=== PATIENT | female | born 1945 | race Caucasian/White ===

== ENCOUNTER 2016-12-27 04:58 | Inpatient (IN) | payer MEDICARE ==
[~2016-12-27] VITALS: Ht 165.1 cm; Wt 89.5 kg
--- NOTE | 2016-12-27 05:50 | REPUSA ---
CLINICAL HISTORY: Trauma. TECHNIQUE: Multiple axial CT images were obtained through the brain without IV contrast material. COMMENTS: There is normal configuration of sella turcica. There are no intra or extra-axial collections. There is no mass effect or midline shift. There is no evidence of hematoma formation. No hydrocephalus is p resent. The ventricles are symmetrical. No abnormal calcifications are present. There is diffuse age-appropriate cerebellar and cerebral atrophy with proportionally dilated ventricl es and cortical sulci. There are bilateral periventricular and subcortical white matter hypolucencies compatible with mild c hronic microvascular disease. Otherwise, no significant focal abnormalities are seen either in the posterior fossa or supratentoria l compartment. IMPRESSION: 1. Age-appropriate cerebellar and cerebral atrophy. 2. Mild chronic microvascular disease. 3. No evidence of acute intracranial pathology. Thank you for your kind referral of this patient.
[2016-12-27 05:53] LABS: BASO % 1.1 % (0.0-1.0); EOS # 0.3 10^3/uL (0.0-0.50); EOS % 7.1 % (0.0-3.0); LYMPH # 0.8 10^3/uL (1.5-4.5); LYMPH % 22.7 % (24.0-44.0); MEAN CORPUSCULAR HEMOGLOBIN 29.1 pg (27.0-33.0); MEAN CORPUSCULAR HGB CONC 33.6 g/dl (32.0-36.5); MEAN CORPUSCULAR VOLUME 86.6 fl (80.0-96.0); MONO # 0.3 10^3/uL (0.0-0.8); MONO % 8.2 % (0.0-5.0); NEUTROPHILS # 2.2 10^3/uL (1.8-7.7); NEUTROPHILS % 60.9 % (36.0-66.0); RED CELL DISTRIBUTION WIDTH 14.2 % (11.5-14.5); WHITE BLOOD COUNT 3.5 10^3/uL (4.0-10.0)
[2016-12-27 06:21] LABS: PLATELET COUNT, AUTOMATED 98 10^3/uL (150-450)
[2016-12-27 06:22] LABS: IMMATURE PLATELET FRACTION % 2.6 % (0.0-9.6)
[2016-12-27 06:23] LABS: ALBUMIN 2.7 GM/DL (3.2-5.2); ALBUMIN/GLOBULIN RATIO 0.69 (1.00-1.93); BILIRUBIN,DIRECT 0.1 MG/DL (0.0-0.2); BILIRUBIN,TOTAL 0.5 MG/DL (0.2-1.0); CALCIUM LEVEL 8.2 MG/DL (8.8-10.2); CREATININE FOR GFR 1.29 MG/DL (0.55-1.02); GLOMERULAR FILTRATION RATE 43.2 (>39); POTASSIUM SERUM 3.4 MEQ/L (3.5-5.1); TOTAL PROTEIN 6.6 GM/DL (6.4-8.2)
[2016-12-27] MEDS ORDERED: NS 1,000 ML IV SCH (07:06)
--- NOTE | 2016-12-27 07:40 | REP ---
Portable chest, 05:45 a.m., single AP view the patient semi upright: There are no comparisons. There are sternotomy wires and cardiomegaly. Lung kaur are clear. The amari, mediastinum, and bony thorax are unremarkable. Impression: Cardiomegaly. No acute cardiopulmonary findings. Signed by Kentrell Santos MD 12/27/2016 07:32 A
--- NOTE | 2016-12-27 07:41 | REP ---
Left shoulder single AP view: There are no comparisons. There is an old healed fracture of the humeral shaft. There is no glenohumeral dislocation. No acute fracture. The acromioclavicular joint is normal. There is diffuse demineralization. There are no calcifications or foreign bodies. Impression: Old healed humeral shaft fracture. Demineralization. No acute fracture or dislocation. Signed by Kentrell Santos MD 12/27/2016 07:33 A
--- NOTE | 2016-12-27 07:43 | REP ---
Lumbar spine two views AP and lateral projections: There are no comparisons. Vertebral body heights and alignment are normal. There is degenerative disc disease at every lumbar level. There is scoliosis convex left in the mid to upper lumbar spine. There is no spondylolisthesis. There is demineralization. Impression: No compression deformity or listhesis. Demineralization and multilevel degenerative disc disease. Signed by Kentrell Santos MD 12/27/2016 07:35 A
[2016-12-27] MEDS ORDERED: PATIENT COMMENT (08:07)
[2016-12-27] MEDS ORDERED: hydrALAZINE INJ 20 MG/ML VIAL IV STA ×2 (08:19→09:56)
[2016-12-27] MEDS ORDERED: ENOXAPARIN 30 MG/0.3 ML SYR (J1650) SC SCH (09:00)
[2016-12-27] MEDS ORDERED: NICOTINE 7 MG/24 HR TRANSDERMAL TD SCH (09:00)
--- NOTE | 2016-12-27 09:22 | ECGEPIP ---
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
[2016-12-27] MEDS ORDERED: NITROGLYCERIN 2% OINT 1 GM *U/D* PKT TOP ONE ×2 (11:30→22:00)
[2016-12-27 12:00] VITALS: BP 194/92
[2016-12-27 13:20] VITALS: BP 188/86
[2016-12-27] MEDS: hydrALAZINE INJ 20 MG/ML VIAL IV SCH (15:35)
[2016-12-27 16:05] VITALS: BP 200/92
[2016-12-27] MEDS ORDERED: cloNIDine 0.1 MG TAB PO ONE (16:15)
[2016-12-27 20:00] VITALS: BP 210/70
[2016-12-27 20:05] VITALS: BP 218/68
--- NOTE | 2016-12-27 20:45 | ECGEPIP ---
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
[2016-12-27] MEDS: ACETAMINOPHEN TAB 650MG DOSE (2X325MG) PO PRN (21:07)
[2016-12-27] MEDS: cloNIDine 0.1 MG TAB PO SCH (21:07)
--- NOTE | 2016-12-27 21:46 | HPEPDOC ---
[facility] Medical History & Physical Date of Admission Dec 27, 2016 Primary Care Physician: TYRA BOOKER MD [facility] Attending Physician: LEOPOLDO ANDERSON DO History and Physical CHIEF COMPLAINT: [altered mentation] HISTORY OF PRESENT ILLNESS: [71 yo female brought in by EMS after son called local police for her having episodes of hallucinations and confusion. No prior history of similar episodes. Very limited history given by patient due to mildly confused by pleasant to talk to. No appearant history of head trauma although her son relates that he believes shes fallen at least once in the past few days. Again limited history from patient and son as well. Will try to get records from her Primary Care Provider.] PAST MEDICAL HISTORY: Unknown PAST SURGICAL HISTORY: Unknown SOCIAL HISTORY: quit smoking and drinking alcohol about 10yrs ago. FAMILY HISTORY: noncontributory ALLERGIES: Please see below. REVIEW OF SYSTEMS: Denies h/a, blurred or visual changes, no CP, dyspnea, productive sputum, cough , hemoptysis, MCGEE, Orthopnea, or lower extremity edema. HOME MEDICATIONS: Please see below. PHYSICAL EXAMINATION: VITAL SIGNS: see below with repeated elevated BPs GENERAL APPEARANCE: [NAD, pleasantly confused ]. HEENT: [PERRLA, throat clear, neck supple, no JVD]. CARDIOVASCULAR: [RRR]. LUNGS: [CTA bilaterally]. ABDOMEN: [soft, NT/ND, normoactive no rebound]. MUSCULOSKELETAL: [no gross deformities]. EXTREMITIES: [trace ankle edema]. NEUROLOGICAL: [CN II-XII grossly intact]. PSYCHIATRIC: [negative history]. LABORATORY DATA: See below. 12 lead ECG: SINUS BRADYCARDIA POSSIBLE LEFT ATRIAL ENLARGEMENT LEFT VENTRICULAR HYPERTROPHY AND ST-T CHANGE VS ISCHEMIA INFERIOR MYOCARDIAL INFARCTION, OF INDETERMINATE AGE, CLINICAL CORRELATION PROLONGED QTC ANTEROSEPTAL MYOCARDIAL INFARCTION, OF INDETERMINATE AGE, CLINICAL CORRELATION NO PRIOR FOR COMPARISON IMAGING: [ NON CONTRAST HEAD CT: 1. Age-appropriate cerebellar and cerebral atrophy. 2. Mild chronic microvascular disease. 3. No evidence of acute intracranial pathology. CXR: Cardiomegaly. No acute cardiopulmonary findings. LEFT SHOULDER XRAY: Old healed humeral shaft fracture. Demineralization. No acute fracture or dislocation. XRAY L/S SPINE: No compression deformity or listhesis. Demineralization and multilevel degenerative disc disease.] MICROBIOLOGY: Please see below. IMPRESSION: 71 yo female with altered mentation and hallucinations brought to ED by EMS after son was concerned about this change. Negative Head CT and preliminary work up unremarkable. She will need U/A, possible UC and better control of her BP. While in the ED she was given multiple doses with little improvement. Will need admitted to PCU for close follow up and further managment. PROBLEM LIST: 1. METABOLIC ENCEPHALOPATHY 2. HYPERTENSIVE URGENCY/EMERGENCY 3. ELEVATED TSH with no baseline. PLAN: Admit to PCU on tele, cycle cardiac markers and modify BP control started with Hydralazine, Clonidine and topical nitroglycerine. Avoided Beta-jonny or Calcium channel jonny due to her bradycardia. Will attempt to lower BP for target SBP <180 in the next 24 hrs. She demonstrates no electrolyte abnormality but may need to consider broader differential for her difficult to treat HTN. Repeat thyroid profile, add renal u/s and may need further assistance from nephrology or hypertensive specialist should the need arise. Will request records and current medication list from Dr. Booker's office. DVT Prophylaxis: Lovenox Prognosis: guarded ADVANCE DIRECTIVES: PATIENT'S SON INFORMS ME SHE IS DNR/DNI and will try to bring MOLST in tomorrow. Disposition: currently unclear until BP better controlled and definitive diagnosis is formalized. Vital Signs Vital Signs Date Time Temp Pulse Resp B/P (MAP) Pulse Ox O2 Delivery O2 Flow Rate FiO2 12/27/16 21:07 220/62 12/27/16 20:00 96.8 65 20 96 Room Air Laboratory Data Labs 24H Laboratory Tests 2 12/27/16 05:10: Bedside Glucose (Misc Panel) 137H 12/27/16 05:40: Immature Granulocyte % (Auto) 0.0, White Blood Count 3.5L, Red Blood Count 4.64 , Hemoglobin 13.5, Hematocrit 40.2, Mean Corpuscular Volume 86.6, Mean Corpuscular Hemoglobin 29.1, Mean Corpuscular Hemoglobin Concent 33.6, Red Cell Distribution Width 14.2, Platelet Count 98L, Neutrophils (%) (Auto) 60.9, Lymphocytes (%) (Auto) 22.7L, Monocytes (%) (Auto) 8.2H, Eosinophils (%) (Auto) 7.1H, Basophils (%) (Auto) 1.1H, Neutrophils # (Auto) 2.2, Lymphocytes # (Auto) 0.8L, Monocytes # (Auto) 0.3, Eosinophils # (Auto) 0.3, Basophils # (Auto) 0.0, Immature Granulocyte # (Auto) 0.0, Nucleated Red Blood Cells % (auto) 0.0, Immature Platelet Fraction 2.6, Anion Gap 8, Glomerular Filtration Rate 43.2, Lactic Acid Level 0.9, Calcium Level 8.2L, Aspartate Amino Transf (AST/SGOT) 37 , Alanine Aminotransferase (ALT/SGPT) 20, Alkaline Phosphatase 113, Total Bilirubin 0.5, Direct Bilirubin 0.1, Ammonia 14, Total Creatine Kinase 190, Creatine Kinase MB 2.0, Creatine Kinase MB Relative Index 1.05, Troponin I 0.06 , Total Protein 6.6, Albumin 2.7L, Albumin/Globulin Ratio 0.69L, Thyroid Stimulating Hormone (TSH) 6.240H 12/27/16 09:03: Urine Appearance HAZY, Urine Color YELLOW, Urine pH 5.0, Urine Specific [place] 1.014, Urine Protein 3+H, Urine Glucose (UA) 1+H, Urine Ketones NEGATIVE, Urine Urobilinogen 0.2, Urine Bilirubin NEGATIVE, Urine Leukocyte Esterase NEGATIVE, Urine Blood 1+H, Urine Nitrite NEGATIVE, Urine WBC (Auto) 11H, Urine RBC (Auto) 3, Urine Hyaline Casts (Auto) 0, Urine Bacteria (Auto) 3+H, Urine Squamous Epithelial Cells 0, Urine Sperm (Auto) 12/27/16 13:45: Total Creatine Kinase 134, Creatine Kinase MB 1.6, Creatine Kinase MB Relative Index 1.19, Troponin I 0.05 CBC/BMP Laboratory Tests 12/27/16 05:40 Red Blood Count 4.64, Mean Corpuscular Volume 86.6, Mean Corpuscular Hemoglobin 29.1, Mean Corpuscular Hemoglobin Concent 33.6, Red Cell Distribution Width 14.2 , Neutrophils (%) (Auto) 60.9, Lymphocytes (%) (Auto) 22.7 L, Monocytes (%) ( Auto) 8.2 H, Eosinophils (%) (Auto) 7.1 H, Basophils (%) (Auto) 1.1 H, Neutrophils # (Auto) 2.2, Lymphocytes # (Auto) 0.8 L, Monocytes # (Auto) 0.3, Eosinophils # (Auto) 0.3, Basophils # (Auto) 0.0 Home Medications Miscellaneous Medications [Patient Comment ] PT STATES SHE STOPPED TAKING HER MEDS Allergies Coded Allergies: No Known Allergies (Unverified , 12/27/16) LEOPOLDO ANDERSON DO Dec 27, 2016 21:46
[2016-12-27 22:32] VITALS: BP 180/60
[2016-12-28] VITALS (7 sets, daily range): BP systolic 139–180; BP diastolic 60–76
[2016-12-28] MEDS: hydrALAZINE INJ 20 MG/ML VIAL IV SCH ×4 (00:07→23:45)
[2016-12-28] MEDS ORDERED: GLUCOSE 4 GM CHEW TABLET PO PRN (01:00)
[2016-12-28] MEDS ORDERED: DEXTROSE 50% 50 ML SYRINGE IV PRN (01:00)
[2016-12-28] MEDS ORDERED: GLUCAGON FOR INJ 1 MG VIAL (J1610) SC PRN (01:00)
[2016-12-28] MEDS ORDERED: ASPIRIN 81 MG CHEW TABLET PO ONE (01:30)
[2016-12-28 06:11] LABS: MEAN CORPUSCULAR HEMOGLOBIN 29.9 pg (27.0-33.0); MEAN CORPUSCULAR HGB CONC 34.1 g/dl (32.0-36.5); MEAN CORPUSCULAR VOLUME 87.8 fl (80.0-96.0); RED CELL DISTRIBUTION WIDTH 14.6 % (11.5-14.5); WHITE BLOOD COUNT 3.9 10^3/uL (4.0-10.0)
[2016-12-28 06:12] LABS: PLATELET COUNT, AUTOMATED 83 10^3/uL (150-450)
[2016-12-28 06:13] LABS: IMMATURE PLATELET FRACTION % 4.1 % (0.0-9.6)
[2016-12-28 06:40] LABS: CREATININE FOR GFR 1.43 MG/DL (0.55-1.02); GLOMERULAR FILTRATION RATE 38.4 (>39); POTASSIUM SERUM 3.5 MEQ/L (3.5-5.1)
[2016-12-28] MEDS: ATORVASTATIN 10 MG TAB PO SCH (08:52)
[2016-12-28] MEDS: cloNIDine 0.1 MG TAB PO SCH ×3 (08:53→20:22)
[2016-12-28] MEDS: HumaLOG INSULIN (NovoLOG) PER UNIT SC SCH ×4 (09:09→21:24)
[2016-12-28] MEDS: ACETAMINOPHEN TAB 650MG DOSE (2X325MG) PO PRN (09:27)
--- NOTE | 2016-12-28 15:04 | IPNPDOC ---
Date Seen The patient was seen on 12/28/16. Progress Note SUBJECTIVE: Patient is a 71 yo female seen this morning at bedside. Resting comfortably. Had issues with elevated BP through the night. Currently denies: CP , Productive cough, SOB/MCGEE, n/v/d, f/c/r, visual changes. Recognized she had some hallucinations through the night but better this morning. OBJECTIVE PHYSICAL EXAMINATION: VITAL SIGNS: Please see below. GENERAL: [NAD, A&OX3 PLEASANT] HEENT: [PERRLA, Throat clear, neck supple, no JVD] CARDIOVASCULAR: [RRR]. RESPIRATORY: [CTA Bilaterally]. ABDOMINAL: [soft, NT/ND, normoactive bowel sounds] EXTREMITIES: [trace edema, no calf tenderness] NEUROLOGICAL: [CN'S II-XII Grossly intact, no focal deficits] PSYCHOLOGICAL: [negative] LABORATORY DATA: Please see below. Echocardiogram: [pending]. Renal Doppler: pending DVT prophylaxis ordered?: [yes] ASSESSMENT AND PLAN: This is a 71 yo female with hypertensive urgency/emergency and chest pain last night. She has been difficult to get her BP under better control and had a bump in her troponin. PROBLEMS: 1. METABOLIC ENCEPHALOPATHY: some improvement from yesterday but had a hallucination through the night. Likely secondary to her elevated BP. 2. HYPERTENSIVE URGENCY/EMERGENCY: she had an episode of CP through night, started on ASA and Statin, Troponin bump noted. Echo pending and consult placed for cardiology assistance. 3. ELEVATED TSH with no baseline: thyroid profile ok. 4. CEE: mild increase in creatinine, avoid nephrotoxic drugs and hopefully achieve better control of her BP. Renal Doppler pending. Disposition: continue on telemetry, obtain records from Dr. Booker's office to hopefully review her medication list. Appreciate assistance from Cardiology. VS, I&O, 24H, Fishbone Vital Signs/I&O Vital Signs Date Time Temp Pulse Resp B/P (MAP) Pulse Ox O2 Delivery O2 Flow Rate FiO2 12/28/16 11:14 97.6 67 16 160/60 (93) 97 Room Air I&O- Last 24 Hours up to 6 AM 12/29/16 06:00 Intake Total 600 ml Output Total 0 ml Balance 600 ml Laboratory Data 24H LABS Laboratory Tests 2 12/27/16 22:33: Total Creatine Kinase 92, Creatine Kinase MB 1.5, Creatine Kinase MB Relative Index 1.63, Troponin I 0.24#H 12/28/16 00:50: Bedside Glucose (Misc Panel) 133H 12/28/16 05:44: Total Creatine Kinase 73, Creatine Kinase MB 1.4, Creatine Kinase MB Relative Index 1.91, Troponin I 0.21H, Anion Gap 9, Glomerular Filtration Rate 38.4L, Calcium Level 8.0L, Triglycerides Level 255H, LDL Cholesterol 114.0H, Total Cholesterol 198, Non-HDL Cholesterol (LDL + VLDL) 165, Total HDL Cholesterol 33L , Cholesterol/HDL Ratio 6.000H, Thyroid Stimulating Hormone (TSH) 4.180H, Free Thyroxine Index 3.5, Thyroxine (T4) 11.0, Triiodothyronine (T3) Uptake 32 12/28/16 05:45: Nucleated Red Blood Cells % (auto) 0.0, Immature Platelet Fraction 4.1 CBC/BMP Laboratory Tests 12/28/16 05:44 12/28/16 05:45 Red Blood Count 4.11, Mean Corpuscular Volume 87.8, Mean Corpuscular Hemoglobin 29.9, Mean Corpuscular Hemoglobin Concent 34.1, Red Cell Distribution Width 14.6 H Microbiology Microbiology 12/28/16 Urine Culture, Received Pending LEOPOLDO ANDERSON DO Dec 28, 2016 15:04
[2016-12-28] MEDS ORDERED: amLODIPine 5 MG TAB PO ONE (20:30)
[2016-12-29] VITALS (8 sets, daily range): BP systolic 147–180; BP diastolic 68–80
[2016-12-29] MEDS ORDERED: ASPIRIN 81 MG CHEW TABLET PO ONE (00:45)
[2016-12-29 06:13] LABS: MEAN CORPUSCULAR HEMOGLOBIN 29.3 pg (27.0-33.0); MEAN CORPUSCULAR HGB CONC 33.5 g/dl (32.0-36.5); MEAN CORPUSCULAR VOLUME 87.5 fl (80.0-96.0); RED CELL DISTRIBUTION WIDTH 14.6 % (11.5-14.5); WHITE BLOOD COUNT 4.6 10^3/uL (4.0-10.0)
[2016-12-29 06:16] LABS: IMMATURE PLATELET FRACTION % 4.7 % (0.0-9.6); PLATELET COUNT, AUTOMATED 88 10^3/uL (150-450)
[2016-12-29 06:26] LABS: CALCIUM LEVEL 8.1 MG/DL (8.8-10.2); CREATININE FOR GFR 1.27 MG/DL (0.55-1.02); POTASSIUM SERUM 3.5 MEQ/L (3.5-5.1)
[2016-12-29] MEDS: HumaLOG INSULIN (NovoLOG) PER UNIT SC SCH ×4 (07:30→20:51)
--- NOTE | 2016-12-29 08:54 | IPN ---
DATE: 12/29/2016 Mrs. Mora apparently did not have a good night. She complains that she had very believable hallucinations. She says that the image was so clear that it was difficult to recognize that it was not real, but nevertheless this morning she feels good. She denies any chest pain or shortness of breath overnight, but admits that she had an episode of chest discomfort yesterday that lasted approximately an hour. She says that she has been having on and off similar episodes. Vital Signs: Blood pressure 160/70. Heart rate is in 50s to 70s, sinus rhythm. She is afebrile. Saturation 93% on room air. Weight 95.8 kg. She is alert, oriented and appropriate. I do not appreciate any jugular venous pulse (JVP) elevation. She has a very dry mouth and it is also one of her complaints. Faint carotid bruit heard bilaterally. Heart exam reveals regular rhythm. There is an approximately 2/6 systolic ejection murmur best heard at the base, probably representing some degree of aortic stenosis. Lungs are clear to auscultation with good air movement and only occasional end-inspiratory crackles over bases. Abdomen is soft, nontender. There is no peripheral edema. Peripheral pulses are palpable. Neurologically, she appears intact this morning. Basic metabolic panel: Potassium 3.5, BUN 25, creatinine 1.3 and glucose 133. CBC revealed WBC count 12, hematocrit 35, platelet count 88,000. ASSESSMENT AND PLAN: Mrs. Mora is a 71-year-old female who reports that she has a history of myocardial infarction and apparently had cardiac catheterization some time ago. Will try to get some records from Dr. Booker. She admits that she stopped taking all her medications approximately 10 months ago because she felt tired and the medications did not seem to help her. She supposedly was taking 18 pills a day and she believes that at least several of them were medications for blood pressure control. Currently, she was admitted with essentially hypertensive urgency and she has a small troponin elevation. So far, she has been getting clonidine and hydralazine IV and also a very low dose of calcium channel jonny. Certainly these are medications that can be used for a short period of time, but they are not a good long-term solution. I am going to put her on combination of ARNULFO inhibitor and diuretic and calcium channel jonny and hopefully the hydralazine and clonidine will be able to be discontinued within next day or maximum two. I am also going to give her Plavix even when her platelet count is relatively low. I am not exactly sure what is the cause of it, but it seems to be stable. She has fairly profound ischemic abnormalities on EKG and it is likely that she has a history of old myocardial infarction. I think it is likely that she will need cardiac catheterization again, but she seems to be rather distraught with her overall situation and I did not approach this question immediately today. Tentatively, this something that can be pursued tomorrow or the day after tomorrow. An echocardiogram at this point is pending and I ordered another electrocardiogram as well. Dr. Rowe will be back to tomorrow to resume her cardiac care. Please contact me if there are problems in the interim. MUSTAPHA
[2016-12-29] MEDS ORDERED: INFLUENZA VIRUS VACCINE HIGH DOSE 0.5 ML SYRINGE (90662) IM ONE (09:00)
[2016-12-29] MEDS ORDERED: PREVNAR 13 VACCINE SYRINGE (CPT CODE:90670) IM ONE (09:00)
[2016-12-29] MEDS: NS 1,000 ML IV SCH (09:22)
[2016-12-29] MEDS: amLODIPine 5 MG TAB PO SCH (09:23)
[2016-12-29] MEDS: LISINOPRIL 10 MG TAB PO SCH ×2 (09:24→21:04)
[2016-12-29] MEDS: cloNIDine 0.1 MG TAB PO SCH ×3 (09:24→21:04)
[2016-12-29] MEDS: CLOPIDOGREL 75 MG TAB PO SCH (09:25)
[2016-12-29] MEDS: CHLORTHALIDONE 25 MG TAB PO SCH (09:46)
[2016-12-29] MEDS: ATORVASTATIN 10 MG TAB PO SCH (09:46)
--- NOTE | 2016-12-29 12:05 | REP ---
Bilateral carotid artery duplex ultrasound: Peak flow velocity analysis: RIGHT LEFT ICA Peak flow velocity cm/sec 129 335 ICA Diastolic flow velocity cm/sec 23 64 ICA/CCA Ratio 2.4 3.1 ECA Peak flow velocity cm/sec 40 253 CCA Peak flow velocity cm/sec 55 108 Comparison is 05/07/2014. There is heavy atheromatous plaque bilaterally in the common carotid arteries, bulbs, internal carotid arteries and external carotid arteries bilaterally. The peak flow velocities in the right internal carotid artery and right external carotid artery are significantly elevated indicating greater than 70% stenosis but less than neural occlusion. The peak flow velocity in the right internal carotid artery indicates there is 50%-69% stenosis. The peak flow velocities in the right external carotid artery and in the common carotid artery are normal. There is antegrade flow in the vertebral arteries bilaterally Signed by Kentrell Santos MD 12/29/2016 11:56 A
--- NOTE | 2016-12-29 14:07 | REP ---
Renal vascular ultrasound: Right Kidney: Extraparenchymal renal artery. Peak renal artery flow velocity 112 cm per seconds Peak aortic velocity: ? Unobtainable cm/sec Renal/aortic ratio: Cannot calculate Intraparenchymal renal arteries. Resistive index: upper pole 0.8 mid pole 0.9 lower pole 0.5 Acceleration time: upper pole 0.04 mid pole 0.03 lower pole 0.03 Left kidney: Extraparenchymal renal artery: Peak renal artery flow velocity: Unobtainable cm/sec. Peak aortic velocity: Unobtainable cm/sec Renal/aortic ratio: Cannot calculate Intraparenchymal renal arteries: Resistive index: Upper pole 0.5 mid pole at 0.6 lower pole 0.6 Acceleration time: Upper pole 0.05 mid pole 0.05 lower pole 0.04 Suboptimal study. The examination is technically difficult as a patient is unable to breath hold and avoid excess movement with respiration during the examination process. Additionally bowel gas and patient body habitus conspire to degrade images. Unable to make a determination concerning renal artery stenosis on the basis of ultrasound. Consider MRA. Renal ultrasound: The right kidney measures tall 0.5 x 5.9 x 4.7 cm. Left kidney measures 11.3 x 541 x 3.8 cm. Renal cortical echogenicity is normal bilaterally. There is no hydronephrosis on the right on the left. There are no renal calculi, masses or cysts. There is splenomegaly with the spleen measuring 16.7 cm craniocaudad length. Impression: There is greater than 1 cm difference in renal length. This can sometimes be seen in renal artery stenosis in the smaller kidney. Consider MRA for further evaluation. 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 Signed by Kentrell Santos MD 12/29/2016 01:59 P
--- NOTE | 2016-12-29 16:31 | IPNPDOC ---
Date Seen The patient was seen on 12/29/16. Progress Note SUBJECTIVE: Patient is a 71 yo female seen at bedside. BP seems little better today. Says she feels a little better. Denies: CP, Cough, pnd, orthopnea, f/c/r , n/v/d. Seen by Dr. Rowe last pm. OBJECTIVE PHYSICAL EXAMINATION: VITAL SIGNS: Please see below. GENERAL: NAD, A&O X 3 HEENT: PERRLA, throat clear, neck supple, no JVD CARDIOVASCULAR: RRR. RESPIRATORY: CTA B. ABDOMINAL: soft, NT/ND, normoactive bowel sounds EXTREMITIES: no edema, no calf tenderness NEUROLOGICAL: CN'S II-XII Grossly intact, no deficits PSYCHOLOGICAL: negative LABORATORY DATA: Please see below. MICROBIOLOGY: Please see below. IMAGING: Renal ultrasound:There is greater than 1 cm difference in renal length (L>R). This can sometimes be seen in renal artery stenosis in the smaller kidney. Consider MRA for further evaluation. Carotid U/S: There is heavy atheromatous plaque bilaterally in the common carotid arteries, bulbs, internal carotid arteries and external carotid arteries bilaterally. The peak flow velocities in the right internal carotid artery and right external carotid artery are significantly elevated indicating greater than 70% stenosis but less than neural occlusion. The peak flow velocity in the right internal carotid artery indicates there is 50%-69% stenosis. The peak flow velocities in the right external carotid artery and in the common carotid artery are normal. There is antegrade flow in the vertebral arteries bilaterally Echocardiogram: 1. Severe left ventricular systolic dysfunction with diffuse hypokinesis and a mildly enlarged left ventricle. A restrictive mitral inflow pattern was noted , can be a poor cardiac prognostic marker. 2. Aortic valve sclerosis without stenosis or aortic regurgitation. 3. Mitral annulus calcification with mildly enlarged left atrium and moderate mitral regurgitation. 4. Moderate tricuspid regurgitation with moderate pulmonary hypertension. The right atrium also appeared to be mildly enlarged 5. There are findings consistent with elevated central venous pressure.. DVT prophylaxis ordered?: yes ASSESSMENT AND PLAN: This is a 71 yo female with difficult to control hypertension. Her Renal doppler suggested . PROBLEMS: 1. METABOLIC ENCEPHALOPATHY: Resolved. Likely was secondary to her elevated BP. 2. HYPERTENSIVE URGENCY/EMERGENCY: Better on current meds. Renal Doppler suggestive of LUCITA will check MRA to confirm. Appreciate assistance from Cardiology regarding ACEi/diruetic and low dose CCB. 3. ELEVATED TSH with no baseline: thyroid profile was ok. 4. CEE: creatinine improving will continue to follow. Disposition: Continue on telemetry. Check Renal MRA and Appreciate assistance from Cardiology. Cardiology discussed with patient today the possibility of a cardiac catheterization in next few days. VS, I&O, 24H, Fishbone Vital Signs/I&O Vital Signs Date Time Temp Pulse Resp B/P (MAP) Pulse Ox O2 Delivery O2 Flow Rate FiO2 12/29/16 16:00 97.4 56 16 156/71 (99) 96 Room Air I&O- Last 24 Hours up to 6 AM 12/30/16 06:00 Output Total 200 ml Balance -200 ml Laboratory Data 24H LABS Laboratory Tests 2 12/28/16 21:23: Bedside Glucose (Misc Panel) 148H 12/29/16 01:17: Total Creatine Kinase 49, Creatine Kinase MB 1.4, Creatine Kinase MB Relative Index 2.85, Troponin I 0.19H 12/29/16 05:50: Nucleated Red Blood Cells % (auto) 0.0, Immature Platelet Fraction 4.7, Anion Gap 8, Glomerular Filtration Rate 44.0, Blood Urea Nitrogen 25H, Creatinine 1.27H, Sodium Level 140, Potassium Level 3.5, Chloride Level 107, Carbon Dioxide Level 25, Calcium Level 8.1L 12/29/16 09:37: Total Creatine Kinase 45, Creatine Kinase MB 1.0, Creatine Kinase MB Relative Index 2.22, Troponin I 0.18H CBC/BMP Laboratory Tests 12/29/16 05:50 Red Blood Count 4.09, Mean Corpuscular Volume 87.5, Mean Corpuscular Hemoglobin 29.3, Mean Corpuscular Hemoglobin Concent 33.5, Red Cell Distribution Width 14.6 H, Calcium Level 8.1 L Microbiology Microbiology 12/28/16 Urine Culture, Received Pending LEOPOLDO ANDERSON DO Dec 29, 2016 16:31
--- NOTE | 2016-12-29 19:49 | ECGEPIP ---
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
--- NOTE | 2016-12-29 19:53 | ECHO ---
DATE OF PROCEDURE: 12/29/2016 REFERRING PHYSICIAN: Dr. Doss and Dr. Rowe INDICATION: Acute coronary syndrome. The patient measures 165 cm and weighs 94 kg. DIMENSIONS: IVS: 1.5 LV: 4.5 LVPW: 1.5 LA: 4.5 Aorta: 2.4 FINDINGS: The study is of good technical quality. Left ventricle is of normal size and hyperdynamic contractility with estimated left ventricular ejection fraction (LVEF) 70-75%. Moderate left ventricular hypertrophy (LVH) is noted. No segmental wall motion abnormalities are seen. Right ventricle is normal size and systolic function. Both atria are at least mildly enlarged. Left atrium is probably moderately enlarged. Aortic valve was poorly visualized, and I cannot comment on its structure. Mitral valve exhibits degenerative abnormalities with very prominent mitral annular calcifications, but at least anterior mitral leaflet appears to have normal mobility. Tricuspid valve appears normal. Pulmonic valve was not well visualized. No pericardial effusion is noted. Inferior vena cava is normal size. Aortic root is normal. Aortic arch and abdominal aorta were not well seen. Doppler interrogation of aortic valve reveals trivial insufficiency and probably mild stenosis. Peak gradient across the valve is 43 and mean gradient 25 mmHg. There is mild mitral insufficiency and trace tricuspid insufficiency. Calculated pulmonary artery pressure is in the 30s, corresponding to mild pulmonary hypertension. Mitral inflow pattern and tissue Doppler imaging of mitral annulus revealed grade 2 diastolic dysfunction (mitral inflow E velocity 122, A velocity 101, E prime septal 3.5 and E prime lateral 5.9 cm/s). CONCLUSIONS: 1. The study is of good technical quality. 2. Normal left ventricular (LV) size with hyperdynamic LV systolic function, moderate left ventricular hypertrophy and grade 2 diastolic dysfunction. 3. Mild or possibly moderate aortic stenosis. 4. Normal central venous pressure and likely at least mild pulmonary hypertension. COMMENTS: Subacute bacterial endocarditis (SBE) prophylaxis is not recommended. Study is consistent with hypertensive heart disease.
--- NOTE | 2016-12-29 20:05 | ECGEPIP ---
Stationary ECG Study 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
--- NOTE | 2016-12-29 20:10 | ECGEPIP ---
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
[2016-12-30] VITALS (7 sets, daily range): BP systolic 110–174; BP diastolic 52–80
[2016-12-30] MEDS: NS 1,000 ML IV SCH ×2 (01:45→08:29)
--- NOTE | 2016-12-30 05:05 | CR ---
DATE OF CONSULTATION: 12/28/2016 REFERRING PROVIDER: Dr. Bong Doss REASON FOR THE CONSULTATION: Abnormal serum troponin. HISTORY OF PRESENT ILLNESS: 71-year-old woman with a history of hypertension, hyperlipidemia, diabetes mellitus, and abnormal EKG consistent with prior infarct, as well as anxiety and depression, has not been taking any of her medications since the beginning of the year because she stated she feels depressed. She has been having episode of headaches and dizziness. She also has been falling on and off with brief episode of loss of consciousness. She was brought to the emergency room because of some deterioration in her mental status , and she was admitted for further management and monitoring. Upon arrival at the emergency room (ER), blood pressure was reported to be 199/89 with a pulse of 57 , respirations 18, and oxygen saturation was 97% on room air with a temperature of 98.5 degrees Fahrenheit. She was found to have a bump up in her serum troponin, and cardiology consult was called. When I saw Mrs. Mariposa Mora this evening, she was in supine in bed in no acute distress at rest. She denies any chest pain or palpitations or pedal edema or orthopnea or paroxysmal nocturnal dyspnea (PND). As mentioned above, she has not been taking any medications, but she stated that she will now take her medications because she has a new great granddaughter coming soon. She denies any bleeding. She has no focal manifestation. She denies any dysuria, polyuria, or hematuria. She denies any nausea, vomiting, diarrhea, melena, or hematemesis. PAST MEDICAL HISTORY: Is positive as mentioned above for diabetes mellitus, hypertension, hyperlipidemia, anxiety/depression, and she stated that she was told in the past she had a heart attack based on her electrocardiogram. She has never been in any hospitals in the past for any cardiac problems. FAMILY HISTORY: Noncontributory. SOCIAL HISTORY: Patient lives alone in the [facility]. She is a . She has a daughter who lives in the [facility], very supportive. She is a former smoker and had quit about 10 years ago. She stated that at the time she was smoking, she usually was having about 50 cigarettes a day and she had done that for about 50 years. ALLERGIES: She has no known drug allergies. ADVANCE DIRECTIVES: Patient has a DO NOT RESUSCITATE order. CURRENT MEDICATIONS: - regular insulin coverage - atorvastatin 80 mg by mouth daily - G50 as well as glucose tablets and Glucagon as directed - clonidine 0.1 mg by mouth three times a day - hydralazine 10 mg by mouth every 8 hours - Tylenol 650 mg every 4 hours as needed for mild pain or fever Prior to that, it seemed that she had received Lovenox, aspirin. PHYSICAL EXAMINATION: Patient is alert and oriented, in no acute distress at rest, and her vital signs when I saw her revealed a blood pressure of 170/78 with a pulse of 68, respirations 18, and her maximum temperature was 98.2 degrees Fahrenheit with an oxygen saturation of 96% on room air. EXAMINATION OF THE HEAD, EARS, EYES, NOSE, AND THROAT: Atraumatic. NECK: Is supple with bilateral carotid bruits. LUNGS: Were clear bilaterally on auscultation without any wheezing or crackles. HEART: Examination revealed normal S1 and S2 without gallops. The point of maximal impulse (PMI) is not displaced. There is no rub. There is a systolic murmur grade 3/6 over the precordium, louder at the base of the heart/aortic valve area with some radiation to the neck. ABDOMEN: Is soft and nontender, and bowel sounds are active. EXTREMITIES: With no pedal edema. Peripheral pulses were +2 and equal, retro-tibialis. NEUROLOGICAL: Examination is negative for focal deficit. LABS: CBC done today revealed a WBC of 3.9, hemoglobin 12.3, hematocrit 36.1, and platelets 83,000. On admission, the CBC revealed a WBC of 3.5, hemoglobin 13.5, hematocrit 40.2, and platelets 98,000. BMP done today revealed a sodium of 141, potassium 3.5, chloride 108, CO2 of 24, BUN 28, creatinine 1.43, GFR 38.4, fasting glucose 135, and calcium 8.0. Serum troponins were 0.05, 0.24, and 0.21, respectively #2 up to #4. Serum ammonia yesterday, 12/27/2016, was 14. Serum lactic acid was 0.9. Lipid profile done today revealed a total cholesterol of 198 with triglycerides of 255, LDL 114, and total cholesterol/HDL ratio of 6.0. HDL was 33. Thyroid function tests revealed a TSH of 4.18 with a free T4 of 3.5. Liver enzymes on admission revealed a total bilirubin of 0.5, direct bilirubin 0.1, AST 37, ALT 20, alkaline phosphatase 113, total protein 6.6, albumin 2.7. Urinalysis was positive for protein, glucose. Also, +1 blood was noted. Electrocardiogram on 12/27/2016 revealed normal sinus rhythm, bradycardic at 55 beats per minute, left atrial abnormality, possible prior inferior wall infarct, and also possible prior anteroseptal infarct with findings of left ventricular hypertrophy and nonspecific ST-T abnormalities. Electrocardiogram also on 12/27/2016, done about 11 hours later, did not reveal any significant changes, but heart rate was 62 beats per minute. More ST-T abnormality was noted. Head CT on admission revealed age-appropriate cerebellar and cerebral atrophy, mild chronic microvascular disease. Otherwise, no evidence of acute intracranial pathology. Chest x-ray done on admission revealed cardiomegaly; otherwise, no manifestation of heart failure and no pleural effusion. Shoulder x-ray revealed old, healed humeral shaft fracture noted on the left shoulder. Lumbar spine x-ray revealed no compression deformity or listhesis. There is degenerative disc disease. IMPRESSION: 1. Probably acute coronary syndrome. 2. Abnormal EKG consistent with structural heart disease and probably prior myocardial infarct. 3. Hypertension. 4. Hyperlipidemia. 5. Diabetes mellitus. 6. Former heavy smoker. 7. Valvular heart disease with probably aortic stenosis. 8. Status post hypertensive urgency. 9. Thrombocytopenia. 10. Abnormal thyroid function tests. Mrs. Mariposa Mora seems to be stable and currently asymptomatic without any chest pain, shortness of breath, or orthopnea. Her blood pressure has improved. She was not in any acute distress when I saw her. I will continue the same medications, but she was started on amlodipine and it can be increased as needed in order to control her blood pressure. I will try to taper off the clonidine because of her history of noncompliance. Regarding her serum troponin, she is asymptomatic and I will continue the same medication. She is not on antiplatelet or anticoagulation therapy because of the underlying thrombocytopenia. If her kidney function improves, we will consider adding an angiotensin-converting enzyme (ARNULFO) inhibitor or ARB. She will continue the statin. We will stay away from a beta-jonny at this present time because of relative sinus bradycardia noted on EKG. She is supposed to have an echocardiogram; it will be reviewed, then further recommendation will be given. I also recommend to start her on gentle intravenous (IV) hydration while in the hospital; we may have to send her for a cardiac catheterization for further assessment. It was pleasure to participate in the care of . Mariposa Mora for her underlying cardiac condition. I will continue to monitor along with you while in the hospital. At this present time, she appears to be stable. MUSTAPHA
[2016-12-30 05:54] LABS: MEAN CORPUSCULAR HEMOGLOBIN 29.4 pg (27.0-33.0); MEAN CORPUSCULAR HGB CONC 32.7 g/dl (32.0-36.5); MEAN CORPUSCULAR VOLUME 89.9 fl (80.0-96.0); RED CELL DISTRIBUTION WIDTH 14.8 % (11.5-14.5); WHITE BLOOD COUNT 3.6 10^3/uL (4.0-10.0)
[2016-12-30 05:57] LABS: PLATELET COUNT, AUTOMATED 78 10^3/uL (150-450)
[2016-12-30 06:09] LABS: CALCIUM LEVEL 7.8 MG/DL (8.8-10.2); CREATININE FOR GFR 1.85 MG/DL (0.55-1.02); GLOMERULAR FILTRATION RATE 28.5 (>39); POTASSIUM SERUM 3.7 MEQ/L (3.5-5.1)
[2016-12-30 06:39] LABS: MAGNESIUM LEVEL 1.9 MG/DL (1.8-2.4)
[2016-12-30] MEDS: HumaLOG INSULIN (NovoLOG) PER UNIT SC SCH ×4 (07:30→20:58)
[2016-12-30] MEDS: amLODIPine 5 MG TAB PO SCH (08:27)
[2016-12-30] MEDS: CHLORTHALIDONE 25 MG TAB PO SCH (08:28)
[2016-12-30] MEDS: LISINOPRIL 10 MG TAB PO SCH (08:28)
[2016-12-30] MEDS: cloNIDine 0.1 MG TAB PO SCH ×2 (08:28→21:08)
[2016-12-30] MEDS: ATORVASTATIN 10 MG TAB PO SCH (08:28)
[2016-12-30] MEDS: CLOPIDOGREL 75 MG TAB PO SCH (08:28)
[2016-12-30] MEDS: **hydrALAZINE HCL** 25 MG TAB PO SCH ×3 (10:35→21:07)
--- NOTE | 2016-12-30 15:17 | IPNPDOC ---
Date Seen The patient was seen on 12/30/16. Progress Note Progress Note SUBJECTIVE: Patient is a 71 yo female seen at bedside. BP seems little better today. Says she feels a little better. Did not have any hallucinations last night. I'm concerned with our discussions wether she has good insight to be living alone. Denies: CP, Cough, pnd, orthopnea, f/c/r, n/v/d. Seen by Dr. Rowe last pm. OBJECTIVE PHYSICAL EXAMINATION: VITAL SIGNS: Please see below. GENERAL: NAD, A&O X 3 HEENT: PERRLA, throat clear, neck supple, no JVD CARDIOVASCULAR: RRR. RESPIRATORY: CTA B. ABDOMINAL: soft, NT/ND, normoactive bowel sounds EXTREMITIES: no edema, no calf tenderness NEUROLOGICAL: CN'S II-XII Grossly intact, no deficits PSYCHOLOGICAL: negative LABORATORY DATA: Please see below. MICROBIOLOGY: Please see below. IMAGING: Renal ultrasound:There is greater than 1 cm difference in renal length (L>R). This can sometimes be seen in renal artery stenosis in the smaller kidney. Consider MRA for further evaluation. Carotid U/S: There is heavy atheromatous plaque bilaterally in the common carotid arteries, bulbs, internal carotid arteries and external carotid arteries bilaterally. The peak flow velocities in the right internal carotid artery and right external carotid artery are significantly elevated indicating greater than 70% stenosis but less than neural occlusion. The peak flow velocity in the right internal carotid artery indicates there is 50%-69% stenosis. The peak flow velocities in the right external carotid artery and in the common carotid artery are normal. There is antegrade flow in the vertebral arteries bilaterally Echocardiogram: 1. Severe left ventricular systolic dysfunction with diffuse hypokinesis and a mildly enlarged left ventricle. A restrictive mitral inflow pattern was noted , can be a poor cardiac prognostic marker. 2. Aortic valve sclerosis without stenosis or aortic regurgitation. 3. Mitral annulus calcification with mildly enlarged left atrium and moderate mitral regurgitation. 4. Moderate tricuspid regurgitation with moderate pulmonary hypertension. The right atrium also appeared to be mildly enlarged 5. There are findings consistent with elevated central venous pressure.. MRA of abdomen looking for Renal Artery Stenosis: will try tomorrow due to elevated creatinine/gfr DVT prophylaxis ordered?: yes ASSESSMENT AND PLAN: This is a 71 yo female with difficult to control hypertension. Her Renal doppler suggested . PROBLEMS: 1. METABOLIC ENCEPHALOPATHY: Resolved. Likely was secondary to her elevated BP. None the less I'm concerned about her insights living alone. Consult for PFS. 2. HYPERTENSIVE URGENCY/EMERGENCY: Better on current meds. Renal Doppler suggestive of LUCITA will check MRA to confirm. Appreciate assistance from Cardiology regarding ACEi/diruetic and low dose CCB. In the mean time I've consulted Nephrology as well due to HTN and worsening of creatinine. 3. ELEVATED TSH with no baseline: thyroid profile was ok. 4. CEE: Consult nephrology. Disposition: Continue on telemetry. Check Renal MRA when creatinine and gfr better (hopefully tomorrow). Cardiology has discussed with patient possibility of a cardiac catheterization in next few days, should the need arise. VS, I&O, 24H, Fishbone Vital Signs/I&O Vital Signs Date Time Temp Pulse Resp B/P (MAP) Pulse Ox O2 Delivery O2 Flow Rate FiO2 12/30/16 12:00 97.5 51 18 110/80 (90) 96 Room Air I&O- Last 24 Hours up to 6 AM 12/31/16 06:00 Intake Total 600 ml Output Total 800 ml Balance -200 ml Laboratory Data 24H LABS Laboratory Tests 2 12/29/16 16:57: Bedside Glucose (Misc Panel) 132H 12/29/16 20:50: Bedside Glucose (Misc Panel) 152H 12/30/16 05:26: Nucleated Red Blood Cells % (auto) 0.0, Anion Gap 6L, Glomerular Filtration Rate 28.5L, Blood Urea Nitrogen 30H, Creatinine 1.85H, Sodium Level 139, Potassium Level 3.7, Chloride Level 109H, Carbon Dioxide Level 24, Calcium Level 7.8L, Magnesium Level 1.9 CBC/BMP Laboratory Tests 12/30/16 05:26 Red Blood Count 3.77 L, Mean Corpuscular Volume 89.9, Mean Corpuscular Hemoglobin 29.4, Mean Corpuscular Hemoglobin Concent 32.7, Red Cell Distribution Width 14.8 H, Calcium Level 7.8 L Microbiology Microbiology 12/28/16 Urine Culture - Final, Complete Escherichia Coli LEOPOLDO ANDERSON DO Dec 30, 2016 15:17
[2016-12-30] MEDS: ACETAMINOPHEN TAB 650MG DOSE (2X325MG) PO PRN (15:24)
[2016-12-30] MEDS ORDERED: LevoFLOXacin 500 MG TABLET PO SCH (18:00)
--- NOTE | 2016-12-30 18:07 | ECGEPIP ---
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
--- NOTE | 2016-12-30 18:23 | ECGEPIP ---
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
[2016-12-31] VITALS (8 sets, daily range): BP systolic 138–198; BP diastolic 58–72
[2016-12-31 05:39] LABS: MEAN CORPUSCULAR HEMOGLOBIN 29.7 pg (27.0-33.0); MEAN CORPUSCULAR VOLUME 90.2 fl (80.0-96.0); RED CELL DISTRIBUTION WIDTH 14.8 % (11.5-14.5); WHITE BLOOD COUNT 3.1 10^3/uL (4.0-10.0)
[2016-12-31 05:45] LABS: PLATELET COUNT, AUTOMATED 83 10^3/uL (150-450)
[2016-12-31 05:46] LABS: IMMATURE PLATELET FRACTION % 5.3 % (0.0-9.6)
[2016-12-31 05:52] LABS: CALCIUM LEVEL 7.9 MG/DL (8.8-10.2); CREATININE FOR GFR 1.64 MG/DL (0.55-1.02); GLOMERULAR FILTRATION RATE 32.8 (>39)
[2016-12-31] MEDS: HumaLOG INSULIN (NovoLOG) PER UNIT SC SCH ×4 (07:21→21:00)
[2016-12-31] MEDS: ATORVASTATIN 10 MG TAB PO SCH (08:21)
[2016-12-31] MEDS: CHLORTHALIDONE 25 MG TAB PO SCH (08:22)
[2016-12-31] MEDS: cloNIDine 0.1 MG TAB PO SCH ×2 (08:22→21:18)
[2016-12-31] MEDS: CLOPIDOGREL 75 MG TAB PO SCH (08:22)
[2016-12-31] MEDS: **hydrALAZINE HCL** 25 MG TAB PO SCH (08:22)
[2016-12-31] MEDS: amLODIPine 5 MG TAB PO SCH (08:22)
--- NOTE | 2016-12-31 09:24 | IPNPDOC ---
Date Seen The patient was seen on 12/31/16. Progress Note SUBJECTIVE: Patient is a 71 yo female seen at bedside. BP still fluctuates. Says she feels a little better. Did not have any hallucinations last night. I'm concerned with our discussions wether she has good insight to be living alone and PFS is on board. Denies: CP, Cough, pnd, orthopnea, f/c/r, n/v/d. Seen by Dr. Rowe last pm. OBJECTIVE PHYSICAL EXAMINATION: VITAL SIGNS: Please see below. GENERAL: NAD, A&O X 3 HEENT: PERRLA, throat clear, neck supple, no JVD CARDIOVASCULAR: RRR. RESPIRATORY: CTA B. ABDOMINAL: soft, NT/ND, normoactive bowel sounds EXTREMITIES: no edema, no calf tenderness NEUROLOGICAL: CN'S II-XII Grossly intact, no deficits PSYCHOLOGICAL: negative LABORATORY DATA: Please see below. MICROBIOLOGY: Please see below. IMAGING: MRA of abdomen looking for Renal Artery Stenosis: Has been on hold due to elevated creatinine/gfr. Will attempt today DVT prophylaxis ordered?: yes ASSESSMENT AND PLAN: This is a 71 yo female with difficult to control hypertension. Her Renal doppler suggested . PROBLEMS: 1. METABOLIC ENCEPHALOPATHY: Resolved. Likely was secondary to her elevated BP. None the less I'm concerned about her insights living alone. Consult for PFS. 2. UTI: UC positive for e. Coli IV Rocephin 3. HYPERTENSIVE URGENCY/EMERGENCY: Still some fluctuation. Renal Doppler suggestive of LUCITA will again attempt MRA to confirm. Appreciate assistance from Cardiology & Nephrology. Should we confirm LUCITA, will likely ask for Vasc Surgery consult 3. ELEVATED TSH on admission with no baseline: thyroid profile was ok. Keep outpatient follow up. 4. CEE: Consult nephrology. Possibly related to ACEi Hold nephrotoxic drugs Awaiting MRA Kidneys looking for LUCITA Disposition: Continue on telemetry. Check Renal MRA when creatinine and gfr better (hopefully tomorrow). Appreciate further input from Cardiology and Nephrology. VS, I&O, 24H, Fishbone Vital Signs/I&O Vital Signs Date Time Temp Pulse Resp B/P (MAP) Pulse Ox O2 Delivery O2 Flow Rate FiO2 12/31/16 08:22 198/62 12/31/16 08:00 97.2 52 18 94 Room Air Laboratory Data 24H LABS Laboratory Tests 2 12/30/16 11:38: Bedside Glucose (Misc Panel) 132H 12/30/16 16:46: Bedside Glucose (Misc Panel) 122H 12/30/16 20:58: Bedside Glucose (Misc Panel) 148H 12/31/16 04:48: Nucleated Red Blood Cells % (auto) 0.0, Immature Platelet Fraction 5.3, Anion Gap 10, Glomerular Filtration Rate 32.8L, Blood Urea Nitrogen 33H, Creatinine 1.64H, Sodium Level 142, Potassium Level 4.0, Chloride Level 110H, Carbon Dioxide Level 22, Calcium Level 7.9L CBC/BMP Laboratory Tests 12/31/16 04:48 Red Blood Count 3.87 L, Mean Corpuscular Volume 90.2, Mean Corpuscular Hemoglobin 29.7, Mean Corpuscular Hemoglobin Concent 33.0, Red Cell Distribution Width 14.8 H, Calcium Level 7.9 L Microbiology Microbiology 12/28/16 Urine Culture - Final, Complete Escherichia Coli LEOPOLDO ANDERSON DO Dec 31, 2016 09:24
[2016-12-31] MEDS: cefTRIAXone SOD 1 GM in D5W 50 ML IV SCH (09:40)
[2016-12-31] MEDS ORDERED: amLODIPine 5 MG TAB PO ONE (11:45)
--- NOTE | 2016-12-31 13:05 | IPN ---
DATE OF SERVICE: 12/31/2016 Mrs. Mariposa Mora was seen this morning. She was lying supine in bed, in no acute distress at rest. She denies any chest pain or shortness of breath or palpitations. There is no report of bleeding. There is a suspicion based on the renal ultrasound that she might have some degree of renal artery stenosis, and MRA was recommended but could not proceed because of her underlying renal function. On physical examination the patient is alert and oriented, in no acute distress, and her vital signs so far today reveal a blood pressure of between 150 and 198 mmHg systolic with a diastolic of about 62-64 mmHg. Pulse varied between 52 and 86 beats per minute, with a respiration of 18, and a maximum temperature of 98 degrees Fahrenheit. Her oxygen saturation is 94% to 96% on room air. EXAMINATION OF THE HEAD, EARS, EYES, NOSE, AND THROAT: Atraumatic. NECK: Is supple with carotid bruits heard. LUNGS: Did not reveal any wheezing or crackles. HEART: Examination revealed normal S1 and S2 without gallops. The point of maximal impulse (PMI) is not displaced. There is no rub. There is a systolic murmur grade 2-3/6 over the precordium, at the base of the heart, and some radiation to the neck. ABDOMEN: Is soft and nontender. EXTREMITIES: With no pedal edema. Peripheral pulses, dorsalis pedis were +2 and equal, NEUROLOGICAL: Examination is negative for focal deficit. LABS: BMP today reveal a sodium of 142, potassium 4.0, chloride 110, CO2 22, BUN 33, creatinine 1.64, and GFR 32.8, fasting glucose 134, and calcium 7.9. CBC revealed a WBC of 3.1, hemoglobin 11.5, hematocrit 34.9, and platelet 183,000. Duplex of the carotid arteries on 12/29/2016 reported to have a greater than 70% stenosis in the right external carotid artery, as well as a 50% to 70% stenosis also in the right internal carotid artery, and this will need to be clarified with the radiologist. The left seems to be having the significant stenosis, greater than 70% stenosis based on the velocities. Renal vascular ultrasound done on 12/29/2016 revealed possible renal artery stenosis, and there was some dilatation of the mid and distal abdominal aorta measuring 3.8 x 4.8 cm. IMPRESSION: Mrs. Mariposa Mora seems to be stable from a cardiac point of view but with still uncontrolled hypertension. I have today increased both the hydralazine and the amlodipine, and the diuretic was discontinued. She is not on angiotensin-converting enzyme (ARNULFO) inhibitor or angiotensin receptor jonny (ARB) at this present time, and I am in agreement. Hopefully, by stopping the diuretic, her kidney function was improved. We shall consider referring her to see Dr. Becerra in view of the peripheral artery disease. I will monitor along with you over the weekend. However, on Monday, she will be seen by Dr. Wheeler, and this was discussed with him. It seemed that she has been going to the office, and the last time was in May of 2016. MUSTAPHA
--- NOTE | 2016-12-31 15:36 | CR ---
DATE OF CONSULTATION: 12/30/2016 CONSULTATION FOR: Dr. Bong Doss REASON FOR CONSULTATION: Acute renal failure and possible renal artery stenosis. HISTORY OF PRESENT ILLNESS: Mrs. Mora is a 71-year-old female who was admitted to [facility] on December 27 due to altered mentation and hallucinations. According to her admission history and physical, the patient's son called emergency medical services (EMS) and reported that the patient has been confused and hallucinating. The patient tells me that she called the ambulance for her son, as she felt that her son was present in the room and sick; however, EMS arrived and they did not find anybody in the house except herself. They contacted her son, who was in [place], according to the patient, and he advised EMS to bring her to emergency room as he felt that the patient was confused and hallucinating. In any event, she has been admitted to [facility] and found to have hypertension. She had a renal ultrasound done, which raised the suspicion for possible renal artery stenosis. The patient tells me that she stopped taking all her medications in April of this year, as she was very depressed. She has been living by herself and mostly snacking on junk food. Some medications have been adjusted since admission; however, blood pressure remains high, and she has also developed worsening kidney function. Due to acute kidney injury, a renal ultrasound was done, which raised a suspicion for renal artery stenosis on the basis of disparity in kidney size. The patient herself seems to be present; however, she is not a great historian. PAST MEDICAL AND SURGICAL HISTORY: Significant for: 1. History of hypertension. 2. Hyperlipidemia. 3. Diabetes. 4. Coronary artery disease with prior myocardial infarction (OR). 5. History of anxiety and depression. 6. Possible dementia. 7. Mild chronic kidney disease at baseline. PERSONAL AND SOCIAL HISTORY: The patient lives alone in [facility]. She has a daughter who lives in [facility] and is very supportive. The patient quit smoking about 10 years ago. There is no history of alcohol or drug use. FAMILY HISTORY: There is no family history for kidney problems or premature coronary artery disease. ALLERGIES: The patient has no known drug allergies. MEDICATIONS: Her home medications included atorvastatin, clonidine, hydralazine, and insulin. Current medications in the hospital include: - lisinopril 10 mg twice a day - clonidine 0.1 mg three times a day - Humalog insulin per sliding scale - Norvasc 5 mg daily - chlorthalidone 25 mg daily - Plavix 75 mg daily - Lipitor 80 mg daily - Tylenol as needed. REVIEW OF SYSTEMS: The patient is not a great historian; however, she denies any headache or dizziness at present. She denies any ears, nose, and throat problems. CARDIOVASCULAR SYSTEM: Significant for prior history of hypertension and coronary artery disease. RESPIRATORY SYSTEM: Negative for cough or hemoptysis. GASTROINTESTINAL SYSTEM: negative for nausea, vomiting, or diarrhea. GENITOURINARY SYSTEM: Negative for dysuria or hematuria. She denies any history of kidney stones. ENDOCRINE SYSTEM: Significant for type 2 diabetes and no known history of thyroid problems. HEMATOLOGICAL SYSTEM: Negative for anemia, easy bruising, or excessive bleeding. PSYCHOSOCIAL SYSTEM: Significant for anxiety, depression, hallucinations, and possible dementia. NEUROLOGICAL SYSTEM: Negative for seizures or stroke. MUSCULOSKELETAL SYSTEM: Negative for leg edema or back pain. PHYSICAL EXAMINATION: Temperature 97.5 degrees Fahrenheit, heart rate 52 per minute, respiratory rate 18 per minute, blood pressure 174/75 mm of mercury, and oxygen saturation 96% on room air. Head is atraumatic. Pupils equal and reactive to light, and sclerae are anicteric. Ears, nose and throat are unremarkable. Heart exam reveals regular S1, S2. There is no pericardial friction rub. Lungs sound clear to auscultation bilaterally. Abdomen is soft and nontender, and bowel sounds are normal. Extremities have no cyanosis or clubbing. Musculoskeletal system is negative for any leg edema or bruising. Neurological system is negative for any focal neurological deficit. She is awake, alert, and seems to be oriented to place and person. Skin has no rash or ulcers. LABORATORY DATA: On admission, her WBC count was 3.5, hemoglobin 13.5, and hematocrit 40. Today her WBC count is 3.6, hemoglobin 11.1, and hematocrit 33.9. Platelets are 78,000. Sodium is 139 and potassium 3.7 today, while BUN is 30 and creatinine 1.85. Glucose 127 and calcium 7.8. Magnesium level 1.9. Urinalysis showed 3+ protein, 1+ glucose, and 1+ blood. She had 3+ bacteria in the urine. Urine culture is reported positive for Escherichia (E) coli. PROBLEMS: 1. Acute kidney injury. The patient is being hydrated with IV fluid, and her kidney function has worsened. She clinically does not look dehydrated. Renal ultrasound has already been done, which did not show any evidence of hydronephrosis. I will stop the angiotensin-converting enzyme (ARNULFO) inhibitor and also stop her IV fluid, as the patient does not seem to be dehydrated anymore. She did have proteinuria, and that seems to be more likely related to chronic diabetic nephropathy. I do not feel that the patient has acute glomerulonephritis, as she only had three red blood cells (RBC) with 3+ bacteria. 2. Uncontrolled hypertension. Blood pressure control has been suboptimal despite multiple antihypertensive medications. There is a suspicion for renal artery stenosis, and the patient is waiting for MRA. At present, we are going to stop her IV fluids and also stop the lisinopril. We will start her on hydralazine 25 mg three times a day and continue with Norvasc and chlorthalidone. I will also cut down the dose of clonidine to 0.2 mg twice a day with a plan to gradually wean her off clonidine in view of her history of depression and some bradycardia. 3. Urinary tract infection. She does seem to have a urinary tract infection (UTI) which may have caused some delirium and hallucinations. The patient will be started on appropriate antibiotic according to her culture results. I am going to pick Levaquin 500 mg once a day and will monitor her kidney function and adjust the dose if needed. 4. Renal artery stenosis. Renal ultrasound showed relatively small left kidney compared with the right, which raised a suspicion for possible renal artery stenosis in the setting of coronary artery disease and worsening kidney function. The patient is waiting for MRA, and we will wait for the results. At this point her ARNULFO inhibitor is being stopped due to worsening kidney function. I thank you for involving me in the care of Mrs. Mora. I will follow her along with you.
[2016-12-31] MEDS: **hydrALAZINE** 50 MG TAB PO SCH ×2 (16:03→21:18)
[2017-01-01] VITALS (8 sets, daily range): BP systolic 138–174; BP diastolic 52–74
[2017-01-01 03:22] LABS: MEAN CORPUSCULAR HEMOGLOBIN 29.7 pg (27.0-33.0); MEAN CORPUSCULAR HGB CONC 32.9 g/dl (32.0-36.5); MEAN CORPUSCULAR VOLUME 90.3 fl (80.0-96.0); PLATELET COUNT, AUTOMATED 108 10^3/uL (150-450); RED CELL DISTRIBUTION WIDTH 14.8 % (11.5-14.5); WHITE BLOOD COUNT 3.9 10^3/uL (4.0-10.0)
[2017-01-01 03:41] LABS: CALCIUM LEVEL 8.1 MG/DL (8.8-10.2); CREATININE FOR GFR 1.67 MG/DL (0.55-1.02); GLOMERULAR FILTRATION RATE 32.1 (>39)
[2017-01-01] MEDS: **hydrALAZINE** 50 MG TAB PO SCH ×3 (07:49→21:45)
[2017-01-01] MEDS: ATORVASTATIN 10 MG TAB PO SCH (07:49)
[2017-01-01] MEDS: amLODIPine 10 MG TAB PO SCH (07:50)
[2017-01-01] MEDS: cloNIDine 0.1 MG TAB PO SCH ×2 (07:50→21:45)
[2017-01-01] MEDS: CLOPIDOGREL 75 MG TAB PO SCH (07:50)
[2017-01-01] MEDS: HumaLOG INSULIN (NovoLOG) PER UNIT SC SCH ×4 (07:51→21:43)
[2017-01-01] MEDS: cefTRIAXone SOD 1 GM in D5W 50 ML IV SCH (07:51)
--- NOTE | 2017-01-01 09:22 | IPNPDOC ---
Date Seen The patient was seen on 01/01/17. Progress Note SUBJECTIVE: Patient is a 71 yo seen at bedside and rested comfortably overnight. Denies: CP, h/a, visual changes, n/v/d, f/c/r. Tolerating PO intake. OBJECTIVE PHYSICAL EXAMINATION: VITAL SIGNS: Please see below. GENERAL: NAD, A&O X 3 HEENT: PERRLA, throat clear, neck supple, no JVD CARDIOVASCULAR: RRR. RESPIRATORY: CTA B. ABDOMINAL: soft, NT/ND, normoactive bowel sounds EXTREMITIES: no edema, no calf tenderness NEUROLOGICAL: CN'S II-XII Grossly intact, no deficits PSYCHOLOGICAL: negative LABORATORY DATA: Please see below. MICROBIOLOGY: Please see below. DVT prophylaxis ordered?: yes ASSESSMENT AND PLAN: This is a 71 yo female with difficult to control hypertension. Her Renal doppler suggested possible LUCITA, still waiting for renal function to improve before checking MRA abdomen. PROBLEMS: 1. METABOLIC ENCEPHALOPATHY: Resolved. Likely was secondary to her elevated BP. None the less I'm concerned about her insights living alone. Consult for PFS and discuss further on Monday. 2. UTI: UC positive for e. Coli Continue IV Rocephin 3. HYPERTENSIVE URGENCY/EMERGENCY: Still some fluctuation. Had an episode of CP with no ECG changes few days ago and continues on Lipitor, Plavix Renal Doppler suggestive of LUCITA waiting to attempt MRA to confirm. Appreciate assistance from Cardiology & Nephrology. Should we confirm LUCITA, will likely ask for Vasc Surgery consult 3. ELEVATED TSH on admission with no baseline: thyroid profile was ok. Keep outpatient follow up. 4. CEE: Possibly related to ACEi Insole Filler: Dr. Couch (nephrology) Hold nephrotoxic drugs Awaiting MRA Kidneys looking for LUCITA 5. THROMBOCYTOPENIA/LEUKOPENIA: will check a peripheral smear. No heparin products for now. DVT prophylaxis: due to thrombocytopenia, no heparin products. TEDs/SCDs Disposition: Continue on telemetry. Check Renal MRA when creatinine and gfr better (maybe in next few days). Appreciate further input from Cardiology and Nephrology. Appearantly she is a patient of Dr. Wheeler's clinic and looks like Dr. Rowe will sign her out to Dr. Wheeler on Monday. Will anticipate further medication adjustments at that time. VS, I&O, 24H, Fishbone Vital Signs/I&O Vital Signs Date Time Temp Pulse Resp B/P (MAP) Pulse Ox O2 Delivery O2 Flow Rate FiO2 01/01/17 08:17 Room Air 01/01/17 08:00 96.7 51 18 172/64 (100) 95 Laboratory Data 24H LABS Laboratory Tests 2 12/31/16 21:20: Bedside Glucose (Misc Panel) 105 01/01/17 03:13: Nucleated Red Blood Cells % (auto) 0.0, Anion Gap 6L, Glomerular Filtration Rate 32.1L, Blood Urea Nitrogen 32H, Creatinine 1.67H, Sodium Level 141, Potassium Level 4.0, Chloride Level 109H, Carbon Dioxide Level 26, Calcium Level 8.1L CBC/BMP Laboratory Tests 01/01/17 03:13 Red Blood Count 4.04, Mean Corpuscular Volume 90.3, Mean Corpuscular Hemoglobin 29.7, Mean Corpuscular Hemoglobin Concent 32.9, Red Cell Distribution Width 14.8 H, Calcium Level 8.1 L Microbiology Microbiology 12/28/16 Urine Culture - Final, Complete Escherichia Coli LEOPOLDO ANDERSON DO Jan 01, 2017 09:22
[2017-01-01 10:04] LABS: REASON FOR REVIEW PLATELET MORPHOLOGY
--- NOTE | 2017-01-01 11:07 | IPN ---
DATE: 01/01/2017 Mrs. Mariposa Mora was seen early this morning, she was sitting in her room in no acute distress at rest. She denies any chest pain, shortness of breath, palpitations. She has no dizziness or headache. She does ambulate, using a walker. She was seen yesterday and the diuretic/chlortalidone was discontinued and I have increased both the amlodipine and the hydralazine. She was initially seen because on admission, she was found to have an abnormal serum troponin and she has an abnormal EKG. After she was seen, we found out that she has a history of coronary artery disease as well as valvular disease involving the aortic valve for which she has had surgery. She has been going to Dr. Meza/[facility]'s office until about 10 months ago when she stopped all of her medications. She also stopped going to her primary since that time. She stated that she was depressed. On physical examination, the patient is alert and oriented, in no acute distress at rest. Her last vital signs reveal a blood pressure of 172/64 with a pulse of 51, respiration 18, and her maximum temperature is 96.7 degrees Fahrenheit with an oxygen saturation of 95% on room air. She has a negative fluid balance of about 440 mL for 12/31/2016. Examination of the head is atraumatic, normocephalic. Neck is supple without jugular venous distention with bilateral carotid bruits. The lungs are clear bilaterally without any wheezing or crackles. The heart examination revealed normal S1, S2 without gallops. The PMI is not displaced. There is no rub. There is a systolic murmur, grade 2 to 3 over 6 over the precordium laterally at the base of the heart with some radiation to the neck. Abdomen appears to be unremarkable. Extremities reveal no pitting edema. Neurological examination was limited but apparently no focal deficit. LABS: A BMP done today revealed a sodium of 141, potassium 4.0, chloride 109, CO2 26, BUN 32, creatinine 1.67, GFR 32.1, fasting glucose 120 and calcium 8.1. CBC revealed a WBC of 3.9, hemoglobin 12.0, hematocrit 36.5 and platelet 108, 000. IMPRESSION: 1. History of coronary artery disease and percutaneous transluminal coronary angioplasty(PTCA)/stent and coronary artery bypass graft (CABG). 2. History of aortic valve replacement with a bioprosthetic aortic valve. 3. Peripheral artery disease involving her carotid arteries and possible renal arteries. She also has an aneurysm at the level of the mid to distal abdominal aorta. 4. Hypertension. 5. Hyperlipidemia. 6. Diabetes mellitus type 2. 7. Thrombocytopenia. 8. Chronic kidney disease. 9. History of depression. 10. Urinary tract infection. Mrs. Mariposa Mora seems to be stable from a cardiac point of view, asymptomatic without any chest pain or shortness of breath. Her blood pressure continues to be elevated and yesterday, I have increased the amlodipine and the hydralazine. We have stopped the hydrochlorothiazide in view of underling renal function. She can be monitored on her current medications and tomorrow, she will be seen by Dr. Wheeler. She will benefit from a nuclear stress test as an outpatient for further evaluation because of the abnormal serum troponin noted on admission. The case will be discussed with the hospitalist. Please do not hesitate to call for any questions. She might benefit from starting her on a treatment for her depression while in the hospital. Her thrombocytopenia seems to be improving. MUSTAPHA
--- NOTE | 2017-01-01 16:12 | IPN ---
DATE: 12/31/2016 SUBJECTIVE: The patient is seen this morning at the bedside. Her sister is present. She denied any events overnight, feels well. No acute issues reported. Tolerating oral intake. No chest pain, shortness of breath or palpitations. No dysuria. Her blood pressure has been fluctuating. VITAL SIGNS: Temperature 97.2, pulse 58, respiratory rate 18, blood pressure ranges from systolic 140 to 182 and diastolic in the 50s, saturating 96% on room air. Intake and output: Urine output yesterday 1250 mL. Positive fluid balance of 300 mL. No weight recorded on the bed scale today. PHYSICAL EXAMINATION: The patient is seen at the bedside, alert, oriented. Sister is present at the bedside. In no acute distress. Head is atraumatic. Pupils are round and reactive to light. Ears, nose and throat are unremarkable. Mucous membranes are moist. Neck is supple. HEART: S1, S2. 2+ radial pulse. There is no edema in the peripheries or in the dependent area. LUNGS: Clear to auscultation bilaterally. The patient is comfortable on room air. ABDOMEN: Soft, obese, nontender. There is no audible abdominal bruit. EXTREMITIES: No cyanosis or edema. NEUROLOGIC: No focal deficits. Oriented times three. SKIN: No rash. PSYCHIATRIC: Appropriate mood and affect. LABORATORY DATA: White count 3.1, hemoglobin 11.5, platelets 83. Sodium 142, potassium 4, bicarbonate 22, BUN 33, creatinine 1.6, glucose 134. Urine culture from 12/28/2016 with Escherichia (E) coli. Inpatient medications: The patient is discontinued off of Levaquin and started on Rocephin 1 gram IV daily. Her Norvasc dose was increased to 10 mg per cardiology, and her chlorthalidone was discontinued. Her hydralazine dose was increased. The remainder of medications are unchanged from prior. ASSESSMENT AND PLAN: 1. Acute kidney injury. The patient's baseline creatinine is around 1.2 to 1.4. Her renal function has improved in the past 24 hours. Her eyxmmqfxaev-opubcivhzw-wqdemr (ARNULFO) inhibitor is on hold. Her blood pressure remains quite fluctuant, which may have contributed to her acute kidney injury. 2. Fluctuant blood pressures. The patient's antihypertensive regimen was adjusted today by Dr. Rowe. Her chlorthalidone was discontinued and her Norvasc and hydralazine doses were increased. No ARNULFO or ARB at present due to acute kidney injury. Renal function has not yet improved enough for gadolinium contrast. She is awaiting MRA to evaluate for possible renal artery stenosis contributing to her fluctuant blood pressures. 3. Urinary tract infection (UTI). The patient continues on Rocephin for E coli UTI.
--- NOTE | 2017-01-01 20:10 | IPN ---
DATE: 01/01/2017 SUBJECTIVE: The patient is seen this morning at the bedside. She feels well. No complaints. Her blood pressure remains fluctuant. Systolic ranging from 130s to 170s. She is comfortable on room air. Her renal function remains unchanged from yesterday and MRA remains on hold. I had a discussion with her regarding the same at the bedside. OBJECTIVE: VITAL SIGNS: Temperature 96.7, pulse 57, respiratory rate 18, blood pressure 138/68, saturating 95% on room air. INTAKE AND OUTPUT: Urine output yesterday 1150 mL. Weight in the bed scale today 98.8 kg. PHYSICAL EXAMINATION: The patient is alert, oriented, in no acute distress, lying comfortable in bed. HEAD/NECK: Unremarkable. Extraocular muscles are intact. The ears, nose and throat are unremarkable. Mucous membranes are moist. Neck is supple. There is no jugular venous distention. LUNGS: Clear to auscultation bilaterally. CARDIAC: S1, S2. Two plus radial pulse. There is no edema in the peripheries or the dependent area. There is a systolic murmur present. ABDOMEN: Soft, obese, nontender. NEUROLOGIC: There are no focal deficits. She is appropriately interactive and conversational. SKIN: no rashes, normal turgor and temp PSYCHIATRIC: Appropriate mood and affect. She does not appear to be hallucinating or confused at this time. LABORATORY DATA: Sodium 141, potassium four, bicarbonate 26, BUN 32, creatinine 1.6, calcium 8.1. WBC 3.9, hemoglobin 12, platelets 108. INPATIENT MEDICATIONS: - The patient continues on intravenous (IV) ceftriaxone - Norvasc 10 mg by mouth daily - clonidine 0.1 mg by mouth twice a day - hydralazine 50 mg by mouth three times a day Remainder of medications are unchanged from prior. ASSESSMENT AND PLAN: 1. Acute kidney injury in the setting of fluctuant blood pressures, Escherichia (E.) coli urinary tract infection (UTI) and use of angiotension-converting enzyme (ARNULFO) inhibitor. The patient's baseline renal function is about 1.2 to 1.4. Her creatinine has plateaued over the past 48 hours. Electrolytes are stable. She is not yet optimized for gadolinium. 2. Fluctuant blood pressure with systolic as high as 180s and 190s, and possible concern for renal artery stenosis. The patient is not optimized for gadolinium yet due to risk of nephrogenic sclerosing fibrosis. Continue to hold the ARNLUFO inhibitor and monitor renal function for improvement. Once her glomerular filtration rate (GFR) comes up greater than 40-45 mL per minute, she can likely receive her MRA. 3. Uncontrolled blood pressures. The patient continues on Norvasc, clonidine, and hydralazine. No ARNULFO or angiotensin II receptor blockers (ARB) at this time. 4. Escherichia (E.) coli urinary tract infection (UTI). The patient continues on Rocephin. Her mental status seems to have improved since admission but likely with dementia underlying. EDMUNDOD
[2017-01-02] VITALS (7 sets, daily range): BP systolic 110–180; BP diastolic 52–80
[2017-01-02 05:32] LABS: MEAN CORPUSCULAR HEMOGLOBIN 29.3 pg (27.0-33.0); MEAN CORPUSCULAR HGB CONC 32.8 g/dl (32.0-36.5); MEAN CORPUSCULAR VOLUME 89.3 fl (80.0-96.0); PLATELET COUNT, AUTOMATED 104 10^3/uL (150-450); RED CELL DISTRIBUTION WIDTH 14.6 % (11.5-14.5); WHITE BLOOD COUNT 3.9 10^3/uL (4.0-10.0)
[2017-01-02 05:57] LABS: CREATININE FOR GFR 1.46 MG/DL (0.55-1.02); GLOMERULAR FILTRATION RATE 37.5 (>39)
[2017-01-02] MEDS: HumaLOG INSULIN (NovoLOG) PER UNIT SC SCH ×4 (08:07→21:00)
[2017-01-02] MEDS: ATORVASTATIN 10 MG TAB PO SCH (08:08)
[2017-01-02] MEDS: amLODIPine 10 MG TAB PO SCH (08:08)
[2017-01-02] MEDS: CLOPIDOGREL 75 MG TAB PO SCH (08:08)
[2017-01-02] MEDS: **hydrALAZINE** 50 MG TAB PO SCH ×3 (08:09→21:34)
[2017-01-02] MEDS: cefTRIAXone SOD 1 GM in D5W 50 ML IV SCH (08:09)
[2017-01-02] MEDS: cloNIDine 0.1 MG TAB PO SCH ×2 (08:09→21:34)
--- NOTE | 2017-01-02 11:27 | IPNPDOC ---
Date Seen The patient was seen on 01/02/17. Progress Note SUBJECTIVE: Patient is a 71 yo seen at bedside and rested comfortably overnight. Denies: CP, h/a, visual changes, n/v/d, f/c/r. Tolerating PO intake. OBJECTIVE PHYSICAL EXAMINATION: VITAL SIGNS: Please see below. GENERAL: NAD, A&O X 3 HEENT: PERRLA, throat clear, neck supple, no JVD CARDIOVASCULAR: RRR. RESPIRATORY: CTA B. ABDOMINAL: soft, NT/ND, normoactive bowel sounds EXTREMITIES: no edema, no calf tenderness NEUROLOGICAL: CN'S II-XII Grossly intact, no deficits PSYCHOLOGICAL: negative LABORATORY DATA: Please see below. MICROBIOLOGY: Please see below. DVT prophylaxis ordered?: yes ASSESSMENT AND PLAN: This is a 71 yo female with difficult to control hypertension. Her Renal doppler suggested possible LUCITA. PROBLEMS: 1. METABOLIC ENCEPHALOPATHY: Resolved. Likely was secondary to her elevated BP. None the less I'm concerned about her insights living alone. Consult for PFS and possible psych. 2. UTI: UC positive for e. Coli Continue IV Rocephin another 24 hr 3. HYPERTENSIVE URGENCY/EMERGENCY: Still some fluctuation. Had an episode of CP with no ECG changes few days ago and continues on Lipitor, Plavix Renal Doppler suggestive of LUCITA. Spoke with MRI will attempt a different protocol due to gfr still to high. Appreciate assistance from Cardiology & Nephrology. Should we confirm LUCITA, will likely ask for Vasc Surgery consult 3. ELEVATED TSH on admission with no baseline: thyroid profile was ok. Keep outpatient follow up. 4. CEE: Possibly related to ACEi Underground [employer] Superintendent: Dr. Couch (nephrology) Hold nephrotoxic drugs Awaiting further eval to r/o LUCITA. 5. THROMBOCYTOPENIA/LEUKOPENIA: will check a peripheral smear / pending. No heparin products for now. DVT prophylaxis: due to thrombocytopenia, no heparin products. TEDs/SCDs Disposition: Continue on telemetry. Check MRI abdomen. Appreciate further input from Cardiology and Nephrology. Appearantly she is a patient of Dr. Wheeler's clinic and looks like Dr. Rowe will sign her out to Dr. Wheeler today. Will anticipate further medication adjustments. VS, I&O, 24H, Fishbone Vital Signs/I&O Vital Signs Date Time Temp Pulse Resp B/P (MAP) Pulse Ox O2 Delivery O2 Flow Rate FiO2 01/02/17 08:08 65 180/80 01/02/17 08:00 Room Air 01/02/17 07:35 97.8 20 92 I&O- Last 24 Hours up to 6 AM 01/03/17 06:00 Intake Total 50 ml Balance 50 ml Laboratory Data 24H LABS Laboratory Tests 2 01/01/17 11:58: Bedside Glucose (Misc Panel) 102 01/01/17 21:42: Bedside Glucose (Misc Panel) 114H 01/02/17 04:42: Nucleated Red Blood Cells % (auto) 0.0, Anion Gap 7L, Glomerular Filtration Rate 37.5L, Blood Urea Nitrogen 30H, Creatinine 1.46H, Sodium Level 137, Potassium Level 4.0, Chloride Level 107, Carbon Dioxide Level 23, Calcium Level 8.0L, LU-Syv-Z-Type Natriuretic Peptide 2655H CBC/BMP Laboratory Tests 01/02/17 04:42 Red Blood Count 4.00, Mean Corpuscular Volume 89.3, Mean Corpuscular Hemoglobin 29.3, Mean Corpuscular Hemoglobin Concent 32.8, Red Cell Distribution Width 14.6 H, Calcium Level 8.0 L Microbiology Microbiology 12/28/16 Urine Culture - Final, Complete Escherichia Coli LEOPOLDO ANDERSON DO Jan 02, 2017 11:27
--- NOTE | 2017-01-02 15:08 | REP ---
MRA RENAL ARTERIES: MRA abdominal aorta and renal arteries performed without the use of intravenous contrast due to low GFR. Multiple sequences obtained with MIP reconstruction images. There is tortuosity of the abdominal aorta. The maximum AP diameter of distal abdominal aorta is 4.8 cm with fusiform abdominal aortic aneurysm present. There does appear to be high grade stenosis at the origin of the left renal artery. There is mild to moderate stenosis at the origin of the right renal artery which I estimate to be approximately 60 to 70%. However this estimation is limited without the use of intravenous gadolinium. No definite adenopathy is seen. There is heterogeneous signal in the liver with slightly lobulated margins compatible with cirrhosis. The spleen is enlarged with a length of approximately 15.8 cm. Varices are seen in the splenic hilum. Right adrenal nodule measures 3.1 cm maximally. I do not see significant ascites. No other significant abnormalities are seen. IMPRESSION: High grade stenosis main left renal artery at its origin. Approximately 60 to 70% stenosis origin of the right renal artery. Distal abdominal aortic aneurysm fusiform in shape, maximum AP diameter is 4.8 cm. There are findings of cirrhosis of the liver and splenomegaly. Varices are seen in the splenic hilum. Right adrenal nodule measures 3.1 cm maximally. Signed by Kentrell Hoang MD 01/02/2017 04:21 P
[2017-01-02] MEDS ORDERED: SLF 3 ML SYR IV PRN (15:30)
--- NOTE | 2017-01-02 17:59 | IPN ---
DATE: 01/02/2017 SUBJECTIVE: The patient is seen this morning at the bedside. She reports she feels well and has no complaints. Tolerating oral intake. Her blood pressures are noted to be labile ranging from systolic 110 to systolic 180. Her renal function has improved over the past 24 hours, though not yet at baseline. VITAL SIGNS: Temperature 97.7, pulse 62, respiratory rate 18, blood pressure systolic very fluctuant ranging from 110-180, diastolic 60s to 80s, saturating 95% on room air. Intake and output: Urine output yesterday 700 mL, likely not fully recorded, in equivalent fluid balance. PHYSICAL EXAMINATION: Patient is seen lying down flat in bed, comfortable, in no acute distress. Examination of the head is unremarkable, normocephalic. Moist mucous membranes. Faint carotid bruit on the right. CARDIAC: S1, S2, regular rate, 2+ radial pulse, systolic murmur. No edema in the peripheries. ABDOMEN: Soft, obese, positive bowel sounds, nontender. NEUROLOGIC: Appropriately conversational, interactive, follows commands. PSYCHIATRIC: Appropriate mood and affect. LABORATORY DATA: Sodium 137, potassium 4.0, bicarbonate 23, BUN 30, creatinine 1.4, glucose 118. IMAGING: MRA abdomen is pending read. INPATIENT MEDICATIONS: Patient continues on Rocephin, amlodipine 10 mg by mouth daily, clonidine 0.1 mg by mouth twice a day, hydralazine 50 mg by mouth three times a day. Medications are unchanged from prior. PLAN: 1. Acute kidney injury (CEE) in the setting of fluctuant blood pressures with concomitant use of angiotensin-converting enzyme (ARNULFO) inhibitor and urinary tract infection (UTI). The patient's baseline renal function is creatinine of about 1.2 to 1.4 and she is improving towards that. Continue to hold ARNULFO / ARB at present. 2. Fluctuant blood pressure and concern for renal artery stenosis. The patient is not optimized for gadolinium and given that her baseline glomerular filtration rate (GFR) at best seems to be still under 45 mL/minute, depending on the radiology protocol here she may not be a candidate for gadolinium at all, in which case a discussion should be had with radiology regarding what imaging we can do and I discussed the same with Dr. Doss. Her blood pressures remain very fluctuant at this time and she continues on Norvasc, clonidine, and hydralazine as per cardiology. Given that her pressures remain mostly uncontrolled, I am going to put her on low dose chlorthalidone with holding parameters. MTDD
[2017-01-02] MEDS: SLF 3 ML SYR IV SCH (21:34)
--- NOTE | 2017-01-02 23:15 | MHIPNPDOC ---
[facility] Progress Note Progress Note DATE OF SERVICE: 01/02/17 HISTORY: 71-year-old woman with a history of hypertension, hyperlipidemia, diabetes mellitus, and abnormal EKG consistent with prior infarct, anxiety and depression. She has not been taking her medications due to her depression and because she says she "gave up". She says she lives in [place], [place] alone and all her family and friends have moved away. She was admitted to the hospital for hypertensive crisis. She says she feels lonely and wants someone to talk with. Says she used to take amphetamines in her late teenage years, use to drink "somewhat heavily" (5 years sobriety) and smoked for 50 years. States no past psychiatric treatment apart from seeing a counsellor in 1968. Says she has been depressed for 4-5 years and felt like there was no reason to keep "going on", but mentions her granddaughter is having a child and this gives her something to look forward to. She wants to move to [place] where most of her family members are currently located and so she can be close to the hospital. Says when police came to bring her to the hospital she told them "kids were breaking into her car in the driveway" and her son was in her home; however he resides in [place]. Since being treated in the hospital she says she say a family standing in the closet by her bed, but denies auditory hallucinations. When asking her why she thinks she came to the hospital she says she doesn't "know exactly" and was unaware of the reason for getting an MRI. She denies suicidal ideations, paranoia or symptoms of jamey. When asked if she will take her medications after this admission, she says she "definitely will" so she can be there for her granddaughter's child. VITAL SIGNS: See below. CURRENT MEDICATIONS: See below. MENTAL STATUS EXAMINATION: Patient is a 71-year old female, who is lying in her hospital bed in hospital clothing, she is cooperative and makes normal eye contact. Speech: Is spontaneous, normal in rate, rhythm and volume Language skills are Intact Thought processes including: linear, logical Thought content: Denies SI, HI, endorses VH, denies AH or paranoia or other disturbances of perception. Abstract reasoning, and computation: poor Description of associations: Intact Description of abnormal or psychotic thoughts: Sees a family in her closet. Judgment: Poor Insight: Very limited Orientation: A/O x3 Recent and remote memory: Poor (1/5 objects), long-term memory: Poor (2/3 presidents) Attention span and concentration: Fair Language: Appropriate Fund of knowledge: Below average Mood: "good" Affect: Euthymic, constricted, mood-congruent, appropriate DIAGNOSES: 1. Unspecified Depressive Disorder 2. Unspecified Psychotic Disorder ASSESSMENT: Patient has been depressed and lonely living alone at [place]. She has been having visual hallucinations for the first time in her life prior/ throughout this hospital admission. The psychotic symptoms may be due to her depression if severe or a medical condition. She denies suicidal ideation at this time, but has expressed passive suicidal ideations in the past without plan or attempts. She denies auditory hallucinations or paranoia or other distortions of perception. She has very limited insight into her condition or what brought her into the hospital. MANAGEMENT PLAN: Continue with primary team's treatment plan. She may benefit from a low dose of an antidepressant such as Celexa 10 mg, however her QT length is 530 ms and there is a risk of QT prolongation at this time. TIME SPENT: 20 minutes. Vital Signs Vital Signs Date Time Temp Pulse Resp B/P (MAP) Pulse Ox O2 Delivery O2 Flow Rate FiO2 01/02/17 21:34 166/78 01/02/17 20:00 98.4 60 18 92 Room Air Laboratory Data 24H Labs Laboratory Tests 2 01/02/17 04:42: Nucleated Red Blood Cells % (auto) 0.0, Anion Gap 7L, Glomerular Filtration Rate 37.5L, Blood Urea Nitrogen 30H, Creatinine 1.46H, Sodium Level 137, Potassium Level 4.0, Chloride Level 107, Carbon Dioxide Level 23, Calcium Level 8.0L, [id number]-Type Natriuretic Peptide 2655H 01/02/17 11:39: Bedside Glucose (Misc Panel) 121H 01/02/17 16:37: Bedside Glucose (Misc Panel) 130H 01/02/17 20:50: Bedside Glucose (Misc Panel) 122H CBC/BMP Laboratory Tests 01/02/17 04:42 Red Blood Count 4.00, Mean Corpuscular Volume 89.3, Mean Corpuscular Hemoglobin 29.3, Mean Corpuscular Hemoglobin Concent 32.8, Red Cell Distribution Width 14.6 H, Calcium Level 8.0 L Current Medications Current Medications Acetaminophen (Tylenol Tab) 650 mg Q4HP PRN PO MILD PAIN OR FEVER Last administered on 12/30/16 15:24; Start 12/27/16 at 07:15; Stop 01/26/17 at 07: 14 Amlodipine Besylate (Norvasc) 5 mg DAILY PO Last administered on 12/31/16 08: 22; Start 12/29/16 at 09:00; Stop 12/31/16 at 11:38; Status DC Amlodipine Besylate (Norvasc) 10 mg DAILY PO Last administered on 01/02/17 08 :08; Start 01/01/17 at 09:00; Stop 01/31/17 at 08:59 Atorvastatin Calcium (Lipitor) 80 mg DAILY PO Last administered on 01/02/17 08:08; Start 12/28/16 at 09:00; Stop 01/27/17 at 08:59 Ceftriaxone Sodium 1 gm/ Dextrose 50 ml @ 100 mls/hr Q24H IV Last administered on 01/02/17 08:09; Start 12/31/16 at 09:00; Stop 01/06/17 at 09 :29 Chlorthalidone (Hygroton) 25 mg DAILY PO Last administered on 12/31/16 08:22 ; Start 12/29/16 at 09:00; Stop 12/31/16 at 11:38; Status DC Chlorthalidone (Hygroton, Chlorthalidone) 12.5 mg DAILY PO ; Start 01/03/17 at 09:00; Stop 02/02/17 at 08:59 Clonidine HCl (Catapres) 0.1 mg BID PO Last administered on 01/02/17 21:34; Start 12/30/16 at 21:00; Stop 01/26/17 at 20:59 Clonidine HCl (Catapres) 0.1 mg TID PO Last administered on 12/30/16 08:28; Start 12/27/16 at 21:00; Stop 12/30/16 at 10:01; Status DC Clopidogrel Bisulfate (PLAVix) 75 mg DAILY PO Last administered on 01/02/17 08:08; Start 12/29/16 at 09:00; Stop 01/28/17 at 08:59 Dextrose (Dextrose 50%) 25 ml ASDIRECTED PRN IV SEE LABEL COMMENTS; Start 12/28 at 01:00; Stop 01/27/17 at 00:59 Enoxaparin Sodium (Lovenox) 30 mg DAILY SC Last administered on 12/27/16 11:26 ; Start 12/27/16 at 09:00; Stop 12/28/16 at 10:06; Status DC Glucagon (Glucagon) 1 mg ASDIRECTED PRN SC SEE LABEL COMMENTS; Start 12/28/16 at 01:00; Stop 01/27/17 at 00:59 Glucose (Glucose) 16 GM ASDIRECTED PRN PO SEE LABEL COMMENTS; Start 12/28/16 at 01:00; Stop 01/27/17 at 00:59 Home Med (Med Rec Complete!) ASDIRECTED XX ; Start 12/27/16 at 08:15; Stop 12/27/16 at 08:15; Status DC Hydralazine HCl (Apresoline) 5 mg STAT STAT IV Last administered on 12/27/16 08:36; Start 12/27/16 at 08:19; Stop 12/27/16 at 08:23; Status DC Hydralazine HCl (Apresoline) 5 mg STAT STAT IV Last administered on 12/27/16 10:18; Start 12/27/16 at 09:56; Stop 12/27/16 at 09:57; Status DC Hydralazine HCl (Apresoline) 10 mg Q8H IV Last administered on 12/28/16 23:45 ; Start 12/27/16 at 16:00; Stop 12/29/16 at 08:19; Status DC Hydralazine HCl (Apresoline) 25 mg TID PO Last administered on 12/31/16 08:22 ; Start 12/30/16 at 09:00; Stop 12/31/16 at 11:38; Status DC Hydralazine HCl (Apresoline) 50 mg TID PO Last administered on 01/02/17 21:34 ; Start 12/31/16 at 16:00; Stop 01/30/17 at 15:59 Insulin Human Lispro (HumaLOG INSULIN) SEE PROTOCOL TABLE AC SC Last administered on 01/02/17 16:49; Start 12/28/16 at 07:30; Stop 01/27/17 at 07: 29 Insulin Human Lispro (HumaLOG INSULIN) SEE PROTOCOL TABLE QHS SC ; Start at 21:00; Stop 01/28/17 at 20:59 Levofloxacin (Levaquin) 500 mg DAILY@1800 PO Last administered on 12/30/16 18 :34; Start 12/30/16 at 18:00; Stop 12/31/16 at 08:33; Status DC Lisinopril (Prinivil) 10 mg BID PO Last administered on 12/30/16 08:28; Start 12/29/16 at 09:00; Stop 12/30/16 at 10:01; Status DC Nicotine (Nicoderm Cq 7 Mg) 1 patch DAILY TD ; Start 12/27/16 at 09:00; Stop at 21:45; Status DC Sodium Chloride 1,000 ml @ 60 mls/hr [id number] IV Last administered on 08:36; Start 12/27/16 at 07:06; Stop 12/27/16 at 22:00; Status DC Sodium Chloride 1,000 ml @ 100 mls/hr Q10H IV Last administered on 12/30/16 08:29; Start 12/29/16 at 08:00; Stop 12/30/16 at 10:01; Status DC Sodium Chloride (Saline Lock Flush) 2 ml ASDIRECTED PRN IV SEE LABEL COMMENTS; Start 01/02/17 at 15:30; Stop 02/01/17 at 15:29 Sodium Chloride (Saline Lock Flush) 2 ml SLF IV Last administered on 21:34; Start 01/02/17 at 22:00; Stop 02/01/17 at 21:59 Allergies Coded Allergies: No Known Allergies (Unverified , 12/27/16) JOHANNE WOODWARD PGY-1 Jan 02, 2017 23:15
[2017-01-03] VITALS (10 sets, daily range): BP systolic 140–190; BP diastolic 54–88
[2017-01-03] MEDS: SLF 3 ML SYR IV SCH ×3 (05:21→20:43)
[2017-01-03 05:57] LABS: MEAN CORPUSCULAR HEMOGLOBIN 29.4 pg (27.0-33.0); RED CELL DISTRIBUTION WIDTH 14.5 % (11.5-14.5); WHITE BLOOD COUNT 4.5 10^3/uL (4.0-10.0)
[2017-01-03 05:58] LABS: PLATELET COUNT, AUTOMATED 97 10^3/uL (150-450)
[2017-01-03 05:59] LABS: IMMATURE PLATELET FRACTION % 3.4 % (0.0-9.6)
[2017-01-03 06:09] LABS: CALCIUM LEVEL 8.1 MG/DL (8.8-10.2); CREATININE FOR GFR 1.34 MG/DL (0.55-1.02); GLOMERULAR FILTRATION RATE 41.4 (>39)
[2017-01-03] MEDS: HumaLOG INSULIN (NovoLOG) PER UNIT SC SCH ×4 (07:43→20:37)
[2017-01-03] MEDS: cefTRIAXone SOD 1 GM in D5W 50 ML IV SCH (08:35)
[2017-01-03] MEDS: CHLORTHALIDONE 12.5MG PER 1/2 TABLET PO SCH (08:36)
[2017-01-03] MEDS: **hydrALAZINE** 50 MG TAB PO SCH ×3 (08:36→20:43)
[2017-01-03] MEDS: ATORVASTATIN 10 MG TAB PO SCH (08:36)
[2017-01-03] MEDS: cloNIDine 0.1 MG TAB PO SCH ×2 (08:36→20:43)
[2017-01-03] MEDS: amLODIPine 10 MG TAB PO SCH (08:37)
[2017-01-03] MEDS: CLOPIDOGREL 75 MG TAB PO SCH (08:37)
--- NOTE | 2017-01-03 16:39 | IPNPDOC ---
Text Note Date of Service The patient was seen on 01/03/17. NOTE Subjective: Patient is she feels well. Denies any complaints. Objective: Vitals: (see below) General: No acute distress, laying comfortably in bed. HEENT: Moist mucous membranes. Neck: No JVD or lymphadenopathy Cardiac: RRR, No murmurs Pulm: Clear to auscultation b/l. No wheezing, rhonchi Abd: NT/ND + BS Ext: No edema or cyanosis Labs (see below) Images: MRA abdomen on 01/02/17 IMPRESSION: High grade stenosis main left renal artery at its origin. Approximately 60 to 70% stenosis origin of the right renal artery. Distal abdominal aortic aneurysm fusiform in shape, maximum AP diameter is 4.8 cm. There are findings of cirrhosis of the liver and splenomegaly. Varices are seen in the splenic hilum. Right adrenal nodule measures 3.1 cm maximally. Assessment/Plan 1. Hypertensive urgency/emergency- blood pressure better improved now. Continue current BP meds. Appreciate nephrology input. Patient with notable renal artery stenosis high-grade. Discussed with Dr. Becerra he will see the patient. 2. Acute kidney injury on chronic kidney disease- improving. Appreciate nephro input. 3. Demand ischemia with mild elevation of troponin in the setting of acute kidney injury- improved. Patient denies chest pain. Appreciate cardio input. 4. Urinary tract infection- urine culture with Escherichia coli on Rocephin 5. Metabolic encephalopathy- likely secondary to urinary tract infection, hypertensive urgency, and questionable baseline dementia. 6. Depression/anxiety- evaluated by Dr. Ziegler. 7. Lack of capacity to make medical decisions- discussed with Dr. Ziegler, who believes patient does not have capacity. Next of kin, as patient may require procedures for her renal artery stenosis - states he's the health care proxy - updated him on patient's status. 8. Thrombocytopenia/leukopenia- chronic and stable. No bleeding. No need for transfusion at this time. DVT prophy: SCDs Prognosis guarded. VS,Fishbone, I+O VS, Fishbone, I+O Laboratory Tests 01/03/17 05:36 Red Blood Count 3.91 L, Mean Corpuscular Volume 89.0, Mean Corpuscular Hemoglobin 29.4, Mean Corpuscular Hemoglobin Concent 33.0, Red Cell Distribution Width 14.5, Calcium Level 8.1 L Vital Signs Date Time Temp Pulse Resp B/P (MAP) Pulse Ox O2 Delivery O2 Flow Rate FiO2 01/03/17 15:05 172/58 01/03/17 14:23 99.0 63 18 19 Room Air I&O- Last 24 Hours up to 6 AM 01/04/17 06:00 Intake Total 230 ml Output Total 200 ml Balance 30 ml ISHAAN DUCKWORTH MD Jan 03, 2017 16:39
--- NOTE | 2017-01-03 18:40 | IPN ---
DATE: 01/03/2017 SUBJECTIVE: The patient is seen this morning at the bedside. She denies any complaints. She feels well. I tried to explain to her regarding the findings of the MRA that she had yesterday. However, she does not seem to understand much of what I am saying. I do not think that she understands the benefits or the risks of the procedure as I have explained it to her and I feel that she is likely unable to make a decision as far as having procedures. VITAL SIGNS: Temperature 99, pulse 63, respiratory rate 18, blood pressure systolic 140s to 170s, saturating 95% on room air. INTAKE AND OUTPUT: Urine output yesterday 1200 mL. PHYSICAL EXAMINATION: The patient is lying down in bed, comfortable, in no acute distress. Extraocular muscles are intact. The oral mucosa is moist. The neck is supple. CARDIAC: S1, S2, 2+ radial pulse, systolic murmur. No edema. LUNGS: Clear to auscultation. ABDOMEN: Soft, nontender. Positive bowel sounds. EXTREMITIES: No edema. NEUROLOGIC: The patient answers simple questions appropriately and follows commands. However, she seems to have very poor insight into her medical condition. She may not have decision making capacity. LABORATORY DATA: Sodium 138, potassium 4.0, BUN 26, creatinine 1.3. IMAGING STUDIES: MRA done yesterday showed a 3.1 cm right adrenal nodule and high-grade stenosis of the left renal artery and 60% to 70% stenosis of the right renal artery and an abdominal aortic aneurysm with a maximum diameter of 4.8 cm. INPATIENT MEDICATIONS: I have started the patient on chlorthalidone for further control of her blood pressure. Her other medications remain unchanged from prior. PROBLEMS: 1. Hypertensive urgency. MRA is significant for renal artery stenosis bilaterally. I tried to have a discussion with the patient regarding the same. She does not seem to understand most of what I am saying to her. I suspect she does not understand the benefits and the risks of vascular intervention. She may very well likely not have capacity to make decision. I have discussed the same with Dr. Talamantes. For now, her blood pressures also continue to be suboptimal and chlorthalidone 12.5 mg daily is added. 2. Acute kidney injury (CEE) on chronic kidney disease (CKD). The patient's renal function is now back at her baseline. Continue to hold angiotensin-converting enzyme (ARNULFO) or angiotensin-receptor jonny (ARB) due to recent renal recovery. 3. Metabolic encephalopathy, likely secondary to Escherichia (E) coli urinary tract infection (UTI) and concomitant hypertensive urgency. However, there is probably also an underlying dementia. Plan of care discussed with Dr. Boby Talamantes.
--- NOTE | 2017-01-03 18:41 | MHIPNPDOC ---
[facility] Progress Note Progress Note DATE OF SERVICE: 01/03/17 PSYCHIATRY FOLLOW UP: The patient is psychotic and she has memory problems. She has NO CAPACITY at this time to make decisions, she could not be able to take care of herself if she were discharged and went o live on her own. She needs somebody to supervise her medication intake, to help her with appointments and make [facility] decisions on her behalf. Dr. Mayra Rowe Vital Signs Vital Signs Date Time Temp Pulse Resp B/P (MAP) Pulse Ox O2 Delivery O2 Flow Rate FiO2 01/03/17 16:00 98.0 60 18 160/60 (93) 95 Room Air Laboratory Data 24H Labs Laboratory Tests 2 01/02/17 20:50: Bedside Glucose (Misc Panel) 122H 01/03/17 05:36: Nucleated Red Blood Cells % (auto) 0.0, Immature Platelet Fraction 3.4, Anion Gap 7L, Glomerular Filtration Rate 41.4, Blood Urea Nitrogen 26H, Creatinine 1.34H, Sodium Level 138, Potassium Level 4.0, Chloride Level 108H, Carbon Dioxide Level 23, Calcium Level 8.1L 01/03/17 11:38: Bedside Glucose (Misc Panel) 140H 01/03/17 16:52: Bedside Glucose (Misc Panel) 180H CBC/BMP Laboratory Tests 01/03/17 05:36 Red Blood Count 3.91 L, Mean Corpuscular Volume 89.0, Mean Corpuscular Hemoglobin 29.4, Mean Corpuscular Hemoglobin Concent 33.0, Red Cell Distribution Width 14.5, Calcium Level 8.1 L Current Medications Current Medications Acetaminophen (Tylenol Tab) 650 mg Q4HP PRN PO MILD PAIN OR FEVER Last administered on 12/30/16 15:24; Start 12/27/16 at 07:15; Stop 01/26/17 at 07: 14 Amlodipine Besylate (Norvasc) 5 mg DAILY PO Last administered on 12/31/16 08: 22; Start 12/29/16 at 09:00; Stop 12/31/16 at 11:38; Status DC Amlodipine Besylate (Norvasc) 10 mg DAILY PO Last administered on 01/03/17 08 :37; Start 01/01/17 at 09:00; Stop 01/31/17 at 08:59 Atorvastatin Calcium (Lipitor) 80 mg DAILY PO Last administered on 01/03/17 08:36; Start 12/28/16 at 09:00; Stop 01/27/17 at 08:59 Ceftriaxone Sodium 1 gm/ Dextrose 50 ml @ 100 mls/hr Q24H IV Last administered on 01/03/17 08:35; Start 12/31/16 at 09:00; Stop 01/06/17 at 09 :29 Chlorthalidone (Hygroton) 25 mg DAILY PO Last administered on 12/31/16 08:22 ; Start 12/29/16 at 09:00; Stop 12/31/16 at 11:38; Status DC Chlorthalidone (Hygroton, Chlorthalidone) 12.5 mg DAILY PO Last administered on 01/03/17 08:36; Start 01/03/17 at 09:00; Stop 02/02/17 at 08:59 Clonidine HCl (Catapres) 0.1 mg BID PO Last administered on 01/03/17 08:36; Start 12/30/16 at 21:00; Stop 01/26/17 at 20:59 Clonidine HCl (Catapres) 0.1 mg TID PO Last administered on 12/30/16 08:28; Start 12/27/16 at 21:00; Stop 12/30/16 at 10:01; Status DC Clopidogrel Bisulfate (PLAVix) 75 mg DAILY PO Last administered on 01/03/17 08:37; Start 12/29/16 at 09:00; Stop 01/28/17 at 08:59 Dextrose (Dextrose 50%) 25 ml ASDIRECTED PRN IV SEE LABEL COMMENTS; Start 12/28 at 01:00; Stop 01/27/17 at 00:59 Enoxaparin Sodium (Lovenox) 30 mg DAILY SC Last administered on 12/27/16 11:26 ; Start 12/27/16 at 09:00; Stop 12/28/16 at 10:06; Status DC Glucagon (Glucagon) 1 mg ASDIRECTED PRN SC SEE LABEL COMMENTS; Start 12/28/16 at 01:00; Stop 01/27/17 at 00:59 Glucose (Glucose) 16 GM ASDIRECTED PRN PO SEE LABEL COMMENTS; Start 12/28/16 at 01:00; Stop 01/27/17 at 00:59 Home Med (Med Rec Complete!) ASDIRECTED XX ; Start 12/27/16 at 08:15; Stop 12/27/16 at 08:15; Status DC Hydralazine HCl (Apresoline) 5 mg STAT STAT IV Last administered on 12/27/16 08:36; Start 12/27/16 at 08:19; Stop 12/27/16 at 08:23; Status DC Hydralazine HCl (Apresoline) 5 mg STAT STAT IV Last administered on 12/27/16 10:18; Start 12/27/16 at 09:56; Stop 12/27/16 at 09:57; Status DC Hydralazine HCl (Apresoline) 10 mg Q8H IV Last administered on 12/28/16 23:45 ; Start 12/27/16 at 16:00; Stop 12/29/16 at 08:19; Status DC Hydralazine HCl (Apresoline) 25 mg TID PO Last administered on 12/31/16 08:22 ; Start 12/30/16 at 09:00; Stop 12/31/16 at 11:38; Status DC Hydralazine HCl (Apresoline) 50 mg TID PO Last administered on 01/03/17 15:05 ; Start 12/31/16 at 16:00; Stop 01/30/17 at 15:59 Insulin Human Lispro (HumaLOG INSULIN) SEE PROTOCOL TABLE AC SC Last administered on 01/03/17 16:58; Start 12/28/16 at 07:30; Stop 01/27/17 at 07: 29 Insulin Human Lispro (HumaLOG INSULIN) SEE PROTOCOL TABLE QHS SC ; Start at 21:00; Stop 01/28/17 at 20:59 Levofloxacin (Levaquin) 500 mg DAILY@1800 PO Last administered on 12/30/16 18 :34; Start 12/30/16 at 18:00; Stop 12/31/16 at 08:33; Status DC Lisinopril (Prinivil) 10 mg BID PO Last administered on 12/30/16 08:28; Start 12/29/16 at 09:00; Stop 12/30/16 at 10:01; Status DC Nicotine (Nicoderm Cq 7 Mg) 1 patch DAILY TD ; Start 12/27/16 at 09:00; Stop at 21:45; Status DC Sodium Chloride 1,000 ml @ 60 mls/hr [id number] IV Last administered on 08:36; Start 12/27/16 at 07:06; Stop 12/27/16 at 22:00; Status DC Sodium Chloride 1,000 ml @ 100 mls/hr Q10H IV Last administered on 12/30/16 08:29; Start 12/29/16 at 08:00; Stop 12/30/16 at 10:01; Status DC Sodium Chloride (Saline Lock Flush) 2 ml ASDIRECTED PRN IV SEE LABEL COMMENTS; Start 01/02/17 at 15:30; Stop 02/01/17 at 15:29 Sodium Chloride (Saline Lock Flush) 2 ml SLF IV Last administered on 12:00; Start 01/02/17 at 22:00; Stop 02/01/17 at 21:59 Allergies Coded Allergies: No Known Allergies (Unverified , 12/27/16) MAYRA ROWE MD Jan 03, 2017 18:41
[2017-01-03] MEDS: hydrALAZINE INJ 20 MG/ML VIAL IV SCH (23:29)
[2017-01-04] VITALS (11 sets, daily range): BP systolic 148–200; BP diastolic 56–82
[2017-01-04] MEDS: hydrALAZINE INJ 20 MG/ML VIAL IV SCH ×6 (02:27→22:18)
[2017-01-04] MEDS: ACETAMINOPHEN TAB 650MG DOSE (2X325MG) PO PRN (02:30)
[2017-01-04] MEDS: SLF 3 ML SYR IV SCH ×3 (05:09→22:18)
[2017-01-04 08:17] LABS: BASO # 0.1 10^3/uL (0.0-0.2); BASO % 1.1 % (0.0-1.0); EOS # 0.2 10^3/uL (0.0-0.50); EOS % 5.1 % (0.0-3.0); IMMATURE GRANULOCYTE % 0.2 % (0-0); LYMPH % 20.9 % (24.0-44.0); MEAN CORPUSCULAR HEMOGLOBIN 29.7 pg (27.0-33.0); MEAN CORPUSCULAR HGB CONC 33.1 g/dl (32.0-36.5); MEAN CORPUSCULAR VOLUME 89.6 fl (80.0-96.0); MONO # 0.5 10^3/uL (0.0-0.8); MONO % 10.3 % (0.0-5.0); NEUTROPHILS # 2.9 10^3/uL (1.8-7.7); NEUTROPHILS % 62.4 % (36.0-66.0); PLATELET COUNT, AUTOMATED 114 10^3/uL (150-450); RED CELL DISTRIBUTION WIDTH 14.4 % (11.5-14.5); WHITE BLOOD COUNT 4.7 10^3/uL (4.0-10.0)
--- NOTE | 2017-01-04 08:19 | REP ---
Clinical: Chest pain. Comparison: 12/27/2016. Findings: Mediastinum and cardiac silhouette are stable with evidence for prior sternotomy and cardiac valve repair. Cardiomegaly is unchanged. Lung kaur demonstrate cephalization and evidence for pulmonary vascular congestion with interstitial edema. Mid to lower lobe atelectasis (right greater than left) noted. Small layering effusion cannot be excluded. No pneumothorax. Skeletal structures stable. Impression: Findings compatible with pulmonary vascular congestion and interstitial edema including bilateral atelectasis (right greater than left). Signed by William Kruger MD 01/04/2017 08:10 A
[2017-01-04 08:53] LABS: ALBUMIN 2.4 GM/DL (3.2-5.2); ALBUMIN/GLOBULIN RATIO 0.63 (1.00-1.93); BILIRUBIN,TOTAL 0.6 MG/DL (0.2-1.0); CALCIUM LEVEL 8.3 MG/DL (8.8-10.2); CREATININE FOR GFR 1.27 MG/DL (0.55-1.02); POTASSIUM SERUM 4.5 MEQ/L (3.5-5.1); TOTAL PROTEIN 6.2 GM/DL (6.4-8.2)
[2017-01-04] MEDS: HumaLOG INSULIN (NovoLOG) PER UNIT SC SCH ×4 (09:14→20:19)
[2017-01-04] MEDS: amLODIPine 10 MG TAB PO SCH (09:15)
[2017-01-04] MEDS: cefTRIAXone SOD 1 GM in D5W 50 ML IV SCH (09:15)
[2017-01-04] MEDS: ATORVASTATIN 10 MG TAB PO SCH (09:15)
[2017-01-04] MEDS: cloNIDine 0.1 MG TAB PO SCH (09:16)
[2017-01-04] MEDS: CHLORTHALIDONE 12.5MG PER 1/2 TABLET PO SCH (09:16)
[2017-01-04] MEDS: CLOPIDOGREL 75 MG TAB PO SCH (09:16)
[2017-01-04] MEDS: **hydrALAZINE HCL** 25 MG TAB PO SCH ×3 (09:17→20:19)
--- NOTE | 2017-01-04 11:29 | IPNPDOC ---
Text Note Date of Service The patient was seen on 01/04/17. NOTE Subjective: Patient is she feels well. Denies any complaints. Objective: Vitals: (see below) General: No acute distress, laying comfortably in bed. HEENT: Moist mucous membranes. Neck: No JVD or lymphadenopathy Cardiac: RRR, No murmurs Pulm: Clear to auscultation b/l. No wheezing, rhonchi Abd: NT/ND + BS Ext: No edema or cyanosis Labs (see below) Images: MRA abdomen on 01/02/17 IMPRESSION: High grade stenosis main left renal artery at its origin. Approximately 60 to 70% stenosis origin of the right renal artery. Distal abdominal aortic aneurysm fusiform in shape, maximum AP diameter is 4.8 cm. There are findings of cirrhosis of the liver and splenomegaly. Varices are seen in the splenic hilum. Right adrenal nodule measures 3.1 cm maximally. Assessment/Plan 1. Hypertensive urgency/emergency- blood pressure uncontrolled. Continue current BP meds; hydralazine dose increased. Started on Chlorthalidone by nephro. Appreciate nephrology input. Patient with notable renal artery stenosis , high-grade. Dr. Becerra consulted 2. Acute kidney injury on chronic kidney disease- improving. Appreciate nephro input. 3. Demand ischemia with mild elevation of troponin in the setting of acute kidney injury- improved. Patient denies chest pain. Appreciate cardio input. 4. Urinary tract infection- urine culture with Escherichia coli on Rocephin 5. Metabolic encephalopathy- likely secondary to urinary tract infection, hypertensive urgency, and questionable baseline dementia. 6. Depression/anxiety- evaluated by Dr. Ziegler. 7. Lack of capacity to make medical decisions- discussed with Dr. Ziegler, who believes patient does not have capacity. Next of kin, as patient may require procedures for her renal artery stenosis - states he's the health care proxy - updated him on patient's status. 8. Thrombocytopenia/leukopenia- chronic and stable. No bleeding. No need for transfusion at this time. DVT prophy: SCDs Prognosis guarded. VS,Fishbone, I+O VS, Fishbone, I+O Laboratory Tests 01/04/17 08:08 Red Blood Count 3.94 L, Mean Corpuscular Volume 89.6, Mean Corpuscular Hemoglobin 29.7, Mean Corpuscular Hemoglobin Concent 33.1, Red Cell Distribution Width 14.4, Neutrophils (%) (Auto) 62.4, Lymphocytes (%) (Auto) 20.9 L, Monocytes (%) (Auto) 10.3 H, Eosinophils (%) (Auto) 5.1 H, Basophils (% ) (Auto) 1.1 H, Neutrophils # (Auto) 2.9, Lymphocytes # (Auto) 1.0 L, Monocytes # (Auto) 0.5, Eosinophils # (Auto) 0.2, Basophils # (Auto) 0.1, Calcium Level 8.3 L, Aspartate Amino Transf (AST/SGOT) 22, Alanine Aminotransferase (ALT/SGPT ) 18, Alkaline Phosphatase 102, Total Bilirubin 0.6, Total Protein 6.2 L, Albumin 2.4 L Vital Signs Date Time Temp Pulse Resp B/P (MAP) Pulse Ox O2 Delivery O2 Flow Rate FiO2 01/04/17 11:09 180/64 01/04/17 09:15 60 01/04/17 08:53 96 Room Air 01/04/17 08:38 97.9 18 I&O- Last 24 Hours up to 6 AM 01/05/17 06:00 Intake Total 240 ml Balance 240 ml ISHAAN DUCKWORTH MD Jan 04, 2017 11:29
--- NOTE | 2017-01-04 14:11 | REP ---
Clinical: History of aortic aneurysm. Comparison: None. Findings: Advanced atherosclerotic changes to the aorta and vasculature is identified along with infrarenal abdominal aortic aneurysm measuring approximately 4.4 cm maximal diameter and approximately 9.5 cm in length from the level of the renal arteries terminating just above the bifurcation to common iliac arteries. Liver demonstrates nodular contour consistent with cirrhosis. Spleen, pancreas, and left adrenal gland appear normal. Cholelithiasis noted without CT evidence for acute cholecystitis. Kidneys demonstrate renovascular calcifications and possible small nonobstructing renal calculi without perinephric stranding or hydronephrosis. 3.2 cm low density right adrenal adenoma noted. The enteric system is without obstruction or acute inflammatory process. Normal terminal ileum and appendix identified in the right lower quadrant. Pelvis demonstrates normal bladder and age-appropriate uterus/adnexa incidental 2.7 cm right ovarian cyst identified. No pelvic fluid or ascites. No free air. No significant adenopathy. Lung bases demonstrate small to moderate bilateral pleural effusions and bibasilar atelectasis along with mild pulmonary vascular congestion. Musculoskeletal structures demonstrate age-related degenerative changes without focal osseous abnormality. Impression: 1. Abdominal aortic aneurysm measuring approximately 4.4 cm maximal diameter extending from the level of the renal arteries to the bifurcation to common iliac arteries. Advanced atherosclerotic changes noted. 2. Small to moderate bilateral pleural effusions with bibasilar atelectasis and evidence for mild pulmonary vascular congestion. 3. Cholelithiasis. 4. Suspected cirrhosis. 5. Chronic changes to the bilateral kidneys and 3.2 cm adrenal adenoma. 6. 2.7 cm right ovarian cyst. Signed by William Kruger MD 01/04/2017 02:03 P
--- NOTE | 2017-01-04 17:42 | IPN ---
DATE: 01/04/2017 SUBJECTIVE: The patient is seen this morning at the bedside. She denies any complaints. She states she feels well. Noted her blood pressure continues to fluctuate, systolic ranging from 158-193 and diastolics in the 50s to the 80s. REVIEW OF SYSTEMS: The patient remains pleasantly confused. She denies fevers, chills, chest pains, palpitations, nausea, vomiting, diarrhea. She reports some mild dyspnea on exertion. PHYSICAL EXAMINATION: GENERAL: The patient is seen lying in bed, in no acute distress. Extraocular muscles are intact. The mucous membranes are moist. The ears, nose and throat are unremarkable. The neck is supple. There is no jugular venous distention. CARDIAC: S1, S2. There are 2+ radial pulses. There is no edema in the lower extremities. LUNGS: Symmetric air entry bilaterally. Clear to auscultation. ABDOMEN: Soft, obese, nontender. Positive bowel sounds. EXTREMITIES: Without edema. NEUROLOGIC: The patient has memory impairments. She is able to answer simple questions appropriately but does not seem to have any insight into her medical condition. PSYCHIATRIC: Appropriate mood and affect. LABORATORY DATA: White count 4.7, hemoglobin 11.7, platelets 114. Sodium 140, potassium 4.5, bicarbonate 25, BUN 22, creatinine 1.2, corrected calcium 9.5. Aldosterone and renin pending. IMAGING STUDIES: Chest x-ray 01/04/2017: Pulmonary vascular congestion and atelectasis. CT abdomen and pelvis without contrast 01/04/2017: Abdominal aortic aneurysm measuring 4.4 cm extending from the level of the renal arteries to the bifurcation to common iliac arteries. Evidence of mild pulmonary vascular congestion and small to moderate bilateral pleural effusions and 3.2 cm adrenal adenoma on the right, possible cirrhosis. INPATIENT MEDICATIONS: I increased the patient's chlorthalidone to 25 mg by mouth daily and the primary team increased the hydralazine to 75 mg by mouth three times a day. Her other medications are unchanged from prior. PROBLEMS: 1. Hypertensive urgency with newly found bilateral renal artery stenosis with high-grade stenosis on the left and 60% to 70% stenosis at the origin of the right renal artery. The patient's blood pressures remain uncontrolled, systolic 150s to 190s. The primary team has increased the hydralazine to 75 mg by mouth three times a day and I have increased the chlorthalidone to 25 mg by mouth daily. She was not taking any of her antihypertensives at home prior to this admission. As far as vascular intervention for her renal artery stenosis, there are definite risks associated and the patient does not have a capacity to make medical decisions. Dr. Talamantes has reached out to the patient's son to discuss further and to update him on the patient's status. 2. A 3.2 cm right adrenal adenoma. I have sent off aldosterone and renin levels. There are no prior abdominal imaging available that I can look for comparison. She should have an adrenal incidentaloma workup. Likely benign given that there was low density on the unenhanced CAT scan. However, that can be discussed further with radiology. 3. Acute kidney injury on chronic kidney disease (CKD), stage III. The patient's renal function daily improves and is back to her baseline with stable electrolytes. 4. Urinary tract infection with Escherichia (E) coli. The patient continues on Rocephin.
[2017-01-04] MEDS ORDERED: cloNIDine 0.1 MG TAB PO ONE (19:00)
[2017-01-04] MEDS ORDERED: niCARdipine IV 40 MG in APPROPRIATE DILUENT 1 EA IV SCH (20:30)
[2017-01-04] MEDS ORDERED: cloNIDine 0.2 MG TAB PO SCH (21:00)
[2017-01-05] VITALS (15 sets, daily range): BP systolic 130–200; BP diastolic 46–70
[2017-01-05] MEDS: SLF 3 ML SYR IV SCH ×3 (02:50→21:06)
[2017-01-05] MEDS: hydrALAZINE INJ 20 MG/ML VIAL IV SCH ×5 (02:50→17:32)
--- NOTE | 2017-01-05 03:55 | IPNPDOC ---
Text Note Date of Service The patient was seen on 01/05/17. NOTE Initial plan with nurse was to recheck BP Q hourly I was not present for this interaction and the case was not presented to Me. I was only informed that transfer was cancelled after it had been done. VS,Fishbone, I+O VS, Fishbone, I+O Laboratory Tests 01/04/17 08:08 Red Blood Count 3.94 L, Mean Corpuscular Volume 89.6, Mean Corpuscular Hemoglobin 29.7, Mean Corpuscular Hemoglobin Concent 33.1, Red Cell Distribution Width 14.4, Neutrophils (%) (Auto) 62.4, Lymphocytes (%) (Auto) 20.9 L, Monocytes (%) (Auto) 10.3 H, Eosinophils (%) (Auto) 5.1 H, Basophils (% ) (Auto) 1.1 H, Neutrophils # (Auto) 2.9, Lymphocytes # (Auto) 1.0 L, Monocytes # (Auto) 0.5, Eosinophils # (Auto) 0.2, Basophils # (Auto) 0.1, Calcium Level 8.3 L, Aspartate Amino Transf (AST/SGOT) 22, Alanine Aminotransferase (ALT/SGPT ) 18, Alkaline Phosphatase 102, Total Bilirubin 0.6, Total Protein 6.2 L, Albumin 2.4 L Vital Signs Date Time Temp Pulse Resp B/P (MAP) Pulse Ox O2 Delivery O2 Flow Rate FiO2 01/05/17 02:50 158/62 01/04/17 23:59 98.1 69 18 93 Room Air GME ATTESTATION GME ATTESTATION My faculty preceptor for this patient encounter was physically present during the encounter and was fully available. All aspects of the patient interview, examination, medical decision making process, and medical care plan development were reviewed and approved by the faculty preceptor. The faculty preceptor is aware and concurs with the plan as stated in the body of this note and will attest to such by his/her cosignature. SHANNON HERNANDEZ DO Jan 05, 2017 03:54 RAHUL GOVEA MD Jan 06, 2017 20:18
[2017-01-05 05:33] LABS: MEAN CORPUSCULAR HEMOGLOBIN 29.7 pg (27.0-33.0); MEAN CORPUSCULAR HGB CONC 33.5 g/dl (32.0-36.5); MEAN CORPUSCULAR VOLUME 88.5 fl (80.0-96.0); PLATELET COUNT, AUTOMATED 112 10^3/uL (150-450); RED CELL DISTRIBUTION WIDTH 14.2 % (11.5-14.5); WHITE BLOOD COUNT 4.8 10^3/uL (4.0-10.0)
[2017-01-05 05:43] LABS: INR 1.16
[2017-01-05 05:52] LABS: CALCIUM LEVEL 8.2 MG/DL (8.8-10.2); CREATININE FOR GFR 1.3 MG/DL (0.55-1.02); GLOMERULAR FILTRATION RATE 42.9 (>39); POTASSIUM SERUM 3.5 MEQ/L (3.5-5.1)
[2017-01-05] MEDS: HumaLOG INSULIN (NovoLOG) PER UNIT SC SCH ×4 (08:53→20:03)
[2017-01-05] MEDS: cloNIDine 0.1 MG TAB PO SCH (08:54)
[2017-01-05] MEDS: **hydrALAZINE HCL** 25 MG TAB PO SCH (08:54)
[2017-01-05] MEDS: CHLORTHALIDONE 25 MG TAB PO SCH (08:54)
[2017-01-05] MEDS: amLODIPine 10 MG TAB PO SCH (08:55)
[2017-01-05] MEDS: ATORVASTATIN 10 MG TAB PO SCH (09:46)
[2017-01-05] MEDS: cefTRIAXone SOD 1 GM in D5W 50 ML IV SCH (09:59)
[2017-01-05] MEDS: MINOXIDIL 2.5 MG TAB PO SCH ×2 (11:30→20:00)
[2017-01-05] MEDS ORDERED: MINOXIDIL 2.5 MG TAB PO ONE (12:00)
--- NOTE | 2017-01-05 13:03 | IPNPDOC ---
Text Note Date of Service The patient was seen on 01/05/17. NOTE Subjective: Patient is she feels well. Denies any complaints. No CP/ Palpitations. Objective: Vitals: (see below) General: No acute distress, laying comfortably in bed. HEENT: Moist mucous membranes. Neck: No JVD or lymphadenopathy Cardiac: RRR, No murmurs Pulm: Clear to auscultation b/l. No wheezing, rhonchi Abd: NT/ND + BS Ext: No edema or cyanosis Labs (see below) Images: MRA abdomen on 01/02/17 IMPRESSION: High grade stenosis main left renal artery at its origin. Approximately 60 to 70% stenosis origin of the right renal artery. Distal abdominal aortic aneurysm fusiform in shape, maximum AP diameter is 4.8 cm. There are findings of cirrhosis of the liver and splenomegaly. Varices are seen in the splenic hilum. Right adrenal nodule measures 3.1 cm maximally. Assessment/Plan 1. Hypertensive urgency/emergency- blood pressure uncontrolled. Continue current BP meds; hydralazine changed to minoxidil. On Chlorthalidone by nephro. Appreciate nephrology input. Clonidine dose increased. Patient with notable renal artery stenosis, high-grade. Dr. Becerra consulted, plan for possible sent tomorrow. Discussed with Dr. Becerra- BP may not change after stenting given likely chronicity. Discussed with Dr. Conner Porras, ACEi/ARB contraindicated in setting of b/l LUCITA. 2. Acute kidney injury on chronic kidney disease- improving. Appreciate nephro input. 3. Demand ischemia with mild elevation of troponin in the setting of acute kidney injury- improved. Patient denies chest pain. Appreciate cardio input. 4. Urinary tract infection- urine culture with Escherichia coli on Rocephin 5. Metabolic encephalopathy- likely secondary to urinary tract infection, hypertensive urgency, and questionable baseline dementia. 6. Depression/anxiety- evaluated by Dr. Ziegler. 7. Lack of capacity to make medical decisions- discussed with Dr. Ziegler, who believes patient does not have capacity. Next of kin, as patient may require procedures for her renal artery stenosis - states he's the health care proxy - updated him on patient's status. 8. Thrombocytopenia/leukopenia- chronic and stable. No bleeding. No need for transfusion at this time. 9. 3.2cm adrenal adenoma - f/u outpt. renin/aldosterone sent. DVT prophy: SCDs Prognosis guarded. VS,Fishbone, I+O VS, Fishbone, I+O Laboratory Tests 01/05/17 05:21 Red Blood Count 3.74 L, Mean Corpuscular Volume 88.5, Mean Corpuscular Hemoglobin 29.7, Mean Corpuscular Hemoglobin Concent 33.5, Red Cell Distribution Width 14.2, Calcium Level 8.2 L Vital Signs Date Time Temp Pulse Resp B/P (MAP) Pulse Ox O2 Delivery O2 Flow Rate FiO2 01/05/17 12:55 180/61 (100) 01/05/17 12:54 98.0 68 18 95 Room Air I&O- Last 24 Hours up to 6 AM 01/06/17 06:00 Intake Total 50 ml Output Total 500 ml Balance -450 ml ISHAAN DUCKWORTH MD Jan 05, 2017 13:03
[2017-01-05] MEDS: cloNIDine 0.2 MG TAB PO SCH (20:00)
[2017-01-05] MEDS ORDERED: LABETALOL HCL 100 MG/20 ML VIAL IV SCH (21:00)
[2017-01-06] VITALS (8 sets, daily range): BP systolic 138–182; BP diastolic 48–83
[2017-01-06] MEDS: LABETALOL HCL 100 MG/20 ML VIAL IV SCH ×4 (03:00→21:00)
[2017-01-06 05:50] LABS: MEAN CORPUSCULAR HEMOGLOBIN 28.8 pg (27.0-33.0); MEAN CORPUSCULAR HGB CONC 32.5 g/dl (32.0-36.5); MEAN CORPUSCULAR VOLUME 88.7 fl (80.0-96.0); RED CELL DISTRIBUTION WIDTH 14.1 % (11.5-14.5); WHITE BLOOD COUNT 4.4 10^3/uL (4.0-10.0)
[2017-01-06] MEDS: SLF 3 ML SYR IV SCH ×3 (05:53→22:30)
[2017-01-06 06:01] LABS: CALCIUM LEVEL 8.2 MG/DL (8.8-10.2); CREATININE FOR GFR 1.4 MG/DL (0.55-1.02); GLOMERULAR FILTRATION RATE 39.4 (>39); POTASSIUM SERUM 3.5 MEQ/L (3.5-5.1)
[2017-01-06 06:03] LABS: PLATELET COUNT, AUTOMATED 98 10^3/uL (150-450)
[2017-01-06 06:04] LABS: IMMATURE PLATELET FRACTION % 3.6 % (0.0-9.6)
--- NOTE | 2017-01-06 06:41 | IPN ---
DATE OF SERVICE: 01/05/2017 SUBJECTIVE: The patient is seen this morning at the bedside. She denies any complaints of any acute events overnight. Denies any chest pain or palpitation. I had a discussion with Dr. Talamantes regarding the patient's antihypertensive regimen. This morning I discontinued the patient's hydralazine and started her on minoxidil 5 mg by mouth twice daily along with labetalol IV pushes. REVIEW OF SYSTEMS: The patient denies fevers, chills, chest pains, palpitations , nausea, vomiting, diarrhea, edema, dysuria. She gives short answers to simple questions. Vitals: Temperature 98.0, pulse 68, respiratory rate 18, blood pressure 162/60 with blood pressure overall ranging from systolic 130 to systolic 200. Saturating 95% on room air. Intake and output: Urine output yesterday 1075 mL. PHYSICAL EXAMINATION: The patient is seen in bed lying comfortably in no acute distress. Extraocular muscles are intact. Oral mucosa is moist. Neck is supple. There is no jugular venous distention. Cardiac: S1, S2. 2+ radial pulses bilaterally. There is no edema in the peripheries or in the dependent area. Chest : fair air entry bilaterally, no accessory muscle use Abdomen is soft, obese, nontender, positive bowel sounds. I cannot appreciate a bruit in the renal fossa. Neurologic: The patient answers simple questions appropriately. Psychiatric: Calm, appropriate mood. LABS: White count 4.8, hemoglobin 11.1, platelet 112. Sodium 138, potassium 3.5, bicarbonate 24, BUN 22, creatinine 1.3. Aldosterone and Renin pending. IMAGING: CT abdomen and pelvis 01/04: Abdominal aortic aneurysm measuring approximately 4.4 cm in maximal diameter extending from the level of the renal arteries to the bifurcation to common iliac arteries. Chronic changes to bilateral kidneys and 3.2 cm adrenal adenoma. INPATIENT MEDICATIONS: The patient's clonidine was adjusted by the primary team. I discontinued the patient's hydralazine both oral and IV pushes and started the patient on minoxidil 5 mg by mouth twice daily and labetalol 10 mg IV every 6 hours both with holding parameters. PROBLEMS: 1. Hypertensive urgency. The patient's blood pressures continue to remain uncontrolled. Systolic's are very fluctuant ranging from 130s to 200. Given her heart rate in the 60s and her bilateral renal artery stenosis, we are limited in the medications to give her. At this time, I have discontinued her hydralazine both oral and IV and started the patient on minoxidil 5 mg by mouth twice daily which I expect will cause the heart rate to increase and I have also placed her on labetalol 10 mg IV every 6 hours. Holding parameters with all hypertensive medications. She otherwise continues on amlodipine, clonidine and chlorthalidone. 2. Bilateral renal artery stenosis. Angiotensin converting enzyme (ARNULFO) or angiotensin receptor blockers (ARBs) can be used in bilateral renal artery stenosis however there is certainly a heightened risk of acute kidney injury. Given that the patient was receiving lisinopril 10 mg by mouth daily during the first two days of the admission which was complicated by an acute kidney injury with peak creatinine of 1.8; I am wary of reinstituting ARNULFO or ARB at this time. If a surgical intervention is not pursued or if her blood pressure cannot be adequately controlled by alternative regimen, then we will give a second trial of lisinopril with careful monitoring of her renal function. 3. 3.2 cm right adrenal adenoma. Aldosterone and Renin levels are pending. Adrenal incidentaloma workup can be completed after the acute issues resolve. Likely benign given low density on unenhanced CAT scan. 4. Acute kidney injury (CEE) presumed due to lisinopril associated dysautoregulation in bilateral renal artery stenosis. The patient's renal function has returned to baseline. If there are not going to be any surgical interventions pursued or if we cannot adequately control her blood pressure on alternative regimen, then we will give a second trial of acei / or ARB Plan of care discussed with Dr. Boby Talamantes. [facility]ERN[facility] HOSPITALMarisol
[2017-01-06] MEDS: HumaLOG INSULIN (NovoLOG) PER UNIT SC SCH ×4 (08:05→21:00)
[2017-01-06] MEDS: CLOPIDOGREL 75 MG TAB PO SCH (08:06)
[2017-01-06] MEDS: ATORVASTATIN 10 MG TAB PO SCH (08:06)
[2017-01-06] MEDS: CHLORTHALIDONE 25 MG TAB PO SCH (08:06)
[2017-01-06] MEDS: MINOXIDIL 2.5 MG TAB PO SCH ×2 (08:07→21:00)
[2017-01-06] MEDS: amLODIPine 10 MG TAB PO SCH (08:07)
[2017-01-06] MEDS: cloNIDine 0.1 MG TAB PO SCH (08:07)
[2017-01-06] MEDS: cefTRIAXone SOD 1 GM in D5W 50 ML IV SCH (08:08)
--- NOTE | 2017-01-06 13:53 | IPNPDOC ---
Text Note Date of Service The patient was seen on 01/06/17. NOTE Subjective: Patient is she feels well. No CP/Palpitations. No acute changes overnight. Objective: Vitals: (see below) General: No acute distress, laying comfortably in bed. HEENT: Moist mucous membranes. Neck: No JVD or lymphadenopathy Cardiac: RRR, No murmurs Pulm: Clear to auscultation b/l. No wheezing, rhonchi Abd: NT/ND + BS Ext: No edema or cyanosis Labs (see below) Images: MRA abdomen on 01/02/17 IMPRESSION: High grade stenosis main left renal artery at its origin. Approximately 60 to 70% stenosis origin of the right renal artery. Distal abdominal aortic aneurysm fusiform in shape, maximum AP diameter is 4.8 cm. There are findings of cirrhosis of the liver and splenomegaly. Varices are seen in the splenic hilum. Right adrenal nodule measures 3.1 cm maximally. Assessment/Plan 1. Hypertensive urgency/emergency- blood pressure uncontrolled. Continue current BP meds; hydralazine changed to minoxidil. On Chlorthalidone by nephro. Appreciate nephrology input. Clonidine. Started on labetalol. Patient with notable renal artery stenosis, high-grade. Dr. Becerra consulted, plan for possible sent tomorrow. Discussed with Dr. Becerra- BP may not change after stenting given likely chronicity. Discussed with Dr. Conner Porras, ACEi/ARB contraindicated in setting of b/l LUCITA. 2. Acute kidney injury on chronic kidney disease- improving. Appreciate nephro input. 3. Demand ischemia with mild elevation of troponin in the setting of acute kidney injury- improved. Patient denies chest pain. Appreciate cardio input. 4. Urinary tract infection- urine culture with Escherichia coli on Rocephin 5. Metabolic encephalopathy- likely secondary to urinary tract infection, hypertensive urgency, and questionable baseline dementia. 6. Depression/anxiety- evaluated by Dr. Ziegler. 7. Lack of capacity to make medical decisions- discussed with Dr. Ziegler, who believes patient does not have capacity. Next of kin, as patient may require procedures for her renal artery stenosis - states he's the health care proxy - updated him on patient's status. 8. Thrombocytopenia/leukopenia- chronic and stable. No bleeding. No need for transfusion at this time. 9. 3.2cm adrenal adenoma - f/u outpt. renin/aldosterone sent. DVT prophy: SCDs Prognosis guarded. VS,Fishbone, I+O VS, Fishbone, I+O Laboratory Tests 01/06/17 05:28 Red Blood Count 3.71 L, Mean Corpuscular Volume 88.7, Mean Corpuscular Hemoglobin 28.8, Mean Corpuscular Hemoglobin Concent 32.5, Red Cell Distribution Width 14.1, Calcium Level 8.2 L Vital Signs Date Time Temp Pulse Resp B/P (MAP) Pulse Ox O2 Delivery O2 Flow Rate FiO2 01/06/17 12:00 96.9 63 19 170/66 (100) 94 Room Air I&O- Last 24 Hours up to 6 AM 01/07/17 06:00 Intake Total 50 ml Output Total 0 ml Balance 50 ml ISHAAN DUCKWORTH MD Jan 06, 2017 13:53
[2017-01-06 18:09] LABS: CALCIUM LEVEL 8.1 MG/DL (8.8-10.2); CREATININE FOR GFR 1.58 MG/DL (0.55-1.02); GLOMERULAR FILTRATION RATE 34.2 (>39); MAGNESIUM LEVEL 1.9 MG/DL (1.8-2.4); POTASSIUM SERUM 3.8 MEQ/L (3.5-5.1)
--- NOTE | 2017-01-06 18:27 | IPN ---
DATE: 01/06/2017 SUBJECTIVE: The patient is seen this morning at the bedside. As she has done on other days, the patient again denies any complaints, states she feels well, states she is ambulating, tolerating oral intake. Denies any chest pain, palpitations, headaches, shortness of breath, nausea, vomiting. VITAL SIGNS: Blood pressure remains fluctuant, systolic ranged from 138 to 182, diastolic in the 60s, saturating 94% on room air with pulse ranging from 57 to 76. INTAKE AND OUTPUT: Urine output yesterday 1050 mL, net negative 230 mL. PHYSICAL EXAMINATION: The patient is seen lying comfortably in bed, in no acute distress. HEAD AND NECK: Extraocular muscles are intact. The mucous membranes are moist. The neck is supple. There is no jugular venous distention (JVD). CARDIAC: S1, S2, 2+ radial pulse. No edema in the extremities. LUNGS: Clear to auscultation bilaterally. ABDOMEN: Soft, obese, nontender. EXTREMITIES: Without edema. NEUROLOGIC: The patient answered simple questions appropriately and is conversational. PSYCHIATRIC: Appropriate mood and affect. LABORATORY: White count 4.4, hemoglobin 10.7, platelets 98. Sodium 137, potassium 3.5, bicarbonate 24, BUN 25, creatinine 1.4, calcium 8.2. INPATIENT MEDICATIONS: The patient continues on amlodipine 10 mg by mouth daily, chlorthalidone 25 mg by mouth daily, clonidine 0.1 by mouth every morning and clonidine 0.2 mg by mouth every evening, labetalol 10 mg IV every 6 hours with holding parameters and minoxidil 5 mg by mouth twice a day. PROBLEMS: 1. Hypertensive urgency with widely fluctuant blood pressures. The patient is apparently for possible vascular intervention.. At this time, she continues on amlodipine, chlorthalidone, clonidine, labetalol and minoxidil. In view of possible surgical intervention, I will not start (ARNULFO) or ARB at this time. However, if surgical intervention is deferred by the patient's healthcare proxy or if there is no improvement in her blood pressure despite any surgical intervention, then we can give a second trial of ARNULFO or ARB with caution. Holding parameters with all hypertensive medications at this time. 2. Acute kidney injury. Presumed secondary to ARNULFO inhibitor associated dysautoregulation and bilateral renal artery stenosis. Peak creatinine was 1.8. Since then, creatinine has been stable in her baseline range. If surgical interventions are deferred, then we can give a second trial of low dose ARNULFO or ARB with careful monitoring of renal function to hopefully help improve blood pressure control. 3. 3.2 cm right renal adenoma. The patient's aldosterone and renin are pending, and we will follow. MTDD
[2017-01-06] MEDS: cloNIDine 0.2 MG TAB PO SCH (22:30)
[2017-01-07] VITALS (9 sets, daily range): BP systolic 152–222; BP diastolic 50–85
[2017-01-07] MEDS: LABETALOL HCL 100 MG/20 ML VIAL IV SCH ×2 (03:00→07:43)
[2017-01-07 05:03] LABS: MEAN CORPUSCULAR HEMOGLOBIN 29.6 pg (27.0-33.0); MEAN CORPUSCULAR VOLUME 87.3 fl (80.0-96.0); PLATELET COUNT, AUTOMATED 112 10^3/uL (150-450); RED CELL DISTRIBUTION WIDTH 13.6 % (11.5-14.5)
[2017-01-07 05:19] LABS: CALCIUM LEVEL 8.1 MG/DL (8.8-10.2); CREATININE FOR GFR 1.42 MG/DL (0.55-1.02); GLOMERULAR FILTRATION RATE 38.7 (>39); POTASSIUM SERUM 3.2 MEQ/L (3.5-5.1)
[2017-01-07] MEDS: SLF 3 ML SYR IV SCH ×3 (06:00→20:58)
[2017-01-07] MEDS ORDERED: POTASSIUM CHLORIDE 10 MEQ SR TABLET PO ONE (07:45)
[2017-01-07] MEDS: CLOPIDOGREL 75 MG TAB PO SCH (07:47)
[2017-01-07] MEDS: HumaLOG INSULIN (NovoLOG) PER UNIT SC SCH ×4 (07:47→20:36)
[2017-01-07] MEDS: ATORVASTATIN 10 MG TAB PO SCH (07:47)
[2017-01-07] MEDS: amLODIPine 10 MG TAB PO SCH (07:48)
[2017-01-07] MEDS: cloNIDine 0.1 MG TAB PO SCH (07:48)
[2017-01-07] MEDS: CHLORTHALIDONE 25 MG TAB PO SCH (07:50)
[2017-01-07] MEDS: MINOXIDIL 2.5 MG TAB PO SCH (08:20)
--- NOTE | 2017-01-07 10:20 | IPNPDOC ---
Text Note Date of Service The patient was seen on 01/07/17. NOTE Subjective: Denies any complaints. No CP/Palpitations. No acute changes overnight. Objective: Vitals: (see below) General: No acute distress, laying comfortably in bed. HEENT: Moist mucous membranes. Neck: No JVD or lymphadenopathy Cardiac: RRR, No murmurs Pulm: Clear to auscultation b/l. No wheezing, rhonchi Abd: NT/ND + BS Ext: No edema or cyanosis Labs (see below) Images: MRA abdomen on 01/02/17 IMPRESSION: High grade stenosis main left renal artery at its origin. Approximately 60 to 70% stenosis origin of the right renal artery. Distal abdominal aortic aneurysm fusiform in shape, maximum AP diameter is 4.8 cm. There are findings of cirrhosis of the liver and splenomegaly. Varices are seen in the splenic hilum. Right adrenal nodule measures 3.1 cm maximally. Assessment/Plan 1. Hypertensive urgency/emergency- blood pressure uncontrolled. Continue current BP meds; hydralazine changed to minoxidil. On Chlorthalidone by nephro. Appreciate nephrology input. Clonidine. Started on labetalol. Patient with notable renal artery stenosis, high-grade. Dr. Becerra consulted, plan for possible sent tomorrow. Discussed with Dr. Becerra- BP may not change after stenting given likely chronicity. 2. Acute kidney injury on chronic kidney disease- improving. Appreciate nephro input. 3. Demand ischemia with mild elevation of troponin in the setting of acute kidney injury- improved. Patient denies chest pain. Appreciate cardio input. 4. Urinary tract infection- urine culture with Escherichia coli on Rocephin 5. Metabolic encephalopathy- likely secondary to urinary tract infection, hypertensive urgency, and questionable baseline dementia. 6. Depression/anxiety- evaluated by Dr. Ziegler. 7. Lack of capacity to make medical decisions- discussed with Dr. Ziegler, who believes patient does not have capacity. Next of kin, as patient may require procedures for her renal artery stenosis - states he's the health care proxy - updated him on patient's status. 8. Thrombocytopenia/leukopenia- chronic and stable. No bleeding. No need for transfusion at this time. 9. 3.2cm adrenal adenoma - f/u outpt. renin/aldosterone sent. DVT prophy: SCDs Prognosis guarded. VS,Fishbone, I+O VS, Fishbone, I+O Laboratory Tests 01/06/17 17:19 Calcium Level 8.1 L, Total Creatine Kinase 56 01/07/17 04:23 Calcium Level 8.1 L, Red Blood Count 3.61 L, Mean Corpuscular Volume 87.3, Mean Corpuscular Hemoglobin 29.6, Mean Corpuscular Hemoglobin Concent 34.0, Red Cell Distribution Width 13.6 Vital Signs Date Time Temp Pulse Resp B/P (MAP) Pulse Ox O2 Delivery O2 Flow Rate FiO2 01/07/17 08:20 160/60 01/07/17 08:00 97.2 59 20 92 Room Air ISHAAN DUCKWORTH MD Jan 07, 2017 10:19
[2017-01-07] MEDS: SPIRONOLACTONE 25 MG TAB PO SCH (11:54)
[2017-01-07] MEDS: DOCUSATE SODIUM 100 MG CAP PO SCH (20:58)
[2017-01-07] MEDS: cloNIDine 0.2 MG TAB PO SCH (20:58)
[2017-01-07] MEDS: MIRALAX *UNIT DOSE* 17GM PACKET PO SCH (20:58)
[2017-01-07] MEDS ORDERED: DOXAZOSIN MESYLATE 1 MG TAB PO SCH (21:00)
--- NOTE | 2017-01-07 22:30 | IPN ---
DATE: 01/07/2017 SUBJECTIVE: The patient was seen and examined at the bedside today morning. She was lying in the bed in no apparent distress. Blood pressures are getting better now. Renal function is stable with a creatinine of 1.4. REVIEW OF SYSTEMS: The patient denies any fevers, chills, rigors, headaches, nausea, vomiting, chest pain, shortness of breath, pain abdomen, constipation, or diarrhea. Rest of review of systems is negative. OBJECTIVE: VITAL SIGNS: Temperature is 97.2 degrees Fahrenheit. Blood pressure is 158/58, pulse is 59, respiratory rate of 20, saturating 92% on room air. INTAKE AND OUTPUT: Urine output is not recorded. Urine outpatient recorded since overnight is 300 mL. Weight in the bed scale is 96.7 kg. PHYSICAL EXAMINATION: GENERAL: The patient is awake, alert, and oriented times two, lying in bed in no apparent distress. HEAD/NECK: Extraocular muscles intact. Pupils equal, round, and reactive to light. Mucous membranes are moist. Neck is supple. There is no jugular venous distention (JVD). CARDIOVASCULAR: S1, S2. Regular rate. No murmur, rub, or gallop. RESPIRATORY: Chest is clear to auscultation bilaterally. Bilateral equal air entry. ABDOMEN: Soft, obese. Positive bowel sounds. Nontender. MUSCULOSKELETAL: No clubbing or cyanosis. Pulses are 2+. CENTRAL NERVOUS SYSTEM (DEAN): The patient is able to communicate. She is oriented times three. No other focal deficits at this time. PSYCHIATRIC: Normal mood and affect. LABORATORY DATA: CBC showed a WBC of 4, hemoglobin 10.7, platelets of 112. BMP showed sodium 136, potassium 3.2, chloride 103, bicarbonate 24, BUN 31, creatinine 1.4. Calcium is 8.1. CURRENT INPATIENT MEDICATIONS: The patient's medications were all reviewed by me. I have stopped the chlorthalidone and started the patient on spironolactone 25 mg by mouth daily. Labetalol intravenous (IV) as needed was also stopped because the patient has not required any dose in the last 24 hours. The patient was on minoxidil 5 mg by mouth twice a day. She was responding well; however, because of the risk of hirsutism, I have changed the patient to doxazosin 2 mg at bedtime. There is no other change in the medications today as compared with yesterday. ASSESSMENT: A 71-year-old female with bilateral renal artery stenosis, hypertensive urgency and acute kidney injury, abdominal aortic aneurysm, and 3.2 cm adrenal adenoma on the right side is noted. PLAN: 1. Hypertensive urgency: The patient's blood pressure is improving at this time. Initially she was given a trial of angiotension-converting enzyme (ARNULFO) and angiotensin II receptor blockers (ARB), but there was a significant bump in her creatinine so ARNULFO and ARB were stopped. She is currently responding well to amlodipine 10 mg daily. Diuretic has been changed to spironolactone 25 mg. Continue current dose of clonidine 0.2 mg in the morning and 0.1 mg in the evening. Continue doxazosin 2 mg at bedtime. Avoid hydralazine in this patient because of abdominal aortic aneurysm. 2. Acute kidney injury: Baseline creatinine is not known. Her best baseline creatinine on admission was 1.29 and it got worse to 1.8 after use of ARNULFO inhibitors. Renal function is improving. Creatinine is down to 1.4. Avoid further use of ARNULFO or ARB at this time because of bilateral renal artery stenosis. 3. Abdominal aortic aneurysm and bilateral renal artery stenosis: The patient has been seen by Dr. Becerra, vascular surgery. There is a possible plan to do stenting of the renal artery. Aortic aneurysm is less than 5 cm at this time. The management will be according to surgical recommendations. The patient is unable to provide consent at this time. The management of aortic aneurysm most likely is going to be conservative. Keep blood pressure less than 140 systolic. 4. A 3.2 cm right adrenal adenoma. Renin and aldosterone levels are pending. She is not a candidate for ARNULFO or ARB at this time. However, I have started the patient on spironolactone 25 mg by mouth daily. 5. Hypokalemia. The patient was already given potassium chloride today morning, and use of spironolactone would also help maintain potassium levels above 3.5. MTDD
[2017-01-08] MEDS: SLF 3 ML SYR IV SCH ×3 (05:51→21:24)
[2017-01-08 06:00] VITALS: BP 150/60
[2017-01-08 06:52] LABS: MEAN CORPUSCULAR HGB CONC 34.5 g/dl (32.0-36.5); MEAN CORPUSCULAR VOLUME 87.1 fl (80.0-96.0); RED CELL DISTRIBUTION WIDTH 13.6 % (11.5-14.5); WHITE BLOOD COUNT 3.1 10^3/uL (4.0-10.0)
[2017-01-08 06:58] LABS: PLATELET COUNT, AUTOMATED 96 10^3/uL (150-450)
[2017-01-08 07:00] LABS: CALCIUM LEVEL 7.9 MG/DL (8.8-10.2); CREATININE FOR GFR 1.41 MG/DL (0.55-1.02); IMMATURE PLATELET FRACTION % 4.8 % (0.0-9.6); PLATELET F 90; POTASSIUM SERUM 3.7 MEQ/L (3.5-5.1)
[2017-01-08] MEDS: HumaLOG INSULIN (NovoLOG) PER UNIT SC SCH ×4 (07:30→20:35)
[2017-01-08 08:14] VITALS: BP 186/96
[2017-01-08] MEDS: ATORVASTATIN 10 MG TAB PO SCH (08:18)
[2017-01-08] MEDS: DOCUSATE SODIUM 100 MG CAP PO SCH ×2 (08:18→21:00)
[2017-01-08] MEDS: CLOPIDOGREL 75 MG TAB PO SCH (08:18)
[2017-01-08] MEDS: SPIRONOLACTONE 25 MG TAB PO SCH (08:18)
[2017-01-08] MEDS: amLODIPine 10 MG TAB PO SCH (08:19)
[2017-01-08] MEDS: MIRALAX *UNIT DOSE* 17GM PACKET PO SCH ×2 (08:19→21:00)
[2017-01-08] MEDS ORDERED: cloNIDine 0.1 MG TAB PO SCH (09:00)
--- NOTE | 2017-01-08 11:02 | IPNPDOC ---
Text Note Date of Service The patient was seen on 01/08/17. NOTE Subjective: . No acute changes overnight. Feels well today. Objective: Vitals: (see below) General: No acute distress, laying comfortably in bed. HEENT: Moist mucous membranes. Neck: No JVD or lymphadenopathy Cardiac: RRR, No murmurs Pulm: Clear to auscultation b/l. No wheezing, rhonchi Abd: NT/ND + BS Ext: No edema or cyanosis Labs (see below) Images: MRA abdomen on 01/02/17 IMPRESSION: High grade stenosis main left renal artery at its origin. Approximately 60 to 70% stenosis origin of the right renal artery. Distal abdominal aortic aneurysm fusiform in shape, maximum AP diameter is 4.8 cm. There are findings of cirrhosis of the liver and splenomegaly. Varices are seen in the splenic hilum. Right adrenal nodule measures 3.1 cm maximally. Assessment/Plan 1. Hypertensive urgency/emergency- blood pressure uncontrolled. Continue current BP meds; s/p hydralazine/minoxidil. Chlorthalidone changed to spironolactone, minoxidil changed to doxazosin nephro. Appreciate nephrology input. Clonidine dose increased. Patient with notable renal artery stenosis, high-grade. Dr. Becerra consulted, plan for possible sent tomorrow. Discussed with Dr. Becerra- BP may not change after stenting given likely chronicity. 2. Acute kidney injury on chronic kidney disease- improving. Appreciate nephro input. 3. Demand ischemia with mild elevation of troponin in the setting of acute kidney injury- improved. Patient denies chest pain. Appreciate cardio input. 4. Urinary tract infection- urine culture with Escherichia coli on Rocephin 5. Metabolic encephalopathy- likely secondary to urinary tract infection, hypertensive urgency, and questionable baseline dementia. 6. Depression/anxiety- evaluated by Dr. Ziegler. 7. Lack of capacity to make medical decisions- discussed with Dr. Ziegler, who believes patient does not have capacity. Next of kin, as patient may require procedures for her renal artery stenosis - states he's the health care proxy - updated him on patient's status. 8. Thrombocytopenia/leukopenia- chronic and stable. No bleeding. No need for transfusion at this time. 9. 3.2cm adrenal adenoma - f/u outpt. renin/aldosterone sent. DVT prophy: SCDs Prognosis guarded. VS,Fishbone, I+O VS, Fishbone, I+O Laboratory Tests 01/08/17 06:17 Red Blood Count 3.40 L, Mean Corpuscular Volume 87.1, Mean Corpuscular Hemoglobin 30.0, Mean Corpuscular Hemoglobin Concent 34.5, Red Cell Distribution Width 13.6, Calcium Level 7.9 L Vital Signs Date Time Temp Pulse Resp B/P (MAP) Pulse Ox O2 Delivery O2 Flow Rate FiO2 01/08/17 08:27 186/96 01/08/17 08:19 77 01/08/17 06:00 97.1 17 94 Room Air I&O- Last 24 Hours up to 6 AM 01/09/17 06:00 Intake Total 0 ml Output Total 0 ml Balance 0 ml ISHAAN DUCKWORTH MD Jan 08, 2017 11:02
[2017-01-08] MEDS: LOSARTAN 25 MG TAB PO SCH (12:46)
[2017-01-08 14:00] VITALS: BP 166/60
[2017-01-08] MEDS: DOXAZOSIN MESYLATE 4 MG TAB PO SCH (21:23)
[2017-01-08] MEDS: cloNIDine 0.2 MG TAB PO SCH (21:23)
[2017-01-08] MEDS: LABETALOL 100 MG TAB PO SCH (21:24)
--- NOTE | 2017-01-08 21:36 | IPN ---
DATE: 01/08/2017 SUBJECTIVE: The patient was seen and examined at the bedside today morning. He was actually sitting on the sofa. He is much more awake and alert; however, last 24-hour blood pressures were not controlled. He was again hypertensive with blood pressures in 200s overnight. REVIEW OF SYSTEMS: The patient denies any fevers, chills, rigors, headaches, chest pain, shortness of breath, pain abdomen, constipation, or diarrhea. Rest of review of systems is negative. OBJECTIVE: VITAL SIGNS: Temperature this morning was 97.1 degrees Fahrenheit, blood pressure was 150/60, pulse 58, respiratory rate of 17, saturating 94% on room air. INTAKE AND OUTPUT: Urine output recorded as 300 mL, 350 mL so far today since overnight. Most likely it is not recorded well. Weight in the bed scale is not available. PHYSICAL EXAMINATION: GENERAL: The patient is awake, alert, oriented times three, sitting in the bed, no apparent distress. HEAD/NECK: Extraocular muscles intact. Pupils equal, round, and reactive to light. Mucous membranes are moist. Neck is supple. There is no jugular venous distention (JVD). CARDIOVASCULAR: S1, S2. Regular rate. No murmur, rub, or gallop. RESPIRATORY: Chest is clear to auscultation bilaterally. Bilateral equal air entry. No rales or rhonchi. ABDOMEN: Soft, obese. Positive bowel sounds. Nontender. No ascites. No organomegaly. MUSCULOSKELETAL: No clubbing or cyanosis. Pulses are 2+. CENTRAL NERVOUS SYSTEM (MOLECULAR GENETIC PATHOLOGIST): No focal neurological deficit. Power is 5/5 in all extremities. She is oriented times two today. PSYCHIATRIC: Normal mood and affect. LABORATORY DATA: CBC showed a WBC of 3.1, hemoglobin is 10.2, platelets are 96. BMP showed sodium 139, potassium 3.7, chloride 107, bicarbonate 24, BUN 30, creatinine 1.4. Calcium 7.9. CURRENT INPATIENT MEDICATIONS: The patient's medications were all reviewed by me. Her clonidine dose has been changed to 0.2 mg by mouth twice a day. I changed her doxazosin dose to 4 mg at bedtime. I have also added labetalol 100 mg by mouth twice a day with holding parameters. I started the patient on Cozaar 25 mg by mouth daily. She continues to be on spironolactone 25 mg by mouth in the morning. ASSESSMENT: A 71-year-old female with bilateral renal artery stenosis, abdominal aortic aneurysm, 3.2 cm adrenal adenoma in the right side, admitted this time because of hypertensive urgency, and she developed acute kidney injury during the hospitalization. PLAN: 1. Hypertensive urgency: The patient was initially started on high dose of lisinopril. She went into acute kidney injury. However, her blood pressure is not acceptable at this time. Clonidine dose has already been increased to 0.2 mg by mouth twice a day by the primary team. Avoid hydralazine in this patient. I have increased the doxazosin dose to 4 mg at bedtime. I have also added low dose of losartan 25 mg by mouth daily and labetalol 100 mg by mouth twice a day. Continue current dose of amlodipine 10 mg by mouth daily. I will continue to monitor the renal function while patient is slowly started on angiotensin receptor blockers. 2. Acute kidney injury: The patient has bilateral renal artery stenosis and she was started on high dose of angiotension-converting enzyme (ARNULFO) inhibitors on admission that cause acute kidney injury (CEE). Now creatinine has been fluctuating around 1.4. I am going to try low dose angiotensin receptor blockers in this patient, it will help decrease the blood pressure, and I will continue to monitor the renal function. If the creatinine stays stable around 1.4-1.5, I will still continue the angiotensin receptor blockers. 3. Abdominal aortic aneurysm: It is less than 5 cm. Continue the aggressive blood pressure management. Rest of the management is as per vascular surgery. 4. 3.2 cm right adrenal adenoma: Plasma renin activity and aldosterone levels are still pending. Continue the current blood pressure management. Continue spironolactone and low dose of angiotensin receptor jonny has been added as well. MTDD
[2017-01-08 22:00] VITALS: BP 157/70
[2017-01-09] MEDS: SLF 3 ML SYR IV SCH ×3 (05:28→21:37)
[2017-01-09 06:00] VITALS: BP 115/62
[2017-01-09 06:43] LABS: MEAN CORPUSCULAR HEMOGLOBIN 29.4 pg (27.0-33.0); MEAN CORPUSCULAR HGB CONC 32.9 g/dl (32.0-36.5); MEAN CORPUSCULAR VOLUME 89.4 fl (80.0-96.0); RED CELL DISTRIBUTION WIDTH 13.5 % (11.5-14.5); WHITE BLOOD COUNT 3.6 10^3/uL (4.0-10.0)
[2017-01-09 06:52] LABS: CALCIUM LEVEL 7.7 MG/DL (8.8-10.2); CREATININE FOR GFR 1.96 MG/DL (0.55-1.02); GLOMERULAR FILTRATION RATE 26.7 (>39)
[2017-01-09 07:16] LABS: PLATELET COUNT, AUTOMATED 92 10^3/uL (150-450)
[2017-01-09 07:18] LABS: IMMATURE PLATELET FRACTION % 5.8 % (0.0-9.6)
[2017-01-09] MEDS: DOCUSATE SODIUM 100 MG CAP PO SCH ×3 (09:00→21:35)
[2017-01-09] MEDS: amLODIPine 10 MG TAB PO SCH (09:00)
[2017-01-09] MEDS: LOSARTAN 25 MG TAB PO SCH (09:00)
[2017-01-09] MEDS: LABETALOL 100 MG TAB PO SCH ×2 (09:00→21:00)
[2017-01-09] MEDS: MIRALAX *UNIT DOSE* 17GM PACKET PO SCH ×3 (09:00→21:35)
[2017-01-09] MEDS: cloNIDine 0.1 MG TAB PO SCH (09:31)
[2017-01-09] MEDS: ATORVASTATIN 10 MG TAB PO SCH (09:37)
[2017-01-09] MEDS: CLOPIDOGREL 75 MG TAB PO SCH (09:37)
[2017-01-09] MEDS: SPIRONOLACTONE 25 MG TAB PO SCH (09:37)
[2017-01-09] MEDS: HumaLOG INSULIN (NovoLOG) PER UNIT SC SCH ×4 (09:38→21:00)
--- NOTE | 2017-01-09 13:18 | IPN ---
DATE OF SERVICE: 01/09/2017 SUBJECTIVE: The patient was seen and examined at the bedside today morning. She reports that she is feeling better. Her blood pressure is better controlled today. She was started on lower dose losartan; however, there is a bump in her creatinine from 1.4 to 1.9 after starting a low dose of losartan. The patient told me that she is scheduled for angiogram and possible renal artery stenting tomorrow morning by vascular. REVIEW OF SYSTEMS: The patient denies any fevers, chills, rigors, headache, chest pain, shortness of breath, pain in abdomen, constipation, or diarrhea. Rest of review of systems is negative. OBJECTIVE: VITAL SIGNS: Temperature 97.7 degrees Fahrenheit. Blood pressure 150/68. Pulse is 51. Respiratory rate 16. Saturating 94% on room air. INTAKE AND OUTPUT: Urine output is not recorded. Bed scale weight is not available. PHYSICAL EXAMINATION: GENERAL: Patient is awake, alert, oriented times three, laying in bed in no apparent distress. HEAD AND NECK EXAM: Extraocular muscles intact. Pupils equally round and reactive to light. Mucous membranes are moist. Neck is supple. There is no jugular venous distention (JVD). CARDIOVASCULAR: S1, S2, regular rate. No murmur, rub or gallop. RESPIRATORY: Chest is clear to auscultation bilaterally. Bilateral equal air entry. No rales or rhonchi. ABDOMEN: Soft. Obese. Positive bowel sounds. Nontender. No ascites. No organomegaly. MUSCULOSKELETAL: No clubbing or cyanosis. Pulses are 2+. CENTRAL NERVOUS SYSTEM (CHANNEL MACHINE OPERATOR): No focal neurological deficit. Power is 5/5 in all extremities. She is oriented times three. PSYCHIATRIC: Normal mood and affect. LAB REVIEW: CBC showed a WBC of 3.6, hemoglobin 9.7 and platelets of 92. BMP showed sodium 136, potassium 4, chloride 104, bicarbonate 23, BUN 32, creatinine 1.9 and it was 1.4 yesterday, calcium 7.7. CURRENT INPATIENT MEDICATIONS: The patient's medications were all reviewed by me. I have stopped the losartan today. Her clonidine dose has been decreased to 0.1 mg in the morning and 0.2 mg in the evening. There is on other change in the medications today as compared with yesterday. ASSESSMENT: 71-year-old female with bilateral renal artery stenosis, abdominal aortic aneurysm, 3.2 cm adrenal adenoma on the right side admitted at this time because of hypertensive urgency. Nephrology service is following the patient for management of hypertension and acute kidney injury. PLAN: 1. Hypertensive urgency. Patient's blood pressures are still widely fluctuating. She was given a dose of losartan yesterday. She has responded well to losartan, but again her creatinine bumped up from 1.4 to 1.9, which indicates she would not be able to tolerate ARNULFO or ARB. 2. Acute kidney injury. At initial hospitalization, her creatinine had bumped, but then it was fluctuating around 1.4. I gave her a trial of losartan 25 mg and her creatinine has bumped up again to 1.9. I am not going to give her anymore ARNULFO or ARB at this time. 3. Bilateral renal artery stenosis. The patient is going for angiogram tomorrow and possible renal artery stenting. 4. 3.2 cm right adrenal adenoma. Plasma, renin, aldosterone levels are still pending. Continue the current antihypertensive regimen at this time. 5. Abdominal aortic aneurysm. The size is less than 5 cm. Patient is going for angiogram tomorrow. The rest of the management is as per surgical service. Patient is strict blood pressure control with the aim of systolic blood pressure less than 130.
--- NOTE | 2017-01-09 13:47 | IPNPDOC ---
Text Note Date of Service The patient was seen on 01/09/17. NOTE Subjective: Denies any complaints. No chest pain/palpitations. Objective: Vitals: (see below) General: No acute distress, laying comfortably in bed. HEENT: Moist mucous membranes. Neck: No JVD or lymphadenopathy Cardiac: RRR, No murmurs Pulm: Clear to auscultation b/l. No wheezing, rhonchi Abd: NT/ND + BS Ext: No edema or cyanosis Labs (see below) Images: MRA abdomen on 01/02/17 IMPRESSION: High grade stenosis main left renal artery at its origin. Approximately 60 to 70% stenosis origin of the right renal artery. Distal abdominal aortic aneurysm fusiform in shape, maximum AP diameter is 4.8 cm. There are findings of cirrhosis of the liver and splenomegaly. Varices are seen in the splenic hilum. Right adrenal nodule measures 3.1 cm maximally. Assessment/Plan 1. Hypertensive urgency/emergency- blood pressure uncontrolled. Continue current BP meds; s/p hydralazine/minoxidil. Chlorthalidone changed to spironolactone, minoxidil changed to doxazosin nephro. Appreciate nephrology input. Clonidine dose increased. Patient with notable renal artery stenosis, high-grade. Dr. Becerra consulted, plan for angiogram/possible stent tomorrow. Discussed with Dr. Becerra- BP may not change after stenting given likely chronicity. 2. Acute kidney injury on chronic kidney disease- improving. Creatinine rising from 1.4-1.9 with ARB. Appreciate nephro input. 3. Demand ischemia with mild elevation of troponin in the setting of acute kidney injury- improved. Patient denies chest pain. Appreciate cardio input. 4. Urinary tract infection- urine culture with Escherichia coli - s/p Rocephin 5. Metabolic encephalopathy- improved. likely secondary to urinary tract infection, hypertensive urgency, and questionable baseline dementia. 6. Depression/anxiety- evaluated by Dr. Ziegler. 7. Lack of capacity to make medical decisions- discussed with Dr. Ziegler, who believes patient does not have capacity. Next of kin, as patient may require procedures for her renal artery stenosis - states he's the health care proxy - updated him on patient's status. 8. Thrombocytopenia/leukopenia- chronic and stable. No bleeding. No need for transfusion at this time. 9. 3.2cm adrenal adenoma - f/u outpt. renin/aldosterone sent. DVT prophy: SCDs Prognosis guarded. VS,Fishbone, I+O VS, Fishbone, I+O Laboratory Tests 01/09/17 06:29 Red Blood Count 3.30 L, Mean Corpuscular Volume 89.4, Mean Corpuscular Hemoglobin 29.4, Mean Corpuscular Hemoglobin Concent 32.9, Red Cell Distribution Width 13.5, Calcium Level 7.7 L Vital Signs Date Time Temp Pulse Resp B/P (MAP) Pulse Ox O2 Delivery O2 Flow Rate FiO2 01/09/17 09:31 150/68 01/09/17 09:00 52 01/09/17 06:00 97.7 16 94 Room Air I&O- Last 24 Hours up to 6 AM 01/10/17 06:00 Intake Total 360 ml Balance 360 ml ISHAAN DUCKWORTH MD Jan 09, 2017 13:47
[2017-01-09 14:00] VITALS: BP 140/70
[2017-01-09] MEDS: DOXAZOSIN MESYLATE 4 MG TAB PO SCH (21:35)
[2017-01-09] MEDS: cloNIDine 0.2 MG TAB PO SCH (21:35)
[2017-01-09 22:00] VITALS: BP 142/71
[2017-01-10] VITALS (9 sets, daily range): BP systolic 130–198; BP diastolic 62–87
[2017-01-10 00:07] LABS: ALDOSTERONE 4.6 ng/dL (0.0-30.0)
[2017-01-10] MEDS: SLF 3 ML SYR IV SCH ×3 (05:17→21:09)
[2017-01-10 06:08] LABS: MEAN CORPUSCULAR HEMOGLOBIN 29.3 pg (27.0-33.0); MEAN CORPUSCULAR VOLUME 88.9 fl (80.0-96.0); PLATELET COUNT, AUTOMATED 103 10^3/uL (150-450); RED CELL DISTRIBUTION WIDTH 13.6 % (11.5-14.5); WHITE BLOOD COUNT 3.1 10^3/uL (4.0-10.0)
[2017-01-10 06:23] LABS: CREATININE FOR GFR 1.75 MG/DL (0.55-1.02); GLOMERULAR FILTRATION RATE 30.4 (>39)
[2017-01-10] MEDS: LABETALOL 100 MG TAB PO SCH ×2 (08:56→21:47)
[2017-01-10] MEDS: ATORVASTATIN 10 MG TAB PO SCH (09:01)
[2017-01-10] MEDS: HumaLOG INSULIN (NovoLOG) PER UNIT SC SCH ×4 (09:01→20:44)
[2017-01-10] MEDS: CLOPIDOGREL 75 MG TAB PO SCH (09:01)
[2017-01-10] MEDS: amLODIPine 10 MG TAB PO SCH (09:02)
[2017-01-10] MEDS: DOCUSATE SODIUM 100 MG CAP PO SCH ×2 (09:02→21:07)
[2017-01-10] MEDS: SPIRONOLACTONE 25 MG TAB PO SCH (09:03)
[2017-01-10] MEDS: cloNIDine 0.1 MG TAB PO SCH (09:03)
[2017-01-10] MEDS: MIRALAX *UNIT DOSE* 17GM PACKET PO SCH ×2 (09:05→21:05)
--- NOTE | 2017-01-10 13:46 | IPN ---
DATE: 01/10/2017 Ms. Mora is feeling well today. She is looking forward to her renal artery angiogram, hopefully with stent placement. She has no complaints of chest pain. She is not short of breath. Tolerating diet. She has been bradycardic overnight. Temperature is 97.8, pulse 54, respiratory rate 14, blood pressure 198/82, 94% on room air. Intake and output notable for a positive fluid balance of 1500. One bowel movement noted. Is awake, appropriately interactive. Pleasantly conversant. No acute distress. Head is normocephalic. Sinuses nontender. Mucous membranes moist. Neck supple, thick. Breathing is symmetrical but diminished, I-to-E ratio is 1:3. No wheezes, rales or rhonchi. Heart is distant sounding. Normal S1 and S2. Abdomen is soft, nontender. White cell count is 3.1, hemoglobin 10.3, platelets of 103. BUN 35, creatinine 1.75. My assessment is as follows: This is a 71-year-old with hypertensive emergency/urgency with bilateral renal artery stenosis. My plan is as follows: 1. Hypertension. Blood pressure is somewhat variable. Clonidine dose is increased. She has not been receiving beta blockade due to bradycardia, planning for an angiogram today. Hopeful that this may assist with her blood pressure control, but may not based on her chronicity. She has not been able to tolerate ARB or ARNULFO. 2. Patient has acute renal failure in the setting of chronic kidney disease. Creatinine is improved from yesterday down to 1.75 from 1.96. 3. Patient was thought to have demand ischemia with mild elevation of Troponin in the setting of acute kidney injury. 4. Patient was treated for a urinary tract infection on ceftriaxone. 5. Patient has metabolic encephalopathy, which has resolved. 6. Patient has depression and anxiety and has been evaluated by Dr. Ziegler. 7. Patient has stable thrombocytopenia. 8. Patient has a 3.2 cm adrenal adenoma.
[2017-01-10] MEDS ORDERED: HEPARIN 1,000 UNITS/ML 10ML VIAL (FOR RADIOLOGY& DIALYSIS ONLY) As Ordered ONE (14:06)
[2017-01-10] MEDS ORDERED: ISOVUE-300 61% 50ML VIAL (Q9967) As Ordered ONE (14:06)
[2017-01-10] MEDS ORDERED: MIDAZOLAM INJ 2 MG/2 ML VIAL (J2250) As Ordered ONE ×2 (14:07→14:44)
[2017-01-10] MEDS ORDERED: fentaNYL 100 MCG/2 ML INJECTION (J3010) As Ordered ONE ×2 (14:07→14:44)
[2017-01-10] MEDS ORDERED: PROTAMINE SULF INJ 50 MG/5 ML VIAL (J2720) As Ordered ONE (15:01)
[2017-01-10] MEDS: DOXAZOSIN MESYLATE 4 MG TAB PO SCH (21:06)
[2017-01-10] MEDS: cloNIDine 0.2 MG TAB PO SCH (21:06)
--- NOTE | 2017-01-10 22:55 | IPN ---
DATE: 01/10/2017 SUBJECTIVE: The patient was seen and examined at the bedside today morning. She denies any active complaints. She still has labile blood pressures. Not receiving Labetalol because of bradycardia. The patient reported that she is scheduled for angiogram and possible stenting of the renal arteries today. REVIEW OF SYSTEMS: The patient denies any fever, chills, rigors, headache, chest pain, shortness of breath, pain in abdomen, constipation or diarrhea. The rest of review of systems is negative. OBJECTIVE: Vital signs: Temperature 97.3 degrees Fahrenheit, blood pressure was 198/82 this morning. Pulse of 51, respiratory rate of 18, saturating 94% on room air. Intake and output: Urine output recorded as 100 mL yesterday. 600 mL so far today since overnight. Weight on the bed scale is 96 kg. PHYSICAL EXAMINATION: GENERAL: The patient is awake, alert and oriented times three. Laying in bed. No apparent distress. HEAD/NECK: Extraocular muscles intact. Pupils equally round and reactive to light. Mucous membranes are moist. Neck is supple. There is no jugular venous distention (JVD). CARDIOVASCULAR: S1, S2, regular rate. No murmur, rub or gallop. RESPIRATORY: Chest is clear to auscultation bilaterally. Bilateral equal air entry. No rales or rhonchi. ABDOMEN: Soft. Obese. Positive bowel sounds. Nontender. No ascites. No organomegaly. MUSCULOSKELETAL: No clubbing or cyanosis. CENTRAL NERVOUS SYSTEM: No focal neurological deficit. Power is 5/5 in all extremities. PSYCHIATRIC: Normal mood and affect. LAB REVIEW: CBC showed a WBC of 3.1, hemoglobin 10.3, platelets of 103. BMP this morning showed sodium 137, potassium is 4, chloride 106, bicarbonate 22, BUN 35, creatinine is 1.7. It was 1.9 yesterday. Calcium is 8. Plasma, renin activity came back elevated at 11.9. Aldosterone is 4.6. Aldosterone to renin ratio is 0.4. CURRENT INPATIENT MEDICATIONS: The patient's medications are all reviewed by me. - clonidine dose has been changed to 0.1 mg in the morning and 0.2 mg in the evening - the patient is not receiving labetalol dosages because of the holding parameters ASSESSMENT: 71-year-old female with bilateral renal artery stenosis, abdominal aortic aneurysm, recent 3.2 cm adrenal adenoma on the right side admitted this time because of hypertensive urgency and metabolic encephalopathy. Nephrology service following the patient for management of acute kidney injury and hypertension. PLAN: 1. Hypertensive urgency. The patient has renovascular hypertension which has been confirmed with hyperreninemia causing hyperaldosteronism. Continue current dose of her clonidine, amlodipine, doxazosin and labetalol with holding parameters. I am not going to change the regimen today because patient is going to get an angiogram and possible stenting in the renal arteries today. 2. Hyperreninemic hyperaldosteronism. It is most likely secondary to renal artery stenosis. The patient has a 3.2 cm right adrenal adenoma, which is most likely benign in nature at this time. 3. Acute kidney injury. Acute kidney injury was secondary to use of losartan and bilateral renal artery stenosis. Avoid angiotensin-converting enzyme (ARNULFO) inhibitors and angiotensin receptor blockers (ARBs) until renal artery stenting is done. 3. Abdominal aortic aneurysm. The patient has less than 5 cm abdominal aortic aneurysm. Needs strict control of blood pressure. The rest of the management is as per vascular surgery.
[2017-01-11] VITALS (9 sets, daily range): BP systolic 149–198; BP diastolic 68–80
[2017-01-11] MEDS: SLF 3 ML SYR IV SCH ×3 (05:42→22:23)
[2017-01-11 06:18] LABS: MEAN CORPUSCULAR HEMOGLOBIN 29.5 pg (27.0-33.0); MEAN CORPUSCULAR VOLUME 89.4 fl (80.0-96.0); PLATELET COUNT, AUTOMATED 103 10^3/uL (150-450); RED CELL DISTRIBUTION WIDTH 13.6 % (11.5-14.5); WHITE BLOOD COUNT 3.4 10^3/uL (4.0-10.0)
[2017-01-11 06:43] LABS: CREATININE FOR GFR 1.63 MG/DL (0.55-1.02); POTASSIUM SERUM 4.4 MEQ/L (3.5-5.1)
[2017-01-11] MEDS: CLOPIDOGREL 75 MG TAB PO SCH (08:32)
[2017-01-11] MEDS: DOCUSATE SODIUM 100 MG CAP PO SCH ×2 (08:32→21:00)
[2017-01-11] MEDS: HumaLOG INSULIN (NovoLOG) PER UNIT SC SCH ×4 (08:32→21:00)
[2017-01-11] MEDS: SPIRONOLACTONE 25 MG TAB PO SCH (08:32)
[2017-01-11] MEDS: MIRALAX *UNIT DOSE* 17GM PACKET PO SCH ×2 (08:33→21:00)
[2017-01-11] MEDS: amLODIPine 10 MG TAB PO SCH (08:33)
[2017-01-11] MEDS: ATORVASTATIN 10 MG TAB PO SCH (08:33)
[2017-01-11] MEDS: LABETALOL 100 MG TAB PO SCH ×2 (08:33→21:00)
[2017-01-11] MEDS: cloNIDine 0.1 MG TAB PO SCH ×2 (08:34→22:00)
[2017-01-11] MEDS ORDERED: cloNIDine 0.1 MG TAB PO ONE (12:15)
[2017-01-11] MEDS ORDERED: cloNIDine 0.2 MG TAB PO SCH (14:00)
--- NOTE | 2017-01-11 16:17 | IPN ---
DATE: 01/11/2017 Ms. Mora is feeling well. She said the procedure yesterday was somewhat uncomfortable as there was discomfort at the site of the insertion of the catheters. No chest pain. No shortness of breath. Has been tolerating diet. Would like to go home. Temperature is 98.7, pulse 56, respiratory rate 17, blood pressure 149/74, 96% on room air. Intakes and outputs notable for a positive fluid balance of 480. Two bowel movements noted. Is awake, appropriately interactive. Pleasantly conversant. No acute distress. Neck is supple. Breathing is symmetrical, rested. Heart is distant sounding. Normal S1 and S2. Is bradycardic. Abdomen is distended, soft, nontender. White cell count 3.4, hemoglobin 10.3 and platelets of 103. BUN 31, creatinine 1.6, improved from yesterday. My assessment is as follows: This is a 71-year-old with hypertensive emergency/urgency and bilateral renal artery stenosis. My plan is as follows: 1. Patient has hypertension. This is being managed by nephrology. She did not receive her beta blockade this morning. Blood pressure is elevated. We will give a single dose of clonidine. Beta blockade was held due to continuing bradycardia. Patient has at this point been unable to tolerate an angiotensin-converting enzyme (ARNULFO) inhibitor or angiotensin receptor jonny (ARB) due to acute renal failure, which is resolving. 2. Patient has acute renal failure in the setting of chronic kidney disease, which is improving yet again. 3. Patient was thought to have demand ischemia and mild Troponin elevation in the setting of acute kidney injury during the stay. 4. Patient was treated for a urinary tract infection with ceftriaxone. 5. Patient has had metabolic encephalopathy, which has resolved. I discussed this case by phone with Dr. Ziegler. Previously, she was thought not to have the capacity to make decisions. At this point, after my discussion with Dr. Ziegler and better understanding her thought process at that time, the patient at this point would seem to have capacity to make decisions for herself. 6. Patient has history of depression/anxiety. 7. Patient has stable thrombocytopenia, and in fact, is noted to have pancytopenia, which has been relatively stable since 01/08/2017.
[2017-01-11] MEDS ORDERED: DOXAZOSIN MESYLATE 4 MG TAB PO SCH (21:00)
[2017-01-11] MEDS ORDERED: MINOXIDIL 2.5 MG TAB PO ONE (22:00)
[2017-01-12] MEDS: SLF 3 ML SYR IV SCH ×3 (05:41→22:07)
[2017-01-12 06:00] VITALS: BP 141/77
[2017-01-12] MEDS: cloNIDine 0.1 MG TAB PO SCH ×3 (06:00→23:03)
[2017-01-12] MEDS: HumaLOG INSULIN (NovoLOG) PER UNIT SC SCH ×4 (07:30→21:00)
[2017-01-12] MEDS: DOCUSATE SODIUM 100 MG CAP PO SCH ×2 (08:56→22:07)
[2017-01-12] MEDS: CLOPIDOGREL 75 MG TAB PO SCH (08:56)
[2017-01-12] MEDS: ATORVASTATIN 10 MG TAB PO SCH (08:56)
[2017-01-12] MEDS: SPIRONOLACTONE 25 MG TAB PO SCH (08:57)
[2017-01-12] MEDS: LABETALOL 100 MG TAB PO SCH ×2 (09:00→21:00)
[2017-01-12] MEDS ORDERED: MINOXIDIL 2.5 MG TAB PO SCH (09:00)
[2017-01-12] MEDS: MIRALAX *UNIT DOSE* 17GM PACKET PO SCH ×2 (09:01→21:00)
[2017-01-12] MEDS: amLODIPine 10 MG TAB PO SCH (09:03)
[2017-01-12 09:35] LABS: MEAN CORPUSCULAR HEMOGLOBIN 29.4 pg (27.0-33.0); MEAN CORPUSCULAR HGB CONC 32.7 g/dl (32.0-36.5); PLATELET COUNT, AUTOMATED 112 10^3/uL (150-450); RED CELL DISTRIBUTION WIDTH 13.5 % (11.5-14.5); RETIC HEMOGLOBIN EQUIVALENT 29.9 pg (24-36); RETICULOCYTE % 1.6 % (0.5-1.5)
--- NOTE | 2017-01-12 09:39 | IPN ---
DATE OF SERVICE: 01/11/2017 SUBJECTIVE: Patient was seen and examined at the bedside today morning. Patient's blood pressure remains labored. Patient got the angiogram done. Details are not available at this time. Patient reports mild pain at the angiogram site. REVIEW OF SYSTEMS: Patient denies any fever, chills, rigors, headache, nausea, vomiting, chest pain, shortness of breath, pain in abdomen, constipation or diarrhea. Rest of review of system is negative. OBJECTIVE: VITAL SIGNS: Temperature is 98.7 degrees Fahrenheit this morning Blood pressure was 149/74 in the morning and it went up to 190/80 in the afternoon. Pulse is fluctuating between 50s-60s. Respiratory rate of 17. Saturating 96% on room air. INTAKE AND OUTPUT: Urine output is not recorded well. It is only recorded at 300 mL overnight. Weight on the bed scale is stable at 97.2 kg. PHYSICAL EXAMINATION: GENERAL: Patient is awake, alert, oriented times three, laying in bed, no apparent distress. HEAD/NECK EXAM: Extraocular muscles intact. Pupils equally round and reactive to light. Mucous membranes are moist. Neck is supple. There is no jugular venous distention (JVD). CARDIOVASCULAR: S1, S2, regular rate. No murmur, rub or gallop. RESPIRATORY: Chest is clear to auscultation bilaterally. Bilateral equal air entry. No rales or rhonchi. ABDOMEN: Is soft, obese, positive bowel sounds, nontender. No ascites. No organomegaly. MUSCULOSKELETAL: No clubbing or cyanosis. Pulses are 2+. CENTRAL NERVOUS SYSTEM (OFFICE SUPPORT): No focal neurological deficit. Power is 5/5 in all extremities. PSYCHIATRIC: Normal mood and affect. LABORATORY REVIEW: CBC showed a WBC 3.1, hemoglobin 10.3, platelets of 103. BMP showed sodium 138, potassium is 4.4, chloride 105, bicarbonate 25, BUN 31, creatinine is 1.63, calcium is 8. CURRENT INPATIENT MEDICATIONS: Patient's medications are all reviewed by me. Patient continues to be on amlodipine 10 mg daily. I stopped the clonidine dosage and changed it clonidine 0.1 mg by mouth every 8 hours with holding parameters. I have stopped doxazosin. She was not responding well to doxazosin. I have started the patient on minoxidil 5 mg daily. First dose will be given now, and if the blood pressure remains high, then minoxidil dose can be increased to 5 mg twice a day. Patient continues to be on labetalol 100 mg by mouth twice a day. However, she is not receiving labetalol because of the holding parameters and relative bradycardia. She is also on spironolactone 25 mg by mouth daily. ASSESSMENT: 71-year-old female with bilateral renal artery stenosis, abdominal aortic aneurysm, recent 3.2 cm right adrenal adenoma, admitted this time because of hypertensive urgency and metabolic encephalopathy. Nephrology service following the patient for management of acute kidney injury and hypertension. PLAN: 1. Hypertensive urgency. Patient's blood pressure have been very labored. Patient got the procedure done, but I am not sure whether patient got any stenting of the renal artery done or not. I am going to change the regimen. Clonidine will be 0.8 mg by mouth every 8 hours with holding parameters. Doxazosin has been stopped. Minoxidil will be 5 mg daily for now. Amlodipine 10 mg daily. If pulse rate allows, I would like to give this patient labetalol as well to optimize BP in this patient with history of abdominal aortic aneurysm. 2. Acute kidney injury. It was secondary to use of angiotensin-converting enzyme (ARNULFO) inhibitors and bilateral renal artery stenosis. Creatinine continues to improve. It is down to 1.6 today. MTDD
[2017-01-12 09:56] LABS: CALCIUM LEVEL 7.8 MG/DL (8.8-10.2); CREATININE FOR GFR 1.47 MG/DL (0.55-1.02); GLOMERULAR FILTRATION RATE 37.2 (>39); POTASSIUM SERUM 4.1 MEQ/L (3.5-5.1)
[2017-01-12 14:00] VITALS: BP 178/64
[2017-01-12 22:00] VITALS: BP 163/78
[2017-01-13 05:57] LABS: MEAN CORPUSCULAR HGB CONC 33.1 g/dl (32.0-36.5); MEAN CORPUSCULAR VOLUME 87.5 fl (80.0-96.0); PLATELET COUNT, AUTOMATED 114 10^3/uL (150-450); RED CELL DISTRIBUTION WIDTH 13.4 % (11.5-14.5); RETIC HEMOGLOBIN EQUIVALENT 29.5 pg (24-36); RETICULOCYTE % 1.6 % (0.5-1.5); WHITE BLOOD COUNT 3.6 10^3/uL (4.0-10.0)
[2017-01-13 06:00] VITALS: BP 145/76
[2017-01-13] MEDS: cloNIDine 0.1 MG TAB PO SCH ×3 (06:00→21:30)
[2017-01-13] MEDS: SLF 3 ML SYR IV SCH ×3 (06:00→21:31)
[2017-01-13 06:15] VITALS: BP 145/76
[2017-01-13 06:26] LABS: ALBUMIN 2.1 GM/DL (3.2-5.2); CREATININE FOR GFR 1.31 MG/DL (0.55-1.02); GLOMERULAR FILTRATION RATE 42.5 (>39); PERCENT SATURATION 9.4 % (13.2-45.0); PHOSPHORUS LEVEL 3.1 MG/DL (2.5-4.9); POTASSIUM SERUM 4.1 MEQ/L (3.5-5.1)
[2017-01-13] MEDS: HumaLOG INSULIN (NovoLOG) PER UNIT SC SCH ×4 (07:30→21:00)
--- NOTE | 2017-01-13 08:27 | IPN ---
DATE OF SERVICE: 01/12/2017 Ms. Mora is feeling well. She has no complaints of pain, chest pain, shortness of breath. Is wondering why her blood pressure has been so variable. Temperature 97.3, pulse 52, respiratory rate 16, blood pressure 148/66, 95% on room air. Inputs and outputs notable for positive fluid balance of 1170, 1 bowel movement noted yesterday. Is awake, appropriately interactive, pleasantly conversant. Breathing is symmetrical and rested. Neck supple, thick. Breathing distant sounding, normal S1, S2. Speaking in complete sentences. No accessory muscle use. Heart is distant sounding, regular rate and rhythm. Abdomen: Soft, doughy, somewhat distended. Nontender. White cell count is 3.0, hemoglobin 10.3 and platelets 112. BUN 26, creatinine 1.4. ASSESSMENT: This is a 71-year-old with hypertensive emergency/urgency and bilateral renal artery stenosis. PLAN: 1. Patient has ongoing hypertension, is being managed with nephrology. Beta blockade is being held due to bradycardia and we will drop the dose of the Beta blockage in the hopes that she will actually get morning and evening doses. I did discuss this case in general with Dr. Kaba today. 2. Patient has had acute renal failure in the setting of chronic kidney disease. Renal function is improved yet again. 3. Patient is though to have demand ischemia and mild troponin elevation in the setting of acute kidney injury during this stay. May benefit from outpatient stress test. 4. Patient was treated for urinary tract infection with ceftriaxone. 5. Patient had metabolic encephalopathy which has resolved. Patient at this point certainly has capacity to make her own medical decisions. 6. Patient has a history of depression and anxiety. 7. Patient has pancytopenia. Had a previous peripheral smear which was unremarkable. If this continues, we could repeat a peripheral smear. May benefit from iron studies tomorrow.
[2017-01-13] MEDS: MIRALAX *UNIT DOSE* 17GM PACKET PO SCH ×2 (09:00→21:30)
[2017-01-13] MEDS: CLOPIDOGREL 75 MG TAB PO SCH (09:37)
[2017-01-13] MEDS: SPIRONOLACTONE 25 MG TAB PO SCH (09:37)
[2017-01-13] MEDS: DOCUSATE SODIUM 100 MG CAP PO SCH ×2 (09:37→21:31)
[2017-01-13] MEDS: ATORVASTATIN 10 MG TAB PO SCH (09:37)
[2017-01-13] MEDS: amLODIPine 10 MG TAB PO SCH (09:39)
[2017-01-13] MEDS: LABETALOL 100 MG TAB PO SCH ×2 (09:40→21:29)
--- NOTE | 2017-01-13 10:42 | IPN ---
DATE: 01/12/2017 Mrs. Mora is seen this morning on her bedside. She is feeling well and denies any complaints. She denies any dyspnea, chest pain, nausea or vomiting. She was admitted originally with altered mentation and noticed to have uncontrolled hypertension. She also had acute renal failure superimposed on chronic kidney disease. Her hospital stay has been quite complicated and extended. She underwent angiogram with intention of renal angioplasty; however, it was unsuccessful due to a large abdominal aortic aneurysm and inability to advance the catheter to renal arteries. PHYSICAL EXAMINATION: Temperature 97.3 degrees Fahrenheit, heart rate 58 per minute and respiratory rate 16 per minute. Blood pressure 158/80 mmHg and oxygen saturation 95% on room air. Head is atraumatic. Neck is supple and without jugular venous distention (JVD) or thyroid enlargement. Pupils equal and reactive to light and sclera is anicteric. His heart sounds are regular and lungs sound clear to auscultation. Abdomen is soft and bowel sounds are normal. Extremities have no cyanosis or clubbing. Skin has no rash or ulcers. Neurologically, she is awake, alert and oriented times three. Today's labs show WBC count 3.0, hemoglobin 10.3, hematocrit 31.5. Platelets 112. Sodium 136 and potassium 4.1. BUN 26 and creatinine 1.47. Glucose 194 and calcium 7.8. PROBLEMS: 1. Acute kidney injury superimposed on chronic kidney disease. Kidney function has improved once again. This is probably about her baseline. At this point, we will continue to monitor her kidney function without intervention. Electrolytes are within normal range. 2. Uncontrolled hypertension. She has multiple factors, including bilateral renal artery stenosis contributing to her uncontrolled hypertension. Dr. Becerra performed an unsuccessful attempt for renal angioplasty. I have discussed with him this morning and he feels that she would need another procedure probably as an outpatient via upper extremity access as she has large abdominal aortic aneurysm and could not advance the catheter to her renal arteries from femoral access. Blood pressure is reasonably well-controlled on current medications, and we can probably plan for discharging her when she is cleared from physical therapy standpoint. 3. Anemia. Anemia is stable at present and does not need any intervention. 4. Generalized weakness and deconditioning. I would recommend aggressive physical rehabilitation and plan for discharge in next couple of days. 5. Bilateral renal artery stenosis. Significant renal artery stenosis has been confirmed by MRA and now with angiogram. She will need angioplasty and bilateral renal artery stent placement, which could be scheduled as an outpatient.
--- NOTE | 2017-01-13 15:00 | IPN ---
DATE OF SERVICE: 01/13/2017 Patient is awake, alert, pleasant, pleasantly conversant. No complaints of pain, chest pain, shortness of breath. Has been tolerating diet. Temperature is 97.6, pulse 62, respiratory rate 17, blood pressure 160/79, 92% on room air. Input and output notable for positive fluid balance of 340. Weight is 102.3 kg. She is awake, appropriately interactive, pleasantly conversant. Breathing is symmetrical and rested. Heart: Regular rate and rhythm. Abdomen: Soft, doughy, nontender. She is borderline bradycardic. White cell count 3.6, hemoglobin 10.4, platelets of 114. BUN 24, creatinine 1.3 improving. Iron 28, TIBC 299, ferritin 124. ASSESSMENT: This is a 71-year-old with hypertensive emergency/urgency and bilateral renal artery stenosis. PLAN: 1. Patient has ongoing hypertension which is better controlled. I discussed this case with Dr. Couch in person. Plan is to discharge when she passes physical therapy. 2. Patient has acute renal failure in the setting of chronic kidney disease which is improving. 3. Patient is though to have demand ischemia from mild troponin elevation in the setting of acute kidney injury during this stay. May benefit from outpatient stress test. 4. Patient has bilateral renal artery stenosis. Stents were unable to be placed from femoral approach. Patient may be considered for a brachial approach as an outpatient. Patient is right now not interested in further procedures. 5. Patient was treated for urinary tract infection during this stay. 6. Patient had metabolic encephalopathy which has resolved. At that point, it was deemed that she did not capacity to make her medical decisions. At this point, she certainly does have capacity to make her medical decisions. 7. Patient has a history of depression and anxiety. 8. Patient has pancytopenia. Of note, she is going to need monitoring as an outpatient. Iron studies suggest no specific cause for her anemia.
[2017-01-13] MEDS: FERROUS GLUCONATE 324 MG TAB PO SCH (21:30)
[2017-01-13 22:00] VITALS: BP 168/64
--- NOTE | 2017-01-14 05:37 | IPN ---
DATE OF SERVICE: 01/13/2017 Mrs. Mora is seen this morning on her bedside. Her son is present today in the room. The patient feels well and denies any complaints. Her blood pressure has been reasonably well controlled. The patient denies any headache, dyspnea or chest pain. She has no fever or chills. She denies any nausea or vomiting. PHYSICAL EXAMINATION: Temperature 97.6 degrees Fahrenheit, heart rate 62 per minute, respiratory rate 18 per minute. Blood pressure 145/76 mmHg and oxygen saturation 93% on room air. Head is atraumatic. Neck is supple and without jugular venous distention (JVD) or thyroid enlargement. Eyes, ears, nose and throat are unremarkable. Pupils equal and reactive to light and sclera is anicteric. Heart sounds are regular and lungs clear to auscultation. Abdomen soft and nontender and bowel sounds are normal. Extremities have no cyanosis or clubbing. Skin has no rash or ulcers. Neurologically, she is awake, alert and at about her baseline mentation. Today's labs show WBC count 3.6, hemoglobin 10.4 and hematocrit 31.4. Sodium 138 and potassium 4.1. BUN 24 and creatinine 1.31. Her iron level is 28, saturation 9.4 and ferritin 124. PROBLEMS: 1. Acute kidney injury superimposed on chronic kidney disease. This is her best kidney function over last several days. At this point, this is probably her baseline. We will continue to monitor her kidney function closely. 2. Bilateral renal artery stenosis. The patient did have an MRA consistent with bilateral renal artery stenosis. An attempt for angioplasty was unsuccessful due to abdominal aortic aneurysm. Dr. Becerra feels that an access from upper extremity will be needed and the patient will need to get her renal artery angioplasty done. I have discussed with the patient and her son at length today and emphasized the importance of getting this procedure done, so that her blood pressure control can improve. The patient's son is in complete agreement and the patient herself seems to be convinced now to go for procedure. 3. Uncontrolled hypertension. Blood pressure seems to be much better controlled on current antihypertensive medications. We will continue with current antihypertensives until her renal angioplasty is done. 4. Iron deficiency anemia. The patient does have significant iron deficiency. I suggest to put her on oral iron supplement.
[2017-01-14] MEDS: cloNIDine 0.1 MG TAB PO SCH ×3 (05:40→21:48)
[2017-01-14 05:55] LABS: MEAN CORPUSCULAR HEMOGLOBIN 29.5 pg (27.0-33.0); MEAN CORPUSCULAR HGB CONC 33.2 g/dl (32.0-36.5); MEAN CORPUSCULAR VOLUME 88.7 fl (80.0-96.0); PLATELET COUNT, AUTOMATED 119 10^3/uL (150-450); RED CELL DISTRIBUTION WIDTH 13.5 % (11.5-14.5); WHITE BLOOD COUNT 3.9 10^3/uL (4.0-10.0)
[2017-01-14 06:00] VITALS: BP 150/62
[2017-01-14] MEDS: SLF 3 ML SYR IV SCH ×3 (06:00→21:49)
[2017-01-14 06:21] LABS: ALBUMIN 2.1 GM/DL (3.2-5.2); CALCIUM LEVEL 8.2 MG/DL (8.8-10.2); CREATININE FOR GFR 1.35 MG/DL (0.55-1.02); PHOSPHORUS LEVEL 3.7 MG/DL (2.5-4.9)
[2017-01-14] MEDS: HumaLOG INSULIN (NovoLOG) PER UNIT SC SCH ×4 (07:30→21:00)
[2017-01-14] MEDS: MIRALAX *UNIT DOSE* 17GM PACKET PO SCH ×2 (09:00→21:48)
[2017-01-14] MEDS: LABETALOL 100 MG TAB PO SCH ×2 (09:00→21:48)
--- NOTE | 2017-01-14 09:14 | IPNPDOC ---
Text Note Date of Service The patient was seen on 01/14/17. NOTE Subjective: Patient seen and examined at bedside. No acute overnight events, no new medical complaints. She is agreeable with proceeding with any further procedures. Objective: General: NAD, lying comfortably in bed, pleasant HEENT: NC/AT Lungs: CTA B/L Heart: +S1S2, RRR Abd: soft, NT, +BS Psych: AAOx3 ASSESSMENT: This is a 71-year-old with hypertensive emergency/urgency and bilateral renal artery stenosis. PLAN: 1. Patient has ongoing hypertension which is better controlled. Plan is to proceed with brachial approach for renal artery stents with vascular surgery. 2. Patient has acute renal failure in the setting of chronic kidney disease which is improving. 3. Patient is thought to have demand ischemia from mild troponin elevation in the setting of acute kidney injury during this stay. Cardiology has been consulted , assistance appreciated. 4. Patient has bilateral renal artery stenosis. Stents were unable to be placed from femoral approach. Patient is agreeable to pursue brachial approach as an inpatient. 5. Patient was treated for urinary tract infection during this stay. 6. Patient had metabolic encephalopathy which has resolved. At that point, it was deemed that she did not capacity to make her medical decisions. At this point, she certainly does have capacity to make her medical decisions. 7. Patient has a history of depression and anxiety. 8. DVT prophylaxis Dispo: to discuss further with vascular regarding renal artery stents VS,Juliae, I+O VS, Fishbone, I+O Laboratory Tests 01/14/17 05:24 Red Blood Count 3.53 L, Mean Corpuscular Volume 88.7, Mean Corpuscular Hemoglobin 29.5, Mean Corpuscular Hemoglobin Concent 33.2, Red Cell Distribution Width 13.5, Anion Gap 8 Vital Signs Date Time Temp Pulse Resp B/P (MAP) Pulse Ox O2 Delivery O2 Flow Rate FiO2 01/14/17 06:00 97.7 51 18 150/62 (91) 91 Room Air I&O- Last 24 Hours up to 6 AM 01/15/17 06:00 Intake Total 0 ml Output Total 0 ml Balance 0 ml JOSE E ROY MD Jan 14, 2017 09:14
[2017-01-14] MEDS: SPIRONOLACTONE 25 MG TAB PO SCH (09:15)
[2017-01-14] MEDS: DOCUSATE SODIUM 100 MG CAP PO SCH ×2 (09:15→21:49)
[2017-01-14] MEDS: FERROUS GLUCONATE 324 MG TAB PO SCH ×2 (09:15→21:49)
[2017-01-14] MEDS: MINOXIDIL 10 MG TAB PO SCH (09:15)
[2017-01-14] MEDS: CLOPIDOGREL 75 MG TAB PO SCH (09:15)
[2017-01-14] MEDS: ATORVASTATIN 20 MG TAB PO SCH (09:16)
[2017-01-14] MEDS: amLODIPine 10 MG TAB PO SCH (09:16)
[2017-01-14 14:00] VITALS: BP 149/61
--- NOTE | 2017-01-14 18:43 | IPN ---
DATE: 01/14/2017 Mrs. Mora is seen this morning on her bedside. She is lying in the bed comfortably and denies any dyspnea, chest pain, nausea or vomiting. She reports that she does get up and walks to the bathroom with some assistance. She has been tolerating oral intake well. PHYSICAL EXAMINATION: Temperature 97.7 degrees Fahrenheit, heart rate 52 per minute and respiratory rate 18 per minute. Blood pressure 150/62 mmHg and oxygen saturation between 91-97% on room air. Head is atraumatic. Pupils equal and reactive to light and sclerae is anicteric. Neck is supple and without JVD or thyroid enlargement. Heart sounds regular and without a gallop or murmur. Lungs clear to auscultation bilaterally. Abdomen soft and nontender and bowel sounds are normal. There is no palpable organomegaly. Extremities have no cyanosis or clubbing. Skin has no rash or ulcers. Neurologically she is awake, alert and oriented times three. Today's labs show WBC count 3.9, hemoglobin 10.4 and hematocrit 31.3. Sodium 140 and potassium 4.1. BUN 24 and creatinine 1.35. PROBLEMS: 1. Acute renal failure superimposed on chronic kidney disease. Kidney function has improved to about baseline. At present we will continue to hold ARNULFO inhibitor or ARB due to presence of bilateral renal artery stenosis. Her volume status is reasonably well-compensated and electrolytes are within normal range. 2. Uncontrolled hypertension. Blood pressure control seems to be improved with current antihypertensive medications. I feel that her blood pressure is likely to improve further after bilateral renal angioplasty and stent placement. We are waiting for the procedure. 3. Bilateral renal artery stenosis. The patient had an unsuccessful attempt at angioplasty due to presence of intrarenal abdominal aortic aneurysm. Dr. Becerra feels that the patient will need an access from upper extremity and initially the patient was hesitant however, she seems to be accepting the procedure now since I discussed with her yesterday and her son. I have explained to her once again about the importance of getting her renal artery angioplasty done for improvement in blood pressure control and prevention of further renal damage. 4. Anemia. Anemia is stable at present and no intervention is indicated.
[2017-01-14 20:00] VITALS: BP 178/76
[2017-01-14 23:30] VITALS: BP 160/62
[2017-01-15 06:00] VITALS: BP 160/80
[2017-01-15 06:07] LABS: MEAN CORPUSCULAR HEMOGLOBIN 28.8 pg (27.0-33.0); MEAN CORPUSCULAR HGB CONC 32.8 g/dl (32.0-36.5); MEAN CORPUSCULAR VOLUME 87.7 fl (80.0-96.0); PLATELET COUNT, AUTOMATED 126 10^3/uL (150-450); RED CELL DISTRIBUTION WIDTH 13.5 % (11.5-14.5); WHITE BLOOD COUNT 4.1 10^3/uL (4.0-10.0)
[2017-01-15] MEDS: cloNIDine 0.1 MG TAB PO SCH ×3 (06:21→21:44)
[2017-01-15] MEDS: SLF 3 ML SYR IV SCH ×3 (06:21→21:45)
[2017-01-15 06:28] LABS: ALBUMIN 2.2 GM/DL (3.2-5.2); CREATININE FOR GFR 1.26 MG/DL (0.55-1.02); GLOMERULAR FILTRATION RATE 44.4 (>39); PHOSPHORUS LEVEL 3.7 MG/DL (2.5-4.9); POTASSIUM SERUM 4.2 MEQ/L (3.5-5.1)
[2017-01-15] MEDS: SPIRONOLACTONE 25 MG TAB PO SCH (08:44)
[2017-01-15] MEDS: CLOPIDOGREL 75 MG TAB PO SCH (08:44)
[2017-01-15] MEDS: ATORVASTATIN 20 MG TAB PO SCH (08:44)
[2017-01-15] MEDS: FERROUS GLUCONATE 324 MG TAB PO SCH ×2 (08:46→21:44)
[2017-01-15] MEDS: amLODIPine 10 MG TAB PO SCH (08:46)
[2017-01-15] MEDS: LABETALOL 100 MG TAB PO SCH ×2 (08:46→21:00)
[2017-01-15] MEDS: MINOXIDIL 10 MG TAB PO SCH (08:47)
[2017-01-15] MEDS: DOCUSATE SODIUM 100 MG CAP PO SCH ×2 (08:47→21:00)
[2017-01-15] MEDS: HumaLOG INSULIN (NovoLOG) PER UNIT SC SCH ×4 (08:48→21:00)
[2017-01-15] MEDS: MIRALAX *UNIT DOSE* 17GM PACKET PO SCH ×2 (08:48→21:00)
--- NOTE | 2017-01-15 08:51 | IPNPDOC ---
Text Note Date of Service The patient was seen on 01/15/17. NOTE Subjective: Patient seen and examined at bedside. No acute overnight events, no new medical complaints. Objective: General: NAD, lying comfortably in bed, pleasant HEENT: NC/AT Lungs: CTA B/L Heart: +S1S2, RRR Abd: soft, NT, +BS Psych: AAOx3 ASSESSMENT: This is a 71-year-old with hypertensive emergency/urgency and bilateral renal artery stenosis with failed attempt at angioplasty/stents. PLAN: 1. Patient has ongoing hypertension which is better controlled. Plan is to proceed with brachial approach for renal artery stents with vascular surgery. 2. Patient has acute renal failure in the setting of chronic kidney disease which continues to improve. Follow as per nephrology, assistance appreciated. 3. Patient is thought to have demand ischemia from mild troponin elevation in the setting of acute kidney injury during this stay. Cardiology has been consulted , assistance appreciated. 4. Patient has bilateral renal artery stenosis. Stents were unable to be placed from femoral approach. Patient is agreeable to pursue brachial approach as an inpatient. 5. Patient was treated for urinary tract infection during this stay. 6. Patient had metabolic encephalopathy which has resolved. At that point, it was deemed that she did not capacity to make her medical decisions. At this point, she does appear to have capacity to make her medical decisions. This was discussed with psychiatry who opined agreement. 7. Patient has a history of depression and anxiety. 8. DVT prophylaxis Dispo: Possibly vascular intervention tomorrow for renal artery stents. VS,Fishbone, I+O VS, Fishbone, I+O Laboratory Tests 01/15/17 05:17 Red Blood Count 3.65 L, Mean Corpuscular Volume 87.7, Mean Corpuscular Hemoglobin 28.8, Mean Corpuscular Hemoglobin Concent 32.8, Red Cell Distribution Width 13.5, Anion Gap 9 Vital Signs Date Time Temp Pulse Resp B/P (MAP) Pulse Ox O2 Delivery O2 Flow Rate FiO2 01/15/17 06:21 160/80 01/15/17 06:00 Room Air 01/15/17 06:00 98.6 53 18 94 I&O- Last 24 Hours up to 6 AM 01/16/17 06:00 Intake Total 0 ml Output Total 0 ml Balance 0 ml JOSE E ROY MD Jan 15, 2017 08:51
[2017-01-15 14:00] VITALS: BP 151/62
--- NOTE | 2017-01-15 15:29 | IPN ---
DATE: 01/15/2017 Mrs. Mora is seen this afternoon on her bedside. She is feeling well and denies any new complaints. She denies any headache, dizziness, dyspnea, chest pain, nausea or vomiting. She does have slight discomfort at the site of her angioplasty in right femoral area. PHYSICAL EXAMINATION: On physical examination, temperature 98.6 degrees Fahrenheit, heart rate 54 per minute and respiratory rate 18 per minute. Blood pressure 160/80 mmHg and oxygen saturation 94% on room air. Head is atraumatic. Pupils are equal and reactive to light and sclera is anicteric. Neck is supple and without jugular venous distention (JVD) or thyroid enlargement. Heart sounds are regular. Lungs are clear to auscultation. Abdomen is soft and nontender and bowel sounds are normal. There is no palpable organomegaly. Extremities have no cyanosis or clubbing. Skin has no rash or ulcers. Neurologically, she is awake, alert and oriented times three. LABORATORY DATA: Today's laboratories show WBC count 4.1, hemoglobin 10.5 and hematocrit 32.0. Platelets are 126. Sodium 142 and potassium 4.2. BUN 23 and creatinine 1.26. PROBLEMS: 1. Acute kidney injury, superimposed on chronic kidney disease. Significant improvement over the last several days. This is probably close to her baseline kidney function now. Electrolytes are within normal range. She is medically stable and cleared for another angioplasty attempt for her bilateral renal artery stenosis. 2. Bilateral renal artery stenosis. The patient had an unsuccessful attempt for renal angioplasty due to abdominal aortic aneurysm. Dr. Becerra has a plan to do renal angioplasty and stent placement via upper extremity access. From a renal standpoint, the patient can be taken to angioplasty anytime as her kidney function has improved. 3. Uncontrolled hypertension. Blood pressure is much improved though not perfectly optimized. Bilateral renal artery stenosis is probably contributing to her poorly controlled hypertension. It is likely to improve with angioplasty and stent placement. 4. Anemia. Her anemia is mild and stable and no intervention is indicated. 5. Thrombocytopenia. Platelets are gradually improving and she has no active bleeding.
[2017-01-15 22:00] VITALS: BP 150/81
[2017-01-16 06:00] VITALS: BP 146/60
[2017-01-16] MEDS: SLF 3 ML SYR IV SCH ×3 (06:00→22:03)
[2017-01-16] MEDS: cloNIDine 0.1 MG TAB PO SCH ×3 (06:00→22:03)
[2017-01-16 06:03] LABS: MEAN CORPUSCULAR HEMOGLOBIN 29.4 pg (27.0-33.0); MEAN CORPUSCULAR HGB CONC 33.1 g/dl (32.0-36.5); MEAN CORPUSCULAR VOLUME 88.9 fl (80.0-96.0); PLATELET COUNT, AUTOMATED 139 10^3/uL (150-450); RED CELL DISTRIBUTION WIDTH 13.3 % (11.5-14.5); WHITE BLOOD COUNT 4.3 10^3/uL (4.0-10.0)
[2017-01-16 06:10] LABS: ALBUMIN 2.2 GM/DL (3.2-5.2); CALCIUM LEVEL 8.4 MG/DL (8.8-10.2); CREATININE FOR GFR 1.32 MG/DL (0.55-1.02); GLOMERULAR FILTRATION RATE 42.1 (>39); PHOSPHORUS LEVEL 3.1 MG/DL (2.5-4.9)
[2017-01-16] MEDS: HumaLOG INSULIN (NovoLOG) PER UNIT SC SCH ×4 (07:30→21:00)
[2017-01-16] MEDS: DOCUSATE SODIUM 100 MG CAP PO SCH ×2 (09:00→21:00)
[2017-01-16] MEDS: MIRALAX *UNIT DOSE* 17GM PACKET PO SCH ×2 (09:00→21:00)
[2017-01-16] MEDS: ATORVASTATIN 20 MG TAB PO SCH (09:34)
[2017-01-16] MEDS: amLODIPine 10 MG TAB PO SCH (09:35)
[2017-01-16] MEDS: MINOXIDIL 10 MG TAB PO SCH (09:35)
[2017-01-16] MEDS: FERROUS GLUCONATE 324 MG TAB PO SCH ×2 (09:35→21:36)
[2017-01-16] MEDS: CLOPIDOGREL 75 MG TAB PO SCH (09:36)
[2017-01-16] MEDS: SPIRONOLACTONE 25 MG TAB PO SCH (09:36)
[2017-01-16] MEDS: LABETALOL 100 MG TAB PO SCH ×2 (09:36→21:36)
--- NOTE | 2017-01-16 09:51 | IPNPDOC ---
Text Note Date of Service The patient was seen on 01/16/17. NOTE Subjective: Patient seen and examined at bedside. No acute overnight events, no new medical complaints. Objective: General: NAD, lying comfortably in bed, pleasant HEENT: NC/AT Lungs: CTA B/L Heart: +S1S2, RRR Abd: soft, NT, +BS Psych: AAOx3 ASSESSMENT: This is a 71-year-old with hypertensive emergency/urgency and bilateral renal artery stenosis with failed attempt at angioplasty/stents. PLAN: 1. Patient has ongoing hypertension which is better controlled. Plan is to proceed with brachial approach for renal artery stents with vascular surgery today. 2. Patient has acute renal failure in the setting of chronic kidney disease which continues to improve. Follow as per nephrology, assistance appreciated. 3. Patient is thought to have demand ischemia from mild troponin elevation in the setting of acute kidney injury during this stay. Cardiology has been consulted , assistance appreciated. 4. Patient has bilateral renal artery stenosis. Stents were unable to be placed from femoral approach. Patient is agreeable to pursue brachial approach as an inpatient. 5. Patient was treated for urinary tract infection during this stay. 6. Patient had metabolic encephalopathy which has resolved. At that point, it was deemed that she did not capacity to make her medical decisions. At this point, she does appear to have capacity to make her medical decisions. This was discussed with psychiatry who opined agreement. 7. Patient has a history of depression and anxiety. 8. DVT prophylaxis Dispo: Discussed with vascular surgery. Plan is for intervention today. VS,Fishbone, I+O VS, Fishbone, I+O Laboratory Tests 01/16/17 05:33 Red Blood Count 3.60 L, Mean Corpuscular Volume 88.9, Mean Corpuscular Hemoglobin 29.4, Mean Corpuscular Hemoglobin Concent 33.1, Red Cell Distribution Width 13.3, Anion Gap 10 Vital Signs Date Time Temp Pulse Resp B/P (MAP) Pulse Ox O2 Delivery O2 Flow Rate FiO2 01/16/17 09:36 64 178/60 01/16/17 06:00 98.0 18 93 Room Air I&O- Last 24 Hours up to 6 AM 01/17/17 06:00 Intake Total 0 ml Balance 0 ml JOSE E ROY MD Jan 16, 2017 09:51
--- NOTE | 2017-01-16 12:12 | IPN ---
DATE: 01/16/2017 Mrs. Mora is seen this morning on her bedside. She is nothing by mouth and is waiting to go for her renal angioplasty. She denies any dyspnea, chest pain, nausea or vomiting. She has no fever or chills. She reports that she gets up and walks to the bathroom without any difficulty. PHYSICAL EXAMINATION: Temperature 98 degrees Fahrenheit, heart rate 58 per minute and respiratory rate 18 per minute. Blood pressure 146/60 mmHg and oxygen saturation 93% on room air. Head: Is atraumatic. Pupils equal and reactive to light and sclera is anicteric. Ears, nose and throat are unremarkable. Heart: Sounds are regular. Lungs clear to auscultation bilaterally. Abdomen: Soft and nontender and bowel sounds are normal. Extremities have no cyanosis or clubbing. Neurologically she is awake, alert and oriented times three. Today's labs show WBC count 4.3, hemoglobin 10.6 and hematocrit 32.0. Platelets 139. Sodium 141 and potassium 4.0. BUN 22 and creatinine 1.32. PROBLEMS: 1. Acute renal failure superimposed on chronic kidney disease. The patient has stage III of chronic kidney disease at baseline. Her acute renal failure was most likely related to use of ARNULFO inhibitor in the setting of bilateral renal artery stenosis and it has already improved. Her kidney function at present is stable at baseline. 2. Bilateral renal artery stenosis: The patient is scheduled for angioplasty today. She had an unsuccessful attempt previously due to abdominal aortic aneurysm. Dr. Becerra has a plan to get an access from upper extremity and performed bilateral renal angioplasty with stent placement. 3. Renovascular hypertension: Blood pressure control has improved significantly with adjustment in medications. We anticipate that her blood pressure will improve further once she gets her renal artery angioplasty done. 4. Anemia: Her anemia is stable at present and no intervention is indicated.
[2017-01-16 14:00] VITALS: BP 166/68
[2017-01-16] MEDS ORDERED: ISOVUE-300 61% 50ML VIAL (Q9967) As Ordered ONE (16:14)
[2017-01-16] MEDS ORDERED: fentaNYL 100 MCG/2 ML INJECTION (J3010) As Ordered ONE ×2 (16:23→16:52)
[2017-01-16] MEDS ORDERED: MIDAZOLAM INJ 2 MG/2 ML VIAL (J2250) As Ordered ONE ×2 (16:24→16:53)
[2017-01-16] MEDS ORDERED: LIDOCAINE 2% MDV 20 ML VIAL As Ordered ONE (16:47)
[2017-01-16] MEDS ORDERED: HEPARIN 1,000 UNITS/ML 10ML VIAL (FOR RADIOLOGY& DIALYSIS ONLY) As Ordered ONE (16:52)
[2017-01-16 21:45] VITALS: BP 206/70
[2017-01-16 22:00] VITALS: BP 196/81
[2017-01-16 22:01] VITALS: BP 218/68
[2017-01-16 23:20] VITALS: BP 178/62
[2017-01-17 05:20] VITALS: BP 162/56
[2017-01-17] MEDS: cloNIDine 0.1 MG TAB PO SCH ×3 (05:20→21:01)
[2017-01-17] MEDS: SLF 3 ML SYR IV SCH ×3 (05:20→21:03)
[2017-01-17 06:00] VITALS: BP 163/69
[2017-01-17 06:46] LABS: MEAN CORPUSCULAR HEMOGLOBIN 29.1 pg (27.0-33.0); MEAN CORPUSCULAR HGB CONC 32.8 g/dl (32.0-36.5); MEAN CORPUSCULAR VOLUME 88.6 fl (80.0-96.0); PLATELET COUNT, AUTOMATED 139 10^3/uL (150-450); RED CELL DISTRIBUTION WIDTH 13.4 % (11.5-14.5); WHITE BLOOD COUNT 4.7 10^3/uL (4.0-10.0)
[2017-01-17 07:01] LABS: ALBUMIN 2.1 GM/DL (3.2-5.2); CALCIUM LEVEL 8.3 MG/DL (8.8-10.2); CREATININE FOR GFR 1.18 MG/DL (0.55-1.02); GLOMERULAR FILTRATION RATE 47.9 (>39); PHOSPHORUS LEVEL 3.4 MG/DL (2.5-4.9); POTASSIUM SERUM 3.8 MEQ/L (3.5-5.1)
[2017-01-17 09:00] VITALS: BP 172/48
[2017-01-17] MEDS: HumaLOG INSULIN (NovoLOG) PER UNIT SC SCH ×4 (09:30→20:35)
[2017-01-17] MEDS: MINOXIDIL 10 MG TAB PO SCH (10:03)
[2017-01-17] MEDS: ATORVASTATIN 20 MG TAB PO SCH (10:04)
[2017-01-17] MEDS: SPIRONOLACTONE 25 MG TAB PO SCH (10:04)
[2017-01-17] MEDS: FERROUS GLUCONATE 324 MG TAB PO SCH ×2 (10:05→21:01)
[2017-01-17] MEDS: MIRALAX *UNIT DOSE* 17GM PACKET PO SCH ×2 (10:05→21:00)
[2017-01-17] MEDS: DOCUSATE SODIUM 100 MG CAP PO SCH ×2 (10:05→21:01)
[2017-01-17] MEDS: CLOPIDOGREL 75 MG TAB PO SCH (10:05)
[2017-01-17 10:20] VITALS: BP 160/72
--- NOTE | 2017-01-17 10:20 | IPNPDOC ---
Text Note Date of Service The patient was seen on 01/17/17. NOTE Subjective: Patient seen and examined at bedside. Patient is feeling well this morning, no medical complaints. She underwent placement of renal artery stents. Objective: General: NAD, lying comfortably in bed, pleasant HEENT: NC/AT Lungs: CTA B/L Heart: +S1S2, RRR Abd: soft, NT, +BS Psych: AAOx3 ASSESSMENT: This is a 71-year-old female with hypertensive emergency/urgency and bilateral renal artery stenosis with failed attempt at angioplasty/stents. PLAN: 1. Patient has ongoing hypertension which is better controlled. She had renal artery stents placed yesterday through a brachial approach for bilateral LUCITA. Follow as per vascular surgery, assistance appreciated. Her blood pressures have been on the higher side, but expect improvement after this procedure. Will continue to follow clinically. 2. Patient has acute renal failure in the setting of chronic kidney disease which continues to improve. Follow as per nephrology, assistance appreciated. 3. Patient is thought to have demand ischemia from mild troponin elevation in the setting of acute kidney injury during this stay. Cardiology has been consulted , assistance appreciated. 4. Patient has bilateral renal artery stenosis POD #1 renal artery stents. 5. Patient was treated for urinary tract infection during this stay. 6. Patient had metabolic encephalopathy which has resolved. At that point, it was deemed that she did not capacity to make her medical decisions. At this point, she does appear to have capacity to make her medical decisions. This was discussed with psychiatry who opined agreement. 7. Patient has a history of depression and anxiety. 8. DVT prophylaxis Dispo: Pain control, monitor blood pressure, anticipate discharge in 24-48 hours. VS,Philip, I+O VS, Philip, I+O Laboratory Tests 01/17/17 06:12 Red Blood Count 3.51 L, Mean Corpuscular Volume 88.6, Mean Corpuscular Hemoglobin 29.1, Mean Corpuscular Hemoglobin Concent 32.8, Red Cell Distribution Width 13.4, Anion Gap 10 Vital Signs Date Time Temp Pulse Resp B/P (MAP) Pulse Ox O2 Delivery O2 Flow Rate FiO2 01/17/17 06:00 98.0 57 18 163/69 (100) 94 Room Air JOSE E ROY MD Jan 17, 2017 10:20
[2017-01-17] MEDS: LABETALOL 100 MG TAB PO SCH ×2 (10:58→21:03)
[2017-01-17] MEDS: amLODIPine 10 MG TAB PO SCH (10:59)
[2017-01-17 14:00] VITALS: BP 188/66
--- NOTE | 2017-01-17 20:34 | IPN ---
DATE: 01/17/2017 Mrs. Mora is seen this morning on her bedside. She is feeling well and is quite happy today as she did have bilateral renal angioplasty done yesterday. She did not feel any discomfort this time as she had an access from left upper extremity. The patient denies any flank pain, nausea, vomiting, dyspnea or chest pain. PHYSICAL EXAMINATION: Temperature 97.4 degrees Fahrenheit, heart rate 60 per minute and respiratory rate 18 per minute. Blood pressure 160/72 mmHg and oxygen saturation 97% on room air. Head: Is atraumatic. Neck is supple and without JVD or thyroid enlargement. Ears, nose and throat are unremarkable. Heart: Sounds are regular and lungs clear to auscultation. Abdomen: Soft and nontender and bowel sounds are normal. There is no palpable organomegaly. Extremities: Have no cyanosis or clubbing. Skin has no rash or ulcers. Neurologically she is awake, alert and oriented times three. Today's labs show normal electrolytes and improved BUN of 17 and creatinine 1.18. Calcium level 8.3. Hemoglobin is 10.2 and hematocrit 31.1. PROBLEMS: 1. Acute kidney injury superimposed on chronic kidney disease. The patient has further improvement in her kidney function. At present, her electrolytes are within normal range. Overall renal function has been relatively stable for last several days. 2. Renovascular hypertension. Blood pressure control is still suboptimal. She just had bilateral renal angioplasty done yesterday and we will adjust her medications in next 24 hours. Current antihypertensive medications are reviewed and they are appropriate. 3. Bilateral renal artery stenosis. The patient underwent angioplasty with bilateral renal artery stent placement. It remains to be seen how it helps with control of her blood pressure. She is still on multiple antihypertensive medications. 4. Anemia. Her anemia is stable and does not need any intervention.
[2017-01-17 21:11] LABS: ANION GAP 7 MEQ/L (8-16); BLOOD UREA NITROGEN 19 MG/DL (7-18); CALCIUM LEVEL 8.1 MG/DL (8.8-10.2); CARBON DIOXIDE LEVEL 27 MEQ/L (21-32); CHLORIDE LEVEL 106 MEQ/L (98-107); CREATININE FOR GFR 1.33 MG/DL (0.55-1.02); GLOMERULAR FILTRATION RATE 41.7 (>39); GLUCOSE, FASTING 105 MG/DL (83-110); MAGNESIUM LEVEL 1.6 MG/DL (1.8-2.4); POTASSIUM SERUM 3.8 MEQ/L (3.5-5.1); SODIUM LEVEL 140 MEQ/L (136-145)
[2017-01-17 22:00] VITALS: BP 159/69
[2017-01-18 06:00] VITALS: BP 160/76
[2017-01-18] MEDS: SLF 3 ML SYR IV SCH ×3 (06:18→21:53)
[2017-01-18] MEDS: cloNIDine 0.1 MG TAB PO SCH ×4 (06:19→22:00)
[2017-01-18 06:38] LABS: MEAN CORPUSCULAR HEMOGLOBIN 29.4 pg (27.0-33.0); MEAN CORPUSCULAR HGB CONC 32.9 g/dl (32.0-36.5); MEAN CORPUSCULAR VOLUME 89.2 fl (80.0-96.0); PLATELET COUNT, AUTOMATED 125 10^3/uL (150-450); RED CELL DISTRIBUTION WIDTH 13.4 % (11.5-14.5); WHITE BLOOD COUNT 4.1 10^3/uL (4.0-10.0)
[2017-01-18 06:52] LABS: ALBUMIN 2.1 GM/DL (3.2-5.2); CALCIUM LEVEL 8.1 MG/DL (8.8-10.2); CREATININE FOR GFR 1.24 MG/DL (0.55-1.02); GLOMERULAR FILTRATION RATE 45.3 (>39); PHOSPHORUS LEVEL 3.1 MG/DL (2.5-4.9)
[2017-01-18 08:22] LABS: MAGNESIUM LEVEL 1.7 MG/DL (1.8-2.4)
[2017-01-18] MEDS ORDERED: MAG SULF 1GM/100ML (MAG RUN) 1 GM in APPROPRIATE DILUENT 1 EA IV ONE ×3 (08:45)
[2017-01-18] MEDS: MIRALAX *UNIT DOSE* 17GM PACKET PO SCH ×2 (09:00→21:00)
[2017-01-18] MEDS: LABETALOL 100 MG TAB PO SCH ×3 (09:00→21:51)
[2017-01-18] MEDS: HumaLOG INSULIN (NovoLOG) PER UNIT SC SCH ×4 (09:55→21:00)
[2017-01-18] MEDS: DOCUSATE SODIUM 100 MG CAP PO SCH ×2 (09:56→21:51)
[2017-01-18] MEDS: ATORVASTATIN 20 MG TAB PO SCH (09:56)
[2017-01-18] MEDS: CLOPIDOGREL 75 MG TAB PO SCH (09:57)
[2017-01-18] MEDS: amLODIPine 10 MG TAB PO SCH (09:57)
[2017-01-18] MEDS: FERROUS GLUCONATE 324 MG TAB PO SCH ×2 (09:57→21:52)
[2017-01-18] MEDS: SPIRONOLACTONE 25 MG TAB PO SCH (10:16)
[2017-01-18] MEDS: MINOXIDIL 10 MG TAB PO SCH (10:28)
--- NOTE | 2017-01-18 11:06 | IPNPDOC ---
Text Note Date of Service The patient was seen on 01/18/17. NOTE Subjective: Patient seen and examined at bedside. Patient is feeling well this morning, no medical complaints. She is POD #2 for bilateral renal artery stent placement. Objective: General: NAD, lying comfortably in bed, pleasant HEENT: NC/AT Lungs: CTA B/L Heart: +S1S2, RRR Abd: soft, NT, +BS Psych: AAOx3 ASSESSMENT: This is a 71-year-old female with hypertensive emergency/urgency and bilateral renal artery stenosis s/p stenting. PLAN: 1. Patient has ongoing hypertension which is better controlled. She is POD #2 for renal artery stents through a brachial approach for bilateral LUCITA. Follow as per vascular surgery, assistance appreciated. Will continue to follow clinically with adjustments as needed to her hypertensive medications. 2. Patient has acute renal failure in the setting of chronic kidney disease which continues to improve. Follow as per nephrology, assistance appreciated. 3. Patient is thought to have demand ischemia from mild troponin elevation in the setting of acute kidney injury during this stay. Cardiology has been consulted , assistance appreciated. 4. Patient has bilateral renal artery stenosis POD #2 renal artery stents. 5. Patient was treated for urinary tract infection during this stay. 6. Patient had metabolic encephalopathy which has resolved. At that point, it was deemed that she did not capacity to make her medical decisions. At this point, she does appear to have capacity to make her medical decisions. This was discussed with psychiatry who opined agreement. 7. Patient has a history of depression and anxiety. 8. Anemia - stable at this time 9. DVT prophylaxis Dispo: Pain control, monitor blood pressure, anticipate discharge in 24 hours. VS,Fishbone, I+O VS, Fishbone, I+O Laboratory Tests 01/17/17 20:24 Calcium Level 8.1 L, Total Creatine Kinase 49 01/18/17 06:19 Red Blood Count 3.44 L, Mean Corpuscular Volume 89.2, Mean Corpuscular Hemoglobin 29.4, Mean Corpuscular Hemoglobin Concent 32.9, Red Cell Distribution Width 13.4, Anion Gap 7 L Vital Signs Date Time Temp Pulse Resp B/P (MAP) Pulse Ox O2 Delivery O2 Flow Rate FiO2 01/18/17 09:57 50 152/67 01/18/17 06:00 99.0 18 93 Room Air JOSE E ROY MD Jan 18, 2017 11:06
--- NOTE | 2017-01-18 11:34 | IPN ---
DATE OF VISIT: 01/18/2017 Mrs. Mora is seen this morning on her bedside. She is laying in the bed comfortably and denies any complaints. She tells me that she is likely to go home today. She has no dyspnea, chest pain, nausea, or vomiting. She denies any fever or chills. She underwent bilateral renal angioplasty with stent placement on 01/16/2017 and has been doing well since then. Her blood pressure control is reasonable on multiple antihypertensive medications. On physical examination, temperature 99 degrees Fahrenheit, heart rate 50 per minute, and respiratory rate 18 per minute. Blood pressure 152/67 mmHg and oxygen saturation 93% on room air. Head: Is atraumatic. Pupils equal and reactive to light. Sclerae anicteric. Neck is supple and without jugular venous distention (JVD) or thyroid enlargement. Heart sounds are regular, and lungs clear to auscultation bilaterally. Abdomen: Soft and nontender and without an audible abdominal bruit. Bowel sounds are normal. Extremities: Have no cyanosis or clubbing. Left arm brachial access site is with a dressing and no bleeding. Today's laboratories show WBC count 4.1, hemoglobin 10.1, and hematocrit 30.7. Platelets 125. Sodium 140, potassium 4.0. BUN 16 and creatinine 1.24. PROBLEMS: 1. Acute renal failure superimposed on chronic kidney disease. Her kidney function has improved and is stabilized the last few days. She had acute renal failure when angiotensin-converting enzyme (ARNULFO) inhibitor or angiotensin receptor blockers were given. She already had bilateral renal angioplasty with stents, so I feel that if needed would use ARNULFO inhibitor in the future. 2. Uncontrolled hypertension. Blood pressure control is slightly suboptimal. I fell that she should continue with current antihypertensive medications at discharge and followup in the office in 1 week for further adjustment in her medications if needed. 3. Anemia. Her anemia is stable and does not need any intervention at present. DISPOSITION: From a renal standpoint, the patient can be discharged to home today and followup in the office in about 1 week.
[2017-01-18 14:00] VITALS: BP 154/67
[2017-01-18 22:00] VITALS: BP 156/70
[2017-01-19] MEDS: SLF 3 ML SYR IV SCH ×3 (05:55→22:00)
[2017-01-19] MEDS: cloNIDine 0.1 MG TAB PO SCH ×3 (05:57→22:00)
[2017-01-19 06:00] VITALS: BP 162/68
[2017-01-19 06:56] LABS: MEAN CORPUSCULAR HEMOGLOBIN 29.2 pg (27.0-33.0); MEAN CORPUSCULAR HGB CONC 32.8 g/dl (32.0-36.5); PLATELET COUNT, AUTOMATED 125 10^3/uL (150-450); RED CELL DISTRIBUTION WIDTH 13.2 % (11.5-14.5); WHITE BLOOD COUNT 3.7 10^3/uL (4.0-10.0)
[2017-01-19 07:05] LABS: ALBUMIN 2.1 GM/DL (3.2-5.2); CREATININE FOR GFR 1.18 MG/DL (0.55-1.02); GLOMERULAR FILTRATION RATE 47.9 (>39); PHOSPHORUS LEVEL 3.3 MG/DL (2.5-4.9); POTASSIUM SERUM 3.7 MEQ/L (3.5-5.1)
[2017-01-19] MEDS ORDERED: ALDA25TA2 PO (08:26)
[2017-01-19] MEDS ORDERED: CLONI1TA PO (08:26)
[2017-01-19] MEDS ORDERED: MINO10TA PO (08:26)
[2017-01-19] MEDS ORDERED: FERR32TA PO (08:26)
[2017-01-19] MEDS ORDERED: CLOP75TA2 PO (08:26)
[2017-01-19] MEDS ORDERED: AMLO5TAB2 PO (08:26)
[2017-01-19] MEDS ORDERED: ATOR1TAB21 PO (08:26)
[2017-01-19] MEDS ORDERED: LABE10TAB PO (08:26)
[2017-01-19] MEDS: HumaLOG INSULIN (NovoLOG) PER UNIT SC SCH ×4 (08:35→20:36)
[2017-01-19] MEDS: MIRALAX *UNIT DOSE* 17GM PACKET PO SCH ×2 (09:00→20:59)
[2017-01-19] MEDS: DOCUSATE SODIUM 100 MG CAP PO SCH ×2 (09:00→20:59)
[2017-01-19] MEDS: LABETALOL 100 MG TAB PO SCH ×2 (09:00→20:54)
[2017-01-19] MEDS: FERROUS GLUCONATE 324 MG TAB PO SCH ×2 (09:10→21:00)
[2017-01-19] MEDS: MINOXIDIL 10 MG TAB PO SCH (09:11)
[2017-01-19] MEDS: CLOPIDOGREL 75 MG TAB PO SCH (09:11)
[2017-01-19] MEDS: ATORVASTATIN 20 MG TAB PO SCH (09:11)
[2017-01-19] MEDS: SPIRONOLACTONE 25 MG TAB PO SCH (09:11)
[2017-01-19] MEDS: amLODIPine 10 MG TAB PO SCH (09:12)
[2017-01-19 10:12] VITALS: BP 158/60
--- NOTE | 2017-01-19 10:54 | DS.PDOC ---
Discharge Summary General Date of Admission Dec 27, 2016 at 08:19 Discharge Summary PROCEDURES PERFORMED DURING STAY: Renal artery stent DISCHARGE DIAGNOSES: 1. Renal artery stenosis. 2. Hypertensive urgency 3. dyslipidemia 4. Hypertensive encephalopathy 5. CEE/CKD COMPLICATIONS/CHIEF COMPLAINT: Hypertensive Urgency,Metabolic Encephalopathy. HISTORY OF PRESENT ILLNESS: 71 yo female brought in by EMS after son called local police for her having episodes of hallucinations and confusion. No prior history of similar episodes. Very limited history given by patient due to mildly confused by pleasant to talk to. No appearant history of head trauma although her son relates that he believes shes fallen at least once in the past few days. Again limited history from patient and son as well. HOSPITAL COURSE: Patient found to be in hypertensive urgency, with encephalopathy. Patient had history of failed renal artery stent placement for renal artery stenosis. Patient also with CEE/CKD. Neprhology and vascular surgery consulted. Patient underwent renal artery stent placement through brachial approach. Pressures under better control, renal function much improved. Patient discharged home with outpatient followup. DISCHARGE MEDICATIONS: Please see below. ALLERGIES: Please see below. PHYSICAL EXAMINATION ON DISCHARGE: VITAL SIGNS: Please see below. GENERAL: NAD HEENT: NC/AT, EOMI, PERRL NECK: supple CARDIOVASCULAR EXAMINATION: +S1S2, RRR RESPIRATORY EXAMINATION: CTA B/L ABDOMINAL EXAMINATION: soft, NT, +BS EXTREMITIES: no edema SKIN: no rashes NEUROLOGICAL EXAMINATION: no gross focal deficits PSYCHIATRIC EXAMINATION: AAOx3 ACTIVITY: [As tolerated]. DIET: 2 gram sodium. DISCHARGE PLAN: Discharge home. DISCHARGE INSTRUCTIONS: 1. Follow up PCP in 3-5 days. 2. Follow up nephrology as scheduled. 3. Follow up vascular surgery as scheduled. DISCHARGE CONDITION: [Stable]. TIME SPENT ON DISCHARGE: Greater than 30 minutes. Vital Signs/I&Os Vital Signs Date Time Temp Pulse Resp B/P (MAP) Pulse Ox O2 Delivery O2 Flow Rate FiO2 01/19/17 10:12 98.4 54 16 158/60 (92) 96 Room Air I&O- Last 24 Hours up to 6 AM 01/20/17 06:00 Intake Total 240 ml Balance 240 ml Laboratory Data Labs 24H Laboratory Tests 2 01/19/17 06:15: Nucleated Red Blood Cells % (auto) 0.0, Blood Urea Nitrogen 17, Creatinine 1.18H , Sodium Level 140, Potassium Level 3.7, Chloride Level 106, Carbon Dioxide Level 26, Anion Gap 8, Glomerular Filtration Rate 47.9, Calcium Level 8.0L, Phosphorus Level 3.3, Albumin 2.1L CBC/BMP Laboratory Tests 01/19/17 06:15 Red Blood Count 3.46 L, Mean Corpuscular Volume 89.0, Mean Corpuscular Hemoglobin 29.2, Mean Corpuscular Hemoglobin Concent 32.8, Red Cell Distribution Width 13.2, Anion Gap 8 Discharge Medications Scheduled Amlodipine Besylate (Amlodipine Besylate) 5 Mg Tab, 5 MG PO DAILY Atorvastatin Calcium (Atorvastatin Calcium) 20 Mg Tab, 80 MG PO DAILY Clonidine Hcl (Catapres) 0.1 Mg Tab, 0.1 MG PO BID Clopidogrel Bisulfate (Clopidogrel) 75 Mg Tab, 75 MG PO DAILY Ferrous Gluconate (Ferrous Gluconate) 324 Mg Tab, 324 MG PO BID Labetalol HCl (Labetalol HCl) 100 Mg Tab, 50 MG PO BID Minoxidil (Minoxidil) 10 Mg Tab, 5 MG PO DAILY Spironolactone (Aldactone) 25 Mg Tab, 25 MG PO QAM Miscellaneous Medications [Patient Comment ] , (Reported) PT STATES SHE STOPPED TAKING HER MEDS Allergies Coded Allergies: No Known Allergies (Unverified , 12/27/16) JOSE E ROY MD Jan 19, 2017 10:54
[2017-01-19 14:00] VITALS: BP 142/62
[2017-01-19 22:00] VITALS: BP 162/68
[2017-01-20] MEDS: cloNIDine 0.1 MG TAB PO SCH ×2 (05:13→15:03)
[2017-01-20] MEDS: SLF 3 ML SYR IV SCH ×2 (05:41→15:04)
[2017-01-20 06:00] VITALS: BP 172/60
[2017-01-20] MEDS: LABETALOL 100 MG TAB PO SCH (08:50)
[2017-01-20] MEDS: MINOXIDIL 10 MG TAB PO SCH (08:50)
[2017-01-20] MEDS: SPIRONOLACTONE 25 MG TAB PO SCH (08:51)
[2017-01-20] MEDS: amLODIPine 10 MG TAB PO SCH (08:51)
[2017-01-20] MEDS: DOCUSATE SODIUM 100 MG CAP PO SCH (08:51)
[2017-01-20] MEDS: HumaLOG INSULIN (NovoLOG) PER UNIT SC SCH ×3 (08:51→17:26)
[2017-01-20] MEDS: ATORVASTATIN 20 MG TAB PO SCH (08:52)
[2017-01-20] MEDS: MIRALAX *UNIT DOSE* 17GM PACKET PO SCH (08:52)
[2017-01-20] MEDS: FERROUS GLUCONATE 324 MG TAB PO SCH (08:52)
[2017-01-20] MEDS: CLOPIDOGREL 75 MG TAB PO SCH (08:52)
--- NOTE | 2017-01-20 10:12 | IPNPDOC ---
Text Note Date of Service The patient was seen on 01/20/17. NOTE Discharge Addendum: Patient's discharge held yesterday due to insurance issues with obtaining her medications. Patient still cleared for discharge today if able to obtain her medications. No changes to discharge instructions. Please refer to discharge summary for full details. VS,Fishbone, I+O VS, Fishbone, I+O Vital Signs Date Time Temp Pulse Resp B/P (MAP) Pulse Ox O2 Delivery O2 Flow Rate FiO2 01/20/17 08:51 57 172/60 01/20/17 06:00 97.6 18 95 Room Air I&O- Last 24 Hours up to 6 AM 01/21/17 06:00 Intake Total 240 ml Balance 240 ml JOSE E ROY MD Jan 20, 2017 10:12
--- NOTE | 2017-01-20 13:05 | IPN ---
DATE OF VISIT: 01/20/2017 Mrs. Mora is seen again today due to uncontrolled hypertension. She was anticipated for discharge a couple of days ago; however, her discharge has been held due to insurance related issues. The patient underwent bilateral renal angioplasty with stent placement and has been feeling well. She denies any dyspnea, chest pain, nausea or vomiting. On physical examination, temperature 97.6 degrees Fahrenheit, heart rate 56 per minute and respiratory rate 18 per minute. Blood pressure 172/60 mmHg and oxygen saturation 95% on room air. Head is atraumatic. Pupils equal and reactive to light and sclera is anicteric. Neck is supple and without jugular venous distention (JVD) or thyroid enlargement. Heart sounds are regular and lungs sound clear to auscultation. Abdomen: Soft and nontender. Bowel sounds are normal. Extremities have no cyanosis or clubbing. Skin has no rash or ulcers. Neurologically, she is awake, alert and oriented times three. Most recent labs are from yesterday when hemoglobin was 10.1 and hematocrit 30.8. BUN 17 and creatinine 1.18. Electrolytes were all within normal range. PROBLEMS: 1. Uncontrolled hypertension. Blood pressure control remains suboptimal. I am increasing her minoxidil dose to 5 mg twice a day. She will continue with amlodipine 10 mg daily, labetalol 50 mg twice a day and clonidine 0.1 mg every 8 hours. 2. Acute on chronic kidney disease. Her kidney function has improved to baseline. She has stage III CKD at baseline. 3. Bilateral renal artery stenosis. The patient underwent bilateral renal angioplasty with stent placement and has been doing well. It remains to be seen how her hypertension and kidney function responds over next few weeks.
[2017-01-20 15:03] VITALS: BP 144/77
[2017-01-20] MEDS ORDERED: MINOXIDIL 10 MG TAB PO SCH (21:00)
== END 2017-01-20 18:15 | disposition home or self-care (01) | DRG 673 ==
LOC: M ED 04:58 → EDBD 04:58 → M ED INP 08:19 → M PCU 12-28 00:28 → M MSPAV 01-07 17:58
PROVIDERS: ADMIT Hospitalist; ATTEND Internal Medicine
PROC: 047A3DZ Dilation of Left Renal Artery with Intraluminal Device, Percutaneous Approach (ICD-10-PCS; principal; 2017-01-02)
PROC: 04793DZ Dilation of Right Renal Artery with Intraluminal Device, Percutaneous Approach (ICD-10-PCS; 2017-01-02)
DX: I70.1 Atherosclerosis of renal artery (principal); G93.41 Metabolic encephalopathy; N17.9 Acute kidney failure, unspecified; I67.4 Hypertensive encephalopathy; N39.0 Urinary tract infection, site not specified; D61.818 Other pancytopenia; I16.0 Hypertensive urgency; Z66 Do not resuscitate; I86.8 Varicose veins of other specified sites; K74.60 Unspecified cirrhosis of liver; E78.5 Hyperlipidemia, unspecified; N18.9 Chronic kidney disease, unspecified; Z79.899 Other long term (current) drug therapy; I36.0 Nonrheumatic tricuspid (valve) stenosis; Z87.891 Personal history of nicotine dependence; Z79.4 Long term (current) use of insulin; D69.6 Thrombocytopenia, unspecified; I25.2 Old myocardial infarction; I25.10 Atherosclerotic heart disease of native coronary artery without angina pectoris; F41.9 Anxiety disorder, unspecified; F32.9 Major depressive disorder, single episode, unspecified; B96.29 Other Escherichia coli [E. coli] as the cause of diseases classified elsewhere; D35.00 Benign neoplasm of unspecified adrenal gland; I71.4 Abdominal aortic aneurysm, without rupture; E87.6 Hypokalemia; E26.9 Hyperaldosteronism, unspecified; D50.9 Iron deficiency anemia, unspecified; I15.0 Renovascular hypertension

== ENCOUNTER → 2017-02-16 | Outpatient (REF) | payer MEDICARE | LOC: M LAB REF 12:38 | DX: N39.0 Urinary tract infection, site not specified (principal) | CPT/HCPCS: 87186 ==

== ENCOUNTER 2017-04-01 13:53 | Inpatient (IN) | payer MEDICARE ==
[2017-04-01 14:50] LABS: ALBUMIN 2.9 GM/DL (3.2-5.2); ALBUMIN/GLOBULIN RATIO 0.66 (1.00-1.93); ALKALINE PHOSPHATASE 95 U/L (45-117); ALT/SGPT 30 U/L (12-78); ANION GAP 7 MEQ/L (8-16); AST/SGOT 36 U/L (7-37); BILIRUBIN,DIRECT < 0.1 MG/DL (0.0-0.2); BILIRUBIN,TOTAL 0.3 MG/DL (0.2-1.0); BLOOD UREA NITROGEN 79 MG/DL (7-18); CALCIUM LEVEL 8.5 MG/DL (8.8-10.2); CARBON DIOXIDE LEVEL 24 MEQ/L (21-32); CHLORIDE LEVEL 115 MEQ/L (98-107); CREATININE FOR GFR 1.61 MG/DL (0.55-1.30); GLOMERULAR FILTRATION RATE 33.5 (>39); GLUCOSE, FASTING 143 MG/DL (70-100); LIPASE 108 U/L (73-393); POTASSIUM SERUM 4.9 MEQ/L (3.5-5.1); SODIUM LEVEL 146 MEQ/L (136-145); TOTAL PROTEIN 7.3 GM/DL (6.4-8.2)
[2017-04-01 14:52] LABS: BASO # 0.1 10^3/uL (0.0-0.2); BASO % 0.8 % (0.0-1.0); EOS # 0.1 10^3/uL (0.0-0.50); EOS % 0.9 % (0.0-3.0); HEMATOCRIT 31.4 % (36.0-47.0); HEMOGLOBIN 10.2 g/dl (12.0-16.0); IMMATURE GRANULOCYTE % 0.1 % (0-3.0); LYMPH # 1.4 10^3/uL (1.5-4.5); LYMPH % 19.1 % (24.0-44.0); MEAN CORPUSCULAR HEMOGLOBIN 29.1 pg (27.0-33.0); MEAN CORPUSCULAR HGB CONC 32.5 g/dl (32.0-36.5); MEAN CORPUSCULAR VOLUME 89.7 fl (80.0-96.0); MONO # 0.5 10^3/uL (0.0-0.8); MONO % 6.7 % (0.0-5.0); NEUTROPHILS # 5.4 10^3/uL (1.8-7.7); NEUTROPHILS % 72.4 % (36.0-66.0); PLATELET COUNT, AUTOMATED 154 10^3/uL (150-450); RED CELL DISTRIBUTION WIDTH 15.4 % (11.5-14.5); WHITE BLOOD COUNT 7.4 10^3/uL (4.0-10.0)
[2017-04-01 15:06] LABS: INR 1.25; PROTHROMBIN TIME 15.9 SECONDS (12.4-14.5)
[2017-04-01 15:07] LABS: PARTIAL THROMBOPLASTIN TIME 29.5 SECONDS (26.8-37.9)
[2017-04-01] MEDS: PANTOPRAZOLE 40MG INJ (PROTONIX) (C9113) IV (17:07)
[2017-04-01] MEDS: NS 1,000 ML IV ×2 (17:07→19:59)
[2017-04-01] MEDS: ONDANSETRON 4MG/2ML VIAL (J2405) IV (17:07)
[2017-04-01] MEDS: SUCRALFATE SUSP 1GM/10ML UD PO (19:59)
[2017-04-01] MEDS ORDERED: ONDANSETRON 4MG/2ML VIAL (J2405) IV (20:15)
[2017-04-02] MEDS: SUCRALFATE SUSP 1GM/10ML UD PO ×5 (00:06→23:47)
[2017-04-02 00:07] LABS: HEMOGLOBIN 9.7 g/dl (12.0-16.0)
[2017-04-02] MEDS: NS 1,000 ML IV (03:46)
[2017-04-02 04:08] LABS: HEMATOCRIT 28.8 % (36.0-47.0); HEMOGLOBIN 9.3 g/dl (12.0-16.0); MEAN CORPUSCULAR HEMOGLOBIN 29.4 pg (27.0-33.0); MEAN CORPUSCULAR HGB CONC 32.3 g/dl (32.0-36.5); MEAN CORPUSCULAR VOLUME 91.1 fl (80.0-96.0); PLATELET COUNT, AUTOMATED 129 10^3/uL (150-450); RED BLOOD COUNT 3.16 10^6/uL (4.00-5.40); RED CELL DISTRIBUTION WIDTH 15.9 % (11.5-14.5); WHITE BLOOD COUNT 6.8 10^3/uL (4.0-10.0)
[2017-04-02 04:23] LABS: ANION GAP 7 MEQ/L (8-16); BLOOD UREA NITROGEN 72 MG/DL (7-18); CALCIUM LEVEL 7.8 MG/DL (8.8-10.2); CARBON DIOXIDE LEVEL 22 MEQ/L (21-32); CHLORIDE LEVEL 120 MEQ/L (98-107); CREATININE FOR GFR 1.43 MG/DL (0.55-1.30); GLOMERULAR FILTRATION RATE 38.4 (>39); GLUCOSE, FASTING 138 MG/DL (70-100); POTASSIUM SERUM 4.5 MEQ/L (3.5-5.1); SODIUM LEVEL 149 MEQ/L (136-145)
[2017-04-02] MEDS: PANTOPRAZOLE 40MG INJ (PROTONIX) (C9113) IV ×2 (05:28→17:21)
[2017-04-02] MEDS ORDERED: LIDOCAINE 2% INJ 100 MG/5 ML SDV (FOR ANES.) As Ordered (08:31)
[2017-04-02] MEDS ORDERED: PROPOFOL 200 MG/20 ML VIAL As Ordered (08:31)
[2017-04-02] MEDS ORDERED: MINOXIDIL 10 MG TAB PO (09:00)
[2017-04-02] MEDS ORDERED: SPIRONOLACTONE 25 MG TAB PO (09:00)
[2017-04-02] MEDS: D5W/0.45% SODIUM CHLORIDE 1,500 ML IV (09:41)
[2017-04-02] MEDS: FLUoxetine 20 MG CAP PO (09:41)
[2017-04-02] MEDS: ATORVASTATIN 20 MG TAB PO (09:41)
[2017-04-02] MEDS ORDERED: GLUCOSE 4 GM CHEW TABLET PO (11:45)
[2017-04-02] MEDS ORDERED: GLUCAGON FOR INJ 1 MG VIAL (J1610) SC (11:45)
[2017-04-02] MEDS ORDERED: DEXTROSE 50% 50 ML SYRINGE IV (11:45)
[2017-04-02] MEDS: HumaLOG INSULIN (NovoLOG) PER UNIT SC ×3 (12:12→20:39)
[2017-04-02] MEDS: ASPIRIN 81 MG ENTERIC TAB PO (12:12)
[2017-04-02 12:14] LABS: BEDSIDE GLUCOSE 138 MG/DL (83-110)
[2017-04-02 12:38] LABS: HEMOGLOBIN 8.6 g/dl (12.0-16.0)
[2017-04-02 17:06] LABS: BEDSIDE GLUCOSE 121 MG/DL (83-110)
[2017-04-02 17:58] LABS: HEMOGLOBIN 8.2 g/dl (12.0-16.0)
[2017-04-02 20:47] LABS: BEDSIDE GLUCOSE 135 MG/DL (83-110)
[2017-04-02] MEDS: SLF 3 ML SYR IV (22:00)
[2017-04-02] MEDS ORDERED: SLF 3 ML SYR IV (22:00)
[2017-04-03 05:26] LABS: HEMOGLOBIN 8.6 g/dl (12.0-16.0); MEAN CORPUSCULAR HEMOGLOBIN 29.7 pg (27.0-33.0); MEAN CORPUSCULAR HGB CONC 31.9 g/dl (32.0-36.5); MEAN CORPUSCULAR VOLUME 93.1 fl (80.0-96.0); RED CELL DISTRIBUTION WIDTH 15.7 % (11.5-14.5); WHITE BLOOD COUNT 5.9 10^3/uL (4.0-10.0)
[2017-04-03 05:45] LABS: ANION GAP 7 MEQ/L (8-16); BLOOD UREA NITROGEN 46 MG/DL (7-18); CALCIUM LEVEL 8.1 MG/DL (8.8-10.2); CARBON DIOXIDE LEVEL 21 MEQ/L (21-32); CHLORIDE LEVEL 116 MEQ/L (98-107); CREATININE FOR GFR 1.39 MG/DL (0.55-1.30); GLOMERULAR FILTRATION RATE 39.7 (>39); GLUCOSE, FASTING 134 MG/DL (70-100); POTASSIUM SERUM 3.9 MEQ/L (3.5-5.1); SODIUM LEVEL 144 MEQ/L (136-145)
[2017-04-03 05:47] LABS: IMMATURE PLATELET FRACTION % 2.9 % (0.0-9.6); PLATELET COUNT, AUTOMATED 89 10^3/uL (150-450)
[2017-04-03] MEDS: SUCRALFATE SUSP 1GM/10ML UD PO ×3 (05:48→17:08)
[2017-04-03] MEDS: PANTOPRAZOLE 40MG INJ (PROTONIX) (C9113) IV ×2 (05:48→17:08)
[2017-04-03] MEDS: SLF 3 ML SYR IV ×3 (05:48→21:47)
[2017-04-03] MEDS: ATORVASTATIN 20 MG TAB PO (08:23)
[2017-04-03] MEDS: FLUoxetine 20 MG CAP PO (08:24)
[2017-04-03] MEDS: HumaLOG INSULIN (NovoLOG) PER UNIT SC ×4 (08:24→21:00)
[2017-04-03] MEDS: ASPIRIN 81 MG ENTERIC TAB PO (08:24)
[2017-04-03] MEDS: MINOXIDIL 10 MG TAB PO (10:35)
[2017-04-03 12:23] LABS: BEDSIDE GLUCOSE 134 MG/DL (83-110)
[2017-04-03] MEDS: hydrALAZINE INJ 20 MG/ML VIAL IV ×2 (12:24→17:08)
[2017-04-03 13:23] LABS: HEMATOCRIT 26.7 % (36.0-47.0); HEMOGLOBIN 8.8 g/dl (12.0-16.0)
[2017-04-03 13:24] LABS: POS COUNT POS FLAG
[2017-04-03] MEDS: PERCOCET 5MG/325MG TAB PO ×2 (13:46→18:36)
[2017-04-03] MEDS ORDERED: PERCOCET 5MG/325MG TAB PO (16:00)
[2017-04-03 17:11] LABS: BEDSIDE GLUCOSE 134 MG/DL (83-110)
[2017-04-03 20:36] LABS: BEDSIDE GLUCOSE 157 MG/DL (83-110)
[2017-04-04] MEDS: SUCRALFATE SUSP 1GM/10ML UD PO ×5 (00:22→23:56)
[2017-04-04] MEDS: hydrALAZINE INJ 20 MG/ML VIAL IV ×4 (05:28→17:47)
[2017-04-04] MEDS: PANTOPRAZOLE 40MG INJ (PROTONIX) (C9113) IV ×2 (05:28→17:42)
[2017-04-04] MEDS: SLF 3 ML SYR IV ×3 (05:29→21:03)
[2017-04-04 06:04] LABS: HEMATOCRIT 24.6 % (36.0-47.0); MEAN CORPUSCULAR HEMOGLOBIN 29.3 pg (27.0-33.0); MEAN CORPUSCULAR HGB CONC 32.5 g/dl (32.0-36.5); MEAN CORPUSCULAR VOLUME 90.1 fl (80.0-96.0); RED BLOOD COUNT 2.73 10^6/uL (4.00-5.40); RED CELL DISTRIBUTION WIDTH 15.4 % (11.5-14.5); WHITE BLOOD COUNT 5.2 10^3/uL (4.0-10.0)
[2017-04-04 06:11] LABS: PLATELET COUNT, AUTOMATED 91 10^3/uL (150-450)
[2017-04-04 06:12] LABS: IMMATURE PLATELET FRACTION % 3.2 % (0.0-9.6); PLATELET F 83
[2017-04-04 06:17] LABS: ANION GAP 7 MEQ/L (8-16); BLOOD UREA NITROGEN 31 MG/DL (7-18); CARBON DIOXIDE LEVEL 21 MEQ/L (21-32); CHLORIDE LEVEL 114 MEQ/L (98-107); CREATININE FOR GFR 1.39 MG/DL (0.55-1.30); GLOMERULAR FILTRATION RATE 39.7 (>39); GLUCOSE, FASTING 141 MG/DL (70-100); SODIUM LEVEL 142 MEQ/L (136-145)
[2017-04-04] MEDS: PERCOCET 5MG/325MG TAB PO ×3 (07:18→16:07)
[2017-04-04] MEDS: ASPIRIN 81 MG ENTERIC TAB PO (07:32)
[2017-04-04] MEDS: MINOXIDIL 10 MG TAB PO (07:32)
[2017-04-04] MEDS: ATORVASTATIN 20 MG TAB PO (07:32)
[2017-04-04] MEDS: FLUoxetine 20 MG CAP PO (07:33)
[2017-04-04] MEDS: HumaLOG INSULIN (NovoLOG) PER UNIT SC ×4 (07:33→21:00)
[2017-04-04 11:35] LABS: BEDSIDE GLUCOSE 130 MG/DL (83-110)
[2017-04-04 16:39] LABS: HEMATOCRIT 23.6 % (36.0-47.0); HEMOGLOBIN 7.8 g/dl (12.0-16.0)
[2017-04-04 17:14] LABS: BEDSIDE GLUCOSE 164 MG/DL (83-110)
[2017-04-04 18:25] LABS: IMMEDIATE SPIN CROSSMATCH 1 1
[2017-04-04 21:12] LABS: BEDSIDE GLUCOSE 122 MG/DL (83-110)
[2017-04-05] MEDS: hydrALAZINE INJ 20 MG/ML VIAL IV ×2 (00:23→05:30)
[2017-04-05] MEDS: PANTOPRAZOLE 40MG INJ (PROTONIX) (C9113) IV ×2 (05:31→17:02)
[2017-04-05] MEDS: SUCRALFATE SUSP 1GM/10ML UD PO ×3 (05:31→17:45)
[2017-04-05] MEDS: SLF 3 ML SYR IV ×3 (05:32→21:09)
[2017-04-05 05:43] LABS: HEMATOCRIT 26.2 % (36.0-47.0); HEMOGLOBIN 8.7 g/dl (12.0-16.0); MEAN CORPUSCULAR HEMOGLOBIN 29.5 pg (27.0-33.0); MEAN CORPUSCULAR HGB CONC 33.2 g/dl (32.0-36.5); MEAN CORPUSCULAR VOLUME 88.8 fl (80.0-96.0); RED BLOOD COUNT 2.95 10^6/uL (4.00-5.40); RED CELL DISTRIBUTION WIDTH 14.9 % (11.5-14.5); WHITE BLOOD COUNT 3.4 10^3/uL (4.0-10.0)
[2017-04-05 05:46] LABS: PLATELET COUNT, AUTOMATED 73 10^3/uL (150-450)
[2017-04-05 06:01] LABS: ANION GAP 7 MEQ/L (8-16); BLOOD UREA NITROGEN 26 MG/DL (7-18); CARBON DIOXIDE LEVEL 21 MEQ/L (21-32); CHLORIDE LEVEL 115 MEQ/L (98-107); CREATININE FOR GFR 1.35 MG/DL (0.55-1.30); GLUCOSE, FASTING 118 MG/DL (70-100); POTASSIUM SERUM 3.6 MEQ/L (3.5-5.1); SODIUM LEVEL 143 MEQ/L (136-145)
[2017-04-05] MEDS: MINOXIDIL 10 MG TAB PO (08:28)
[2017-04-05] MEDS: HumaLOG INSULIN (NovoLOG) PER UNIT SC ×4 (08:28→21:00)
[2017-04-05] MEDS: ATORVASTATIN 20 MG TAB PO (08:29)
[2017-04-05] MEDS: ASPIRIN 81 MG ENTERIC TAB PO (08:29)
[2017-04-05] MEDS: FLUoxetine 20 MG CAP PO (08:29)
[2017-04-05] MEDS: ACETAMINOPHEN TAB 650MG DOSE (2X325MG) PO (08:29)
[2017-04-05 12:12] LABS: BEDSIDE GLUCOSE 121 MG/DL (83-110)
[2017-04-05 17:03] LABS: BEDSIDE GLUCOSE 128 MG/DL (83-110)
[2017-04-05 21:25] LABS: BEDSIDE GLUCOSE 124 MG/DL (83-110)
[2017-04-06] MEDS: SUCRALFATE SUSP 1GM/10ML UD PO ×5 (00:19→23:27)
[2017-04-06] MEDS: PANTOPRAZOLE 40MG INJ (PROTONIX) (C9113) IV ×2 (05:11→16:22)
[2017-04-06] MEDS: SLF 3 ML SYR IV ×3 (05:11→21:31)
[2017-04-06] MEDS: HumaLOG INSULIN (NovoLOG) PER UNIT SC ×4 (07:30→21:00)
[2017-04-06 07:54] LABS: HEMATOCRIT 25.2 % (36.0-47.0); HEMOGLOBIN 8.5 g/dl (12.0-16.0); MEAN CORPUSCULAR HEMOGLOBIN 29.8 pg (27.0-33.0); MEAN CORPUSCULAR HGB CONC 33.7 g/dl (32.0-36.5); MEAN CORPUSCULAR VOLUME 88.4 fl (80.0-96.0); RED BLOOD COUNT 2.85 10^6/uL (4.00-5.40); WHITE BLOOD COUNT 2.8 10^3/uL (4.0-10.0)
[2017-04-06 08:08] LABS: IMMATURE PLATELET FRACTION % 5.8 % (0.0-9.6); PLATELET COUNT, AUTOMATED 78 10^3/uL (150-450); PLATELET F 71
[2017-04-06 08:19] LABS: ANION GAP 8 MEQ/L (8-16); BLOOD UREA NITROGEN 22 MG/DL (7-18); CALCIUM LEVEL 7.9 MG/DL (8.8-10.2); CARBON DIOXIDE LEVEL 22 MEQ/L (21-32); CHLORIDE LEVEL 114 MEQ/L (98-107); GLUCOSE, FASTING 106 MG/DL (70-100); POTASSIUM SERUM 3.6 MEQ/L (3.5-5.1); SODIUM LEVEL 144 MEQ/L (136-145)
[2017-04-06] MEDS: ASPIRIN 81 MG ENTERIC TAB PO (08:48)
[2017-04-06] MEDS: FLUoxetine 20 MG CAP PO (08:49)
[2017-04-06] MEDS: ACETAMINOPHEN TAB 650MG DOSE (2X325MG) PO (08:49)
[2017-04-06] MEDS: MINOXIDIL 10 MG TAB PO (08:49)
[2017-04-06] MEDS: ATORVASTATIN 20 MG TAB PO (08:49)
[2017-04-06 11:44] LABS: BEDSIDE GLUCOSE 115 MG/DL (83-110)
[2017-04-06 17:21] LABS: BEDSIDE GLUCOSE 145 MG/DL (83-110)
[2017-04-06 21:14] LABS: BEDSIDE GLUCOSE 146 MG/DL (83-110)
[2017-04-07] MEDS: ACETAMINOPHEN TAB 650MG DOSE (2X325MG) PO (01:05)
[2017-04-07] MEDS: SLF 3 ML SYR IV ×3 (05:10→21:06)
[2017-04-07] MEDS: PANTOPRAZOLE 40MG INJ (PROTONIX) (C9113) IV ×2 (05:10→17:03)
[2017-04-07] MEDS: SUCRALFATE SUSP 1GM/10ML UD PO ×3 (05:10→17:03)
[2017-04-07 06:54] LABS: HEMOGLOBIN 7.9 g/dl (12.0-16.0); MEAN CORPUSCULAR HEMOGLOBIN 30.3 pg (27.0-33.0); MEAN CORPUSCULAR HGB CONC 34.3 g/dl (32.0-36.5); MEAN CORPUSCULAR VOLUME 88.1 fl (80.0-96.0); RED BLOOD COUNT 2.61 10^6/uL (4.00-5.40); RED CELL DISTRIBUTION WIDTH 15.2 % (11.5-14.5); WHITE BLOOD COUNT 2.7 10^3/uL (4.0-10.0)
[2017-04-07 06:57] LABS: PLATELET COUNT, AUTOMATED 72 10^3/uL (150-450)
[2017-04-07 07:16] LABS: ANION GAP 8 MEQ/L (8-16); BLOOD UREA NITROGEN 20 MG/DL (7-18); CALCIUM LEVEL 7.8 MG/DL (8.8-10.2); CARBON DIOXIDE LEVEL 22 MEQ/L (21-32); CHLORIDE LEVEL 112 MEQ/L (98-107); CREATININE FOR GFR 1.26 MG/DL (0.55-1.30); GLOMERULAR FILTRATION RATE 44.4 (>39); GLUCOSE, FASTING 137 MG/DL (70-100); POTASSIUM SERUM 3.5 MEQ/L (3.5-5.1); SODIUM LEVEL 142 MEQ/L (136-145)
[2017-04-07] MEDS: HumaLOG INSULIN (NovoLOG) PER UNIT SC ×4 (08:19→21:00)
[2017-04-07] MEDS: FLUoxetine 20 MG CAP PO (08:20)
[2017-04-07] MEDS: ATORVASTATIN 20 MG TAB PO (08:20)
[2017-04-07] MEDS: MINOXIDIL 10 MG TAB PO (08:20)
[2017-04-07] MEDS: ASPIRIN 81 MG ENTERIC TAB PO (08:42)
[2017-04-07 12:01] LABS: BEDSIDE GLUCOSE 173 MG/DL (83-110)
[2017-04-07 18:34] LABS: IMMEDIATE SPIN CROSSMATCH 1 1
[2017-04-07 21:15] LABS: BEDSIDE GLUCOSE 129 MG/DL (83-110)
[2017-04-08 03:12] LABS: BEDSIDE GLUCOSE 196 MG/DL (83-110)
[2017-04-08] MEDS: SLF 3 ML SYR IV ×3 (05:02→21:21)
[2017-04-08] MEDS: PANTOPRAZOLE 40MG INJ (PROTONIX) (C9113) IV ×2 (05:02→17:30)
[2017-04-08 06:41] LABS: HEMATOCRIT 27.6 % (36.0-47.0); HEMOGLOBIN 9.3 g/dl (12.0-16.0); MEAN CORPUSCULAR HEMOGLOBIN 29.7 pg (27.0-33.0); MEAN CORPUSCULAR HGB CONC 33.7 g/dl (32.0-36.5); MEAN CORPUSCULAR VOLUME 88.2 fl (80.0-96.0); RED BLOOD COUNT 3.13 10^6/uL (4.00-5.40); RED CELL DISTRIBUTION WIDTH 14.9 % (11.5-14.5); RETIC HEMOGLOBIN EQUIVALENT 32.4 pg (24-36); RETICULOCYTE # 74.2 10^9/L (17-77); RETICULOCYTE % 2.4 % (0.5-1.5); WHITE BLOOD COUNT 3.7 10^3/uL (4.0-10.0)
[2017-04-08 06:47] LABS: PLATELET COUNT, AUTOMATED 73 10^3/uL (150-450)
[2017-04-08 06:48] LABS: IMMATURE PLATELET FRACTION % 5.6 % (0.0-9.6)
[2017-04-08 07:12] LABS: ANION GAP 7 MEQ/L (8-16); BLOOD UREA NITROGEN 16 MG/DL (7-18); CALCIUM LEVEL 7.8 MG/DL (8.8-10.2); CARBON DIOXIDE LEVEL 24 MEQ/L (21-32); CHLORIDE LEVEL 108 MEQ/L (98-107); CREATININE FOR GFR 1.05 MG/DL (0.55-1.30); FERRITIN 43 NG/ML (8-252); GLOMERULAR FILTRATION RATE 54.8 (>39); GLUCOSE, FASTING 126 MG/DL (70-100); IRON (FE) 46 UG/DL (50-170); PERCENT SATURATION 14.9 % (13.2-45.0); POTASSIUM SERUM 3.8 MEQ/L (3.5-5.1); SODIUM LEVEL 139 MEQ/L (136-145); TOTAL IRON BINDING CAPACITY 308 UG/DL (250-450)
[2017-04-08] MEDS: ASPIRIN 81 MG ENTERIC TAB PO (08:36)
[2017-04-08] MEDS: ATORVASTATIN 20 MG TAB PO (08:36)
[2017-04-08] MEDS: MINOXIDIL 10 MG TAB PO (08:36)
[2017-04-08] MEDS: HumaLOG INSULIN (NovoLOG) PER UNIT SC ×4 (08:36→21:20)
[2017-04-08] MEDS: SUCRALFATE 1 GM TAB PO ×4 (08:36→21:20)
[2017-04-08] MEDS: FLUoxetine 20 MG CAP PO (08:36)
[2017-04-08] MEDS: IRON SUCROSE 200 MG in NS 100 ML IV (15:12)
[2017-04-08 16:30] LABS: BEDSIDE GLUCOSE 157 MG/DL (83-110)
[2017-04-08 20:22] LABS: BEDSIDE GLUCOSE 102 MG/DL (83-110)
[2017-04-08 20:22] LABS: BEDSIDE GLUCOSE 172 MG/DL (83-110)
[2017-04-09] MEDS: PANTOPRAZOLE 40MG INJ (PROTONIX) (C9113) IV ×2 (04:30→17:20)
[2017-04-09] MEDS: SLF 3 ML SYR IV ×3 (04:31→20:48)
[2017-04-09] MEDS: HumaLOG INSULIN (NovoLOG) PER UNIT SC ×4 (07:30→21:00)
[2017-04-09] MEDS: ASPIRIN 81 MG ENTERIC TAB PO (08:55)
[2017-04-09] MEDS: SUCRALFATE 1 GM TAB PO ×4 (08:55→20:47)
[2017-04-09] MEDS: MINOXIDIL 10 MG TAB PO (08:55)
[2017-04-09] MEDS: ATORVASTATIN 20 MG TAB PO (08:55)
[2017-04-09] MEDS: FLUoxetine 20 MG CAP PO (08:56)
[2017-04-09 12:55] LABS: HEMATOCRIT 30.2 % (36.0-47.0); HEMOGLOBIN 10.3 g/dl (12.0-16.0); MEAN CORPUSCULAR HEMOGLOBIN 29.9 pg (27.0-33.0); MEAN CORPUSCULAR HGB CONC 34.1 g/dl (32.0-36.5); MEAN CORPUSCULAR VOLUME 87.8 fl (80.0-96.0); PLATELET COUNT, AUTOMATED 115 10^3/uL (150-450); RED BLOOD COUNT 3.44 10^6/uL (4.00-5.40); RED CELL DISTRIBUTION WIDTH 15.3 % (11.5-14.5); WHITE BLOOD COUNT 4.8 10^3/uL (4.0-10.0)
[2017-04-09 13:20] LABS: ANION GAP 9 MEQ/L (8-16); BLOOD UREA NITROGEN 16 MG/DL (7-18); CARBON DIOXIDE LEVEL 23 MEQ/L (21-32); CHLORIDE LEVEL 112 MEQ/L (98-107); CREATININE FOR GFR 1.15 MG/DL (0.55-1.30); GLOMERULAR FILTRATION RATE 49.4 (>39); GLUCOSE, FASTING 152 MG/DL (70-100); POTASSIUM SERUM 3.4 MEQ/L (3.5-5.1); SODIUM LEVEL 144 MEQ/L (136-145)
[2017-04-09 21:14] LABS: BEDSIDE GLUCOSE 107 MG/DL (83-110)
[2017-04-09 21:14] LABS: BEDSIDE GLUCOSE 115 MG/DL (83-110)
[2017-04-09 21:14] LABS: BEDSIDE GLUCOSE 128 MG/DL (83-110)
[2017-04-09 21:14] LABS: BEDSIDE GLUCOSE 112 MG/DL (83-110)
[2017-04-09 21:15] LABS: BEDSIDE GLUCOSE 126 MG/DL (83-110)
[2017-04-10 06:14] LABS: HEMATOCRIT 26.5 % (36.0-47.0); HEMOGLOBIN 8.9 g/dl (12.0-16.0); MEAN CORPUSCULAR HEMOGLOBIN 29.7 pg (27.0-33.0); MEAN CORPUSCULAR HGB CONC 33.6 g/dl (32.0-36.5); MEAN CORPUSCULAR VOLUME 88.3 fl (80.0-96.0); RED CELL DISTRIBUTION WIDTH 14.9 % (11.5-14.5); WHITE BLOOD COUNT 3.4 10^3/uL (4.0-10.0)
[2017-04-10 06:17] LABS: PLATELET COUNT, AUTOMATED 85 10^3/uL (150-450); PLATELET F 86
[2017-04-10 06:48] LABS: ANION GAP 8 MEQ/L (8-16); BLOOD UREA NITROGEN 16 MG/DL (7-18); CALCIUM LEVEL 7.7 MG/DL (8.8-10.2); CARBON DIOXIDE LEVEL 23 MEQ/L (21-32); CHLORIDE LEVEL 113 MEQ/L (98-107); CREATININE FOR GFR 1.11 MG/DL (0.55-1.30); GLOMERULAR FILTRATION RATE 51.4 (>39); GLUCOSE, FASTING 98 MG/DL (70-100); POTASSIUM SERUM 3.8 MEQ/L (3.5-5.1); SODIUM LEVEL 144 MEQ/L (136-145)
[2017-04-10] MEDS: HumaLOG INSULIN (NovoLOG) PER UNIT SC ×4 (07:29→21:00)
[2017-04-10] MEDS: ATORVASTATIN 20 MG TAB PO (08:12)
[2017-04-10] MEDS: SUCRALFATE 1 GM TAB PO ×4 (08:12→20:24)
[2017-04-10] MEDS: MINOXIDIL 10 MG TAB PO (08:13)
[2017-04-10] MEDS: ASPIRIN 81 MG ENTERIC TAB PO (08:13)
[2017-04-10] MEDS: FLUoxetine 20 MG CAP PO (08:13)
[2017-04-10] MEDS: PANTOPRAZOLE 40MG TAB (PROTONIX) PO ×2 (08:13→20:25)
[2017-04-11 06:58] LABS: HEMATOCRIT 26.3 % (36.0-47.0); HEMOGLOBIN 8.8 g/dl (12.0-16.0); MEAN CORPUSCULAR HEMOGLOBIN 29.8 pg (27.0-33.0); MEAN CORPUSCULAR HGB CONC 33.5 g/dl (32.0-36.5); MEAN CORPUSCULAR VOLUME 89.2 fl (80.0-96.0); RED BLOOD COUNT 2.95 10^6/uL (4.00-5.40); RED CELL DISTRIBUTION WIDTH 15.2 % (11.5-14.5); WHITE BLOOD COUNT 3.8 10^3/uL (4.0-10.0)
[2017-04-11 07:00] LABS: IMMATURE PLATELET FRACTION % 3.8 % (0.0-9.6); PLATELET COUNT, AUTOMATED 90 10^3/uL (150-450)
[2017-04-11 07:11] LABS: ANION GAP 8 MEQ/L (8-16); BLOOD UREA NITROGEN 20 MG/DL (7-18); CALCIUM LEVEL 8.1 MG/DL (8.8-10.2); CARBON DIOXIDE LEVEL 24 MEQ/L (21-32); CHLORIDE LEVEL 111 MEQ/L (98-107); CREATININE FOR GFR 1.16 MG/DL (0.55-1.30); GLOMERULAR FILTRATION RATE 48.9 (>39); GLUCOSE, FASTING 113 MG/DL (70-100); POTASSIUM SERUM 4.1 MEQ/L (3.5-5.1); SODIUM LEVEL 143 MEQ/L (136-145)
[2017-04-11] MEDS ORDERED: MOM 30ML SUSPENSION UDC PO (07:15)
[2017-04-11] MEDS: PANTOPRAZOLE 40MG TAB (PROTONIX) PO ×2 (08:12→21:23)
[2017-04-11] MEDS: FLUoxetine 20 MG CAP PO (08:12)
[2017-04-11] MEDS: SUCRALFATE 1 GM TAB PO ×4 (08:12→21:23)
[2017-04-11] MEDS: ASPIRIN 81 MG ENTERIC TAB PO (08:12)
[2017-04-11] MEDS: MINOXIDIL 10 MG TAB PO (08:12)
[2017-04-11] MEDS: ATORVASTATIN 20 MG TAB PO (08:12)
[2017-04-11] MEDS: HumaLOG INSULIN (NovoLOG) PER UNIT SC ×4 (08:13→21:00)
[2017-04-11 09:07] LABS: BEDSIDE GLUCOSE 144 MG/DL (83-110)
[2017-04-11 09:07] LABS: BEDSIDE GLUCOSE 135 MG/DL (83-110)
[2017-04-11 12:03] LABS: BEDSIDE GLUCOSE 120 MG/DL (83-110)
[2017-04-11 17:30] LABS: BEDSIDE GLUCOSE 121 MG/DL (83-110)
[2017-04-12] MEDS: ACETAMINOPHEN TAB 650MG DOSE (2X325MG) PO (01:53)
[2017-04-12 02:18] LABS: CPK CREATINE PHOSPHOKINASE 32 U/L (26-192); TROPONIN I 0.03 NG/ML (< 0.10)
[2017-04-12 02:20] LABS: MB/CK RELATIVE INDEX 3.12 (< OR =4)
[2017-04-12 05:59] LABS: BEDSIDE GLUCOSE 126 MG/DL (83-110)
[2017-04-12 05:59] LABS: BEDSIDE GLUCOSE 129 MG/DL (83-110)
[2017-04-12 07:09] LABS: HEMOGLOBIN 8.5 g/dl (12.0-16.0); MEAN CORPUSCULAR HEMOGLOBIN 30.2 pg (27.0-33.0); RED BLOOD COUNT 2.81 10^6/uL (4.00-5.40); RED CELL DISTRIBUTION WIDTH 15.1 % (11.5-14.5); WHITE BLOOD COUNT 3.5 10^3/uL (4.0-10.0)
[2017-04-12 07:14] LABS: PLATELET COUNT, AUTOMATED 90 10^3/uL (150-450)
[2017-04-12 07:25] LABS: ANION GAP 7 MEQ/L (8-16); BLOOD UREA NITROGEN 18 MG/DL (7-18); CALCIUM LEVEL 7.9 MG/DL (8.8-10.2); CARBON DIOXIDE LEVEL 24 MEQ/L (21-32); CHLORIDE LEVEL 112 MEQ/L (98-107); CREATININE FOR GFR 1.18 MG/DL (0.55-1.30); GLOMERULAR FILTRATION RATE 47.9 (>39); GLUCOSE, FASTING 111 MG/DL (70-100); POTASSIUM SERUM 3.6 MEQ/L (3.5-5.1); SODIUM LEVEL 143 MEQ/L (136-145)
[2017-04-12] MEDS: HumaLOG INSULIN (NovoLOG) PER UNIT SC ×4 (09:20→21:00)
[2017-04-12] MEDS: PANTOPRAZOLE 40MG TAB (PROTONIX) PO ×2 (09:20→19:55)
[2017-04-12] MEDS: MINOXIDIL 10 MG TAB PO (09:20)
[2017-04-12] MEDS: FLUoxetine 20 MG CAP PO (09:21)
[2017-04-12] MEDS: ATORVASTATIN 20 MG TAB PO (09:21)
[2017-04-12] MEDS: ASPIRIN 81 MG ENTERIC TAB PO (09:21)
[2017-04-12] MEDS: SUCRALFATE 1 GM TAB PO ×4 (09:21→19:55)
[2017-04-12 09:25] LABS: ESTIMATED AVERAGE GLUCOSE 103 MG/DL (60-110); HEMOGLOBIN A1c 5.2 %
[2017-04-12 11:52] LABS: BEDSIDE GLUCOSE 117 MG/DL (83-110)
[2017-04-12 17:11] LABS: BEDSIDE GLUCOSE 119 MG/DL (83-110)
[2017-04-12] MEDS: TUBERCULIN PPD 5 UNITS/0.1 ML ID (18:37)
[2017-04-12 22:12] LABS: BEDSIDE GLUCOSE 148 MG/DL (83-110)
[2017-04-13 00:19] LABS: BEDSIDE GLUCOSE 112 MG/DL (83-110)
[2017-04-13 07:15] LABS: HEMATOCRIT 26.2 % (36.0-47.0); HEMOGLOBIN 8.6 g/dl (12.0-16.0); MEAN CORPUSCULAR HEMOGLOBIN 29.2 pg (27.0-33.0); MEAN CORPUSCULAR HGB CONC 32.8 g/dl (32.0-36.5); MEAN CORPUSCULAR VOLUME 88.8 fl (80.0-96.0); RED BLOOD COUNT 2.95 10^6/uL (4.00-5.40); RED CELL DISTRIBUTION WIDTH 15.1 % (11.5-14.5); WHITE BLOOD COUNT 3.3 10^3/uL (4.0-10.0)
[2017-04-13 07:19] LABS: PLATELET COUNT, AUTOMATED 88 10^3/uL (150-450)
[2017-04-13 07:20] LABS: IMMATURE PLATELET FRACTION % 3.5 % (0.0-9.6)
[2017-04-13 07:32] LABS: ANION GAP 8 MEQ/L (8-16); BLOOD UREA NITROGEN 17 MG/DL (7-18); CALCIUM LEVEL 7.9 MG/DL (8.8-10.2); CARBON DIOXIDE LEVEL 25 MEQ/L (21-32); CHLORIDE LEVEL 110 MEQ/L (98-107); CREATININE FOR GFR 1.15 MG/DL (0.55-1.30); GLOMERULAR FILTRATION RATE 49.4 (>39); GLUCOSE, FASTING 109 MG/DL (70-100); POTASSIUM SERUM 3.5 MEQ/L (3.5-5.1); SODIUM LEVEL 143 MEQ/L (136-145)
[2017-04-13] MEDS: HumaLOG INSULIN (NovoLOG) PER UNIT SC ×4 (08:54→21:00)
[2017-04-13] MEDS: ATORVASTATIN 20 MG TAB PO (08:54)
[2017-04-13] MEDS: ASPIRIN 81 MG ENTERIC TAB PO (08:55)
[2017-04-13] MEDS: MINOXIDIL 10 MG TAB PO (08:55)
[2017-04-13] MEDS: FLUoxetine 20 MG CAP PO (08:55)
[2017-04-13] MEDS: PANTOPRAZOLE 40MG TAB (PROTONIX) PO ×2 (08:55→20:59)
[2017-04-13] MEDS: SUCRALFATE 1 GM TAB PO ×4 (08:55→20:59)
[2017-04-13 21:18] LABS: BEDSIDE GLUCOSE 154 MG/DL (83-110)
[2017-04-14 02:10] LABS: BEDSIDE GLUCOSE 114 MG/DL (83-110)
[2017-04-14 02:10] LABS: BEDSIDE GLUCOSE 118 MG/DL (83-110)
[2017-04-14 07:09] LABS: HEMATOCRIT 26.1 % (36.0-47.0); HEMOGLOBIN 8.7 g/dl (12.0-16.0); MEAN CORPUSCULAR HGB CONC 33.3 g/dl (32.0-36.5); RED CELL DISTRIBUTION WIDTH 14.9 % (11.5-14.5); WHITE BLOOD COUNT 3.4 10^3/uL (4.0-10.0)
[2017-04-14 07:20] LABS: PLATELET COUNT, AUTOMATED 88 10^3/uL (150-450)
[2017-04-14 07:31] LABS: ANION GAP 9 MEQ/L (8-16); BLOOD UREA NITROGEN 14 MG/DL (7-18); CALCIUM LEVEL 8.2 MG/DL (8.8-10.2); CARBON DIOXIDE LEVEL 24 MEQ/L (21-32); CHLORIDE LEVEL 109 MEQ/L (98-107); CREATININE FOR GFR 1.13 MG/DL (0.55-1.30); GLOMERULAR FILTRATION RATE 50.4 (>39); GLUCOSE, FASTING 113 MG/DL (70-100); POTASSIUM SERUM 3.5 MEQ/L (3.5-5.1); SODIUM LEVEL 142 MEQ/L (136-145)
[2017-04-14] MEDS: SUCRALFATE 1 GM TAB PO ×4 (08:21→21:43)
[2017-04-14] MEDS: HumaLOG INSULIN (NovoLOG) PER UNIT SC ×4 (08:22→21:00)
[2017-04-14] MEDS: FLUoxetine 20 MG CAP PO (09:15)
[2017-04-14] MEDS: ATORVASTATIN 20 MG TAB PO (09:16)
[2017-04-14] MEDS: ASPIRIN 81 MG ENTERIC TAB PO (09:16)
[2017-04-14] MEDS: PANTOPRAZOLE 40MG TAB (PROTONIX) PO ×2 (09:16→21:43)
[2017-04-14] MEDS: MINOXIDIL 10 MG TAB PO (09:16)
[2017-04-14 11:36] LABS: BEDSIDE GLUCOSE 117 MG/DL (83-110)
[2017-04-14 16:46] LABS: BEDSIDE GLUCOSE 167 MG/DL (83-110)
[2017-04-14] MEDS: PPD DOCUMENTATION ENTRY MISC XX (18:13)
[2017-04-14 20:33] LABS: BEDSIDE GLUCOSE 123 MG/DL (83-110)
[2017-04-14] MEDS: ACETAMINOPHEN TAB 650MG DOSE (2X325MG) PO (22:27)
[2017-04-15 06:24] LABS: HEMATOCRIT 25.4 % (36.0-47.0); HEMOGLOBIN 8.4 g/dl (12.0-16.0); MEAN CORPUSCULAR HEMOGLOBIN 29.9 pg (27.0-33.0); MEAN CORPUSCULAR HGB CONC 33.1 g/dl (32.0-36.5); MEAN CORPUSCULAR VOLUME 90.4 fl (80.0-96.0); RED BLOOD COUNT 2.81 10^6/uL (4.00-5.40); RED CELL DISTRIBUTION WIDTH 14.9 % (11.5-14.5); WHITE BLOOD COUNT 3.5 10^3/uL (4.0-10.0)
[2017-04-15 06:31] LABS: IMMATURE PLATELET FRACTION % 4.8 % (0.0-9.6); PLATELET COUNT, AUTOMATED 87 10^3/uL (150-450)
[2017-04-15 06:43] LABS: ANION GAP 11 MEQ/L (8-16); BLOOD UREA NITROGEN 13 MG/DL (7-18); CARBON DIOXIDE LEVEL 23 MEQ/L (21-32); CHLORIDE LEVEL 109 MEQ/L (98-107); CREATININE FOR GFR 1.11 MG/DL (0.55-1.30); GLOMERULAR FILTRATION RATE 51.4 (>39); GLUCOSE, FASTING 108 MG/DL (70-100); POTASSIUM SERUM 3.2 MEQ/L (3.5-5.1); SODIUM LEVEL 143 MEQ/L (136-145)
[2017-04-15] MEDS: SUCRALFATE 1 GM TAB PO ×4 (07:30→21:11)
[2017-04-15] MEDS: HumaLOG INSULIN (NovoLOG) PER UNIT SC ×4 (07:30→21:00)
[2017-04-15 07:49] LABS: MAGNESIUM LEVEL 1.8 MG/DL (1.8-2.4)
[2017-04-15] MEDS: PANTOPRAZOLE 40MG TAB (PROTONIX) PO ×2 (11:01→21:11)
[2017-04-15] MEDS: MINOXIDIL 10 MG TAB PO (11:01)
[2017-04-15] MEDS: ATORVASTATIN 20 MG TAB PO (11:01)
[2017-04-15] MEDS: POTASSIUM CHLORIDE 10 MEQ SR TABLET PO (11:02)
[2017-04-15] MEDS: ASPIRIN 81 MG ENTERIC TAB PO (11:02)
[2017-04-15] MEDS: FLUoxetine 20 MG CAP PO (11:02)
[2017-04-16 03:14] LABS: BEDSIDE GLUCOSE 110 MG/DL (83-110)
[2017-04-16 03:14] LABS: BEDSIDE GLUCOSE 137 MG/DL (83-110)
[2017-04-16 03:15] LABS: BEDSIDE GLUCOSE 136 MG/DL (83-110)
[2017-04-16 06:12] LABS: HEMATOCRIT 25.9 % (36.0-47.0); HEMOGLOBIN 8.6 g/dl (12.0-16.0); MEAN CORPUSCULAR HGB CONC 33.2 g/dl (32.0-36.5); MEAN CORPUSCULAR VOLUME 90.2 fl (80.0-96.0); RED BLOOD COUNT 2.87 10^6/uL (4.00-5.40); RED CELL DISTRIBUTION WIDTH 15.1 % (11.5-14.5); WHITE BLOOD COUNT 3.4 10^3/uL (4.0-10.0)
[2017-04-16 06:20] LABS: IMMATURE PLATELET FRACTION % 4.2 % (0.0-9.6); PLATELET COUNT, AUTOMATED 94 10^3/uL (150-450)
[2017-04-16 06:33] LABS: ANION GAP 10 MEQ/L (8-16); BLOOD UREA NITROGEN 13 MG/DL (7-18); CALCIUM LEVEL 8.2 MG/DL (8.8-10.2); CARBON DIOXIDE LEVEL 24 MEQ/L (21-32); CHLORIDE LEVEL 109 MEQ/L (98-107); CREATININE FOR GFR 1.15 MG/DL (0.55-1.30); GLOMERULAR FILTRATION RATE 49.4 (>39); GLUCOSE, FASTING 102 MG/DL (70-100); POTASSIUM SERUM 3.4 MEQ/L (3.5-5.1); SODIUM LEVEL 143 MEQ/L (136-145)
[2017-04-16] MEDS: HumaLOG INSULIN (NovoLOG) PER UNIT SC ×4 (07:30→21:21)
[2017-04-16 07:50] LABS: MAGNESIUM LEVEL 1.8 MG/DL (1.8-2.4)
[2017-04-16] MEDS: ASPIRIN 81 MG ENTERIC TAB PO (08:31)
[2017-04-16] MEDS: SUCRALFATE 1 GM TAB PO ×4 (08:31→20:27)
[2017-04-16] MEDS: ATORVASTATIN 20 MG TAB PO (08:32)
[2017-04-16] MEDS: FLUoxetine 20 MG CAP PO (08:32)
[2017-04-16] MEDS: MINOXIDIL 10 MG TAB PO (08:32)
[2017-04-16] MEDS: PANTOPRAZOLE 40MG TAB (PROTONIX) PO ×2 (08:32→20:27)
[2017-04-17] MEDS: SUCRALFATE 1 GM TAB PO ×4 (08:17→20:04)
[2017-04-17] MEDS: FLUoxetine 20 MG CAP PO (08:17)
[2017-04-17] MEDS: PANTOPRAZOLE 40MG TAB (PROTONIX) PO ×2 (08:17→20:04)
[2017-04-17] MEDS: HumaLOG INSULIN (NovoLOG) PER UNIT SC ×4 (08:17→21:00)
[2017-04-17] MEDS: ASPIRIN 81 MG ENTERIC TAB PO (08:17)
[2017-04-17] MEDS: ATORVASTATIN 20 MG TAB PO (08:17)
[2017-04-17] MEDS: MINOXIDIL 10 MG TAB PO (08:17)
[2017-04-18 06:59] LABS: HEMATOCRIT 26.1 % (36.0-47.0); HEMOGLOBIN 8.6 g/dl (12.0-16.0); MEAN CORPUSCULAR HEMOGLOBIN 29.5 pg (27.0-33.0); MEAN CORPUSCULAR VOLUME 89.4 fl (80.0-96.0); PLATELET COUNT, AUTOMATED 100 10^3/uL (150-450); RED BLOOD COUNT 2.92 10^6/uL (4.00-5.40); RED CELL DISTRIBUTION WIDTH 14.9 % (11.5-14.5); WHITE BLOOD COUNT 3.3 10^3/uL (4.0-10.0)
[2017-04-18 07:16] LABS: ANION GAP 8 MEQ/L (8-16); BLOOD UREA NITROGEN 12 MG/DL (7-18); CALCIUM LEVEL 7.9 MG/DL (8.8-10.2); CARBON DIOXIDE LEVEL 25 MEQ/L (21-32); CHLORIDE LEVEL 109 MEQ/L (98-107); CREATININE FOR GFR 1.09 MG/DL (0.55-1.30); GLOMERULAR FILTRATION RATE 52.5 (>39); GLUCOSE, FASTING 105 MG/DL (70-100); POTASSIUM SERUM 3.3 MEQ/L (3.5-5.1); SODIUM LEVEL 142 MEQ/L (136-145)
[2017-04-18] MEDS: HumaLOG INSULIN (NovoLOG) PER UNIT SC ×4 (08:05→21:00)
[2017-04-18] MEDS: ATORVASTATIN 20 MG TAB PO (08:06)
[2017-04-18] MEDS: SUCRALFATE 1 GM TAB PO ×4 (08:06→21:06)
[2017-04-18] MEDS: PANTOPRAZOLE 40MG TAB (PROTONIX) PO ×2 (08:06→21:06)
[2017-04-18] MEDS: ASPIRIN 81 MG ENTERIC TAB PO (08:06)
[2017-04-18] MEDS: FLUoxetine 20 MG CAP PO (08:06)
[2017-04-18] MEDS: MINOXIDIL 10 MG TAB PO (08:06)
[2017-04-18] MEDS: POTASSIUM CHLORIDE 10 MEQ SR TABLET PO (08:14)
[2017-04-18 08:52] LABS: MAGNESIUM LEVEL 1.8 MG/DL (1.8-2.4)
[2017-04-19 07:49] LABS: ANION GAP 9 MEQ/L (8-16); BLOOD UREA NITROGEN 12 MG/DL (7-18); CALCIUM LEVEL 7.8 MG/DL (8.8-10.2); CARBON DIOXIDE LEVEL 23 MEQ/L (21-32); CHLORIDE LEVEL 112 MEQ/L (98-107); GLUCOSE, FASTING 105 MG/DL (70-100); POTASSIUM SERUM 3.8 MEQ/L (3.5-5.1); SODIUM LEVEL 144 MEQ/L (136-145)
[2017-04-19] MEDS: HumaLOG INSULIN (NovoLOG) PER UNIT SC ×4 (08:22→21:00)
[2017-04-19] MEDS: SUCRALFATE 1 GM TAB PO ×4 (08:24→20:10)
[2017-04-19] MEDS: ATORVASTATIN 20 MG TAB PO (08:26)
[2017-04-19] MEDS: ASPIRIN 81 MG ENTERIC TAB PO (08:26)
[2017-04-19 08:27] LABS: BEDSIDE GLUCOSE 108 MG/DL (83-110)
[2017-04-19 08:27] LABS: BEDSIDE GLUCOSE 124 MG/DL (83-110)
[2017-04-19 08:27] LABS: BEDSIDE GLUCOSE 123 MG/DL (83-110)
[2017-04-19 08:27] LABS: BEDSIDE GLUCOSE 151 MG/DL (83-110)
[2017-04-19 08:27] LABS: BEDSIDE GLUCOSE 108 MG/DL (83-110)
[2017-04-19] MEDS: MINOXIDIL 10 MG TAB PO (08:27)
[2017-04-19] MEDS: PANTOPRAZOLE 40MG TAB (PROTONIX) PO ×2 (08:28→20:10)
[2017-04-19] MEDS: FLUoxetine 20 MG CAP PO (08:29)
[2017-04-19 13:03] LABS: BEDSIDE GLUCOSE 137 MG/DL (83-110)
[2017-04-19] MEDS: POTASSIUM CHLORIDE 10 MEQ SR TABLET PO (15:38)
[2017-04-19 21:47] LABS: BEDSIDE GLUCOSE 129 MG/DL (83-110)
[2017-04-19 21:47] LABS: BEDSIDE GLUCOSE 108 MG/DL (83-110)
[2017-04-19 21:47] LABS: BEDSIDE GLUCOSE 141 MG/DL (83-110)
[2017-04-19 21:48] LABS: BEDSIDE GLUCOSE 121 MG/DL (83-110)
[2017-04-19 21:48] LABS: BEDSIDE GLUCOSE 134 MG/DL (83-110)
[2017-04-19 21:48] LABS: BEDSIDE GLUCOSE 133 MG/DL (83-110)
[2017-04-19 21:48] LABS: BEDSIDE GLUCOSE 129 MG/DL (83-110)
[2017-04-20 05:52] LABS: BEDSIDE GLUCOSE 112 MG/DL (83-110)
[2017-04-20] MEDS: HumaLOG INSULIN (NovoLOG) PER UNIT SC ×4 (08:24→21:00)
[2017-04-20] MEDS: PANTOPRAZOLE 40MG TAB (PROTONIX) PO ×2 (08:25→20:21)
[2017-04-20] MEDS: ATORVASTATIN 20 MG TAB PO (08:25)
[2017-04-20] MEDS: SUCRALFATE 1 GM TAB PO ×4 (08:25→20:21)
[2017-04-20] MEDS: ASPIRIN 81 MG ENTERIC TAB PO (08:25)
[2017-04-20] MEDS: FLUoxetine 20 MG CAP PO (08:26)
[2017-04-20] MEDS: MINOXIDIL 10 MG TAB PO (08:30)
[2017-04-20 21:37] LABS: BEDSIDE GLUCOSE 130 MG/DL (83-110)
[2017-04-20 21:37] LABS: BEDSIDE GLUCOSE 124 MG/DL (83-110)
[2017-04-20 21:37] LABS: BEDSIDE GLUCOSE 118 MG/DL (83-110)
[2017-04-21] MEDS: SUCRALFATE 1 GM TAB PO (08:42)
[2017-04-21] MEDS: HumaLOG INSULIN (NovoLOG) PER UNIT SC (08:42)
[2017-04-21] MEDS: PANTOPRAZOLE 40MG TAB (PROTONIX) PO (08:43)
[2017-04-21] MEDS: MINOXIDIL 10 MG TAB PO (08:43)
[2017-04-21] MEDS: ASPIRIN 81 MG ENTERIC TAB PO (08:43)
[2017-04-21] MEDS: ATORVASTATIN 20 MG TAB PO (08:43)
[2017-04-21] MEDS: FLUoxetine 20 MG CAP PO (08:43)
[2017-04-21 08:49] LABS: HEMATOCRIT 27.7 % (36.0-47.0); MEAN CORPUSCULAR HEMOGLOBIN 29.3 pg (27.0-33.0); MEAN CORPUSCULAR HGB CONC 32.5 g/dl (32.0-36.5); MEAN CORPUSCULAR VOLUME 90.2 fl (80.0-96.0); PLATELET COUNT, AUTOMATED 80 10^3/uL (150-450); RED BLOOD COUNT 3.07 10^6/uL (4.00-5.40); WHITE BLOOD COUNT 2.9 10^3/uL (4.0-10.0)
[2017-04-21 08:50] LABS: IMMATURE PLATELET FRACTION % 6.6 % (0.0-9.6)
[2017-04-21 09:09] LABS: ANION GAP 8 MEQ/L (8-16); BLOOD UREA NITROGEN 11 MG/DL (7-18); CALCIUM LEVEL 7.8 MG/DL (8.8-10.2); CARBON DIOXIDE LEVEL 24 MEQ/L (21-32); CHLORIDE LEVEL 112 MEQ/L (98-107); CREATININE FOR GFR 1.12 MG/DL (0.55-1.30); GLOMERULAR FILTRATION RATE 50.9 (>39); GLUCOSE, FASTING 133 MG/DL (70-100); MAGNESIUM LEVEL 1.9 MG/DL (1.8-2.4); POTASSIUM SERUM 3.3 MEQ/L (3.5-5.1); SODIUM LEVEL 144 MEQ/L (136-145)
[2017-04-21] MEDS: POTASSIUM CHLORIDE 10 MEQ SR TABLET PO (09:47)
[2017-04-24 02:31] LABS: BEDSIDE GLUCOSE 134 MG/DL (83-110)
== END 2017-04-21 11:00 | DRG 377 ==
LOC: M MS5PR 04-05 21:40 → M ED 13:53 → M ED INP 15:48 → M PCU 18:15
PROC: 0DJ08ZZ Inspection of Upper Intestinal Tract, Via Natural or Artificial Opening Endoscopic (ICD-10-PCS; principal; 2017-04-02 08:00)
PROC: 30253N1 (ICD-10-PCS; 2017-04-02 08:13)
DX: K92.2 Gastrointestinal hemorrhage, unspecified (principal); G93.41 Metabolic encephalopathy; E87.0 Hyperosmolality and hypernatremia; D62 Acute posthemorrhagic anemia; D61.818 Other pancytopenia; I12.9 Hypertensive chronic kidney disease with stage 1 through stage 4 chronic kidney disease, or unspecified chronic kidney disease; E78.5 Hyperlipidemia, unspecified; E11.22 Type 2 diabetes mellitus with diabetic chronic kidney disease; I25.10 Atherosclerotic heart disease of native coronary artery without angina pectoris; Z66 Do not resuscitate; I25.2 Old myocardial infarction; F41.9 Anxiety disorder, unspecified; F32.9 Major depressive disorder, single episode, unspecified; I70.1 Atherosclerosis of renal artery; E86.0 Dehydration; E87.6 Hypokalemia; E66.9 Obesity, unspecified; K28.7 Chronic gastrojejunal ulcer without hemorrhage or perforation; D50.9 Iron deficiency anemia, unspecified; F03.90 Unspecified dementia, unspecified severity, without behavioral disturbance, psychotic disturbance, mood disturbance, and anxiety; N18.3 Chronic kidney disease, stage 3 (moderate); Z68.30 Body mass index [BMI] 30.0-30.9, adult; K44.9 Diaphragmatic hernia without obstruction or gangrene; K29.80 Duodenitis without bleeding; K29.70 Gastritis, unspecified, without bleeding; Z79.02 Long term (current) use of antithrombotics/antiplatelets; Z87.891 Personal history of nicotine dependence; Z79.899 Other long term (current) drug therapy

== ENCOUNTER → 2017-04-24 | Outpatient (REF) ==
[2017-04-24 18:05] LABS: ALBUMIN 2.8 GM/DL (3.2-5.2); ALBUMIN/GLOBULIN RATIO 0.76 (1.00-1.93); ALKALINE PHOSPHATASE 147 U/L (45-117); ALT/SGPT 16 U/L (12-78); ANION GAP 9 MEQ/L (8-16); AST/SGOT 27 U/L (7-37); BILIRUBIN,TOTAL 0.5 MG/DL (0.2-1.0); BLOOD UREA NITROGEN 9 MG/DL (7-18); CALCIUM LEVEL 7.9 MG/DL (8.8-10.2); CARBON DIOXIDE LEVEL 23 MEQ/L (21-32); CHLORIDE LEVEL 110 MEQ/L (98-107); CREATININE FOR GFR 1.23 MG/DL (0.55-1.30); GLOMERULAR FILTRATION RATE 45.7 (>39); GLUCOSE, FASTING 97 MG/DL (70-100); NT-PRO BNP 5232 PG/ML (<125); POTASSIUM SERUM 3.6 MEQ/L (3.5-5.1); SODIUM LEVEL 142 MEQ/L (136-145); TOTAL PROTEIN 6.5 GM/DL (6.4-8.2)
[2017-04-24 18:29] LABS: HEMATOCRIT 29.1 % (36.0-47.0); HEMOGLOBIN 9.5 g/dl (12.0-16.0); MEAN CORPUSCULAR HEMOGLOBIN 29.4 pg (27.0-33.0); MEAN CORPUSCULAR HGB CONC 32.6 g/dl (32.0-36.5); MEAN CORPUSCULAR VOLUME 90.1 fl (80.0-96.0); PLATELET COUNT, AUTOMATED 108 10^3/uL (150-450); RED BLOOD COUNT 3.23 10^6/uL (4.00-5.40); RED CELL DISTRIBUTION WIDTH 14.8 % (11.5-14.5); WHITE BLOOD COUNT 3.1 10^3/uL (4.0-10.0)
== END ==
DX: R14.0 Abdominal distension (gaseous) (principal)

== ENCOUNTER → 2017-04-25 | Outpatient (REF) ==
[2017-04-25 11:11] LABS: HEMATOCRIT 28.7 % (36.0-47.0); HEMOGLOBIN 9.2 g/dl (12.0-16.0); MEAN CORPUSCULAR HEMOGLOBIN 29.1 pg (27.0-33.0); MEAN CORPUSCULAR HGB CONC 32.1 g/dl (32.0-36.5); MEAN CORPUSCULAR VOLUME 90.8 fl (80.0-96.0); PLATELET COUNT, AUTOMATED 108 10^3/uL (150-450); RED BLOOD COUNT 3.16 10^6/uL (4.00-5.40); WHITE BLOOD COUNT 2.8 10^3/uL (4.0-10.0)
[2017-04-25 11:21] LABS: ALBUMIN 2.7 GM/DL (3.2-5.2); ALBUMIN/GLOBULIN RATIO 0.77 (1.00-1.93); ALKALINE PHOSPHATASE 130 U/L (45-117); ALT/SGPT 14 U/L (12-78); ANION GAP 10 MEQ/L (8-16); AST/SGOT 22 U/L (7-37); BILIRUBIN,TOTAL 0.7 MG/DL (0.2-1.0); BLOOD UREA NITROGEN 10 MG/DL (7-18); CALCIUM LEVEL 7.8 MG/DL (8.8-10.2); CARBON DIOXIDE LEVEL 23 MEQ/L (21-32); CHLORIDE LEVEL 110 MEQ/L (98-107); CREATININE FOR GFR 1.15 MG/DL (0.55-1.30); GLOMERULAR FILTRATION RATE 49.4 (>39); GLUCOSE, FASTING 137 MG/DL (70-100); POTASSIUM SERUM 3.5 MEQ/L (3.5-5.1); SODIUM LEVEL 143 MEQ/L (136-145); TOTAL PROTEIN 6.2 GM/DL (6.4-8.2)
== END ==
DX: K62.5 Hemorrhage of anus and rectum (principal)

== ENCOUNTER → 2017-04-25 | Outpatient (CLI) | payer MEDICARE | LOC: M RAD 15:27 | DX: N83.202 Unspecified ovarian cyst, left side (principal); R10.2 Pelvic and perineal pain; N93.8 Other specified abnormal uterine and vaginal bleeding | CPT/HCPCS: 76856 ==

== ENCOUNTER → 2017-04-26 | Outpatient (REF) | DX: K62.5 Hemorrhage of anus and rectum (principal) ==

== ENCOUNTER → 2017-05-02 | Outpatient (REF) ==
[2017-05-02 18:17] LABS: HEMATOCRIT 29.8 % (36.0-47.0); HEMOGLOBIN 9.5 g/dl (12.0-16.0); MEAN CORPUSCULAR HEMOGLOBIN 28.8 pg (27.0-33.0); MEAN CORPUSCULAR HGB CONC 31.9 g/dl (32.0-36.5); MEAN CORPUSCULAR VOLUME 90.3 fl (80.0-96.0); PLATELET COUNT, AUTOMATED 119 10^3/uL (150-450); RED CELL DISTRIBUTION WIDTH 14.6 % (11.5-14.5); WHITE BLOOD COUNT 4.2 10^3/uL (4.0-10.0)
== END ==
DX: D64.9 Anemia, unspecified (principal); K92.2 Gastrointestinal hemorrhage, unspecified

== ENCOUNTER → 2017-09-29 | Outpatient (REF) | payer MEDICARE ==
[2017-09-29 09:45] LABS: BASO # 0.1 10^3/uL (0.0-0.2); BASO % 1.2 % (0.0-1.0); EOS # 0.6 10^3/uL (0.0-0.50); EOS % 13.9 % (0.0-3.0); HEMOGLOBIN 12.3 g/dl (12.0-15.5); IMMATURE GRANULOCYTE % 0.2 % (0-3.0); LYMPH # 0.9 10^3/uL (1.5-4.5); LYMPH % 21.6 % (24.0-44.0); MEAN CORPUSCULAR HEMOGLOBIN 29.9 pg (27.0-33.0); MEAN CORPUSCULAR HGB CONC 32.4 g/dl (32.0-36.5); MEAN CORPUSCULAR VOLUME 92.2 fl (80.0-96.0); MONO # 0.4 10^3/uL (0.0-0.8); MONO % 8.9 % (0.0-5.0); NEUTROPHILS # 2.2 10^3/uL (1.8-7.7); NEUTROPHILS % 54.2 % (36.0-66.0); RED BLOOD COUNT 4.12 10^6/uL (4.00-5.40); RED CELL DISTRIBUTION WIDTH 15.1 % (11.5-14.5)
[2017-09-29 09:46] LABS: IMMATURE PLATELET FRACTION % 5.3 % (0.0-9.6); PLATELET COUNT, AUTOMATED 85 10^3/uL (150-450)
[2017-09-29 10:14] LABS: ANION GAP 8 MEQ/L (8-16); BLOOD UREA NITROGEN 22 MG/DL (7-18); CALCIUM LEVEL 8.6 MG/DL (8.8-10.2); CARBON DIOXIDE LEVEL 28 MEQ/L (21-32); CHLORIDE LEVEL 107 MEQ/L (98-107); CREATININE FOR GFR 1.49 MG/DL (0.55-1.30); GLOMERULAR FILTRATION RATE 36.5 (>39); GLUCOSE, FASTING 107 MG/DL (70-100); POTASSIUM SERUM 3.8 MEQ/L (3.5-5.1); SODIUM LEVEL 143 MEQ/L (136-145)
== END ==
DX: D61.818 Other pancytopenia (principal); I10 Essential (primary) hypertension
CPT/HCPCS: 80048

== ENCOUNTER → 2018-08-03 | Outpatient (CLI) | payer MEDICARE, MEDICAID ==
[~2018-08-03] MED LIST: ALDA25TA2 PO; AMLO5TAB6 PO; ASPI81TAEC PO; ATOR1TAB21 PO; ATOR80TA59 PO; CLONI1TA PO; CLOP75TA2 PO; DONE10TA90 PO; FERR325T16 PO; FERR32TA PO; FURO40TA2 PO; LABE10TAB PO; LOSA50TA88 PO; MINO10TA PO; PANT40TA3 PO; PATIENT COMMENT; PLAV1TAB2 PO; PROZ40CA PO; SPIR-10 PO; SUCR1TA PO
--- NOTE | 2018-08-03 15:07 | REP ---
Duplex carotid sonography: History: Occlusion and stenosis bilateral carotid arteries. Comparison MR angiography of the carotids is from June 24, 2014. Sonographic findings: Antegrade flow was observed in both vertebral arteries. Right carotid: The right common carotid artery shows diffuse intimal thickening. There is moderate mixed packed plaquing in the distal CCA bulb proximal ICA and slowly seen. There is evidence of a tight stenosis in the proximal external carotid artery with elevated systolic velocity. Elevated systolic velocities seen in the proximal ICA consistent with mild stenosis. Velocity chart right carotid: Right CCA PSV 73 cm/S right ICA PSV 184 MAE 23 right ECA PSV 541 right ICA/cc ratio 3.6. Impression: 50-79% category narrowing in the right ICA by Doppler velocity criteria, probably near the lower end of this range. There is a tight stenosis of the external carotid artery by velocity criteria. Left carotid: The left common carotid artery shows mild diffuse intimal thickening. There is moderate to marked mixed plaquing in the bulb proximal ICA and proximal ECA. Significantly elevated systolic velocities are seen in the ECA and ICA. Elevated diastolic ICA velocities are seen on the left. Significant stenosis is present. A velocity chart left carotid: Left CCA PSV 75 cm/S left ICA PSV 504 MAE 69 left ECA PSV 111 left ICA/cc ratio elevated 8.3. Impression: 80-99% stenosis by velocity criteria in the left ICA. The very high velocities implies significant stenosis in the ECA as well on the left side. Electronically Signed by Roni Alicea MD 08/03/2018 02:57 P
== END ==
LOC: M RAD 13:00
PROVIDERS: ATTEND Surgery Vascular Surgery
DX: I65.23 Occlusion and stenosis of bilateral carotid arteries (principal); I71.4 Abdominal aortic aneurysm, without rupture

== ENCOUNTER → 2018-08-29 | Outpatient (CLI) | payer MEDICARE, MEDICAID ==
[~2018-08-29] MED LIST changes: +ACET1TAB55 PO; +ASPI81TA85 PO; +BISA10SU4 PR; +BUPIVACAINE HCL 0.5% 10 ML VIAL As Ordered ONE; +HEPARIN 1,000 UNITS/ML 10ML VIAL (FOR RADIOLOGY& DIALYSIS ONLY) As Ordered ONE; +ISOVUE-300 61% 50ML VIAL (Q9967) As Ordered ONE; +LIDOCAINE 2% MDV 20 ML VIAL As Ordered ONE; +LOPE1CAP5 PO; +MIDAZOLAM INJ 2 MG/2 ML VIAL (J2250) As Ordered ONE; +MILKSUS21 PO; +MIRA3350 PO; +MOM30SS PO; +PANT-23 PO; +PROTAMINE SULF INJ 50 MG/5 ML VIAL (J2720) As Ordered ONE; +RISATAB3 PO; +SODI325T9 PO; +SUCR1TAB56 PO; +diphenhydrAMINE INJ 50MG/ML VIAL (J1200) As Ordered ONE; +fentaNYL 100 MCG/2 ML INJECTION (J3010) As Ordered ONE
[2018-08-29 12:08] VITALS: BP 181/77
--- NOTE | 2018-10-04 10:10 | REPIR ---
DATE OF PROCEDURE: 08/29/2018 ATTENDING PHYSICIAN: Dr. Jarocho Becerra ASSISTANTS: Stan Munoz and Natividad Mayo. PREOPERATIVE DIAGNOSES: 1. Left carotid artery stenosis. 2. Chronic renal insufficiency. POSTOPERATIVE DIAGNOSES: 1. Left carotid artery stenosis. 2. Chronic renal insufficiency. PROCEDURE: Right common femoral arterial cannulation, selective right common carotid artery catheter placement with angiogram, right iliofemoral angiogram, Mynx closure of the right common femoral arteriotomy. INDICATION: The patient is a 73-year-old female with history of abdominal aortic aneurysm, chronic renal insufficiency, and left carotid artery stenosis. The patient underwent ultrasound showing high grade stenosis in the left internal carotid artery and due to her chronic renal insufficiency has been unable to undergo CT angiogram or MRA. The patient will undergo an angiogram with possible angioplasty and/or stent. ANESTHESIA: Local with 10 mL of 2% lidocaine mixed with 0.5% Marcaine, Benadryl 50 mg. FLUOROSCOPY TIME: 9 minutes. CONTRAST: 4 mL of Isovue-300. HEPARIN: 7000 units. COMPLICATIONS: None. DRAINS: None. SPECIMENS: None. IMPLANTS: Right common femoral arteriotomy closure with a Mynx closure device. PROCEDURE: The patient was taken to the angiography suite, placed supine on the angiography table and then prepped draped in a standard surgical fashion. The right common femoral artery was cannulated with a micropuncture needle after anesthetizing the overlying skin and subcutaneous tissue. The micropuncture wire was advanced through the micropuncture needle, which was upsized to a micropuncture sheath. A Bentson wire was advanced through the micropuncture sheath, which was upsized to 5-Serbian sheath. A catheter and angled Glidewire were used traverse through the aorta to the aortic arch. There was difficulty passing the catheter wires through the right external and common iliac arteries secondary to calcific atherosclerotic arterial disease. Once the catheter wire were passed through this region and into the arch, the left common carotid artery was attempted to be cannulated with the initial cannulation and angiogram showing the cannulation to be in the right common carotid artery. The left common carotid artery was never identified or cannulated, and there was suspicion for a bovine arch causing difficulty in finding the left common carotid artery. Catheters and wires were removed and a Mynx closure device was used to close the arteriotomy in the right common femoral artery with an additional 10-minute of adjunctive pressure applied for hemostasis after a right iliofemoral angiogram was performed through the sheath in the right common femoral artery. Dressings were then applied. The patient tolerated the procedure well. All instrument, sponge, needle counts were correct at the end of case. There were no complications. Dr. Becerra was present for and directed the entire case. The patient was transferred to the holding area and subsequently discharged in stable condition.
== END ==
LOC: M IRPRO 06:47
PROVIDERS: ATTEND Surgery Vascular Surgery
DX: I65.22 Occlusion and stenosis of left carotid artery (principal); N18.9 Chronic kidney disease, unspecified; I12.9 Hypertensive chronic kidney disease with stage 1 through stage 4 chronic kidney disease, or unspecified chronic kidney disease; E78.5 Hyperlipidemia, unspecified; E11.22 Type 2 diabetes mellitus with diabetic chronic kidney disease; I25.10 Atherosclerotic heart disease of native coronary artery without angina pectoris; I25.2 Old myocardial infarction; F41.9 Anxiety disorder, unspecified; F32.9 Major depressive disorder, single episode, unspecified; F03.90 Unspecified dementia, unspecified severity, without behavioral disturbance, psychotic disturbance, mood disturbance, and anxiety
CPT/HCPCS: 36222; C1760; C1769; C1887; C1894; G0269; J1200; J2720; J3010; Q9967

== ENCOUNTER → 2018-08-31 | Outpatient (CLI) | payer MEDICARE, MEDICAID ==
[~2018-08-31] MED LIST changes: -BUPIVACAINE HCL 0.5% 10 ML VIAL As Ordered ONE; -HEPARIN 1,000 UNITS/ML 10ML VIAL (FOR RADIOLOGY& DIALYSIS ONLY) As Ordered ONE; -ISOVUE-300 61% 50ML VIAL (Q9967) As Ordered ONE; -LIDOCAINE 2% MDV 20 ML VIAL As Ordered ONE; -MIDAZOLAM INJ 2 MG/2 ML VIAL (J2250) As Ordered ONE; -PROTAMINE SULF INJ 50 MG/5 ML VIAL (J2720) As Ordered ONE; -diphenhydrAMINE INJ 50MG/ML VIAL (J1200) As Ordered ONE; -fentaNYL 100 MCG/2 ML INJECTION (J3010) As Ordered ONE
--- NOTE | 2018-08-31 11:57 | REP ---
RENAL ULTRASOUND WITH DUPLEX DOPPLER RENAL ARTERY EVALUATION: Real-time sonographic evaluation of the kidneys performed. The kidneys are normal in size and echotexture, right kidney measuring 12.6 x 5.3 x 4.2 cm and left kidney 12.0 x 4.5 x 4.1 cm. There is no hydronephrosis bilaterally. Left renal pelvis is slightly dilated. Otherwise, no renal mass or stone is seen. Urinary bladder is mildly distended and grossly unremarkable. Real-time ultrasound evaluation and duplex Doppler interrogation of the renal arteries is performed bilaterally. There is fusiform aneurysmal dilatation of the distal abdominal aorta extending for a length of about 9.6 cm. Maximum AP diameter is 4.7 cm. Reportedly, the patient has renal artery stents but these are not visualized sonographically. Peak systolic velocity of the abdominal aorta at the level of the renal arteries is 85.8 cm/s. Peak systolic velocity of the main right renal artery is 149 cm/s, renal to aortic ratio 1.74. Resistive indices are measured in the upper, middle and lower thirds of the right kidney and are elevated ranging between 0.090 and 0.095. Acceleration times range between 0.048 and 0.062. Peak systolic velocity of the main left renal artery is 241 cm/s, renal to aortic ration 2.8. Resistive indices left kidney are also elevated ranging between 0.87 and 0.94. Acceleration times range between 0.052 and 0.056. IMPRESSION: Renal artery stents are not visualized. Elevated peak systolic velocity main left renal artery and elevated bilateral resistive indices. Underlying renal artery stenosis cannot be excluded. There is aneurysmal dilatation of the distal abdominal aorta as discussed above with similar dimensions to a prior CT 01/04/2017. Electronically Signed by Kentrell Hoang MD 09/03/2018 12:57 P
== END ==
LOC: M RAD 09:28
PROVIDERS: ATTEND Physician Assistant
DX: I71.4 Abdominal aortic aneurysm, without rupture (principal); I70.1 Atherosclerosis of renal artery

== ENCOUNTER → 2018-09-14 | Outpatient (CLI) | payer MEDICARE, MEDICAID ==
[~2018-09-14] MED LIST changes: -BISA10SU4 PR; -MOM30SS PO; -RISATAB3 PO; -SODI325T9 PO
--- NOTE | 2018-09-14 16:19 | REPVR ---
EXAM: MR Angiography Neck Without Contrast EXAM DATE/TIME: 09/14/2018 3:39 PM CLINICAL HISTORY: 73 years old, female; Condition or disease; Cerebrovascular disease; Additional info: Occlusion and stenosis and carotid arteries TECHNIQUE: Imaging protocol: Magnetic resonance angiography images of the neck without intravenous contrast. COMPARISON: MRA CAROTID W/O FOL WITH 06/24/2014 1:44 PM FINDINGS: Right common carotid artery: There are moderate atherosclerotic changes involving the right common carotid artery bifurcation. Right internal carotid artery: There are moderate atherosclerotic changes involving the origin of the right internal carotid artery, accounting for approximately 50% stenosis. It is difficult to accurately assess the degree of underlying stenosis due to artifact. Right external carotid artery: Unremarkable. No stenosis. No dissection or occlusion of the origin. Right vertebral artery: Unremarkable. No stenosis. No dissection or occlusion. Left common carotid artery: There are moderate atherosclerotic changes involving the left common carotid artery bifurcation. Left internal carotid artery: There are moderate atherosclerotic changes involving the origin of the left internal carotid artery, accounting for approximately 70% stenosis. It is difficult to accurately assess the degree of underlying stenosis due to artifact. Left external carotid artery: Unremarkable. No stenosis. No dissection or occlusion of the origin. Left vertebral artery: Unremarkable. No stenosis. No dissection or occlusion. Other findings: Examination is limited due to patient motion artifact. IMPRESSION: 1. Examination is limited due to patient motion artifact. 2. There are moderate atherosclerotic changes involving the right common carotid artery bifurcation. 3. There are moderate atherosclerotic changes involving the origin of the right internal carotid artery, accounting for approximately 50% stenosis. It is difficult to accurately assess the degree of underlying stenosis due to artifact. 4. There are moderate atherosclerotic changes involving the left common carotid artery bifurcation. 5. There are moderate atherosclerotic changes involving the origin of the left internal carotid artery, accounting for approximately 70% stenosis. It is difficult to accurately assess the degree of underlying stenosis due to artifact. Electronically signed by: Malcolm Curiel On 09/14/2018 16:19:18 PM
== END ==
LOC: M RAD 14:39
PROVIDERS: ATTEND Physician Assistant
DX: I65.23 Occlusion and stenosis of bilateral carotid arteries (principal)

== ENCOUNTER → 2018-09-24 | Outpatient (CLI) | payer MEDICARE ==
[2018-09-24 12:15] LABS: HEMATOCRIT 35.1 % (36.0-47.0); HEMOGLOBIN 11.3 g/dl (12.0-15.5); MEAN CORPUSCULAR HEMOGLOBIN 30.6 pg (27.0-33.0); MEAN CORPUSCULAR HGB CONC 32.2 g/dl (32.0-36.5); MEAN CORPUSCULAR VOLUME 95.1 fl (80.0-96.0); RED BLOOD COUNT 3.69 10^6/uL (4.00-5.40); WHITE BLOOD COUNT 3.3 10^3/uL (4.0-10.0)
[2018-09-24 12:39] LABS: CALCIUM LEVEL 8.4 MG/DL (8.8-10.2); CREATININE FOR GFR 1.57 MG/DL (0.55-1.30); GLOMERULAR FILTRATION RATE 34.3 (>39)
[2018-09-24 12:48] LABS: PLATELET COUNT, AUTOMATED 89 10^3/uL (150-450)
== END ==
LOC: M LAB 11:12
PROVIDERS: ATTEND Surgery Vascular Surgery
DX: I65.23 Occlusion and stenosis of bilateral carotid arteries (principal)

== ENCOUNTER 2018-09-25 08:07 | Inpatient (IN) | payer MEDICARE, MEDICAID ==
[~2018-09-25] VITALS: Ht 166.4 cm; Wt 87.5 kg
[~2018-09-25 08:07] MED LIST changes: -ACET1TAB55 PO; -ASPI81TA85 PO; +BUPIVACAINE HCL 0.5% 10 ML VIAL As Ordered ONE; +HEPARIN 1,000 UNITS/ML 10ML VIAL (FOR RADIOLOGY& DIALYSIS ONLY) As Ordered ONE; +ISOVUE-300 61% 50ML VIAL (Q9967) As Ordered ONE; +LIDOCAINE 2% MDV 20 ML VIAL As Ordered ONE; -LOPE1CAP5 PO; -MILKSUS21 PO; -MIRA3350 PO; -PANT-23 PO; -SUCR1TAB56 PO; +diphenhydrAMINE INJ 50MG/ML VIAL (J1200) As Ordered ONE
[2018-09-25 09:15] LABS: CALCIUM LEVEL 8.4 MG/DL (8.8-10.2); CREATININE FOR GFR 1.43 MG/DL (0.55-1.30); GLOMERULAR FILTRATION RATE 38.2 (>39); POTASSIUM SERUM 3.6 MEQ/L (3.5-5.1)
[2018-09-25] MEDS ORDERED: MIDAZOLAM INJ 2 MG/2 ML VIAL (J2250) As Ordered ONE (10:20)
[2018-09-25] MEDS ORDERED: fentaNYL 100 MCG/2 ML INJECTION (J3010) As Ordered ONE (10:20)
[2018-09-25] MEDS ORDERED: PROTAMINE SULF INJ 50 MG/5 ML VIAL (J2720) As Ordered ONE (11:48)
[2018-09-25 12:35] LABS: HEMATOCRIT 35.6 % (36.0-47.0); HEMOGLOBIN 11.4 g/dl (12.0-15.5); MEAN CORPUSCULAR HEMOGLOBIN 31.4 pg (27.0-33.0); MEAN CORPUSCULAR VOLUME 98.1 fl (80.0-96.0); RED BLOOD COUNT 3.63 10^6/uL (4.00-5.40); WHITE BLOOD COUNT 3.6 10^3/uL (4.0-10.0)
[2018-09-25 12:42] LABS: PLATELET COUNT, AUTOMATED 51 10^3/uL (150-450)
[2018-09-25 12:55] LABS: CALCIUM LEVEL 7.8 MG/DL (8.8-10.2); CREATININE FOR GFR 1.46 MG/DL (0.55-1.30); GLOMERULAR FILTRATION RATE 37.3 (>39); TROPONIN I 0.03 NG/ML (< 0.10)
[2018-09-25] MEDS ORDERED: ACETAMINOPHEN TAB 650MG DOSE (2X325MG) PO PRN (13:30)
[2018-09-25] MEDS: NS 1,000 ML IV SCH ×2 (14:00→23:42)
--- NOTE | 2018-09-25 14:15 | REP ---
REASON: Post procedural hypotension. Assess for retroperitoneal hemorrhage. COMPARISON: 01/04/2017, the latest prior. The lack of intravenous contrast decreases the sensitivity of the exam. There is a small right pleural effusion with right-sided pleural thickening, unchanged. The left-sided pleural effusion seen on the prior exam has resolved. Scattered asymmetric bilateral lung-based densities are noted essentially unchanged and most consistent with subsegmental atelectasis. There is no pericardial effusion. Limited noncontrast enhanced evaluation of the abdomen and pelvis shows a micronodular surface to the hepatic parenchyma, status quo. There is dense material in the gallbladder consistent with cholelithiasis status quo. There is splenomegaly also essentially unchanged. There are bilateral renovascular calcifications status quo. There is a low density right adrenal gland mass, which is unchanged but having higher Hounsfield unit readings then one would normally except for an adenoma or myelolipoma. The fact that it has been stable is, however, reassuring. There are splenic varices, status quo. There is no significant change in the appearance of the pancreas. There is no evidence of free intraperitoneal air and there is no evidence of free intraperitoneal fluid. Limited evaluation of the bowel loops and their mesenteries show no gross abnormalities. There is an abdominal aortic aneurysm with calcific atherosclerotic changes. The maximal AP dimension of the aneurysm is estimated at approximately 4.9 cm, previously 4.5 cm. There is slight fatty infiltration of the left lateroconal fascia representing a change from the prior exam but without a discrete fluid collection in the left paracolic gutter. No definite abnormal para-aortic fluid collections or densities have developed. In the right groin, there is a new 5.1 x 4 x 7.9 cm sized density having Hounsfield unit readings lower than acute blood. There is an unchanged cystic mass in the right hemipelvis. There is no evidence of free intrapelvic fluid or intrapelvic air. Bone window technique throughout the examination shows no significant change in the appearance of the imaged osseous structures. There are spinal degenerative changes with bony demineralization status quo. IMPRESSION: 1. Lung base findings as described above. 2. Abdominal aortic aneurysm as described above. 3. Right groin mass as described above. The subacute hematoma could be responsible for the finding. It needs to be correlated clinically. 4. Evidence of cirrhosis of the liver. 5. Splenomegaly. 6. Cholelithiasis. 7. Other chronic changes and nonspecific findings as described above. Electronically Signed by Irving Hernandes DO 09/25/2018 04:13 P
[2018-09-25 14:25] VITALS: BP 183/74
--- NOTE | 2018-09-25 14:29 | CR.PDOC ---
General Date of Consultation: Sep 25, [address] Becerra. HPI: The pt is a 73yoF old scheduled with Dr Becerra this AM in interventional radiology for carotid stenosis/carotid angiogram with possible carotid stent ioana cement. The patient had carotid angiogram 08/29/[address] Becerra however left ICA was unable to be visualized as per verbal report and MRA carotid was requested. She is status post MRA carotid 09/14/18. The patient was reviewed with Dr. Becerra with plan to proceed with left carotid angiogram with possible stent placement 09/25/18. Vascular access was obtained through right femoral artery however there was difficulty advancing catheter wires and subsequently right common iliac artery stent was placed at approximately 11:45 AM. At approximately 11:56 AM the patient reported left chest discomfort. The patient was also noted to have hypotension with systolic BP recorded at 86. Stat EKG was requested, stat labs requested, stat CT abdomen/pelvis requested. The patient remained on 2 L supplemental oxygen. Admission was subsequently arranged, this was discussed with hospitalist Dr Mejia. Currently, the patient is resting on stretcher in interventional radiology and denies any chest heaviness, tightness, or pressure. Denies dyspnea or shortness of breath. She is awake and responding to questions and denies any discomfort currently. Blood pressure at the time of my exam was noted to be 178/53, heart rate 53, respiratory rate 18, oxygen saturation 95%. The patient is known to have a history of renal artery stenosis/status post stent placement and abdominal aortic aneurysm. Denies any fevers, chills, weakness, fatigue, Headache, Shortness of breath, cough, palpitations, abdominal pain, N/V/D or changes in bowel or bladder habits. PMHx: Hypertension Hyperlipidemia Diabetes CAD/H/O [place] Anxiety Depression Dementia CKD3. Baseline serum creatinine 1.2-1.5. Iron Deficiency Anemia GERD abdominal aortic aneurysm Surgical Hx: Repair Of FX Left Arm, CABG, Tonsillectomy history of renal artery stenosis/status post stent placement. SOCHX: Patient is a former smoker. Denies alcohol use. Denies Drug Use. FAMHX: Father: due to Leukemia. Mother: due to Diabetes; Hypertension; Kidney Disease. ROS: As noted in HPI, otherwise 11pt ROS of systems reviewed and unremarkable. PE: GEN: 73 yo F, appears stated age. No acute distress currently. Alert and oriented x 3. HEENT: Normocephalic, atraumatic. Sclera are nonicteric. Conjunctiva without injection. Moist mucous membranes. CHEST: Regular rate and rhythm, +S1, +S2. Bilateral carotid bruits are noted. LUNGS: Clear to auscultation bilaterally. No wheezes, rales, or rhonchi. Breathing appears symmetric and easy. No accessory muscle use. ABD: Round, soft, non-tender, non-distended. +Bowel sounds present. EXT: Bilateral pedal pulses are palpable. No lower extremity edema appreciated. Varicose veins are noted. Feet are warm to touch. Capillary refill 2-3sec. No rashes. NEURO: Alert and oriented x 3. No focal deficits appreciated. CT abdomen/pelvis. With no acute changes as reviewed by Dr. Becerra. Report pending. A&P: 1. Chest pain. Currently resolved. Hospitalist to facilitate admission for further evaluation and monitoring. PCU/TM Serial cardiac enzymes/EKG Echocardiogram pending. 2. Carotid vascular disease. Carotid ultrasound 08/03/18 indicating high-grade stenosis left ICA. Carotid angiogram 08/29/[address] Becerra. No report available however verbal report indicated unable to visualize left ICA. MRA carotid 09/14/18 indicating approximately 70% stenosis left ICA, difficult to assess related to artifact. The patient has not reported amaurosis, weakness, numbness, or tingling in upper or lower extremities. The patient is reviewed with Dr. Becerra. Would recommend to continue aspirin 81 mg, statin. The patient remains asymptomatic at this time however will require left CEA. 2. PAD. Status post right common iliac artery stent placement 09/25/18. 3. CAD/prior [place]/CABG. 4. CKD3. Baseline appears to be 1.2-1.5 with GFR 34-44. Serum creatinine is noted to be 1.46. 5. Renal artery stenosis status post stent placement. Renal Doppler ultrasound 09/03/18. Patient is scheduled for follow-up renal Doppler ultrasound 03/11. 6. Abdominal aortic aneurysm. Last ultrasound 08/31/18 with maximal AP diameter 4.[address] 01/[address] abdomen/pelvis today, result is pending. Vital Signs/I&O Vital Signs Date Time Temp Pulse Resp B/P (MAP) Pulse Ox O2 Delivery O2 Flow Rate FiO2 09/25/18 13:12 70 18 94 09/25/18 12:07 2 09/25/18 08:30 98.0 Laboratory Data Labs 24H Laboratory Tests 2 09/25/18 08:36: Anion Gap 7L, Glomerular Filtration Rate 38.2L, Blood Urea Nitrogen 24H, Creatinine 1.43H, Sodium Level 142, Potassium Level 3.6, Chloride Level 109H, Carbon Dioxide Level 26, Calcium Level 8.4L 09/25/18 12:20: Anion Gap 6L, Glomerular Filtration Rate 37.3L, Blood Urea Nitrogen 24H, Creatinine 1.46H, Sodium Level 142, Potassium Level 4.0, Chloride Level 111H, Carbon Dioxide Level 25, Calcium Level 7.8L, Nucleated Red Blood Cells % (auto) 0.0, Immature Platelet Fraction 4.3, Troponin I 0.03 CBC/BMP Laboratory Tests 09/25/18 08:36 Calcium Level 8.4 L 09/25/18 12:20 Calcium Level 7.8 L, Red Blood Count 3.63 L, Mean Corpuscular Volume 98.1 H, Mean Corpuscular Hemoglobin 31.4, Mean Corpuscular Hemoglobin Concent 32.0, Red Cell Distribution Width 15.2 H Allergies Coded Allergies: No Known Allergies (Unverified , 12/27/16) Home Medications Scheduled Aspirin (Aspir 81) 81 Mg Tablet.dr, 81 MG PO DAILY, (Reported) Atorvastatin Calcium (Atorvastatin Calcium) 80 Mg Tab, 80 MG PO QHS, (Reported) Donepezil HCl (Donepezil HCl) 10 Mg Tablet, 10 MG PO QHS, (Reported) Ferrous Gluconate (Ferrous Gluconate) 324 Mg Tab, 324 MG PO BID, (Reported) Fluoxetine HCl (Prozac) 40 Mg Cap, 40 MG PO DAILY, (Reported) Furosemide (Furosemide) 40 Mg Tablet, 40 MG PO DAILY, (Reported) Losartan Potassium (Losartan Potassium) 50 Mg Tablet, 50 MG PO DAILY, (Reported) Pantoprazole Sodium (Pantoprazole Sodium) 40 Mg Tablet.dr, 40 MG PO BID, (Reported) Spironolactone (Aldactone) 25 Mg Tablet, 25 MG PO DAILY, (Reported) Sucralfate (Sucralfate) 1 Gm Tablet, 1 GM PO QID, (Reported) 0730, 1130, 1630, 2030 Scheduled PRN Acetaminophen (Acetaminophen) 325 Mg Tablet, 650 MG PO Q4H PRN for pain or fever, (Reported) Loperamide HCl (Loperamide) 2 Mg Capsule, 2 MG PO DAILY PRN for DIARRHEA, (Reported) Magnesium Hydroxide (Milk of Magnesia) 400 Mg/5 Ml Oral.susp, 2,400 MG PO DAILY PRN for CONSTIPATION, (Reported) Polyethylene Glycol 3350 (Miralax) 119 Gm Powder, 17 GM PO DAILY PRN for CONSTIPATION, (Reported) dilute in 8 ounces of water or juice Tete Silvestre Sep 25, 2018 13:45
[2018-09-25 16:00] VITALS: BP 168/58
--- NOTE | 2018-09-25 16:27 | HPEPDOC ---
General Date of Admission Sep 25, 2018 at 14:22 Date of Service: Sep 25, 2018 Chief Complaint The patient is a 73-year-old female admitted with a reason for visit of Stenosis. History of Present Illness 73-year-old female with past medical history of hypertension, diabetes, dyslipidemia, CAD, anxiety, depression, chronic kidney disease, GERD, iron deficiency, and peripheral vascular disease was scheduled to have a left carotid angiogram with possible stent placement with vascular surgery today. Vascular access was obtained through the right femoral artery, however there was difficulty advancing catheter wires and the patient had a right common iliac artery stent placed instead. After the patient was given protamine, she had an episode of hypotension. A CT scan of the abdomen/pelvis was ordered and revealed no acute hemorrhage. The hospitalist service was called for admission and further evaluation and management. At this time, the patient denies any complaints of fevers, chills, chest pain, palpitations, shortness of breath, abdominal pain, or any nausea/vomiting/diarrhea. Home Medications Scheduled Aspirin (Aspirin EC) 81 Mg Tabec, 81 MG PO DAILY Atorvastatin Calcium (Atorvastatin Calcium) 80 Mg Tab, 80 MG PO DAILY, (Reported) Donepezil HCl (Donepezil HCl) 10 Mg Tablet, 10 MG PO DAILY, (Reported) Ferrous Gluconate (Ferrous Gluconate) 324 Mg Tab, 324 MG PO BID, (Reported) Fluoxetine HCl (Prozac) 40 Mg Cap, 40 MG PO DAILY, (Reported) Fluoxetine HCl (Prozac) 40 Mg Capsule, 40 MG PO DAILY, (Reported) Furosemide (Furosemide) 40 Mg Tablet, 40 MG PO DAILY, (Reported) Losartan Potassium (Losartan Potassium) 50 Mg Tablet, 50 MG PO DAILY, (Reported) Pantoprazole Sodium (Pantoprazole Sodium) 40 Mg Tab, 40 MG PO BID Spironolactone (Aldactone) 25 Mg Tablet, 25 MG PO DAILY, (Reported) Sucralfate (Sucralfate) 1 Gm Tab, 1 GM PO ACHS Miscellaneous Medications [Patient Comment] , (Reported) PATIENT STATES SHE MAY HAVE TAKEN SOME MEDICATIONS THIS MORNING, UNSURE OF WHICH ONES. HAS NOT HAD ANY MEDICATIONS FILLED SINCE 02/20/17 - MED LIST FROM PATIENT ALSO HAD CLONIDINE 0.1MG BID, AMLODIPINE 5MG QD, AND LABETALOL 100MG 1/2 TABH BID, PATIENT HAS NOT HAD THESE FILLED SINCE DECEMBER, PRESCRIBED FROM LAST DISCHARGE Allergies Coded Allergies: No Known Allergies (Unverified , 12/27/16) Past Medical History Medical History As noted in HPI. Surgical History Repair Of FX Left Arm, CABG, Tonsillectomy history of renal artery stenosis/status post stent placement. Social History * Smoker: former Smoker Alcohol: Denies Drugs: denies Review of Systems Other systems 10 point review of systems negative unless otherwise specified in HPI. Physical Examination General Exam: Positive: Alert, Cooperative, No Acute Distress ENT Exam: Positive: Atraumatic, Mucous membr. moist/pink Neck Exam: Negative: JVD Chest Exam: Positive: Clear to auscultation, Normal air movement Heart Exam: Positive: Rate Normal, Normal S1, Normal S2 Abdomen Exam: Positive: Soft; Negative: Tenderness Extremity Exam: Negative: Tenderness Skin Exam: Positive: Other skin issue (right groin/right lower quadrant abdominal area with superficial hematoma noted. No active bleeding.) Psych Exam: Positive: Oriented x 3 Vital Signs Vital Signs Date Time Temp Pulse Resp B/P (MAP) Pulse Ox O2 Delivery O2 Flow Rate FiO2 09/25/18 14:25 98.2 70 18 183/74 (110) 94 09/25/18 12:07 2 Laboratory Data Labs 24H Laboratory Tests 2 09/25/18 08:36: Anion Gap 7L, Glomerular Filtration Rate 38.2L, Blood Urea Nitrogen 24H, Creatinine 1.43H, Sodium Level 142, Potassium Level 3.6, Chloride Level 109H, Carbon Dioxide Level 26, Calcium Level 8.4L 09/25/18 12:20: Anion Gap 6L, Glomerular Filtration Rate 37.3L, Blood Urea Nitrogen 24H, Creatinine 1.46H, Sodium Level 142, Potassium Level 4.0, Chloride Level 111H, Carbon Dioxide Level 25, Calcium Level 7.8L, Nucleated Red Blood Cells % (auto) 0.0, Immature Platelet Fraction 4.3, Troponin I 0.03 09/25/18 14:12: Lactic Acid Level 2.9*H CBC/BMP Laboratory Tests 09/25/18 08:36 Calcium Level 8.4 L 09/25/18 12:20 Calcium Level 7.8 L, Red Blood Count 3.63 L, Mean Corpuscular Volume 98.1 H, Mean Corpuscular Hemoglobin 31.4, Mean Corpuscular Hemoglobin Concent 32.0, Red Cell Distribution Width 15.2 H Plan / VTE VTE Prophylaxis Ordered?: Yes Plan Plan Episode of Hypotension, Chest Pain following Procedure CT Abd/Pel with no acute findings of hemorrhage Hgb, B/P is stable EKG with no acute ST changes, initial troponin negative--will serially trend, monitor on Telemetry We will cont to monitor the patient at this time Carotid vascular disease. Continue aspirin, statin at this time Further vascular intervention as per Dr. Becerra of vascular surgery PAD. Status post right common iliac artery stent placement 09/25/18. CAD/prior [place]/CABG. CKD3. Baseline appears to be 1.2-1.5 with GFR 34-44. Serum creatinine is noted to be 1.46. Renal artery stenosis status post stent placement. Renal Doppler ultrasound 09/03/18. Patient is scheduled for follow-up renal Doppler ultrasound 03/11. Abdominal aortic aneurysm. Last ultrasound 08/31/18 with maximal AP diameter 4.[address] 01/06 4.4 cm. Chronic thrombocytopenia No indication for transfusion at this time Will continue to monitor DVT Prophylaxis MIRELAs/CONCHITA Flanagan MD Sep 25, 2018 16:27
[2018-09-25] MEDS ORDERED: PANT-23 PO (17:29)
[2018-09-25] MEDS ORDERED: MILKSUS21 PO (17:29)
[2018-09-25] MEDS ORDERED: SUCR1TAB56 PO (17:29)
[2018-09-25] MEDS ORDERED: LOPE1CAP5 PO (17:29)
[2018-09-25] MEDS ORDERED: MIRA3350 PO (17:29)
[2018-09-25] MEDS ORDERED: ACET1TAB55 PO (17:29)
[2018-09-25] MEDS ORDERED: ASPI81TA85 PO (17:29)
[2018-09-25] MEDS: SUCRALFATE 1 GM TAB PO SCH ×2 (17:30→20:30)
[2018-09-25] MEDS ORDERED: NS 1,000 ML IV SCH (17:43)
[2018-09-25 18:27] LABS: MB/CK RELATIVE INDEX 2.04 (< OR =4); TROPONIN I 0.05 NG/ML (< 0.10)
[2018-09-25 20:00] VITALS: BP 155/70
[2018-09-25] MEDS: PANTOPRAZOLE 40MG TAB (PROTONIX) PO SCH (20:29)
[2018-09-25] MEDS: FERROUS GLUCONATE 324 MG TAB PO SCH (20:30)
[2018-09-25] MEDS: DONEPEZIL 5 MG TAB PO SCH (20:30)
[2018-09-25] MEDS: HumaLOG INSULIN (NovoLOG) PER UNIT SC SCH (21:00)
[2018-09-25] MEDS ORDERED: DEXTROSE 50% 50 ML SYRINGE IV PRN (22:00)
[2018-09-25] MEDS ORDERED: GLUCAGON FOR INJ 1 MG VIAL (J1610) SC PRN (22:00)
[2018-09-25] MEDS ORDERED: GLUCOSE 4 GM CHEW TABLET PO PRN (22:00)
[2018-09-25 23:59] VITALS: BP 140/65
[2018-09-26 01:37] LABS: CK-MB VALUE MASS < 1.0 NG/ML (<3.6); CPK CREATINE PHOSPHOKINASE 75 U/L (26-192); MB/CK RELATIVE INDEX 1.33 (< OR =4); TROPONIN I 0.09 NG/ML (< 0.10)
[2018-09-26 04:00] VITALS: BP 152/70
[2018-09-26 05:48] LABS: HEMATOCRIT 30.2 % (36.0-47.0); HEMOGLOBIN 9.6 g/dl (12.0-15.5); MEAN CORPUSCULAR HEMOGLOBIN 30.3 pg (27.0-33.0); MEAN CORPUSCULAR HGB CONC 31.8 g/dl (32.0-36.5); MEAN CORPUSCULAR VOLUME 95.3 fl (80.0-96.0); RED BLOOD COUNT 3.17 10^6/uL (4.00-5.40); WHITE BLOOD COUNT 3.6 10^3/uL (4.0-10.0)
[2018-09-26 06:02] LABS: PLATELET COUNT, AUTOMATED 61 10^3/uL (150-450)
[2018-09-26 06:14] LABS: CALCIUM LEVEL 7.7 MG/DL (8.8-10.2); CREATININE FOR GFR 1.65 MG/DL (0.55-1.30); GLOMERULAR FILTRATION RATE 32.4 (>39); MAGNESIUM LEVEL 2.3 MG/DL (1.8-2.4); POTASSIUM SERUM 3.6 MEQ/L (3.5-5.1)
[2018-09-26] MEDS: HumaLOG INSULIN (NovoLOG) PER UNIT SC SCH ×4 (07:30→20:27)
[2018-09-26 08:00] VITALS: BP 141/64
[2018-09-26] MEDS: ATORVASTATIN 20 MG TAB PO SCH (08:22)
[2018-09-26] MEDS: PANTOPRAZOLE 40MG TAB (PROTONIX) PO SCH ×2 (08:22→20:22)
[2018-09-26] MEDS: FLUoxetine 20 MG CAP PO SCH (08:22)
[2018-09-26] MEDS: SUCRALFATE 1 GM TAB PO SCH ×4 (08:23→20:22)
[2018-09-26] MEDS: ASPIRIN 81 MG ENTERIC TAB PO SCH (08:23)
[2018-09-26] MEDS: FERROUS GLUCONATE 324 MG TAB PO SCH ×2 (08:23→20:22)
[2018-09-26 10:09] LABS: CK-MB VALUE MASS < 1.0 NG/ML (<3.6); CPK CREATINE PHOSPHOKINASE 80 U/L (26-192); MB/CK RELATIVE INDEX 1.25 (< OR =4); TROPONIN I 0.06 NG/ML (< 0.10)
[2018-09-26] MEDS ORDERED: SLF 3 ML SYR IV PRN (11:30)
[2018-09-26 12:00] VITALS: BP 177/74
[2018-09-26] MEDS: SLF 3 ML SYR IV SCH ×2 (14:09→20:27)
--- NOTE | 2018-09-26 14:52 | IPNPDOC ---
Subjective Date Seen The patient was seen on 09/26/18. Subjective Chief Complaint/HPI Patient seen and examined at the bedside. Denies any acute overnight events. Objective Physical Examination General Exam: Positive: Alert, Cooperative, No Acute Distress ENT Exam: Positive: Atraumatic, Mucous membr. moist/pink Neck Exam: Negative: JVD Chest Exam: Positive: Clear to auscultation, Normal air movement Heart Exam: Positive: Rate Normal, Normal S1, Normal S2 Abdomen Exam: Positive: Soft; Negative: Tenderness Extremity Exam: Negative: Tenderness Skin Exam: Positive: Other skin issue Psych Exam: Positive: Oriented x 3 Assessment /Plan Plan/VTE VTE Prophylaxis Ordered?: Yes Plan Episode of Hypotension, Chest Pain following Procedure CT Abd/Pel with no acute findings of hemorrhage Hgb, B/P is stable EKG with no acute ST changes, troponins have been flat We will cont to monitor the patient at this time Carotid vascular disease. Continue aspirin, statin at this time Further vascular intervention as per Dr. Becerra of vascular surgery PAD. Status post right common iliac artery stent placement 09/25/18. CAD/prior [place]/CABG. CKD3. Baseline appears to be 1.2-1.5 Serum creatinine increased from 1.46-->1.65--likely 2/2 hypotension yesterday, we will cont to monitor Renal artery stenosis status post stent placement. Renal Doppler ultrasound 09/03/18. Patient is scheduled for follow-up renal Doppler ultrasound 03/11. Abdominal aortic aneurysm. Last ultrasound 08/31/18 with maximal AP diameter 4.[address] 01/06 4.4 cm. Chronic thrombocytopenia No indication for transfusion at this time Will continue to monitor DVT Prophylaxis SCDs/TEDs Dispo--anticipate D/C tomorrow pending renal stabilization, and PT clearance. VS, I&O, 24H, Fishbone Vital Signs/I&O Vital Signs Date Time Temp Pulse Resp B/P (MAP) Pulse Ox O2 Delivery O2 Flow Rate FiO2 09/26/18 12:00 97.2 61 18 177/74 (108) 94 09/25/18 12:07 2 I&O- Last 24 Hours up to 6 AM 09/26/18 06:00 Intake Total 260 ml Output Total 700 ml Balance -440 ml Laboratory Data 24H LABS Laboratory Tests 2 09/25/18 16:44: Total Creatine Kinase 49, Creatine Kinase MB 1.0, Creatine Kinase MB Relative Index 2.04, Troponin I 0.05# 09/25/18 18:36: Lactic Acid Level 1.3 09/25/18 20:11: Bedside Glucose (Misc Panel) 141H 09/26/18 00:51: Total Creatine Kinase 75, Creatine Kinase MB < 1.0, Creatine Kinase MB Relative Index 1.33, Troponin I 0.09# 09/26/18 05:25: Nucleated Red Blood Cells % (auto) 0.0, Anion Gap 7L, Glomerular Filtration Rate 32.4L, Blood Urea Nitrogen 28H, Creatinine 1.65H, Sodium Level 142, Potassium Level 3.6, Chloride Level 112H, Carbon Dioxide Level 23, Calcium Level 7.7L, Magnesium Level 2.3 09/26/18 08:58: Total Creatine Kinase 80, Creatine Kinase MB < 1.0, Creatine Kinase MB Relative Index 1.25, Troponin I 0.06# 09/26/18 11:56: Bedside Glucose (Misc Panel) 113H CBC/BMP Laboratory Tests 09/26/18 05:25 Red Blood Count 3.17 L, Mean Corpuscular Volume 95.3, Mean Corpuscular Hemoglobin 30.3, Mean Corpuscular Hemoglobin Concent 31.8 L, Red Cell Distribution Width 15.4 H, Calcium Level 7.7 L CONCHITA DANIEL MD Sep 26, 2018 14:52
[2018-09-26 16:00] VITALS: BP 174/74
[2018-09-26 20:00] VITALS: BP 176/72
[2018-09-26] MEDS: DONEPEZIL 5 MG TAB PO SCH (20:21)
[2018-09-26 23:59] VITALS: BP 160/60
[2018-09-27 04:00] VITALS: BP 155/78
[2018-09-27 05:41] LABS: HEMATOCRIT 30.5 % (36.0-47.0); HEMOGLOBIN 9.9 g/dl (12.0-15.5); MEAN CORPUSCULAR HEMOGLOBIN 30.7 pg (27.0-33.0); MEAN CORPUSCULAR HGB CONC 32.5 g/dl (32.0-36.5); MEAN CORPUSCULAR VOLUME 94.4 fl (80.0-96.0); RED BLOOD COUNT 3.23 10^6/uL (4.00-5.40); WHITE BLOOD COUNT 3.3 10^3/uL (4.0-10.0)
[2018-09-27 05:44] LABS: PLATELET COUNT, AUTOMATED 64 10^3/uL (150-450)
[2018-09-27 05:59] LABS: CALCIUM LEVEL 7.6 MG/DL (8.8-10.2); CREATININE FOR GFR 1.4 MG/DL (0.55-1.30); GLOMERULAR FILTRATION RATE 39.1 (>39); MAGNESIUM LEVEL 2.2 MG/DL (1.8-2.4); POTASSIUM SERUM 3.8 MEQ/L (3.5-5.1)
[2018-09-27] MEDS: SUCRALFATE 1 GM TAB PO SCH ×2 (06:55→12:18)
[2018-09-27] MEDS: SLF 3 ML SYR IV SCH (06:55)
[2018-09-27 07:46] VITALS: BP 180/78
--- NOTE | 2018-09-27 08:27 | ECGEPIP ---
[facility] Test Date: 2018-09-25 Pat Name: ALICIA ADAIR Department: Room: - Gender: Female Cover Seamer: [facility] : 1945 Requested By: Amaury Chandler Order Number: [id number] Reading MD: William Church Measurements Intervals [place] Rate: 56 P: 70 MD: 193 QRS: -7 QRSD: 128 T: 36 QT: 533 QTc: 515 Interpretive Statements Sinus bradycardia Inferior wall NV, age indeterminate Anterior NV, age indeterminate Nonspecific ST-T wave abnormalities No significant change when compared to prior tracing of Electronically Signed on 09-27-2018 8:27:41 EDT by William Church
[2018-09-27] MEDS: HumaLOG INSULIN (NovoLOG) PER UNIT SC SCH ×2 (08:55→12:00)
[2018-09-27] MEDS: PANTOPRAZOLE 40MG TAB (PROTONIX) PO SCH (08:56)
[2018-09-27] MEDS: FLUoxetine 20 MG CAP PO SCH (08:56)
[2018-09-27] MEDS: ATORVASTATIN 20 MG TAB PO SCH (08:56)
[2018-09-27] MEDS: ASPIRIN 81 MG ENTERIC TAB PO SCH (08:56)
[2018-09-27] MEDS: FERROUS GLUCONATE 324 MG TAB PO SCH (08:56)
[2018-09-27] MEDS ORDERED: hydrALAZINE INJ 20 MG/ML VIAL IV STA (12:04)
[2018-09-27 12:18] VITALS: BP 190/70
[2018-09-27 12:25] VITALS: BP 194/64
[2018-09-27 13:17] VITALS: BP 172/54
--- NOTE | 2018-09-27 15:37 | DS.PDOC ---
Discharge Summary General Date of Admission Sep 25, 2018 at 14:22 Date of Discharge 09/27/18 Specialist/Consultants Involve Dr. Becerra of Vascular Surgery Discharge Summary PROCEDURES PERFORMED DURING STAY: Right iliac stent artery placement by vascular surgery ADMITTING/DISCHARGE DIAGNOSES: Postprocedural episode of hypotension Carotid vascular disease Peripheral artery disease History of coronary artery disease Chronic kidney disease stage III COMPLICATIONS/CHIEF COMPLAINT: Stenosis. HISTORY OF PRESENT ILLNESS: . 73-year-old female with past medical history of hypertension, diabetes, dyslipidemia, CAD, anxiety, depression, chronic kidney disease, GERD, iron deficiency, and peripheral vascular disease was scheduled to have a left carotid angiogram with possible stent placement with vascular surgery today. Vascular access was obtained through the right femoral artery, however there was difficulty advancing catheter wires and the patient had a right common iliac artery stent placed instead. After the patient was given protamine, she had an episode of hypotension. A CT scan of the abdomen/pelvis was ordered and revealed no acute hemorrhage. The hospitalist service was called for admission and further evaluation and management. At this time, the patient denies any complaints of fevers, chills, chest pain, palpitations, shortness of breath, abdominal pain, or any nausea/vomiting/diarrhea. During hospitalization, the patient was treated with IV fluid hydration. The patient remained hemodynamically stable and her renal function returned back to her baseline. The patient denies any complaints of fevers, chills, chest pain, palpitations, abdominal pain, or any nausea/vomiting/diarrhea. The patient was seen and cleared by physical therapy to return home. I have advised the patient follow-up with her primary care physician within 7 days. She is also to follow up with Dr. Becerra of vascular surgery for further treatment of her carotid artery disease. Lastly, the patient is to return to the ER for any acute emergencies. DISCHARGE MEDICATIONS: Please see below. ALLERGIES: Please see below. PHYSICAL EXAMINATION ON DISCHARGE: VITAL SIGNS: Please see below. General Exam: Positive: Alert, Cooperative, No Acute Distress ENT Exam: Positive: Atraumatic, Mucous membr. moist/pink Neck Exam: Negative: JVD Chest Exam: Positive: Clear to auscultation, Normal air movement Heart Exam: Positive: Rate Normal, Normal S1, Normal S2 Abdomen Exam: Positive: Soft; Negative: Tenderness Extremity Exam: Negative: Tenderness Skin Exam: Positive: Other skin issue (right groin/right lower quadrant abdominal area with superficial hematoma noted. No active bleeding.) Psych Exam: Positive: Oriented x 3 LABORATORY DATA: Please see below. IMAGING: REASON: Post procedural hypotension. Assess for retroperitoneal hemorrhage. COMPARISON: 01/04/2017, the latest prior. The lack of intravenous contrast decreases the sensitivity of the exam. There is a small right pleural effusion with right-sided pleural thickening, unchanged. The left-sided pleural effusion seen on the prior exam has resolved. Scattered asymmetric bilateral lung-based densities are noted essentially unchanged and most consistent with subsegmental atelectasis. There is no pericardial effusion. Limited noncontrast enhanced evaluation of the abdomen and pelvis shows a micronodular surface to the hepatic parenchyma, status quo. There is dense material in the gallbladder consistent with cholelithiasis status quo. There is splenomegaly also essentially unchanged. There are bilateral renovascular calcifications status quo. There is a low density right adrenal gland mass, which is unchanged but having higher Hounsfield unit readings then one would normally except for an adenoma or myelolipoma. The fact that it has been stable is, however, reassuring. There are splenic varices, status quo. There is no significant change in the appearance of the pancreas. There is no evidence of free intraperitoneal air and there is no evidence of free intraperitoneal fluid. Limited evaluation of the bowel loops and their mesenteries show no gross abnormalities. There is an abdominal aortic aneurysm with calcific atherosclerotic changes. The maximal AP dimension of the aneurysm is estimated at approximately 4.9 cm, previously 4.5 cm. There is slight fatty infiltration of the left lateroconal fascia representing a change from the prior exam but without a discrete fluid collection in the left paracolic gutter. No definite abnormal para-aortic fluid collections or densities have developed. In the right groin, there is a new 5.1 x 4 x 7.9 cm sized density having Hounsfield unit readings lower than acute blood. There is an unchanged cystic mass in the right hemipelvis. There is no evidence of free intrapelvic fluid or intrapelvic air. Bone window technique throughout the examination shows no significant change in the appearance of the imaged osseous structures. There are spinal degenerative changes with bony demineralization status quo. IMPRESSION: 1. Lung base findings as described above. 2. Abdominal aortic aneurysm as described above. 3. Right groin mass as described above. The subacute hematoma could be responsible for the finding. It needs to be correlated clinically. 4. Evidence of cirrhosis of the liver. 5. Splenomegaly. 6. Cholelithiasis. 7. Other chronic changes and nonspecific findings as described above. PROGNOSIS: Fair ACTIVITY: As tolerated. DIET: 2 g low sodium diet DISCHARGE PLAN: DISPOSITION: [facility]. DISCHARGE INSTRUCTIONS: I have advised the patient follow-up with her primary care physician within 7 days. She is also to follow up with Dr. Becerra of vascular surgery for further treatment of her carotid artery disease. Lastly, the patient is to return to the ER for any acute emergencies. DISCHARGE CONDITION: Stable. TIME SPENT ON DISCHARGE: Greater than 30 minutes. Vital Signs/I&Os Vital Signs Date Time Temp Pulse Resp B/P (MAP) Pulse Ox O2 Delivery O2 Flow Rate FiO2 09/27/18 13:17 172/54 (93) 09/27/18 12:25 71 09/27/18 07:46 98.3 18 92 09/25/18 12:07 2 I&O- Last 24 Hours up to 6 AM 09/27/18 06:00 Intake Total 380 ml Output Total 500 ml Balance -120 ml Laboratory Data Labs 24H Laboratory Tests 2 09/26/18 16:39: Bedside Glucose (Misc Panel) 98 09/26/18 20:25: Bedside Glucose (Misc Panel) 167H 09/27/18 05:13: Nucleated Red Blood Cells % (auto) 0.0, Immature Platelet Fraction 4.0, Anion Gap 6L, Glomerular Filtration Rate 39.1, Blood Urea Nitrogen 25H, Creatinine 1.40H, Sodium Level 140, Potassium Level 3.8, Chloride Level 111H, Carbon Dioxide Level 23, Calcium Level 7.6L, Magnesium Level 2.2 09/27/18 11:38: Bedside Glucose (Misc Panel) 105 CBC/BMP Laboratory Tests 09/27/18 05:13 Red Blood Count 3.23 L, Mean Corpuscular Volume 94.4, Mean Corpuscular Hemoglobin 30.7, Mean Corpuscular Hemoglobin Concent 32.5, Red Cell Distribution Width 15.2 H, Calcium Level 7.6 L FSBS Laboratory Tests Test 09/26/18 16:39 09/26/18 20:25 09/27/18 11:38 Range/Units Bedside Glucose (Misc Panel) 98 167 105 83-110 MG/DL Discharge Medications Scheduled Aspirin (Aspir 81) 81 Mg Tablet.dr, 81 MG PO DAILY, (Reported) Atorvastatin Calcium (Atorvastatin Calcium) 80 Mg Tab, 80 MG PO QHS, (Reported) Donepezil HCl (Donepezil HCl) 10 Mg Tablet, 10 MG PO QHS, (Reported) Ferrous Gluconate (Ferrous Gluconate) 324 Mg Tab, 324 MG PO BID, (Reported) Fluoxetine HCl (Prozac) 40 Mg Cap, 40 MG PO DAILY, (Reported) Furosemide (Furosemide) 40 Mg Tablet, 40 MG PO DAILY, (Reported) Losartan Potassium (Losartan Potassium) 50 Mg Tablet, 50 MG PO DAILY, (Reported) Pantoprazole Sodium (Pantoprazole Sodium) 40 Mg Tablet.dr, 40 MG PO BID, (Reported) Spironolactone (Aldactone) 25 Mg Tablet, 25 MG PO DAILY, (Reported) Sucralfate (Sucralfate) 1 Gm Tablet, 1 GM PO QID, (Reported) 0730, 1130, 1630, 2030 Scheduled PRN Acetaminophen (Acetaminophen) 325 Mg Tablet, 650 MG PO Q4H PRN for pain or fever, (Reported) Loperamide HCl (Loperamide) 2 Mg Capsule, 2 MG PO DAILY PRN for DIARRHEA, (Reported) Magnesium Hydroxide (Milk of Magnesia) 400 Mg/5 Ml Oral.susp, 2,400 MG PO DAILY PRN for CONSTIPATION, (Reported) Polyethylene Glycol 3350 (Miralax) 119 Gm Powder, 17 GM PO DAILY PRN for CONSTIPATION, (Reported) dilute in 8 ounces of water or juice Allergies Coded Allergies: No Known Allergies (Unverified , 12/27/16) CONCHITA DANIEL MD Sep 27, 2018 15:37
--- NOTE | 2018-09-28 23:08 | ECHO ---
DATE OF PROCEDURE: 09/26/2018 DATE OF : 1945 AGE: 73 REFERRING PROVIDER: Dr. Dereck Mejia PATIENT LOCATION: Room 3211 REASON FOR THE ECHOCARDIOGRAM: Chest pain, unspecified. 2D MEASUREMENTS: IVS: 1.2 cm LV: 5.0 cm LVPW: 1.3 cm LA: 4.5 cm Aorta: 2.5 cm IVC: 1.8 cm DOPPLER MEASUREMENTS: Peak velocity across the aortic valve: 3.4 m/s Peak velocity across the LVOT: 1.4 m/s Peak gradient across the aortic valve: 47 mmHg Mean gradient across the aortic valve: 26 mmHg Mitral E: 1.7, Mitral A: 0.89 with a ratio of 1.9 Maximum tricuspid valve velocity: 2.6 m/s 2D COMMENTS: 1. Normal left ventricular size, wall thickness, and normal global left ventricular systolic function. The estimated left ventricular systolic ejection fraction is 65-70%. 2. Mildly enlarged left atrium. Normal right atrium and right ventricle. 3. The atrial septum appeared to be normal without evidence of defect or shunt. 4. Normal aortic root. 5. No pericardial effusion seen. 6. Moderately calcified aortic valve with restricted leaflet motion. Moderately calcified mitral annulus with normal anterior mitral valve leaflet motion. Normal tricuspid valve and pulmonic valve. The proximal pulmonary artery branches were not well visualized. 7. The inferior vena cava was normal in size, central venous pressure is most likely normal. DOPPLER: It detects trace aortic regurgitation, mild mitral regurgitation, mild tricuspid regurgitation. The calculated pulmonary artery systolic pressure varies between 30-40 mmHg. Assessment of the left ventricular diastolic function appeared to be normal. IMPRESSION: 1. Normal global left ventricular systolic function with mild concentric left ventricular hypertrophy. Left ventricular diastolic function also appeared to be normal. 2. Mildly enlarged left atrium with mitral annulus calcification and mild mitral regurgitation. 3. Aortic valve sclerosis with trace aortic regurgitation and moderate aortic stenosis. 4. Mild tricuspid regurgitation with mild pulmonary hypertension. 5. Prior study/echocardiogram was on 12/29/2016 and at that time, the peak and mean gradients across the aortic valve were 43 mmHg and 25 mmHg, respectively. Tricuspid valve velocity was 2.9 m/s. Aortic valve severity continues to be moderate with a slightly higher gradient. MTDD
--- NOTE | 2018-10-05 07:48 | REPIR ---
DATE OF PROCEDURE: 09/25/2018 PREOPERATIVE DIAGNOSES: Left carotid artery stenosis. Chronic renal insufficiency. Aortoiliac atherosclerotic occlusive disease. Abdominal aortic aneurysm. Bilateral renal artery stenosis. Hypertension. Continued tobacco use. POSTOPERATIVE DIAGNOSES: Left carotid artery stenosis. Chronic renal insufficiency. Aortoiliac atherosclerotic occlusive disease. Abdominal aortic aneurysm. Bilateral renal artery stenosis. Hypertension. Continued tobacco use. PROCEDURE: Right common femoral arterial cannulation. Selective right brachiocephalic arterial catheter placement with angiogram. Iliofemoral angiogram. Right common and external iliac artery angioplasty and stent with a 10 x 39 Wallstent postdilated with an 8 x 4 balloon. MYNX closure of the right common femoral arteriotomy. ATTENDING SURGEON: Dr. Jon Becerra CATTLE SORTER: Stan Reyes and Diane Barajas ANESTHESIA: Local sedation with 2 mg Versed, 100 mcg fentanyl and 20 mL of local Benadryl 50 mg CONTRAST: 2 mL of Isovue-300. SEDATION TIME: 11:01 a.m. to 12:26 p.m. for a total of 85 minutes. HEPARIN: 7000 units. Protamine 50 mg COMPLICATIONS: None. Drains: None. SPECIMENS: None. IMPLANTS: Right common femoral arteriotomy closure with a MYNX closure device. Right common and external iliac artery angioplasty stent with a 10 x 39 Wallstent. INDICATION: The patient is a 73-year-old female with left carotid artery stenosis and renal insufficiency who will undergo angiography with possible angioplasty stent and/or stent. Risks, benefits and alternative options discussed with the patient. DESCRIPTION OF PROCEDURE: The patient was taken to the angiography suite, placed supine on the angiography room table and the right common femoral artery was cannulated and a sheath placed. There was difficulty passing through the iliac artery, which was eventually passed through and the catheter was placed in the right innominate artery and an angiogram performed with inability to find the left common carotid artery originating off of the trunk of the right innominate artery. Due to the high-grade stenosis in the right common and external iliac artery, iliofemoral angiogram was performed showing high grade stenosis and then the right common and external iliac arteries were angioplasty and stented with 10 x 39 Wallstent postdilated an 8 x 4 balloon. Completion iliofemoral angiogram showed resolution of the stenosis with excellent flow through the common iliac into the external iliac artery and distally. Catheters and wires were removed. The sheath was removed and a 6-[place] MYNX closure device used close the arteriotomy in the right common femoral artery with an additional 10 minutes adjunctive pressure applied for hemostasis. Dressings were then applied. The patient tolerated the procedure well. All instrument, sponge and needle counts were correct at the end of the case. There were no complications. Dr. Becerra was present for and directed the entire case. The patient was transferred to the holding area and subsequent discharged in stable condition.
== END 2018-09-27 14:08 | DRG 254 ==
LOC: M IRPRO 08:07 → M PCU 14:22
PROVIDERS: ADMIT Internal Medicine; ATTEND Internal Medicine
PROC: 047C34Z Dilation of Right Common Iliac Artery with Drug-eluting Intraluminal Device, Percutaneous Approach (ICD-10-PCS; 2018-09-25)
PROC: 047H3ZZ Dilation of Right External Iliac Artery, Percutaneous Approach (ICD-10-PCS; 2018-09-25)
PROC: B41F1ZZ Fluoroscopy of Right Lower Extremity Arteries using Low Osmolar Contrast (ICD-10-PCS; 2018-09-25)
PROC: B3141ZZ Fluoroscopy of Left Common Carotid Artery using Low Osmolar Contrast (ICD-10-PCS; principal; 2018-09-25 09:00)
DX: I95.81 Postprocedural hypotension (principal); I65.22 Occlusion and stenosis of left carotid artery; I70.202 Unspecified atherosclerosis of native arteries of extremities, left leg; N18.3 Chronic kidney disease, stage 3 (moderate); I25.10 Atherosclerotic heart disease of native coronary artery without angina pectoris; I12.9 Hypertensive chronic kidney disease with stage 1 through stage 4 chronic kidney disease, or unspecified chronic kidney disease; E11.9 Type 2 diabetes mellitus without complications; E78.5 Hyperlipidemia, unspecified; F41.9 Anxiety disorder, unspecified; F32.9 Major depressive disorder, single episode, unspecified; K21.9 Gastro-esophageal reflux disease without esophagitis; K74.60 Unspecified cirrhosis of liver; K80.20 Calculus of gallbladder without cholecystitis without obstruction; Z79.899 Other long term (current) drug therapy; Z79.82 Long term (current) use of aspirin; I25.2 Old myocardial infarction; Z87.891 Personal history of nicotine dependence; F03.90 Unspecified dementia, unspecified severity, without behavioral disturbance, psychotic disturbance, mood disturbance, and anxiety; I71.4 Abdominal aortic aneurysm, without rupture; D69.6 Thrombocytopenia, unspecified

== ENCOUNTER → 2018-12-03 | Outpatient (REF) ==
[~2018-12-03] MED LIST changes: +ACET1TAB55 PO; +ASPI81TA85 PO; -BUPIVACAINE HCL 0.5% 10 ML VIAL As Ordered ONE; -HEPARIN 1,000 UNITS/ML 10ML VIAL (FOR RADIOLOGY& DIALYSIS ONLY) As Ordered ONE; -ISOVUE-300 61% 50ML VIAL (Q9967) As Ordered ONE; -LIDOCAINE 2% MDV 20 ML VIAL As Ordered ONE; +LOPE1CAP5 PO; +MILKSUS21 PO; +MIRA3350 PO; +PANT-23 PO; +SUCR1TAB56 PO; -diphenhydrAMINE INJ 50MG/ML VIAL (J1200) As Ordered ONE
[2018-12-03 10:11] LABS: PERCENT SATURATION 16.6 % (13.2-45.0)
[2018-12-03 10:30] LABS: FOLATE 7.6 NG/ML (>5.4)
== END ==
LOC: SKLAB3 08:39
PROVIDERS: ATTEND Internal Medicine
DX: D64.9 Anemia, unspecified (principal)

== ENCOUNTER → 2018-12-10 | Outpatient (REF) ==
[2018-12-10 08:07] LABS: HEMATOCRIT 31.1 % (36.0-47.0); HEMOGLOBIN 10.1 g/dl (12.0-15.5); MEAN CORPUSCULAR HEMOGLOBIN 31.5 pg (27.0-33.0); MEAN CORPUSCULAR HGB CONC 32.5 g/dl (32.0-36.5); MEAN CORPUSCULAR VOLUME 96.9 fl (80.0-96.0); RED BLOOD COUNT 3.21 10^6/uL (4.00-5.40); WHITE BLOOD COUNT 2.6 10^3/uL (4.0-10.0)
[2018-12-10 08:09] LABS: PLATELET COUNT, AUTOMATED 76 10^3/uL (150-450)
[2018-12-10 08:37] LABS: CALCIUM LEVEL 7.9 MG/DL (8.8-10.2); CREATININE FOR GFR 1.39 MG/DL (0.55-1.30); GLOMERULAR FILTRATION RATE 39.5 (>39); POTASSIUM SERUM 4.1 MEQ/L (3.5-5.1)
[2018-12-10 12:46] LABS: HEMOGLOBIN A1c 5.9 %
== END ==
LOC: SKLAB3 07:49
PROVIDERS: ATTEND Internal Medicine
DX: D64.9 Anemia, unspecified (principal)

== ENCOUNTER → 2019-01-02 | Outpatient (REF) | payer MEDICARE, MEDICAID ==
[2019-01-02 13:36] LABS: BASO # 0.1 10^3/uL (0.0-0.2); EOS # 0.3 10^3/uL (0.0-0.5); EOS % 4.8 % (0.0-3.0); HEMATOCRIT 39.2 % (36.0-47.0); HEMOGLOBIN 12.5 g/dl (12.0-15.5); LYMPH # 1.1 10^3/uL (1.5-5.0); LYMPH % 16.8 % (24.0-44.0); MEAN CORPUSCULAR HEMOGLOBIN 30.5 pg (27.0-33.0); MEAN CORPUSCULAR HGB CONC 31.9 g/dl (32.0-36.5); MEAN CORPUSCULAR VOLUME 95.6 fl (80.0-96.0); MONO # 0.5 10^3/uL (0.0-0.8); MONO % 7.5 % (0.0-5.0); NEUTROPHILS # 4.7 10^3/uL (1.5-8.5); NEUTROPHILS % 69.6 % (36.0-66.0); PLATELET COUNT, AUTOMATED 101 10^3/uL (150-450); WHITE BLOOD COUNT 6.7 10^3/uL (4.0-10.0)
[2019-01-02 14:01] LABS: ALBUMIN 3.2 GM/DL (3.2-5.2); BILIRUBIN,TOTAL 0.9 MG/DL (0.2-1.0); CALCIUM LEVEL 8.4 MG/DL (8.8-10.2); CREATININE FOR GFR 2.78 MG/DL (0.55-1.30); GLOMERULAR FILTRATION RATE 17.7 (>39); POTASSIUM SERUM 4.3 MEQ/L (3.5-5.1); TOTAL PROTEIN 7.5 GM/DL (6.4-8.2)
[2019-01-02 17:17] LABS: APPEARANCE, URINE CLOUDY (CLEAR); BACTERIA, URINE AUTO 3+ (NEGATIVE); BILIRUBIN, URINE AUTO NEGATIVE (NEGATIVE); BLOOD, URINE BLOOD 1+ (NEGATIVE); COLOR, URINE AMBER (YELLOW); GLUCOSE, URINE (UA) AUTO NEGATIVE (NEGATIVE); KETONE, URINE AUTO NEGATIVE (NEGATIVE); LEUKOCYTE ESTERASE, URINE AUTO 1+ (NEGATIVE); MUCUS, URINE SMALL (NEGATIVE); NITRITE, URINE AUTO NEGATIVE (NEGATIVE); PROTEIN, URINE AUTO 1+ mg/dL (NEGATIVE); RBC, URINE AUTO 3 /HPF (0-3); SPECIFIC GRAVITY URINE AUTO 1.015 (1.002-1.035); SQUAMOUS EPITHELIAL CELL UR AU 2 /HPF (0-6); UROBILINOGEN, URINE AUTO 0.2 mg/dL (0.0-2.0); WBC, URINE AUTO 23 /HPF (0-3)
== END ==
LOC: SKLAB3 12:12
PROVIDERS: ATTEND Internal Medicine
DX: R41.82 Altered mental status, unspecified (principal); Z79.899 Other long term (current) drug therapy

== ENCOUNTER → 2019-01-04 | Outpatient (REF) | payer MEDICARE, MEDICAID ==
[2019-01-04 07:45] LABS: BASO % 1.3 % (0.0-1.0); EOS # 0.2 10^3/uL (0.0-0.5); EOS % 6.6 % (0.0-3.0); HEMATOCRIT 35.1 % (36.0-47.0); HEMOGLOBIN 10.7 g/dl (12.0-15.5); LYMPH # 0.9 10^3/uL (1.5-5.0); LYMPH % 30.9 % (24.0-44.0); MEAN CORPUSCULAR HGB CONC 30.5 g/dl (32.0-36.5); MEAN CORPUSCULAR VOLUME 98.3 fl (80.0-96.0); MONO # 0.3 10^3/uL (0.0-0.8); MONO % 10.3 % (0.0-5.0); NEUTROPHILS # 1.5 10^3/uL (1.5-8.5); NEUTROPHILS % 50.6 % (36.0-66.0); PLATELET COUNT, AUTOMATED 51 10^3/uL (150-450); RED BLOOD COUNT 3.57 10^6/uL (4.00-5.40)
[2019-01-04 08:19] LABS: ALBUMIN 2.5 GM/DL (3.2-5.2); BILIRUBIN,TOTAL 0.6 MG/DL (0.2-1.0); CALCIUM LEVEL 8.1 MG/DL (8.8-10.2); CREATININE FOR GFR 1.83 MG/DL (0.55-1.30); GLOMERULAR FILTRATION RATE 28.7 (>39); POTASSIUM SERUM 4.5 MEQ/L (3.5-5.1); TOTAL PROTEIN 6.1 GM/DL (6.4-8.2)
== END ==
LOC: SKLAB3 13:31
PROVIDERS: ATTEND Internal Medicine
DX: R41.82 Altered mental status, unspecified (principal); Z79.899 Other long term (current) drug therapy; R19.7 Diarrhea, unspecified

== ENCOUNTER → 2019-01-04 | Outpatient (REF) | payer MEDICARE, MEDICAID ==
[2019-01-05 02:51] LABS: CLOSTRIDIUM DIFFICILE PCR NEGATIVE (NEGATIVE)
== END ==
LOC: SKLAB3 15:22
PROVIDERS: ATTEND Internal Medicine
DX: R19.7 Diarrhea, unspecified (principal)

== ENCOUNTER → 2019-01-07 | Outpatient (REF) | payer MEDICARE, MEDICAID ==
[~2019-01-07] MED LIST changes: +BISA10SU4 PR; +MOM30SS PO; +RISATAB3 PO
[2019-01-07 09:36] LABS: BASO # 0.1 10^3/uL (0.0-0.2); EOS # 0.6 10^3/uL (0.0-0.5); EOS % 9.6 % (0.0-3.0); HEMATOCRIT 37.1 % (36.0-47.0); HEMOGLOBIN 11.2 g/dl (12.0-15.5); LYMPH % 15.8 % (24.0-44.0); MEAN CORPUSCULAR HGB CONC 30.2 g/dl (32.0-36.5); MEAN CORPUSCULAR VOLUME 99.5 fl (80.0-96.0); MONO # 0.5 10^3/uL (0.0-0.8); MONO % 8.4 % (0.0-5.0); RED BLOOD COUNT 3.73 10^6/uL (4.00-5.40); WHITE BLOOD COUNT 6.1 10^3/uL (4.0-10.0)
[2019-01-07 09:43] LABS: PLATELET COUNT, AUTOMATED 70 10^3/uL (150-450)
[2019-01-07 09:57] LABS: ALBUMIN 2.7 GM/DL (3.2-5.2); BILIRUBIN,TOTAL 0.6 MG/DL (0.2-1.0); CALCIUM LEVEL 8.2 MG/DL (8.8-10.2); CREATININE FOR GFR 3.89 MG/DL (0.55-1.30); POTASSIUM SERUM 4.8 MEQ/L (3.5-5.1); TOTAL PROTEIN 6.4 GM/DL (6.4-8.2)
== END ==
LOC: SKLAB3 07:00
PROVIDERS: ATTEND Internal Medicine
DX: E86.0 Dehydration (principal)

== ENCOUNTER → 2019-01-08 | Outpatient (REF) | payer MEDICARE, MEDICAID | LOC: SKLAB3 13:01 | PROVIDERS: ATTEND Internal Medicine | DX: N17.9 Acute kidney failure, unspecified (principal) ==

== ENCOUNTER → 2019-01-08 | Outpatient (REF) | payer MEDICARE, MEDICAID ==
[2019-01-08 07:51] LABS: BASO % 0.7 % (0.0-1.0); EOS # 0.4 10^3/uL (0.0-0.5); EOS % 9.1 % (0.0-3.0); HEMATOCRIT 30.7 % (36.0-47.0); HEMOGLOBIN 9.9 g/dl (12.0-15.5); LYMPH # 0.9 10^3/uL (1.5-5.0); LYMPH % 18.4 % (24.0-44.0); MEAN CORPUSCULAR HEMOGLOBIN 30.7 pg (27.0-33.0); MEAN CORPUSCULAR HGB CONC 32.2 g/dl (32.0-36.5); MEAN CORPUSCULAR VOLUME 95.3 fl (80.0-96.0); MONO # 0.5 10^3/uL (0.0-0.8); MONO % 11.1 % (0.0-5.0); NEUTROPHILS # 2.8 10^3/uL (1.5-8.5); NEUTROPHILS % 60.5 % (36.0-66.0); RED BLOOD COUNT 3.22 10^6/uL (4.00-5.40); WHITE BLOOD COUNT 4.6 10^3/uL (4.0-10.0)
[2019-01-08 08:02] LABS: PLATELET COUNT, AUTOMATED 56 10^3/uL (150-450)
[2019-01-08 08:50] LABS: ALBUMIN 2.3 GM/DL (3.2-5.2); BILIRUBIN,TOTAL 0.5 MG/DL (0.2-1.0); CALCIUM LEVEL 7.8 MG/DL (8.8-10.2); CREATININE FOR GFR 4.39 MG/DL (0.55-1.30); GLOMERULAR FILTRATION RATE 10.5 (>39); POTASSIUM SERUM 4.8 MEQ/L (3.5-5.1); TOTAL PROTEIN 5.7 GM/DL (6.4-8.2)
== END ==
LOC: SKLAB3 09:11
PROVIDERS: ATTEND Internal Medicine
DX: E86.0 Dehydration (principal)

== ENCOUNTER 2019-01-09 10:37 | Inpatient (IN) | payer MEDICARE, MEDICAID ==
[~2019-01-09] VITALS: Ht 167.6 cm; Wt 81.8 kg
[~2019-01-09 10:37] MED LIST changes: -BISA10SU4 PR; -DEXTROSE 50% 50 ML SYRINGE IV PRN; -GLUCAGON FOR INJ 1 MG VIAL (J1610) SC PRN; -GLUCOSE 4 GM CHEW TABLET PO PRN; -HumaLOG INSULIN (NovoLOG) PER UNIT SC SCH; -MOM30SS PO; -RISATAB3 PO
[2019-01-09 11:22] LABS: APPEARANCE, URINE MANUAL HAZY (CLEAR); COLOR, URINE MANUAL YELLOW (YELLOW); GLUCOSE, URINE (UA) MANUAL NEGATIVE (NEGATIVE); KETONE, URINE MANUAL NEGATIVE (NEGATIVE); NITRITE, URINE MANUAL NEGATIVE (NEGATIVE); PROTEIN, URINE MANUAL 1+ mg/dL (NEGATIVE); SPECIFIC GRAVITY,URINE MANUAL 1.015 (1.002-1.035); UROBILINOGEN, URINE MANUAL NORMAL (NORMAL)
[2019-01-09 11:23] LABS: BILIRUBIN, URINE MANUAL 1+ (NEGATIVE); BLOOD URINE MANUAL POSITIVE (NEGATIVE); LEUKOCYTE ESTERASE, URINE MAN POSITIVE (NEGATIVE)
[2019-01-09 11:29] LABS: BACTERIA, URINE LARGE AMOUNT; HYALINE CAST, URINE NONE SEEN /lpf (0-1); RBC, URINE 15-20 /hpf (0-3); SQUAMOUS EPITHELIAL CELL URINE NONE SEEN /hpf (SMALL AMT)
[2019-01-09 11:38] LABS: OSMOLALITY URINE 279 MOSM/KG (500-800)
[2019-01-09 11:46] LABS: POTASSIUM RANDOM URINE 15.4 MEQ/L; SODIUM,RANDOM URINE 23 MEQ/L
[2019-01-09 11:59] LABS: IONIZED CALCIUM 4.7 MG/DL (4.5-5.3)
[2019-01-09] MEDS ORDERED: MOM30SS PO (12:32)
[2019-01-09] MEDS ORDERED: BISA10SU4 PR (12:32)
[2019-01-09] MEDS ORDERED: RISATAB3 PO (12:32)
[2019-01-09 12:38] LABS: ALBUMIN 2.6 GM/DL (3.2-5.2); BILIRUBIN,TOTAL 0.7 MG/DL (0.2-1.0); CALCIUM LEVEL 7.7 MG/DL (8.8-10.2); CREATININE FOR GFR 4.48 MG/DL (0.55-1.30); GLOMERULAR FILTRATION RATE 10.2 (>39); MAGNESIUM LEVEL 2.2 MG/DL (1.8-2.4); PHOSPHORUS LEVEL 4.5 MG/DL (2.5-4.9); POTASSIUM SERUM 4.8 MEQ/L (3.5-5.1); TOTAL PROTEIN 6.1 GM/DL (6.4-8.2)
--- NOTE | 2019-01-09 13:34 | REP ---
RENAL ULTRASOUND: Real-time sonographic evaluation of the kidneys performed. Kidneys are normal in size and echotexture, right kidney measuring 12.8 x 4.9 x 4.3 cm and left kidney 11.4 x 4.6 x 4.2 cm. There is no hydronephrosis bilaterally. Left parapelvic cyst measures 1.4 x 1.0 x 1.3 cm. Luna catheter is noted in the urinary bladder. IMPRESSION: No hydronephrosis. Electronically Signed by Kentrell Hoang MD 01/10/2019 11:21 A
[2019-01-09] MEDS ORDERED: BISACODYL 10 MG SUPP PR PRN (17:30)
[2019-01-09] MEDS ORDERED: ACETAMINOPHEN TAB 650MG DOSE (2X325MG) PO PRN (17:30)
[2019-01-09 17:43] LABS: ABG BASE EXCESS -14.6 (-2.0-2.0); ABG HCO3 10.1 MEQ/L (22.0-26.0); ABG O2 SATURATION 96.8 % (95.0-99.0); ABG PARTIAL PRESSURE CO2 21.5 mmHg (35.0-45.0); ABG PARTIAL PRESSURE O2 89.3 mmHg (75.0-100.0); ABG STANDARD HCO3 13.2 MEQ/L (22.0-26.0); ABG TOTAL CO2 10.7 MEQ/L (23.0-31.0); ABG pH (ARTERIAL) 7.288 UNITS (7.350-7.450)
[2019-01-09 18:30] VITALS: BP 138/76
--- NOTE | 2019-01-09 18:46 | HPEPDOC ---
[facility] Medical History & Physical Date of Admission Jan 09, 2019 Date of Service: Jan 09, 2019 Attending Physician: JOSE ANGEL GREENFIELD MD History and Physical CHIEF COMPLAINT: Sent for worsening creatinine HISTORY OF PRESENT ILLNESS: 73-year-old female with past medical history of coronary artery disease status post RI and CABG, dementia, cirrhosis, diabetes mellitus, chronic kidney disease is sent from [facility] for worsening creatinine. Patient has baseline dementia as per records, currently alert and oriented 2, unable to provide a reliable history, as per patient. She is here because she fell a few days ago. Patient is currently comfortable in bed, without any complaints. As this is my first time seeing the patient it is unclear if this is her baseline or she is acutely altered. She denies any shortness of breath, chest pain, nausea, vomiting, abdominal pain or diarrhea. 10 point review of system is negative except for above PAST MEDICAL HISTORY: 1. Coronary artery disease 2. Diabetes mellitus 3. Cirrhosis. 4. RI 5. Dementia. 6. Chronic kidney disease PAST SURGICAL HISTORY: 1. CABG. SOCIAL HISTORY: Ex-smoker, smoked 1 pack per day for 20 years, quit 20 years ago. Denies alcohol use. Denies drug use FAMILY HISTORY: Family history positive for heart disease ALLERGIES: Please see below. HOME MEDICATIONS: Please see below. PHYSICAL EXAMINATION: VITAL SIGNS: Please see below. GENERAL: No distress HEENT: Normocephalic, atraumatic, moist mucous membranes NECK: Supple CARDIOVASCULAR EXAMINATION: S1, S2, bradycardic, systolic murmurs appreciated RESPIRATORY EXAMINATION: Clear to auscultation, no wheezing ABDOMINAL EXAMINATION: Soft, nontender, nondistended, positive bowel sounds EXTREMITIES: Range of motion intact SKIN: No rash NEUROLOGICAL EXAMINATION: Alert and oriented 3, no focal deficits PSYCHIATRIC EXAMINATION: Calm and cooperative LABORATORY DATA: See below. IMAGING: Renal ultrasound negative for hydronephrosis MICROBIOLOGY: Please see below. ASSESSMENT: 73-year-old female with past medical history of coronary artery disease, RI, diabetes mellitus, dementia, cirrhosis, chronic kidney disease presents from [facility] with worsening acute kidney injury. PLAN: 1. Acute on chronic kidney disease. Labs reviewed over the past few days, creatinine worsening, based on labs and clinical presentation there is no need for emergent hemodialysis. Labs consistent with non-gap metabolic acidosis, likely due to acute on chronic kidney disease, ABG with pH of 7.28, start IV hydration with sodium bicarbonate 75 mEq with half-normal saline at 125, femorals per hour. FeNa - <1%, renal ultrasound negative for hydronephrosis, hold angiotensin receptor jonny, Luna inserted. Nephrology consulted, will likely require hemodialysis if renal function does not improve over the next 24-48 hours. 2. Coronary artery disease. Status post RI and CABG TTE pending Continue optimal medical management (aspirin, statin, beta jonny) 3. Cirrhosis. Thrombocytopenic, INR pending. 4. Diabetes mellitus. Sliding scale insulin with fingersticks before meals and at bedtime 5. Dementia. Continue donepezil DVT prophylaxis: TEDs. GI prophylaxis: Home Protonix Vital Signs Vital Signs Date Time Temp Pulse Resp B/P (MAP) Pulse Ox O2 Delivery O2 Flow Rate FiO2 01/09/19 18:01 45 96 Room Air 01/09/19 18:00 98.7 17 131/60 (83) Laboratory Data Labs 24H Laboratory Tests 2 01/09/19 11:06: Bedside Urine Color (LAB) YELLOW, Bedside Urine Appearance (LAB) HAZYH, Bedside Urine pH (LAB) 5.0, Bedside Urine Specific [place] (LAB 1.015, Bedside Urine Protein (LAB) 1+H, Bedside Urine Glucose (UA) NEGATIVE, Bedside Urine Ketones (LAB) NEGATIVE, Bedside Urine Blood POSITIVEH, Bedside Urine Nitrite (LAB) NEGATIVE, Bedside Urine Bilirubin (LAB) 1+H, Bedside Urine Urobilinogen (LAB) NORMAL, Bedside Urine Leukocyte Esterase (L POSITIVEH, Urine Sediment Examination PERFORMED, Urine RBC 15-20H, Urine WBC 1-3, Urine Squamous Epithelial Cells NONE SEEN, Urine Bacteria LARGE AMOUNTH, Urine Hyaline Casts NONE SEEN, Urine Random Osmolality 279L, Urine Random Creatinine 136.0, Urine Random Sodium 23, Urine Random Potassium 15.4 01/09/19 11:42: Anion Gap 9, Glomerular Filtration Rate 10.2L, Osmolality 286, Uric Acid 8.0H, Calcium Level 7.7L, Whole Blood Ionized Calcium 4.7, Phosphorus Level 4.5, Magnesium Level 2.2, Total Bilirubin 0.7, Aspartate Amino Transf (AST/SGOT) 31, Alanine Aminotransferase (ALT/SGPT) 21, Alkaline Phosphatase 128H, Total Creatine Kinase 62, Total Protein 6.1L, Albumin 2.6L, Albumin/Globulin Ratio 0.74L 01/09/19 17:20: Blood Gas Bicarbonate Standard 13.2L, Arterial Blood pH 7.288L, Arterial Blood Partial Pressure CO2 21.5L, Arterial Blood Partial Pressure O2 89.3, Arterial Blood Total CO2 10.7L, Arterial Blood HCO3 10.1L, Arterial Blood Base Excess - 14.6L, Arterial Blood Oxygen Saturation 96.8 CBC/BMP Laboratory Tests 01/09/19 11:42 Microbiology Microbiology 01/09/19 Gastrointestinal Tract Panel (PCR) - Final, Complete Home Medications Scheduled Aspirin (Aspir 81) 81 Mg Tablet.dr, 81 MG PO DAILY Atorvastatin Calcium (Atorvastatin Calcium) 80 Mg Tab, 80 MG PO QHS Donepezil HCl (Donepezil HCl) 10 Mg Tablet, 10 MG PO DAILY Ferrous Gluconate (Ferrous Gluconate) 324 Mg Tab, 324 MG PO BID Fluoxetine HCl (Prozac) 40 Mg Cap, 40 MG PO DAILY L.acidoph/L.bulg/B.bif/S.therm (Nelly-Bid Caplet) 1 Each Tablet, 1 TAB PO BID Losartan Potassium (Losartan Potassium) 50 Mg Tablet, 50 MG PO DAILY Pantoprazole Sodium (Pantoprazole Sodium) 40 Mg Tablet.dr, 40 MG PO BID Scheduled PRN Acetaminophen (Acetaminophen) 325 Mg Tablet, 650 MG PO Q4H PRN for PAIN / FEVER Bisacodyl (Bisacodyl) 10 Mg Supp.rect, 10 MG ND DAILY PRN for CONSTIPATION Loperamide HCl (Loperamide) 2 Mg Capsule, 2 MG PO Q4H PRN for DIARRHEA Milk Of Magnesia (Milk of Magnesia) 2,400 Mg/10 Ml Oral.susp, 10 ML PO DAILY PRN for CONSTIPATION Allergies Coded Allergies: No Known Allergies (Unverified , 12/27/16) A-FIB/CHADSVASC A-FIB History Current/History of A-Fib/PAF?: No JOSE ANGEL GREENFIELD MD Jan 09, 2019 18:46
[2019-01-09 19:10] LABS: HEMATOCRIT 35.2 % (36.0-47.0); HEMOGLOBIN 10.8 g/dl (12.0-15.5); MEAN CORPUSCULAR HEMOGLOBIN 30.6 pg (27.0-33.0); MEAN CORPUSCULAR HGB CONC 30.7 g/dl (32.0-36.5); MEAN CORPUSCULAR VOLUME 99.7 fl (80.0-96.0); RED BLOOD COUNT 3.53 10^6/uL (4.00-5.40); WHITE BLOOD COUNT 4.6 10^3/uL (4.0-10.0)
[2019-01-09 19:11] LABS: PLATELET COUNT, AUTOMATED 31 10^3/uL (150-450)
[2019-01-09 19:18] LABS: INR 1.53; PROTHROMBIN TIME 18.1 SECONDS (11.8-14.0)
[2019-01-09 19:44] LABS: ALBUMIN 2.6 GM/DL (3.2-5.2); BILIRUBIN,TOTAL 0.6 MG/DL (0.2-1.0); CALCIUM LEVEL 7.8 MG/DL (8.8-10.2); CREATININE FOR GFR 4.54 MG/DL (0.55-1.30); GLOMERULAR FILTRATION RATE 10.1 (>39); MAGNESIUM LEVEL 2.2 MG/DL (1.8-2.4); PHOSPHORUS LEVEL 5.5 MG/DL (2.5-4.9); POTASSIUM SERUM 5.6 MEQ/L (3.5-5.1); TOTAL PROTEIN 6.4 GM/DL (6.4-8.2)
[2019-01-09 20:00] VITALS: BP 155/70
[2019-01-09] MEDS: SODIUM BICARBONATE 75 MEQ in NS 0.45% 1,000 ML IV SCH (20:21)
[2019-01-09] MEDS: FERROUS GLUCONATE 324 MG TAB PO SCH (20:22)
[2019-01-09] MEDS: ATORVASTATIN 20 MG TAB PO SCH (20:22)
[2019-01-09] MEDS: PANTOPRAZOLE 40MG TAB (PROTONIX) PO SCH (20:22)
[2019-01-09] MEDS ORDERED: SOD POLYSTYRENE SULFONATE SUSP 15 GM/60 ML UD PO ONE (21:00)
[2019-01-10] VITALS: BP 140/68
[2019-01-10 04:00] VITALS: BP 118/60
[2019-01-10] MEDS: SODIUM BICARBONATE 75 MEQ in NS 0.45% 1,000 ML IV SCH ×3 (04:36→19:57)
[2019-01-10 08:00] VITALS: BP 125/68
[2019-01-10 08:18] LABS: HEMATOCRIT 30.9 % (36.0-47.0); HEMOGLOBIN 9.8 g/dl (12.0-15.5); MEAN CORPUSCULAR HEMOGLOBIN 30.4 pg (27.0-33.0); MEAN CORPUSCULAR HGB CONC 31.7 g/dl (32.0-36.5); RED BLOOD COUNT 3.22 10^6/uL (4.00-5.40)
[2019-01-10 08:23] LABS: PLATELET COUNT, AUTOMATED 55 10^3/uL (150-450)
[2019-01-10 08:50] LABS: ALBUMIN 2.2 GM/DL (3.2-5.2); BILIRUBIN,TOTAL 0.6 MG/DL (0.2-1.0); CALCIUM LEVEL 7.3 MG/DL (8.8-10.2); CREATININE FOR GFR 4.29 MG/DL (0.55-1.30); GLOMERULAR FILTRATION RATE 10.7 (>39); PHOSPHORUS LEVEL 5.1 MG/DL (2.5-4.9); POTASSIUM SERUM 4.4 MEQ/L (3.5-5.1); TOTAL PROTEIN 5.8 GM/DL (6.4-8.2)
[2019-01-10] MEDS: FERROUS GLUCONATE 324 MG TAB PO SCH ×2 (09:11→20:00)
[2019-01-10] MEDS: PANTOPRAZOLE 40MG TAB (PROTONIX) PO SCH ×2 (09:11→20:00)
[2019-01-10] MEDS: FLUoxetine 20 MG CAP PO SCH (09:11)
[2019-01-10] MEDS: ASPIRIN 81 MG ENTERIC TAB PO SCH (09:12)
[2019-01-10] MEDS: DONEPEZIL 5 MG TAB PO SCH (09:12)
[2019-01-10 12:00] VITALS: BP 135/78
--- NOTE | 2019-01-10 15:00 | ECGEPIP ---
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
[2019-01-10 16:00] VITALS: BP 139/68
--- NOTE | 2019-01-10 17:38 | CR ---
DATE OF CONSULTATION: 01/10/2019 CONSULTATION REPORT FOR: Dr. Suellen Smith REASON FOR CONSULTATION: Acute renal failure superimposed on chronic kidney disease. Mrs. Mora is a 73-year-old long term resident with history of dementia, coronary artery disease, diabetes, chronic kidney disease and cirrhosis. Apparently, she had acute renal failure in the long term and did not improve with the care that she received in the long term and was sent to the emergency room yesterday. She was found to have significantly elevated blood urea nitrogen (BUN) and creatinine in addition to acute renal failure. She also had metabolic acidosis. She was admitted yesterday and a nephrology consultation was requested. The patient is seen this morning. PAST MEDICAL AND SURGICAL HISTORY: Significant for: 1. History of longstanding diabetes. 2. Dementia. 3. Hypertension. 4. Coronary artery disease. 5. Cirrhosis. 6. History of baseline stage III of chronic kidney disease. PAST SURGICAL HISTORY: Significant for coronary artery bypass surgery. PERSONAL AND SOCIAL HISTORY: The patient is a long term resident who quit smoking about 20 years go. She has no alcohol or drug use. FAMILY HISTORY: Unremarkable for this admission but does have family history for heart disease. MEDICATIONS: Her chronic medications include: - aspirin 81 mg daily - atorvastatin 80 mg daily - donepezil 10 mg daily - ferrous gluconate 324 mg twice a day - Prozac 40 mg daily - losartan 50 mg daily - pantoprazole 40 mg twice a day - She also uses Tylenol as needed and bisacodyl suppository 10 mg as needed for constipation. ALLERGIES: The patient has no known drug allergies. REVIEW OF SYSTEMS: The patient has significant dementia and not able to provide any reliable information. Her oral intake was poor while in long term but reports that she is eating better today. She did not have any fever or chills. Ears, nose and throat are unremarkable. Cardiovascular system negative for leg edema or chest pain. She is currently getting echocardiogram. Respiratory system negative for cough or hemoptysis. Gastrointestinal (GI) system is significant for decreased oral intake for a few days prior to admission. There is no vomiting or diarrhea reported to my knowledge. She is eating better today. Musculoskeletal system is negative for any leg edema or significant arthritis requiring nonsteroidal antiinflammatory drugs (NSAIDs). Endocrine system is significant for type 2 diabetes. Psychosocial system is significant for dementia and currently a long term resident. PHYSICAL EXAMINATION: Temperature 97.8 degrees Fahrenheit, heart rate 60 per minute and respiratory rate 20 per minute. Blood pressure 125/68 mmHg and oxygen saturation 97% on room air. Head is atraumatic. Neck is supple and without jugular venous distention (JVD) or thyroid enlargement. Heart sounds are regular. Lungs seem clear to auscultation. Abdomen is soft and nontender and bowel sounds are normal. Extremities without any cyanosis or clubbing. Neurologically, she is awake and without any acute distress. She has dementia and not very well-oriented. LABORATORY DATA: Admission laboratories showed a hemoglobin of 10.8 and hematocrit 35.2. Today, her WBC count is 3.0, hemoglobin 9.8 and hematocrit 30.9. Platelets are 55,000. Yesterday, initially her sodium was 130 and potassium 4.8. Later in the afternoon, sodium 132 and potassium 5.6. CO2 was 11, BUN 52 and creatinine 4.54. Today, her sodium is 134, potassium 4.4, CO2 17, BUN 53 and creatinine 4.29. Glucose 92 and calcium 7.3. Urinalysis showed positive leukocyte esterase, only 1-3 WBC and 15-20 RBCs. A renal ultrasound done yesterday was negative for any hydronephrosis and normal size kidneys were noted bilaterally. PROBLEMS: 1. Acute renal failure, superimposed on chronic kidney disease. She seems to have prerenal azotemia due to decreased oral intake. I am not sure if she was on diuretics prior to admission. She was on losartan which may have contributed to acute kidney injury. I would suggest to keep her off angiotensin-converting enzyme (ARNULFO) inhibitor or angiotensin-receptor blockers. She is currently being hydrated with IV fluid and kidney function is improving. 2. Metabolic acidosis, related to acute renal failure and is improving with sodium bicarbonate infusion. I would recommend to continue with the same for the next 24 hours. After improvement in her acidosis, bicarbonate can be stopped. Her oral intake is also better now and probably we can stop the IV fluid altogether in the next 24 hours. 3. Hyperkalemia, most likely related to metabolic acidosis and acute renal failure. It was treated yesterday and has also already improved. 4. Anemia. She has mild anemia probably related to acute kidney injury and likely iron deficiency. She will continue with iron supplement. There is no emergent need for erythropoietin at present. Thank you for involving me in the care of Mrs. Mora. I will follow her along with you.
--- NOTE | 2019-01-10 18:16 | IPNPDOC ---
Date Seen The patient was seen on 01/10/19. Progress Note HISTORY OF PRESENT ILLNESS: 73-year-old female with past medical history of coronary artery disease status post [place] and CABG, dementia, cirrhosis, diabetes mellitus, chronic kidney disease is sent from [facility] for worsening creatinine. Patient has baseline dementia as per records, currently alert and oriented 2, unable to provide a reliable history, as per patient. She is here because she fell a few days ago. Patient is currently comfortable in bed, without any complaints. As this is my first time seeing the patient it is unclear if this is her baseline or she is acutely altered. She denies any shortness of breath, chest pain, nausea, vomiting, abdominal pain or diarrhea. 01/10/2019 Patient continues to experience fatigue, no other complaints at this time. She denies any short of breath, nausea, vomiting, abdominal pain or diarrhea. She has good urine output and her Luna. She is tolerating her diet without difficulty today. 10 point review of system is negative except for above PHYSICAL EXAMINATION: VITAL SIGNS: Please see below. GENERAL: No distress HEENT: Normocephalic, atraumatic, moist mucous membranes NECK: Supple CARDIOVASCULAR EXAMINATION: S1, S2, systolic murmurs appreciated RESPIRATORY EXAMINATION: Clear to auscultation, no wheezing ABDOMINAL EXAMINATION: Soft, nontender, nondistended, positive bowel sounds EXTREMITIES: Range of motion intact SKIN: No rash NEUROLOGICAL EXAMINATION: no focal deficits PSYCHIATRIC EXAMINATION: Calm and cooperative LABORATORY DATA: See below. IMAGING: Renal ultrasound negative for hydronephrosis MICROBIOLOGY: Please see below. ASSESSMENT: 73-year-old female with past medical history of coronary artery disease, [place], diabetes mellitus, dementia, cirrhosis, chronic kidney disease presents from [facility] with worsening acute kidney injury. PLAN: 1. Acute on chronic kidney disease. Likely prerenal, continue IV fluids (Sodium, bicarbonate 75 mEq with half normal saline at 125 mL per hour), renal function improving, metabolic acidosis improving as well with good urine output. We'll monitor renal function with further IV hydration and increase by mouth intake while holding losartan. FeNa - <1%, renal ultrasound negative for hydronephrosis Nephrology consult appreciated 2. Coronary artery disease. Status post [place] and CABG TTE pending Continue optimal medical management (aspirin, statin, beta jonny) 3. Cirrhosis. Thrombocytopenic, stable. 4. Diabetes mellitus. Sliding scale insulin with fingersticks before meals and at bedtime 5. Dementia. Continue donepezil DVT prophylaxis: TEDs. GI prophylaxis: Home Protonix VS, I&O, 24H, Fishbone Vital Signs/I&O Vital Signs Date Time Temp Pulse Resp B/P (MAP) Pulse Ox O2 Delivery O2 Flow Rate FiO2 01/10/19 16:00 96.4 55 16 139/68 (91) 97 Room Air I&O- Last 24 Hours up to 6 AM 01/10/19 06:00 Intake Total 1060 ml Output Total 830 ml Balance 230 ml Laboratory Data 24H LABS Laboratory Tests 2 01/09/19 19:03: Nucleated Red Blood Cells % (auto) 0.7H, Prothrombin Time 18.1H, Prothromb Time International Ratio 1.53, Anion Gap 12, Glomerular Filtration Rate 10.1L, Calcium Level 7.8L, Phosphorus Level 5.5#H, Magnesium Level 2.2, Total Bilirubin 0.6, Aspartate Amino Transf (AST/SGOT) 39H, Alanine Aminotransferase (ALT/SGPT) 23, Alkaline Phosphatase 128H, Total Protein 6.4, Albumin 2.6L, Albumin/Globulin Ratio 0.68L 01/10/19 07:46: Nucleated Red Blood Cells % (auto) 0.0, Anion Gap 10, Glomerular Filtration Rate 10.7L, Calcium Level 7.3L, Phosphorus Level 5.1H, Magnesium Level 2.0, Total Bilirubin 0.6, Aspartate Amino Transf (AST/SGOT) 31, Alanine Aminotransferase (ALT/SGPT) 20, Alkaline Phosphatase 116, Total Protein 5.8L, Albumin 2.2L, Albumin/Globulin Ratio 0.61L, Immature Platelet Fraction 4.2 CBC/BMP Laboratory Tests 01/09/19 19:03 01/10/19 07:46 Microbiology Microbiology 01/09/19 Gastrointestinal Tract Panel (PCR) - Final, Complete JOSE ANGEL GREENFIELD MD Jan 10, 2019 18:16
[2019-01-10 20:00] VITALS: BP 142/66
[2019-01-10] MEDS: ATORVASTATIN 20 MG TAB PO SCH (20:00)
--- NOTE | 2019-01-10 20:44 | ECHO ---
DATE OF PROCEDURE: 01/10/2019 DATE OF : 1945 AGE: 73 GENDER: Female HEIGHT: 66 inches WEIGHT: 365 pounds BODY SURFACE AREA: 2.59 meters squared INPATIENT: Progressive care unit (PCU), room 3225 REFERRING PHYSICIAN: Dr. Logan Smith INDICATION: Abnormal EKG. Prosthetic aortic valve. MEASUREMENTS: 2D Measurements: RV: 3.3 cm LV: 3.7 cm Septum: 1.5 cm Posterior wall: 1.5 Aortic root: 3.2 cm LA: 4.2 cm LVEF: 80% DOPPLER MEASUREMENTS: AV: 4.2 meters per second LVOT: 1.4 meters per second LVOT diameter: 1.7 cm Mean AV systolic gradient: 32 mmHg Dimensionless index: 0.33 MV-E: 127, A: 129, EA ratio: 1 Early mitral deceleration time: 440 milliseconds Mean MV diastolic gradient: 5 mmHg PV: 1.15 meters per second Pulmonary artery acceleration time: 116 milliseconds RVSP: 40 mmHg IVC: 1.7 cm COMMENTS: Sinus bradycardia with incomplete left bundle branch block. M-mode and two-dimensional echocardiography was performed with pulsed, continuous wave, color flow and tissue Doppler studies. Severe concentric left ventricular hypertrophy with hyperkinetic wall motion. Mildly dilated left atrium but unable to comment on left ventricular (LV) diastolic function in light of mitral valve disorder. Normal right heart chamber sizes and motion with Doppler evidence of mild pulmonary hypertension. Normal inferior vena cava (IVC) size and collapse against an elevated central venous pressure. Bioprosthetic aortic valve with appropriate valve function and only trace insufficiency. Normal aortic root size. Severe mitral annular calcification with likely mild left ventricular (LV) inflow tract obstruction and very mild insufficiency. Normal tricuspid valve with mild insufficiency. No separate intracardiac mass or pericardial effusion.
[2019-01-11] VITALS: BP 135/63
--- NOTE | 2019-01-11 01:09 | ECGEPIP ---
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
[2019-01-11 04:00] VITALS: BP 152/68
[2019-01-11] MEDS: SODIUM BICARBONATE 75 MEQ in NS 0.45% 1,000 ML IV SCH (04:22)
[2019-01-11 05:37] LABS: HEMOGLOBIN 9.1 g/dl (12.0-15.5); MEAN CORPUSCULAR HEMOGLOBIN 29.8 pg (27.0-33.0); MEAN CORPUSCULAR HGB CONC 32.5 g/dl (32.0-36.5); MEAN CORPUSCULAR VOLUME 91.8 fl (80.0-96.0); RED BLOOD COUNT 3.05 10^6/uL (4.00-5.40); WHITE BLOOD COUNT 2.8 10^3/uL (4.0-10.0)
[2019-01-11 05:39] LABS: PLATELET COUNT, AUTOMATED 51 10^3/uL (150-450)
[2019-01-11 06:24] LABS: ALBUMIN 2.2 GM/DL (3.2-5.2); BILIRUBIN,TOTAL 0.9 MG/DL (0.2-1.0); CALCIUM LEVEL 7.2 MG/DL (8.8-10.2); CREATININE FOR GFR 3.66 MG/DL (0.55-1.30); GLOMERULAR FILTRATION RATE 12.9 (>39); PHOSPHORUS LEVEL 3.7 MG/DL (2.5-4.9); POTASSIUM SERUM 4.1 MEQ/L (3.5-5.1); TOTAL PROTEIN 5.6 GM/DL (6.4-8.2)
[2019-01-11 07:54] VITALS: BP 172/62
[2019-01-11] MEDS: DONEPEZIL 5 MG TAB PO SCH (08:11)
[2019-01-11] MEDS: PANTOPRAZOLE 40MG TAB (PROTONIX) PO SCH ×2 (08:11→21:24)
[2019-01-11] MEDS: FERROUS GLUCONATE 324 MG TAB PO SCH ×2 (08:11→21:24)
[2019-01-11] MEDS: FLUoxetine 20 MG CAP PO SCH (08:11)
[2019-01-11] MEDS: NS 1,000 ML IV SCH (10:02)
[2019-01-11 11:37] VITALS: BP 134/63
--- NOTE | 2019-01-11 13:30 | IPNPDOC ---
Date Seen The patient was seen on 01/11/19. Progress Note HISTORY OF PRESENT ILLNESS: 73-year-old female with past medical history of coronary artery disease status post [place] and CABG, dementia, cirrhosis, diabetes mellitus, chronic kidney disease is sent from [facility] for worsening creatinine. Patient has baseline dementia as per records, currently alert and oriented 2, unable to provide a reliable history, as per patient. She is here because she fell a few days ago. Patient is currently comfortable in bed, without any complaints. As this is my first time seeing the patient it is unclear if this is her baseline or she is acutely altered. She denies any shortness of breath, chest pain, nausea, vomiting, abdominal pain or diarrhea. 01/10/2019 Patient continues to experience fatigue, no other complaints at this time. She denies any short of breath, nausea, vomiting, abdominal pain or diarrhea. She has good urine output and her Luna. She is tolerating her diet without difficulty today. 01/11/2019 Patient without any complaints, renal function improving, good urine output. 10 point review of system is negative except for above PHYSICAL EXAMINATION: VITAL SIGNS: Please see below. GENERAL: No distress HEENT: Normocephalic, atraumatic, moist mucous membranes NECK: Supple CARDIOVASCULAR EXAMINATION: S1, S2, systolic murmurs appreciated RESPIRATORY EXAMINATION: Clear to auscultation, no wheezing ABDOMINAL EXAMINATION: Soft, nontender, nondistended, positive bowel sounds EXTREMITIES: Range of motion intact SKIN: No rash NEUROLOGICAL EXAMINATION: no focal deficits PSYCHIATRIC EXAMINATION: Calm and cooperative LABORATORY DATA: See below. IMAGING: Renal ultrasound negative for hydronephrosis MICROBIOLOGY: Please see below. ASSESSMENT: 73-year-old female with past medical history of coronary artery disease, [place], diabetes mellitus, dementia, cirrhosis, chronic kidney disease presents from [facility] with worsening acute kidney injury. PLAN: 1. Acute on chronic kidney disease. Likely prerenal, IV fluids changed to normal saline at 50 mL per hour, renal function improving, metabolic acidosis resolved, good urine output. We'll attempt to remove Luna catheter tomorrow FeNa - <1%, renal ultrasound negative for hydronephrosis Nephrology following 2. Coronary artery disease. Status post [place] and CABG TTE with severe left ventricular concentric hypertrophy Continue optimal medical management (aspirin, statin, beta jonny) 3. Cirrhosis. Thrombocytopenic, stable. 4. Diabetes mellitus. Sliding scale insulin with fingersticks before meals and at bedtime 5. Dementia. Continue donepezil DVT prophylaxis: TEDs. GI prophylaxis: Home Protonix VS, I&O, 24H, Fishbone Vital Signs/I&O Vital Signs Date Time Temp Pulse Resp B/P (MAP) Pulse Ox O2 Delivery O2 Flow Rate FiO2 01/11/19 11:37 98.8 94 20 134/63 (86) 96 Room Air I&O- Last 24 Hours up to 6 AM 01/11/19 06:00 Intake Total 3760 ml Output Total 875 ml Balance 2885 ml Laboratory Data 24H LABS Laboratory Tests 2 01/11/19 05:17: Nucleated Red Blood Cells % (auto) 0.0, Anion Gap 7L, Glomerular Filtration Rate 12.9L, Calcium Level 7.2L, Phosphorus Level 3.7#, Magnesium Level 2.0, Total Bilirubin 0.9, Aspartate Amino Transf (AST/SGOT) 30, Alanine Aminotransferase ( ALT/SGPT) 18, Alkaline Phosphatase 127H, Total Protein 5.6L, Albumin 2.2L, Albumin/Globulin Ratio 0.65L CBC/BMP Laboratory Tests 01/11/19 05:17 Microbiology Microbiology 01/09/19 Gastrointestinal Tract Panel (PCR) - Final, Complete JOSE ANGEL GREENFIELD MD Jan 11, 2019 13:30
[2019-01-11] MEDS ORDERED: SLF 3 ML SYR IV PRN (13:45)
[2019-01-11] MEDS: SLF 3 ML SYR IV SCH ×2 (13:48→21:24)
[2019-01-11 16:00] VITALS: BP 141/65
[2019-01-11 20:00] VITALS: BP 136/63
[2019-01-11] MEDS: ATORVASTATIN 20 MG TAB PO SCH (21:24)
[2019-01-12 02:30] VITALS: BP 137/61
[2019-01-12] MEDS ORDERED: LOPERAMIDE 2 MG CAPLET PO PRN (05:00)
[2019-01-12] MEDS: NS 1,000 ML IV SCH (05:05)
[2019-01-12] MEDS: SLF 3 ML SYR IV SCH ×3 (05:05→20:57)
[2019-01-12 06:26] LABS: HEMATOCRIT 28.3 % (36.0-47.0); HEMOGLOBIN 9.3 g/dl (12.0-15.5); MEAN CORPUSCULAR HEMOGLOBIN 30.7 pg (27.0-33.0); MEAN CORPUSCULAR HGB CONC 32.9 g/dl (32.0-36.5); MEAN CORPUSCULAR VOLUME 93.4 fl (80.0-96.0); RED BLOOD COUNT 3.03 10^6/uL (4.00-5.40); WHITE BLOOD COUNT 3.6 10^3/uL (4.0-10.0)
[2019-01-12 06:27] LABS: PLATELET COUNT, AUTOMATED 56 10^3/uL (150-450)
[2019-01-12 06:38] LABS: CALCIUM LEVEL 7.9 MG/DL (8.8-10.2); CREATININE FOR GFR 2.97 MG/DL (0.55-1.30); GLOMERULAR FILTRATION RATE 16.4 (>39); POTASSIUM SERUM 3.8 MEQ/L (3.5-5.1)
[2019-01-12 08:00] VITALS: BP 148/68
[2019-01-12] MEDS: FLUoxetine 20 MG CAP PO SCH (08:07)
[2019-01-12] MEDS: DONEPEZIL 5 MG TAB PO SCH (08:07)
[2019-01-12] MEDS: ASPIRIN 81 MG ENTERIC TAB PO SCH (08:07)
[2019-01-12] MEDS: PANTOPRAZOLE 40MG TAB (PROTONIX) PO SCH ×2 (08:07→20:56)
[2019-01-12] MEDS: FERROUS GLUCONATE 324 MG TAB PO SCH ×2 (08:07→20:56)
--- NOTE | 2019-01-12 08:35 | IPN ---
DATE: 01/11/2019 Patient is a 73-year-old female who was seen laying in bed in her hospital room today. Patient says she is feeling better and did not have any acute complaints today. Patient was admitted in the hospital as they found her BUN and creatinine to be elevated from her baseline and brought her to the emergency room secondary to acute renal failure on chronic kidney disease as well as a metabolic acidosis. PHYSICAL EXAMINATION: Temperature 98.5, pulse 70, respiratory rate 16, blood pressure 172/62, pulse oximetry 97% on room air. GENERAL: Patient is an alert and oriented female patient who is laying in the bed when I walked in. Patient does not appear to be in any distress. HEENT: Head is normocephalic, atraumatic with anicteric sclerae. NECK: Supple without jugular venous distention. CARDIOVASCULAR: Regular rate and rhythm with no murmurs. LUNGS: Clear to auscultation. ABDOMEN: Soft, nontender. EXTREMITIES: Did not show any edema. NEUROLOGIC: Patient does have a history of dementia, however, she was aware of her name and where she was. She was slightly confused about the date. LABORATORIES: Sodium 137, potassium 4.1, chloride 108, carbon dioxide 22, BUN 53, creatinine 3.66, glucose 87, calcium 7.2, phosphorus 3.7, magnesium 2.0, albumin 2.2. White blood cell count 2.8, hemoglobin 9.1, hematocrit 28.0 and platelet count 51. ASSESSMENT/PLAN: 1. Acute renal failure superimposed on chronic kidney disease: Patient was most likely thought to have prerenal azotemia secondary to decreased oral intake. Patient was on IV fluids of half normal saline with sodium bicarbonate at a rate of 125 mL/hour. We are going to change this to normal saline at a rate of 50 mL/hour and continued to monitor the patient. If patient continues to be able to take adequate oral intact as well as her kidneys continue to improve, patient should be able to be discharged back to the shelter tomorrow. 2. Metabolic acidosis: This is thought to be secondary to acute renal failure has improved with sodium bicarbonate infusion. This sodium bicarbonate has been changed to normal saline at a rate of 50 mL/hour. 3. Hyperkalemia: This is most likely related to metabolic acidosis and acute renal failure. This has resolved. 4. Anemia: Patient has mild anemia. Her hemoglobin count has slightly decreased since yesterday morning and as we continue to monitor, there is no emergent need for any intervention at this time. DISPOSITION: We will continue to monitor the patient for resolution of her acute renal failure superimposed on chronic kidney disease. If this continues to improve, IV fluids can be stopped tomorrow and the patient should be able to return to the shelter.
--- NOTE | 2019-01-12 13:42 | IPN ---
DATE: 01/12/2019 SUBJECTIVE: The patient is a 73-year-old female who is seen lying in her hospital bed when we walked in. The patient says she is feeling better and had just finished breakfast when I saw her. The patient was admitted to the hospital from the shelter when they found her BUN and creatinine to be elevated from baseline and brought her to the emergency room secondary to acute renal failure on chronic kidney disease, as well as metabolic acidosis. The patient's IV fluids were changed to normal saline from half normal saline with sodium bicarbonate yesterday. The patient's IV fluid rate was also changed down to 50 mL per hour. The patient has been doing well and does not have any complaints today. PHYSICAL EXAMINATION: Temperature 98.1, pulse 61, respiratory rate 18, pulse oximetry 99% on room air. GENERAL: Alert female who is oriented to name, place and year when I examined her. When Dr. Kaba and I came back to examine her, the patient was only oriented to name and thought she was in [facility] and was unable to tell us the date of month. The patient was quickly reoriented back to where she was in the hospital. HEENT: Normocephalic, atraumatic with anicteric sclerae. NECK: Supple without jugular venous distention (JVD). CARDIOVASCULAR: Irregular rate and rhythm with a grade 5/6 systolic murmur heard loudest in the right second intercostal space with radiation to the carotids, however, this murmur can be heard in all areas of the chest. LUNGS: Clear to auscultation bilaterally. ABDOMEN: Soft and nontender. EXTREMITIES: No edema. LABORATORY DATA: White blood cells 3.6, hemoglobin 9.3, hematocrit 28.3, platelets 56. Sodium 140, potassium 3.8, chloride 112, carbon dioxide 21, BUN 52, creatinine 2.97, glucose 100, calcium 7.9. ASSESSMENT AND PLAN: 1. Acute renal failure superimposed on chronic kidney disease. The patient's baseline creatinine has been 1.3 to 1.5. The patient's renal function is improving; however, she is not quite baseline. We will continue the normal saline at 150 mL per hour and continue to monitor the patient. The patient will also be encouraged to continue adequate oral intake. 2. Metabolic acidosis. This is thought to be secondary to acute renal failure and this has improved. We will continue to monitor. 3. Hyperkalemia. This is most likely related to metabolic acidosis and acute renal failure and this is resolved. 4. Anemia. The patient has mild anemia. Her hemoglobin has stabilized and does not require any acute intervention. 5. Systolic murmur. Patient had an echocardiogram on 01/10/19 which showed a bioprosthetic aortic valve that showed trace insufficiency. Patient also had a calcified mitral anulus with likely mild left ventricular inflow tract obstruction and very mild insufficiency. DISPOSITION: We will continue to monitor the patient's renal function. Her renal function continues to move closer to baseline; however, she is not at her baseline creatinine of 1.3 to 1.5. We will continue IV fluids at 50 mL per hour and continue to monitor the patient. MTDD
--- NOTE | 2019-01-12 13:55 | IPNPDOC ---
Date Seen The patient was seen on 01/12/19. Progress Note HISTORY OF PRESENT ILLNESS: 73-year-old female with past medical history of coronary artery disease status post AK and CABG, dementia, cirrhosis, diabetes mellitus, chronic kidney disease is sent from [facility] for worsening creatinine. Patient has baseline dementia as per records, currently alert and oriented 2, unable to provide a reliable history, as per patient. She is here because she fell a few days ago. Patient is currently comfortable in bed, without any complaints. As this is my first time seeing the patient it is unclear if this is her baseline or she is acutely altered. She denies any shortness of breath, chest pain, nausea, vomiting, abdominal pain or diarrhea. 01/10/2019 Patient continues to experience fatigue, no other complaints at this time. She denies any short of breath, nausea, vomiting, abdominal pain or diarrhea. She has good urine output and her Luna. She is tolerating her diet without difficulty today. 01/11/2019 Patient without any complaints, renal function improving, good urine output. 01/12/2019 Patient comfortable in bed, without any complaints. She denies any shortness of breath, chest pain, nausea, vomiting, abdominal pain or diarrhea. 10 point review of system is negative except for above PHYSICAL EXAMINATION: VITAL SIGNS: Please see below. GENERAL: No distress HEENT: Normocephalic, atraumatic, moist mucous membranes NECK: Supple CARDIOVASCULAR EXAMINATION: S1, S2, systolic murmurs appreciated RESPIRATORY EXAMINATION: Clear to auscultation, no wheezing ABDOMINAL EXAMINATION: Soft, nontender, nondistended, positive bowel sounds EXTREMITIES: Range of motion intact SKIN: No rash NEUROLOGICAL EXAMINATION: no focal deficits PSYCHIATRIC EXAMINATION: Calm and cooperative LABORATORY DATA: See below. IMAGING: Renal ultrasound negative for hydronephrosis MICROBIOLOGY: Please see below. ASSESSMENT: 73-year-old female with past medical history of coronary artery disease, AK, diabetes mellitus, dementia, cirrhosis, chronic kidney disease presents from [facility] with worsening acute kidney injury. PLAN: 1. Acute on chronic kidney disease. Likely prerenal, renal function improving, metabolic acidosis resolved, good urine output, IV fluids discontinued. Remove Luna FeNa - <1%, renal ultrasound negative for hydronephrosis Nephrology following 2. Coronary artery disease. Status post AK and CABG TTE with severe left ventricular concentric hypertrophy Continue optimal medical management (aspirin, statin, beta jonny) 3. Cirrhosis. Thrombocytopenic, stable. 4. Diabetes mellitus. Sliding scale insulin with fingersticks before meals and at bedtime 5. Dementia. Continue donepezil DVT prophylaxis: TEDs. GI prophylaxis: Home Protonix VS, I&O, 24H, Fishbone Vital Signs/I&O Vital Signs Date Time Temp Pulse Resp B/P (MAP) Pulse Ox O2 Delivery O2 Flow Rate FiO2 01/12/19 08:00 98.1 61 18 148/68 (94) 99 Room Air l I&O- Last 24 Hours up to 6 AM 01/12/19 06:00 Intake Total 2825 ml Output Total 775 ml Balance 2050 ml Laboratory Data 24H LABS Laboratory Tests 2 01/12/19 05:48: Nucleated Red Blood Cells % (auto) 0.0, Immature Platelet Fraction 3.5, Anion Gap 7L, Glomerular Filtration Rate 16.4L, Calcium Level 7.9L CBC/BMP Laboratory Tests 01/12/19 05:48 Microbiology Microbiology 01/09/19 Gastrointestinal Tract Panel (PCR) - Final, Complete JOSE ANGEL GREENFIELD MD Jan 12, 2019 13:55
[2019-01-12 16:00] VITALS: BP 174/72
[2019-01-12 17:53] VITALS: BP 142/52
[2019-01-12] MEDS: ATORVASTATIN 20 MG TAB PO SCH (20:57)
[2019-01-13] VITALS: BP 150/62
[2019-01-13] MEDS: SLF 3 ML SYR IV SCH ×3 (05:35→20:30)
[2019-01-13 05:37] LABS: HEMATOCRIT 26.5 % (36.0-47.0); HEMOGLOBIN 8.6 g/dl (12.0-15.5); MEAN CORPUSCULAR HEMOGLOBIN 30.6 pg (27.0-33.0); MEAN CORPUSCULAR HGB CONC 32.5 g/dl (32.0-36.5); MEAN CORPUSCULAR VOLUME 94.3 fl (80.0-96.0); RED BLOOD COUNT 2.81 10^6/uL (4.00-5.40)
[2019-01-13 05:38] LABS: PLATELET COUNT, AUTOMATED 55 10^3/uL (150-450)
[2019-01-13 05:52] LABS: CALCIUM LEVEL 7.1 MG/DL (8.8-10.2); CREATININE FOR GFR 2.61 MG/DL (0.55-1.30); GLOMERULAR FILTRATION RATE 19.1 (>39); POTASSIUM SERUM 4.2 MEQ/L (3.5-5.1)
[2019-01-13 08:00] VITALS: BP 148/68
[2019-01-13] MEDS: ASPIRIN 81 MG ENTERIC TAB PO SCH (09:00)
[2019-01-13] MEDS: FERROUS GLUCONATE 324 MG TAB PO SCH (09:00)
[2019-01-13] MEDS: FLUoxetine 20 MG CAP PO SCH (09:00)
[2019-01-13] MEDS: PANTOPRAZOLE 40MG TAB (PROTONIX) PO SCH ×2 (09:01→20:26)
[2019-01-13] MEDS: DONEPEZIL 5 MG TAB PO SCH (09:01)
[2019-01-13] MEDS ORDERED: CYCLOBENZAPRINE 10 MG TAB PO ONE (11:00)
[2019-01-13] MEDS: SODIUM BICARBONATE 325 MG TAB PO SCH ×2 (12:25→20:26)
[2019-01-13 12:57] LABS: PERCENT SATURATION 15.9 % (13.2-45.0)
--- NOTE | 2019-01-13 19:45 | IPNPDOC ---
Date Seen The patient was seen on 01/13/19. Progress Note HISTORY OF PRESENT ILLNESS: 73-year-old female with past medical history of coronary artery disease status post DE and CABG, dementia, cirrhosis, diabetes mellitus, chronic kidney disease is sent from [facility] for worsening creatinine. Patient has baseline dementia as per records, currently alert and oriented 2, unable to provide a reliable history, as per patient. She is here because she fell a few days ago. Patient is currently comfortable in bed, without any complaints. As this is my first time seeing the patient it is unclear if this is her baseline or she is acutely altered. She denies any shortness of breath, chest pain, nausea, vomiting, abdominal pain or diarrhea. 01/10/2019 Patient continues to experience fatigue, no other complaints at this time. She denies any short of breath, nausea, vomiting, abdominal pain or diarrhea. She has good urine output and her Luna. She is tolerating her diet without difficulty today. 01/11/2019 Patient without any complaints, renal function improving, good urine output. 01/12/2019 Patient comfortable in bed, without any complaints. She denies any shortness of breath, chest pain, nausea, vomiting, abdominal pain or diarrhea. 01/13/2019 Patient seen in bed, tolerating diet, reports chronic back pain due to muscle spasms, no other complaints. 10 point review of system is negative except for above PHYSICAL EXAMINATION: VITAL SIGNS: Please see below. GENERAL: No distress HEENT: Normocephalic, atraumatic, moist mucous membranes NECK: Supple CARDIOVASCULAR EXAMINATION: S1, S2, systolic murmurs appreciated RESPIRATORY EXAMINATION: Clear to auscultation, no wheezing ABDOMINAL EXAMINATION: Soft, nontender, nondistended, positive bowel sounds EXTREMITIES: Range of motion intact SKIN: No rash NEUROLOGICAL EXAMINATION: no focal deficits PSYCHIATRIC EXAMINATION: Calm and cooperative LABORATORY DATA: See below. IMAGING: Renal ultrasound negative for hydronephrosis MICROBIOLOGY: Please see below. ASSESSMENT: 73-year-old female with past medical history of coronary artery disease, DE, diabetes mellitus, dementia, cirrhosis, chronic kidney disease presents from [facility] with worsening acute kidney injury. PLAN: 1. Acute on chronic kidney disease. Likely prerenal, renal function improving, metabolic acidosis resolved, good urine output, IV fluids discontinued. FeNa - <1%, renal ultrasound negative for hydronephrosis Nephrology following 2. Coronary artery disease. Status post DE and CABG TTE with severe left ventricular concentric hypertrophy Continue optimal medical management (aspirin, statin, beta jonny) 3. Cirrhosis. Thrombocytopenic, stable. 4. Diabetes mellitus. Sliding scale insulin with fingersticks before meals and at bedtime 5. Dementia. Continue donepezil DVT prophylaxis: TEDs. GI prophylaxis: Home Protonix VS, I&O, 24H, Fishbone Vital Signs/I&O Vital Signs Date Time Temp Pulse Resp B/P (MAP) Pulse Ox O2 Delivery O2 Flow Rate FiO2 01/13/19 08:00 97.8 61 18 148/68 (94) 98 Room Air I&O- Last 24 Hours up to 6 AM 01/13/19 05:59 Intake Total 1330 ml Output Total 375 ml Balance 955 ml Laboratory Data 24H LABS Laboratory Tests 2 01/13/19 05:07: Nucleated Red Blood Cells % (auto) 0.0, Anion Gap 8, Glomerular Filtration Rate 19.1L, Calcium Level 7.1L, Iron Level 39L, Total Iron Binding Capacity 245L, Transferrin % Saturation 15.9, Ferritin 109 CBC/BMP Laboratory Tests 01/13/19 05:07 Microbiology Microbiology 01/09/19 Gastrointestinal Tract Panel (PCR) - Final, Complete JOSE ANGEL GREENFIELD MD Jan 13, 2019 19:45
[2019-01-13] MEDS: ATORVASTATIN 20 MG TAB PO SCH (20:26)
[2019-01-13 21:42] VITALS: BP 148/54
--- NOTE | 2019-01-13 21:48 | IPN ---
DATE: 01/13/2019 SUBJECTIVE: The patient was seen and examined at the bedside today morning. She is afebrile, hemodynamically stable, renal function continues to improve, creatinine is down to 2.6 today IV fluids were stopped. The patient continues to be mildly acidotic. She denies any active complaints and she is hemodynamically stable. OBJECTIVE: Vital signs: Temperature is 97.8 degrees Fahrenheit, blood pressure 148/68, pulse is 61, respiratory of 18, saturating 98% on room air. Intake and output: Urine output was 575 mL yesterday. There is no urine output recorded. She is having incontinent voids. Weight in the bed scale is 81.8 mL kg. PHYSICAL EXAMINATION: General: The patient is awake, alert, oriented times 2, laying in bed in no apparent distress. Head and neck exam: Extraocular muscles intact. Pupils equally round and reactive to light. Mucous membranes are moist. Neck is supple. There is no JVD. Cardiovascular: S1, S2 regular rate. No edema of the bilateral lower extremities. Respiratory: Chest is clear to auscultation bilaterally. Bilateral equal air entry. No rales or rhonchi. Abdomen: Soft, positive bowel sounds. Nontender. No ascites. No organomegaly. Musculoskeletal: No clubbing or cyanosis. Pulses are 2+. OUTBOUND SALES SPECIALIST: No focal deficit. Power is 5/5 in all extremities. LABORATORY REVIEW: Complete blood count (CBC) showed a WBC of 3, hemoglobin is 8.6, platelets are 55. Basic metabolic panel (BMP) showed sodium 140, potassium 4.2, chloride 112, bicarb 20, BUN 44, creatinine is 2.6, calcium is 7.1. CURRENT INPATIENT MEDICATIONS: The patient is on high dose Tylenol. I am going to stop that because of history of cirrhosis. Iron tablet is being changed to 324 mg by mouth once a day. I have started the patient on sodium bicarbonate 325 mg by mouth twice a day. ASSESSMENT/PLAN: 1. Acute kidney injury superimposed on chronic kidney disease. Patient's baseline creatinine is 1.5. Her renal function continues to improve, creatinine is down to 2.6. No further need of IV fluids. Continue to monitor for improvement of renal function. 2. Non-anion gap metabolic acidosis. Serum bicarbonate has dropped to 20. I have started the patient on sodium bicarbonate 325 mg by mouth twice a day. 3. Anemia. The patient has persistent anemia. She continues to be on oral iron. I am going to check the iron levels. If the iron levels are still low, the patient will be given IV iron infusion. 4. Thrombocytopenia. 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
[2019-01-14] MEDS: SLF 3 ML SYR IV SCH (01:07)
[2019-01-14 07:38] VITALS: BP 150/66
[2019-01-14 08:07] LABS: CALCIUM LEVEL 7.7 MG/DL (8.8-10.2); CREATININE FOR GFR 2.45 MG/DL (0.55-1.30); GLOMERULAR FILTRATION RATE 20.5 (>39); MAGNESIUM LEVEL 2.2 MG/DL (1.8-2.4); PHOSPHORUS LEVEL 2.8 MG/DL (2.5-4.9); POTASSIUM SERUM 4.8 MEQ/L (3.5-5.1)
[2019-01-14] MEDS: ASPIRIN 81 MG ENTERIC TAB PO SCH (08:15)
[2019-01-14] MEDS: PANTOPRAZOLE 40MG TAB (PROTONIX) PO SCH (08:15)
[2019-01-14] MEDS: FLUoxetine 20 MG CAP PO SCH (08:16)
[2019-01-14] MEDS: DONEPEZIL 5 MG TAB PO SCH (08:16)
[2019-01-14] MEDS: SODIUM BICARBONATE 325 MG TAB PO SCH (08:16)
[2019-01-14] MEDS ORDERED: FERROUS GLUCONATE 324 MG TAB PO SCH (09:00)
[2019-01-14 09:03] LABS: HEMATOCRIT 29.3 % (36.0-47.0); HEMOGLOBIN 9.1 g/dl (12.0-15.5); MEAN CORPUSCULAR HEMOGLOBIN 30.4 pg (27.0-33.0); MEAN CORPUSCULAR HGB CONC 31.1 g/dl (32.0-36.5); RED BLOOD COUNT 2.99 10^6/uL (4.00-5.40); WHITE BLOOD COUNT 2.9 10^3/uL (4.0-10.0)
[2019-01-14 09:05] LABS: PLATELET COUNT, AUTOMATED 59 10^3/uL (150-450)
[2019-01-14] MEDS ORDERED: IRON SUCROSE 200 MG in NS 100 ML IV SCH (11:00)
[2019-01-14] MEDS ORDERED: SODI325T9 PO (11:38)
--- NOTE | 2019-01-14 11:46 | DS.PDOC ---
Discharge Summary General Date of Admission Jan 09, 2019 at 17:14 Date of Discharge 01/14/2019 Attending Physician: JOSE ANGEL GREENFIELD MD Discharge Summary PROCEDURES PERFORMED DURING STAY: None. ADMITTING DIAGNOSES: 1. Acute on chronic kidney disease. DISCHARGE DIAGNOSES: 1. Acute on chronic kidney disease. COMPLICATIONS/CHIEF COMPLAINT: Daniel,Cirrhosis;Ckd;Coronary Artery Disease. HISTORY OF PRESENT ILLNESS: 73-year-old female with past medical history of coronary artery disease status post RI and CABG, chronic kidney disease, cirrhosis, dementia, was admitted for acute on chronic kidney disease. She was treated with IV hydration with subsequent improvement in renal function, renal function has continued to improve every day, has been off of IV fluids for the past 48 hours, oral intake is adequate and subsequent improvement in creatinine noted. Patient's renal function is close to baseline, clinically mechanically stable for discharge back to [facility] with outpatient monitoring of renal function within 1 week. Patient was evaluated by nephrology during h ospitalization, as was started on oral sodium bicarbonate. Patient evaluated today, no new complaints, will discharge. HOSPITAL COURSE: As above. DISCHARGE MEDICATIONS: Please see below. ALLERGIES: Please see below. PHYSICAL EXAMINATION: VITAL SIGNS: Please see below. GENERAL: No distress HEENT: Normocephalic, atraumatic, moist mucous membranes NECK: Supple CARDIOVASCULAR EXAMINATION: S1, S2, systolic murmurs appreciated RESPIRATORY EXAMINATION: Clear to auscultation, no wheezing ABDOMINAL EXAMINATION: Soft, nontender, nondistended, positive bowel sounds EXTREMITIES: Range of motion intact SKIN: No rash NEUROLOGICAL EXAMINATION: no focal deficits PSYCHIATRIC EXAMINATION: Calm and cooperative LABORATORY DATA: Please see below. PROGNOSIS: Fair ACTIVITY: As tolerated. DIET: Cardiac DISCHARGE PLAN: Please follow with PCP in 1-2 weeks DISPOSITION: [facility]. DISCHARGE INSTRUCTIONS: 1. As above. DISCHARGE CONDITION: Stable. TIME SPENT ON DISCHARGE: Greater than 34 minutes. Vital Signs/I&Os Vital Signs Date Time Temp Pulse Resp B/P (MAP) Pulse Ox O2 Delivery O2 Flow Rate FiO2 01/14/19 07:38 97.8 62 18 150/66 (94) 98 Room Air I&O- Last 24 Hours up to 6 AM 01/14/19 06:00 Intake Total 340 ml Output Total 200 ml Balance 140 ml Laboratory Data Labs 24H Laboratory Tests 2 01/14/19 05:21: Nucleated Red Blood Cells % (auto) 0.0, Immature Platelet Fraction 4.9, Anion Gap 6L, Glomerular Filtration Rate 20.5L, Calcium Level 7.7L, Phosphorus Level 2.8, Magnesium Level 2.2 CBC/BMP Laboratory Tests 01/14/19 05:21 Microbiology Microbiology 01/09/19 Gastrointestinal Tract Panel (PCR) - Final, Complete Discharge Medications Scheduled Aspirin (Aspir 81) 81 Mg Tablet.dr, 81 MG PO DAILY, (Reported) Atorvastatin Calcium (Atorvastatin Calcium) 80 Mg Tab, 80 MG PO QHS, (Reported) Donepezil HCl (Donepezil HCl) 10 Mg Tablet, 10 MG PO DAILY, (Reported) Ferrous Gluconate (Ferrous Gluconate) 324 Mg Tab, 324 MG PO BID, (Reported) Fluoxetine HCl (Prozac) 40 Mg Cap, 40 MG PO DAILY, (Reported) L.acidoph/L.bulg/B.bif/S.therm (Nelly-Bid Caplet) 1 Each Tablet, 1 TAB PO BID, (Reported) Losartan Potassium (Losartan Potassium) 50 Mg Tablet, 50 MG PO DAILY, (Reported) Pantoprazole Sodium (Pantoprazole Sodium) 40 Mg Tablet.dr, 40 MG PO BID, (Reported) Sodium Bicarbonate (Sodium Bicarbonate) 325 Mg Tablet, 325 MG PO BID Scheduled PRN Acetaminophen (Acetaminophen) 325 Mg Tablet, 650 MG PO Q4H PRN for PAIN / FEVER, (Reported) Bisacodyl (Bisacodyl) 10 Mg Supp.rect, 10 MG OK DAILY PRN for CONSTIPATION, (Reported) Loperamide HCl (Loperamide) 2 Mg Capsule, 2 MG PO Q4H PRN for DIARRHEA, (Reported) Milk Of Magnesia (Milk of Magnesia) 2,400 Mg/10 Ml Oral.susp, 10 ML PO DAILY PRN for CONSTIPATION, (Reported) Allergies Coded Allergies: No Known Allergies (Unverified , 12/27/16) JOSE ANGEL GREENFIELD MD Jan 14, 2019 11:46
--- NOTE | 2019-01-14 21:00 | IPN ---
DATE: 01/14/2019 SUBJECTIVE: The patient was seen and examined at the bedside today morning. She is afebrile, hemodynamically stable. Renal function continues to improve. Creatinine is down to 2.4. She denies any active complaints. OBJECTIVE: Vital signs: Temperature is 97.8 degrees Fahrenheit, blood pressure 150/66, pulse is 62, respiratory rate of 18, saturating 98% on room air. Intake and output: Urine output recorded as 200 mL yesterday. She is having incontinent voids. There is no urine output recorded today. Weight in the bed scale is 81.8 kg yesterday. PHYSICAL EXAMINATION: General: The patient is awake, alert, oriented times 2, laying in bed in no apparent distress. Head and neck exam: Extraocular muscles intact. Pupils equally round and reactive to light. Mucous membranes are moist. Neck is supple. There is no jugular venous distension (JVD). Cardiovascular: S1, S2 regular rate. No edema of the bilateral lower extremities. Respiratory: Chest is clear to auscultation bilaterally. Bilateral equal air entry. No rales or rhonchi. Abdomen: Soft, positive bowel sounds. Nontender. Musculoskeletal: No clubbing or cyanosis. Pulses are 2+. WIRE COILER: No focal deficit. Power is 5/5 in all extremities. LABORATORY REVIEW: Complete blood count (CBC) showed a WBC of 2.9, hemoglobin 9.1, platelets are 59. Basic metabolic panel (BMP) showed sodium 141, potassium 4.8, chloride 113, bicarb 22, BUN 45, creatinine is 2.4, it was 2.6 yesterday, iron levels were 39. Total iron-binding capacity (TIBC) 245, transferrin saturation 15.9%, ferritin is 109. CURRENT INPATIENT MEDICATIONS: The patient's medications were all reviewed by me. I have ordered Venofer 200 mg IV daily for a total of three doses. She was started on sodium bicarbonate 325 mg by mouth twice a day. ASSESSMENT/PLAN: 1. Acute kidney injury superimposed on chronic kidney disease. The patient's renal function continues to improve. Baseline creatinine is 1.5. Continue to monitor for improvement. 2. Non-anion gap metabolic acidosis. Acidosis is improving with sodium bicarbonate. Continue current dose of 325 mg by mouth twice a day. 3. Iron-deficiency anemia. The patient will get Venofer 200 mg IV daily for a total of three doses. 4. Thrombocytopenia. It is secondary to hypersplenism. Platelet levels are stable.
== END 2019-01-14 13:50 | DRG 683 ==
LOC: M ED 10:37 → M ED INP 17:14 → M PCU 18:29 → M MS5PR 01-13 13:40
PROVIDERS: ADMIT Internal Medicine; ATTEND Internal Medicine
DX: N17.9 Acute kidney failure, unspecified (principal); E87.2 Acidosis; I25.10 Atherosclerotic heart disease of native coronary artery without angina pectoris; K74.60 Unspecified cirrhosis of liver; I25.2 Old myocardial infarction; N18.3 Chronic kidney disease, stage 3 (moderate); Z79.82 Long term (current) use of aspirin; Z79.899 Other long term (current) drug therapy; F03.90 Unspecified dementia, unspecified severity, without behavioral disturbance, psychotic disturbance, mood disturbance, and anxiety; Z95.1 Presence of aortocoronary bypass graft; Z87.891 Personal history of nicotine dependence; E87.5 Hyperkalemia; D50.9 Iron deficiency anemia, unspecified; D69.6 Thrombocytopenia, unspecified

== ENCOUNTER → 2019-01-09 | Outpatient (REF) | payer MEDICARE, MEDICAID ==
[~2019-01-09] MED LIST changes: +DEXTROSE 50% 50 ML SYRINGE IV PRN; +GLUCAGON FOR INJ 1 MG VIAL (J1610) SC PRN; +GLUCOSE 4 GM CHEW TABLET PO PRN; +HumaLOG INSULIN (NovoLOG) PER UNIT SC SCH
[2019-01-09 07:51] LABS: HEMATOCRIT 33.3 % (36.0-47.0); HEMOGLOBIN 10.6 g/dl (12.0-15.5); MEAN CORPUSCULAR HEMOGLOBIN 30.1 pg (27.0-33.0); MEAN CORPUSCULAR HGB CONC 31.8 g/dl (32.0-36.5); MEAN CORPUSCULAR VOLUME 94.6 fl (80.0-96.0); RED BLOOD COUNT 3.52 10^6/uL (4.00-5.40); WHITE BLOOD COUNT 5.4 10^3/uL (4.0-10.0)
[2019-01-09 07:52] LABS: PLATELET COUNT, AUTOMATED 48 10^3/uL (150-450)
[2019-01-09 08:17] LABS: CALCIUM LEVEL 7.7 MG/DL (8.8-10.2); CREATININE FOR GFR 4.49 MG/DL (0.55-1.30); GLOMERULAR FILTRATION RATE 10.2 (>39); POTASSIUM SERUM 4.8 MEQ/L (3.5-5.1)
== END ==
LOC: SKLAB3 10:50
PROVIDERS: ATTEND Internal Medicine
DX: N17.9 Acute kidney failure, unspecified (principal)

== ENCOUNTER → 2019-01-16 | Outpatient (REF) ==
[~2019-01-16] MED LIST changes: +BISA10SU4 PR; +MOM30SS PO; +RISATAB3 PO; +SODI325T9 PO
[2019-01-16 08:03] LABS: HEMATOCRIT 28.3 % (36.0-47.0); HEMOGLOBIN 8.6 g/dl (12.0-15.5); MEAN CORPUSCULAR HEMOGLOBIN 30.2 pg (27.0-33.0); MEAN CORPUSCULAR HGB CONC 30.4 g/dl (32.0-36.5); MEAN CORPUSCULAR VOLUME 99.3 fl (80.0-96.0); RED BLOOD COUNT 2.85 10^6/uL (4.00-5.40); WHITE BLOOD COUNT 2.9 10^3/uL (4.0-10.0)
[2019-01-16 08:06] LABS: PLATELET COUNT, AUTOMATED 62 10^3/uL (150-450)
[2019-01-16 08:22] LABS: CALCIUM LEVEL 7.7 MG/DL (8.8-10.2); CREATININE FOR GFR 1.99 MG/DL (0.55-1.30); GLOMERULAR FILTRATION RATE 26.1 (>39); POTASSIUM SERUM 4.5 MEQ/L (3.5-5.1)
== END ==
LOC: SKLAB3 08:00
PROVIDERS: ATTEND Internal Medicine
DX: N18.9 Chronic kidney disease, unspecified (principal)

== ENCOUNTER → 2019-01-21 | Outpatient (REF) ==
[2019-01-21 07:23] LABS: HEMATOCRIT 27.2 % (36.0-47.0); HEMOGLOBIN 8.4 g/dl (12.0-15.5); MEAN CORPUSCULAR HEMOGLOBIN 30.5 pg (27.0-33.0); MEAN CORPUSCULAR HGB CONC 30.9 g/dl (32.0-36.5); MEAN CORPUSCULAR VOLUME 98.9 fl (80.0-96.0); RED BLOOD COUNT 2.75 10^6/uL (4.00-5.40); WHITE BLOOD COUNT 2.8 10^3/uL (4.0-10.0)
[2019-01-21 07:24] LABS: PLATELET COUNT, AUTOMATED 72 10^3/uL (150-450)
[2019-01-21 07:44] LABS: CALCIUM LEVEL 7.5 MG/DL (8.8-10.2); CREATININE FOR GFR 1.64 MG/DL (0.55-1.30); GLOMERULAR FILTRATION RATE 32.6 (>39); POTASSIUM SERUM 4.4 MEQ/L (3.5-5.1)
== END ==
LOC: SKLAB3 08:00
PROVIDERS: ATTEND Internal Medicine
DX: N18.9 Chronic kidney disease, unspecified (principal)

== ENCOUNTER → 2019-01-28 | Outpatient (REF) ==
[2019-01-28 14:35] LABS: ALBUMIN 2.1 GM/DL (3.2-5.2); CALCIUM LEVEL 7.7 MG/DL (8.8-10.2); CREATININE FOR GFR 1.53 MG/DL (0.55-1.30); GLOMERULAR FILTRATION RATE 35.3 (>39); PHOSPHORUS LEVEL 2.6 MG/DL (2.5-4.9); POTASSIUM SERUM 3.8 MEQ/L (3.5-5.1)
== END ==
LOC: SKLAB3 10:56
PROVIDERS: ATTEND Internal Medicine
DX: N17.9 Acute kidney failure, unspecified (principal)

== ENCOUNTER 2019-02-01 09:31 | Outpatient (CLI) | payer MEDICARE, MEDICAID ==
[2019-02-01] VITALS (7 sets, daily range): BP systolic 145–170; BP diastolic 62–70
[~2019-02-01] VITALS: Ht 167.6 cm; Wt 81.8 kg
[2019-02-01] MEDS ORDERED: IRON SUCROSE 25 MG in NS 25 ML IV ONE (10:00)
[2019-02-01] MEDS ORDERED: ACETAMINOPHEN TAB 650MG DOSE (2X325MG) As Ordered ONE (10:13)
[2019-02-01] MEDS ORDERED: ACETAMINOPHEN TAB 650MG DOSE (2X325MG) PO ONE (10:15)
[2019-02-01] MEDS ORDERED: IRON SUCROSE 300 MG in NS 250 ML OVER 90 MIN. IV ONE (11:00)
== END 2019-02-01 14:30 | disposition home or self-care (01) ==
LOC: M INFU 09:31
PROVIDERS: ATTEND Internal Medicine Nephrology
DX: D50.9 Iron deficiency anemia, unspecified (principal)
CPT/HCPCS: 96365; 96366; J1756

== ENCOUNTER → 2019-02-04 | Outpatient (CLI) | payer MEDICARE, MEDICAID ==
--- NOTE | 2019-02-04 10:00 | REP ---
Abdominal aortic sonography: History: Atherosclerosis. Personal history of nicotine dependence. Comparison CT study September 25, 2018. This CT study showed a 4.9 cm abdominal aortic aneurysm. Sonographic findings: At the level of the diaphragmatic hiatus, the AP by transverse dimensions of the abdominal aorta are 2.3 x 2.1 cm respectively. The aorta could not be discerned at the level of the renal arteries. At mid aortic level there is an aneurysm measuring 4.8 x 4.7 cm in AP by transverse dimension respectively. The distal aorta measures 4.1 x 3.6 cm. The right and left common iliac arteries do not appear to be involved measuring 1.0 and 0.8 cm in AP dimension respectively. There is some mural thrombus as expected. Impression: 4.8 x 4.7 cm infrarenal abdominal aortic aneurysm. No evidence of interval enlargement since September 25, 2018 CT. Electronically Signed by Roni Alicea MD 02/04/2019 10:25 A
== END ==
LOC: M RAD 08:00
PROVIDERS: ATTEND Physician Assistant
DX: I70.8 Atherosclerosis of other arteries (principal); Z87.891 Personal history of nicotine dependence

== ENCOUNTER → 2019-03-13 | Outpatient (CLI) | payer MEDICARE, MEDICAID ==
--- NOTE | 2019-03-13 17:44 | REP ---
Duplex carotid sonography: History: Stenosis. Comparison carotid sonography August 03, 2018. Findings: Antegrade flow was observed in both vertebral arteries. Right carotid: The right common carotid artery shows mixed plaquing. There is extensive mixed plaquing in the bulb and proximal ICA on two-dimensional scanning. There are stenotic flow velocities in the proximal ICA and proximal ECA on two-dimensional scanning similar to previous study. Velocity chart right carotid: CCA PSV 102 cm/s ICA PSV 215 cm/s ICA EDV 45 cm/s ECA PSV 380 cm/s Right ICA/CCA ratio elevated 2.1. Impression: 50-79% category narrowing in the right ICA by Doppler velocity criteria. Peak systolic velocity in the proximal ICA is a little higher than it was on the prior study. Left carotid: Left common carotid artery shows moderate mixed plaquing. There is moderate to extensive mixed plaquing in the bulb and proximal ICA on two-dimensional scanning. Stenotic flow velocities are observed in the ICA and ECA similar to the prior study. Velocity chart left carotid: CCA PSV 70 cm/s ICA PSV 559 cm/s ICA EDV 130 cm/s ECA PSV 598 cm/s Left ICA/CCA ratio elevated 8.0. Impression: 80-99% category narrowing in the left ICA by Doppler velocity criteria. High-level stenotic velocities are observed in the ECA as well on the left. These velocities are a similar to the prior study. Electronically Signed by Roni Alicea MD 03/13/2019 07:08 P
--- NOTE | 2019-03-13 18:25 | REP ---
CT of the abdomen pelvis without IV or bowel contrast for evaluation of abdominal aortic aneurysm: Comparison is 09/25/2018. The patient's known abdominal aortic aneurysm measures up to 5.0 centimeters transverse diameter, on the coronal images. There is no periaortic hematoma. There is calcified atheroma throughout the abdominal aorta. The the patient has a lobulated hepatic margin compatible with cirrhosis. This is unchanged. However, there is diffuse abdominal and pelvic ascites today as an interval change. There are small bilateral pleural effusions, slightly larger than on the comparison study. The visualized lung kaur otherwise are. No hepatic masses are identified, however the study is insensitive in the absence of IV contrast. There are multiple gallbladder calculi, unchanged. No biliary duct dilatation. The pancreas and spleen are unchanged unremarkable. There is a 2.9 cm right adrenal nodule, unchanged. The left adrenal is unremarkable. The unenhanced kidneys are unremarkable. There are bilateral renal artery stents, unchanged. The bowel and mesentery are unremarkable except for the ascites. There are nodular densities in the anterior abdominal wall, not present previously, possibly injection granulomas. Pelvis: The bladder is unremarkable. Uterus and adnexa are unremarkable. The previous right groin hematoma has resolved. The pelvic bowel loops are unremarkable. Impression: The known abdominal aortic aneurysm today and measures 5.0 cm transverse diameter. The most accurate measurements on the coronal images. There are is a cirrhosis. There is abdominal ascites as an interval change. There are small bilateral pleural effusions, slightly larger than the comparison study. There is a right adrenal nodule, unchanged. There are bilateral renal artery stents, unchanged. The previous right groin hematoma has resolved. There are nodular densities in the subcutaneous anterior abdominal wall, possibly from injections. Electronically Signed by Kentrell Santos MD 03/13/2019 06:17 P
== END ==
LOC: M RAD 14:12
PROVIDERS: ATTEND Physician Assistant
DX: I71.4 Abdominal aortic aneurysm, without rupture (principal); I65.23 Occlusion and stenosis of bilateral carotid arteries; I70.203 Unspecified atherosclerosis of native arteries of extremities, bilateral legs

== ENCOUNTER → 2019-03-18 | Outpatient (CLI) | payer MEDICARE, MEDICAID ==
--- NOTE | 2019-03-19 08:20 | REP ---
BILATERAL LOWER EXTREMITY DUPLEX DOPPLER ARTERIAL ULTRASOUND: Real-time ultrasound evaluation and duplex Doppler interrogation of bilateral lower extremity arterial system is performed. TIFFANIE right is 0.9 and left 1.0. Severe plaquing is seen bilaterally. There are diffuse biphasic waveforms bilaterally. Elevated peak systolic velocity in the right common femoral artery profunda suggests stenosis. There is stenosis of the proximal right anterior tibial artery as well as proximal left posterior tibial artery. Right Peak Left Peak Systolic Velocity Systolic velocity Common femoral artery 214.9 cm/s 146.5 cm/s Profunda 289.5 cm/s 129.9 cm/s Proximal SFA 118.4 cm/s 81.6 cm/s Mid SFA 125.5 cm/s 110.2 cm/s Distal SFA 116.8 cm/s 92.8 cm/s Popliteal 37.0 cm/s 51.4 cm/s Proximal INDRA 159.3 cm/s 39.0 cm/s Tibial peroneal trunk 59.5 cm/s 44.6 cm/s Proximal BANKING MANAGEMENT CONSULTING MANAGER 77.8 cm/s 89.9 cm/s Distal BANKING MANAGEMENT CONSULTING MANAGER 67.5 cm/s 67.5 cm/s Distal INDRA 48.0 cm/s 38.2 cm/s Electronically Signed by Kentrell Hoang MD 03/20/2019 01:26 P
== END ==
LOC: M RAD 12:44
PROVIDERS: ATTEND Physician Assistant
DX: I70.203 Unspecified atherosclerosis of native arteries of extremities, bilateral legs (principal); R09.89 Other specified symptoms and signs involving the circulatory and respiratory systems

== ENCOUNTER → 2019-03-25 | Outpatient (REF) | payer MEDICARE, MEDICAID | LOC: SKLAB3 10:44 | PROVIDERS: ATTEND Internal Medicine | DX: R19.7 Diarrhea, unspecified (principal) ==

== ENCOUNTER → 2019-03-26 | Outpatient (REF) | payer MEDICARE, MEDICAID ==
[~2019-03-26] MED LIST changes: +LASI40TA9 PO
[2019-03-26 07:53] LABS: BASO % 1.2 % (0.0-1.0); EOS # 0.2 10^3/uL (0.0-0.5); EOS % 6.9 % (0.0-3.0); HEMATOCRIT 31.4 % (36.0-47.0); HEMOGLOBIN 9.7 g/dl (12.0-15.5); LYMPH # 0.8 10^3/uL (1.5-5.0); MEAN CORPUSCULAR HEMOGLOBIN 30.6 pg (27.0-33.0); MEAN CORPUSCULAR HGB CONC 30.9 g/dl (32.0-36.5); MEAN CORPUSCULAR VOLUME 99.1 fl (80.0-96.0); MONO # 0.3 10^3/uL (0.0-0.8); MONO % 9.5 % (0.0-5.0); NEUTROPHILS # 2.1 10^3/uL (1.5-8.5); NEUTROPHILS % 60.1 % (36.0-66.0); RED BLOOD COUNT 3.17 10^6/uL (4.00-5.40); WHITE BLOOD COUNT 3.5 10^3/uL (4.0-10.0)
[2019-03-26 07:54] LABS: PLATELET COUNT, AUTOMATED 86 10^3/uL (150-450)
[2019-03-26 08:26] LABS: CALCIUM LEVEL 7.4 MG/DL (8.8-10.2); CREATININE FOR GFR 1.07 MG/DL (0.55-1.30); GLOMERULAR FILTRATION RATE 53.4 (>39); MAGNESIUM LEVEL 2.1 MG/DL (1.8-2.4); PERCENT SATURATION 16.7 % (13.2-45.0); PHOSPHORUS LEVEL 2.9 MG/DL (2.5-4.9)
[2019-03-26 08:52] LABS: PTH INTACT 141.6 PG/ML (18.5-88.0)
== END ==
LOC: SKLAB3 07:00
PROVIDERS: ATTEND Internal Medicine
DX: N18.9 Chronic kidney disease, unspecified (principal)

== ENCOUNTER → 2019-03-29 | Outpatient (REF) | payer MEDICARE, MEDICAID ==
[~2019-03-29] MED LIST changes: -LASI40TA9 PO
--- NOTE | 2019-03-29 12:36 | REP ---
KUB: Single view. HISTORY: Abdomen distension. Comparison radiographs are from April 01, 2017. FINDINGS: The current radiograph is somewhat underexposed. Vascular calcification is again observed. There is an arterial stent in the right iliac artery. There is air and stool in a nondistended colon. No larger small bowel dilation is seen. There is soft tissue density along the flank stripes lateral to the bowel gas suggesting ascites. IMPRESSION: Bowel gas pattern suggests ascites. No evidence of obstruction or ileus. Vascular calcification and right iliac artery stent noted. Electronically Signed by Roni Alicea MD 03/29/2019 01:31 P
[2019-03-29 13:07] LABS: BASO % 0.7 % (0.0-1.0); EOS # 0.2 10^3/uL (0.0-0.5); EOS % 5.2 % (0.0-3.0); HEMATOCRIT 33.8 % (36.0-47.0); HEMOGLOBIN 10.4 g/dl (12.0-15.5); LYMPH # 0.8 10^3/uL (1.5-5.0); MEAN CORPUSCULAR HEMOGLOBIN 30.5 pg (27.0-33.0); MEAN CORPUSCULAR HGB CONC 30.8 g/dl (32.0-36.5); MEAN CORPUSCULAR VOLUME 99.1 fl (80.0-96.0); MONO # 0.4 10^3/uL (0.0-0.8); MONO % 9.1 % (0.0-5.0); NEUTROPHILS # 2.7 10^3/uL (1.5-8.5); NEUTROPHILS % 65.8 % (36.0-66.0); PLATELET COUNT, AUTOMATED 110 10^3/uL (150-450); RED BLOOD COUNT 3.41 10^6/uL (4.00-5.40); WHITE BLOOD COUNT 4.1 10^3/uL (4.0-10.0)
== END ==
LOC: SKLAB3 11:09
PROVIDERS: ATTEND Internal Medicine
DX: R14.0 Abdominal distension (gaseous) (principal); R50.9 Fever, unspecified

== ENCOUNTER 2019-04-10 07:27 | Day surgery (SDC) | payer MEDICARE, MEDICAID ==
[~2019-04-10] VITALS: Ht 167.6 cm; Wt 79.4 kg
[~2019-04-10 07:27] MED LIST changes: +LASI40TA9 PO; +NS 1,000 ML IV ONE
[2019-04-10] MEDS ORDERED: LIDOCAINE 2% INJ 100 MG/5 ML SDV (FOR ANES.) As Ordered ONE (07:42)
[2019-04-10] MEDS ORDERED: propofoL 200 MG/20 ML VIAL As Ordered ONE (07:42)
[2019-04-10 09:31] VITALS: BP 193/81
--- NOTE | 2019-04-10 15:34 | ROOR ---
Patient Name: aMriposa Mora Procedure Date: 04/10/2019 8:35 AM Date of : 1945 Age: 73 Room: [facility] Gender: Female Note Status: Finalized Procedure: Total Colonoscopy to Cecum + Cold Snare Polypectomy + Hemoclips + ileoscopy + bx Indications: Clinically significant diarrhea of unexplained origin Providers: Bill Reynolds MD Referring MD: Carmelo Booker MD Requesting Provider: Medicines: Monitored Anesthesia Care Complications: No immediate complications. Procedure: Pre-Anesthesia Assessment: - The heart rate, respiratory rate, oxygen saturations, blood pressure, adequacy of pulmonary ventilation, and response to care were monitored throughout the procedure. The Colonoscope was introduced through the anus and advanced to the terminal ileum, with identification of the appendiceal orifice and IC valve. The colonoscopy was performed without difficulty. The patient tolerated the procedure well. The quality of the bowel preparation was excellent. Findings: The perianal and digital rectal examinations were normal. Internal hemorrhoids were found during retroflexion. The hemorrhoids were small. A small polyp was found at 20 cm proximal to the anus. The polyp was sessile. The polyp was removed with a cold snare. Resection and retrieval were complete. To prevent bleeding after the polypectomy, two hemostatic clips were successfully placed. There was no bleeding at the end of the procedure. The exam was otherwise without abnormality on direct and retroflexion views. The terminal ileum appeared normal. Biopsies for histology were taken with a cold forceps from the ascending colon, transverse colon, descending colon and rectosigmoid colon for evaluation of microscopic colitis. The exam was otherwise without abnormality. Impression: - Internal hemorrhoids. - One small polyp at 20 cm proximal to the anus, removed with a cold snare. Resected and retrieved. Clips were placed. - The examination was otherwise normal on direct and retroflexion views. - The examined portion of the ileum was normal. - The examination was otherwise normal. - Biopsies were taken with a cold forceps from the ascending colon, transverse colon, descending colon and rectosigmoid colon for evaluation of microscopic colitis. - The exam was otherwise normal to the cecum. Recommendation: - Patient has a contact number available for emergencies. The signs and symptoms of potential delayed complications were discussed with the patient. Return to normal activities tomorrow. Written discharge instructions were provided to the patient. - High fiber diet. - Discharge patient to home. - Continue present medications. - Await pathology results. - Telephone GI clinic for pathology results in 1 week. - Return to referring physician. - The findings and recommendations were discussed with the patient's family. Bill Reynolds MD Bill Reynolds MD 04/10/2019 9:00:49 AM Electronically signed by Bill Reynolds MD Number of Addenda: 0 Note Initiated On: 04/10/2019 8:35 AM Estimated Blood Loss: Estimated blood loss: none.
== END 2019-04-10 09:30 | disposition home or self-care (01) ==
LOC: M OPP 07:27
PROVIDERS: ATTEND Internal Medicine Gastroenterology
DX: K64.8 Other hemorrhoids (principal); K63.5 Polyp of colon; R19.7 Diarrhea, unspecified; Z79.82 Long term (current) use of aspirin; Z79.899 Other long term (current) drug therapy; Z95.5 Presence of coronary angioplasty implant and graft

== ENCOUNTER → 2019-04-11 | Outpatient (REF) | payer MEDICARE, MEDICAID ==
[~2019-04-11] MED LIST changes: -NS 1,000 ML IV ONE
[2019-04-11 08:54] LABS: HEMATOCRIT 32.8 % (36.0-47.0); HEMOGLOBIN 10.2 g/dl (12.0-15.5); MEAN CORPUSCULAR HEMOGLOBIN 30.6 pg (27.0-33.0); MEAN CORPUSCULAR HGB CONC 31.1 g/dl (32.0-36.5); MEAN CORPUSCULAR VOLUME 98.5 fl (80.0-96.0); RED BLOOD COUNT 3.33 10^6/uL (4.00-5.40); WHITE BLOOD COUNT 6.7 10^3/uL (4.0-10.0)
[2019-04-11 09:09] LABS: PLATELET COUNT, AUTOMATED 86 10^3/uL (150-450)
[2019-04-11 09:28] LABS: ALBUMIN 1.9 GM/DL (3.2-5.2); BILIRUBIN,TOTAL 0.9 MG/DL (0.2-1.0); CALCIUM LEVEL 7.6 MG/DL (8.8-10.2); CREATININE FOR GFR 1.21 MG/DL (0.55-1.30); GLOMERULAR FILTRATION RATE 46.3 (>39)
== END ==
LOC: SKLAB3 07:06
PROVIDERS: ATTEND Internal Medicine
DX: R11.2 Nausea with vomiting, unspecified (principal)

== ENCOUNTER → 2019-05-22 | Outpatient (REF) | payer MEDICARE, MEDICAID ==
[2019-05-22 16:03] LABS: HEMATOCRIT 26.5 % (36.0-47.0); HEMOGLOBIN 8.4 g/dl (12.0-15.5); MEAN CORPUSCULAR HEMOGLOBIN 31.5 pg (27.0-33.0); MEAN CORPUSCULAR HGB CONC 31.7 g/dl (32.0-36.5); MEAN CORPUSCULAR VOLUME 99.3 fl (80.0-96.0); RED BLOOD COUNT 2.67 10^6/uL (4.00-5.40); WHITE BLOOD COUNT 3.4 10^3/uL (4.0-10.0)
[2019-05-22 16:06] LABS: PLATELET COUNT, AUTOMATED 70 10^3/uL (150-450)
== END ==
LOC: SKLAB3 15:28
PROVIDERS: ATTEND Internal Medicine
DX: D69.9 Hemorrhagic condition, unspecified (principal)

== ENCOUNTER → 2019-05-24 | Outpatient (REF) | payer MEDICARE, MEDICAID ==
[2019-05-24 10:32] LABS: BASO % 0.8 % (0.0-1.0); EOS # 0.2 10^3/uL (0.0-0.5); EOS % 4.4 % (0.0-3.0); HEMATOCRIT 27.3 % (36.0-47.0); HEMOGLOBIN 8.7 g/dl (12.0-15.5); LYMPH # 0.6 10^3/uL (1.5-5.0); LYMPH % 16.7 % (24.0-44.0); MEAN CORPUSCULAR HEMOGLOBIN 31.5 pg (27.0-33.0); MEAN CORPUSCULAR HGB CONC 31.9 g/dl (32.0-36.5); MEAN CORPUSCULAR VOLUME 98.9 fl (80.0-96.0); MONO # 0.4 10^3/uL (0.0-0.8); NEUTROPHILS # 2.5 10^3/uL (1.5-8.5); NEUTROPHILS % 68.1 % (36.0-66.0); RED BLOOD COUNT 2.76 10^6/uL (4.00-5.40); WHITE BLOOD COUNT 3.6 10^3/uL (4.0-10.0)
[2019-05-24 10:34] LABS: PLATELET COUNT, AUTOMATED 82 10^3/uL (150-450)
[2019-05-24 10:59] LABS: ALBUMIN 1.8 GM/DL (3.2-5.2); BILIRUBIN,TOTAL 0.9 MG/DL (0.2-1.0); CALCIUM LEVEL 7.5 MG/DL (8.8-10.2); CREATININE FOR GFR 1.58 MG/DL (0.55-1.30); TOTAL PROTEIN 5.8 GM/DL (6.4-8.2)
== END ==
LOC: SKLAB3 05-23 09:26
PROVIDERS: ATTEND Internal Medicine
DX: K62.5 Hemorrhage of anus and rectum (principal)

== ENCOUNTER → 2019-05-27 | Outpatient (REF) | payer MEDICARE, MEDICAID ==
[2019-05-27 06:52] LABS: BASO % 0.7 % (0.0-1.0); EOS # 0.1 10^3/uL (0.0-0.5); EOS % 5.2 % (0.0-3.0); HEMATOCRIT 25.2 % (36.0-47.0); LYMPH # 0.7 10^3/uL (1.5-5.0); LYMPH % 24.6 % (24.0-44.0); MEAN CORPUSCULAR HEMOGLOBIN 31.1 pg (27.0-33.0); MEAN CORPUSCULAR HGB CONC 31.7 g/dl (32.0-36.5); MEAN CORPUSCULAR VOLUME 98.1 fl (80.0-96.0); MONO # 0.3 10^3/uL (0.0-0.8); MONO % 10.1 % (0.0-5.0); NEUTROPHILS # 1.6 10^3/uL (1.5-8.5); NEUTROPHILS % 59.4 % (36.0-66.0); RED BLOOD COUNT 2.57 10^6/uL (4.00-5.40); WHITE BLOOD COUNT 2.7 10^3/uL (4.0-10.0)
[2019-05-27 06:53] LABS: PLATELET COUNT, AUTOMATED 70 10^3/uL (150-450)
[2019-05-27 07:11] LABS: ALBUMIN 1.6 GM/DL (3.2-5.2); BILIRUBIN,TOTAL 0.7 MG/DL (0.2-1.0); CALCIUM LEVEL 7.3 MG/DL (8.8-10.2); CREATININE FOR GFR 1.78 MG/DL (0.55-1.30); GLOMERULAR FILTRATION RATE 29.6 (>39); POTASSIUM SERUM 4.3 MEQ/L (3.5-5.1); TOTAL PROTEIN 5.3 GM/DL (6.4-8.2)
== END ==
LOC: SKLAB3 07:00
PROVIDERS: ATTEND Internal Medicine
DX: N18.9 Chronic kidney disease, unspecified (principal)

== ENCOUNTER → 2019-05-29 | Outpatient (REF) | payer MEDICARE, MEDICAID ==
[2019-05-29 06:35] LABS: HEMATOCRIT 25.8 % (36.0-47.0); HEMOGLOBIN 8.4 g/dl (12.0-15.5); MEAN CORPUSCULAR HEMOGLOBIN 31.8 pg (27.0-33.0); MEAN CORPUSCULAR HGB CONC 32.6 g/dl (32.0-36.5); MEAN CORPUSCULAR VOLUME 97.7 fl (80.0-96.0); RED BLOOD COUNT 2.64 10^6/uL (4.00-5.40); WHITE BLOOD COUNT 3.1 10^3/uL (4.0-10.0)
[2019-05-29 06:36] LABS: PLATELET COUNT, AUTOMATED 74 10^3/uL (150-450)
[2019-05-29 06:59] LABS: ALBUMIN 1.8 GM/DL (3.2-5.2); BILIRUBIN,TOTAL 0.8 MG/DL (0.2-1.0); CALCIUM LEVEL 7.3 MG/DL (8.8-10.2); CREATININE FOR GFR 1.78 MG/DL (0.55-1.30); GLOMERULAR FILTRATION RATE 29.6 (>39); TOTAL PROTEIN 5.6 GM/DL (6.4-8.2)
== END ==
LOC: SKLAB3 07:09
PROVIDERS: ATTEND Internal Medicine
DX: N18.9 Chronic kidney disease, unspecified (principal)

== ENCOUNTER → 2019-06-03 | Outpatient (REF) | payer MEDICARE, MEDICAID ==
[2019-06-03 13:28] LABS: HEMATOCRIT 27.9 % (36.0-47.0); MEAN CORPUSCULAR HEMOGLOBIN 31.9 pg (27.0-33.0); MEAN CORPUSCULAR HGB CONC 32.3 g/dl (32.0-36.5); MEAN CORPUSCULAR VOLUME 98.9 fl (80.0-96.0); RED BLOOD COUNT 2.82 10^6/uL (4.00-5.40); WHITE BLOOD COUNT 4.9 10^3/uL (4.0-10.0)
[2019-06-03 13:30] LABS: PLATELET COUNT, AUTOMATED 77 10^3/uL (150-450)
[2019-06-03 14:01] LABS: ALBUMIN 1.7 GM/DL (3.2-5.2); BILIRUBIN,TOTAL 0.8 MG/DL (0.2-1.0); CALCIUM LEVEL 7.3 MG/DL (8.8-10.2); CREATININE FOR GFR 2.33 MG/DL (0.55-1.30); GLOMERULAR FILTRATION RATE 21.7 (>39); POTASSIUM SERUM 3.8 MEQ/L (3.5-5.1); TOTAL PROTEIN 5.7 GM/DL (6.4-8.2)
--- NOTE | 2019-06-03 17:15 | REP ---
REASON: Pain. No pertinent priors. There is an age undetermined fracture of the distal clavicle. Review of the latest prior rib series, which includes the distal left clavicle shows this to represent change from that prior exam. That examination is dated 04/03/2017. The glenohumeral relationship is within normal limits. There are no additional fractures. There are chronic lung field changes. IMPRESSION: Age undetermined distal clavicle fracture. Electronically Signed by Irving Hernandes DO 06/04/2019 10:54 A
--- NOTE | 2019-06-03 17:17 | REP ---
REASON: Left-sided pain. COMPARISON: 04/03/2017 Please see the left shoulder report. There is an old healed distal humeral fracture. There has been previous median sternotomy with multiple fractured sternal wire, status quo. There is no significant change in the appearance of the left rib series. There is no acute fracture. IMPRESSION: No acute rib fracture, however, other findings as described above. Electronically Signed by Irving Hernandes DO 06/04/2019 10:54 A
[2019-06-04 18:02] LABS: PERCENT SATURATION 29.5 % (13.2-45.0)
== END ==
LOC: SKLAB3 06:58
PROVIDERS: ATTEND Internal Medicine
DX: N18.9 Chronic kidney disease, unspecified (principal); M25.512 Pain in left shoulder; R07.82 Intercostal pain

== ENCOUNTER 2019-06-14 19:10 | Inpatient (IN) | payer MEDICARE, MEDICAID ==
[~2019-06-14] VITALS: Ht 167.6 cm; Wt 75.9 kg
[2019-06-14] MEDS: LACTOBACILLUS ACIDOPHILUS CAP (BACID) PO SCH (01:44)
[2019-06-14] MEDS ORDERED: NS 1,000 ML IV ONE (19:30)
[2019-06-14] MEDS ORDERED: METOCLOPRAMIDE INJ 10MG/2ML VIAL (J2765 PER 1) IV ONE (19:30)
[2019-06-14] MEDS ORDERED: PANTOPRAZOLE 40MG VIAL (C9113 PER 1) IV ONE (19:30)
[2019-06-14] MEDS ORDERED: FLUO40CA PO (19:37)
[2019-06-14] MEDS ORDERED: ARIC1TAB2 PO (19:37)
[2019-06-14] MEDS ORDERED: VITA1TAB23 PO (19:40)
[2019-06-14] MEDS ORDERED: PROC1SP PR (19:41)
[2019-06-14] MEDS ORDERED: ACET-683 PO (19:42)
[2019-06-14] MEDS ORDERED: DILT1CAP PO (19:44)
[2019-06-14] MEDS ORDERED: PLAV1TAB2 PO (19:45)
[2019-06-14] MEDS ORDERED: LASI20TA3 PO (19:45)
[2019-06-14] MEDS ORDERED: ZOFR4TAB16 PO (19:47)
[2019-06-14] MEDS ORDERED: PRED1TABL PO (19:48)
[2019-06-14 19:49] LABS: BASO % 0.1 % (0.0-1.0); HEMATOCRIT 28.2 % (36.0-47.0); HEMOGLOBIN 8.9 g/dl (12.0-15.5); LYMPH # 0.7 10^3/uL (1.5-5.0); LYMPH % 4.6 % (24.0-44.0); MEAN CORPUSCULAR HEMOGLOBIN 31.7 pg (27.0-33.0); MEAN CORPUSCULAR HGB CONC 31.6 g/dl (32.0-36.5); MEAN CORPUSCULAR VOLUME 100.4 fl (80.0-96.0); MONO # 0.6 10^3/uL (0.0-0.8); MONO % 4.3 % (0.0-5.0); NEUTROPHILS # 13.1 10^3/uL (1.5-8.5); NEUTROPHILS % 90.4 % (36.0-66.0); PLATELET COUNT, AUTOMATED 172 10^3/uL (150-450); RED BLOOD COUNT 2.81 10^6/uL (4.00-5.40); WHITE BLOOD COUNT 14.4 10^3/uL (4.0-10.0)
[2019-06-14] MEDS ORDERED: LIPI20TA PO (19:50)
[2019-06-14] MEDS ORDERED: VITA500C24 PO (19:51)
[2019-06-14 20:04] LABS: INR 1.87; PROTHROMBIN TIME 21.3 SECONDS (11.8-14.0)
[2019-06-14 20:05] LABS: PARTIAL THROMBOPLASTIN TIME 36.7 SECONDS (25.0-38.4)
[2019-06-14 20:19] LABS: ALBUMIN 1.8 GM/DL (3.2-5.2); ALT/SGPT 13 U/L (12-78); BILIRUBIN,DIRECT 0.4 MG/DL (0.0-0.2); BILIRUBIN,TOTAL 0.7 MG/DL (0.2-1.0); BLOOD UREA NITROGEN 61 MG/DL (7-18); CALCIUM LEVEL 7.5 MG/DL (8.8-10.2); CARBON DIOXIDE LEVEL 20 MEQ/L (21-32); CHLORIDE LEVEL 109 MEQ/L (98-107); CK-MB VALUE MASS < 1.0 NG/ML (<3.6); CPK CREATINE PHOSPHOKINASE 24 U/L (26-192); GLOMERULAR FILTRATION RATE 12.3 (>39); GLUCOSE, FASTING 132 MG/DL (70-100); LIPASE 300 U/L (73-393); MB/CK RELATIVE INDEX 4.17 (< OR =4); POTASSIUM SERUM 4.9 MEQ/L (3.5-5.1); SODIUM LEVEL 139 MEQ/L (136-145); TOTAL PROTEIN 5.9 GM/DL (6.4-8.2); TROPONIN I 0.02 NG/ML (< 0.10)
[2019-06-14] MEDS ORDERED: ATORVASTATIN 20 MG TAB PO SCH (21:00)
[2019-06-14] MEDS ORDERED: SODIUM BICARBONATE 325 MG TAB PO SCH (21:00)
[2019-06-14 22:52] LABS: HEMATOCRIT 29.1 % (36.0-47.0); HEMOGLOBIN 9.2 g/dl (12.0-15.5)
[2019-06-14] MEDS ORDERED: ATOR40TA75 PO (23:06)
[2019-06-14] MEDS ORDERED: PRED20TA PO (23:06)
[2019-06-14] MEDS ORDERED: SODI325T9 PO (23:06)
[2019-06-14] MEDS ORDERED: ASPI81CH33 PO (23:06)
[2019-06-14] MEDS ORDERED: PROC1AER16 PR (23:06)
[2019-06-14] MEDS ORDERED: ACET1TAB55 PO (23:08)
[2019-06-14] MEDS ORDERED: DULC10SU2 PR (23:08)
[2019-06-14 23:10] VITALS: BP_SYST 146; BP_SYST 158; BP_DIAS 68; BP_DIAS 80
[2019-06-15] VITALS (10 sets, daily range): BP systolic 142–200; BP diastolic 52–72
[2019-06-15] MEDS ORDERED: PROCTOFOAM-HC 1% FOAM 10 GM CAN PR PRN (01:45)
--- NOTE | 2019-06-15 03:07 | HPEPDOC ---
General Date of Admission Jun 14, 2019 at 21:51 Date of Service: Jun 14, 2019 Attending Physician: LUCY ROSAS MD Chief Complaint The patient is a 74-year-old female admitted with a reason for visit of Gi Bleed,Cee. History of Present Illness HPI: This is a 74-year-old female patient of [facility] brought in for vomiting bright red blood. She is a poor historian with baseline dementia unable to provide any history. Information is obtained through chart and staff. She has history of multiple GI bleeds in the past, source unclear. She is chronically on ASA 81 mg & Plavix for hx of PVD & CAD with stents. Last scopes on file are from 03/2017, also for hematemesis & melena. EGD found gastritis, duodenitis; colonoscospy found no source of bleed, only internal hemorrhoids and polyp. In the ER, she was noted to be resting comfortably with bright red blood out of her NG tube, about 50-100cc in the canister. Her Hgb is noted to be at 9.2, baseline appears 9-10. Rectal exam revealed loose stool in diaper with dark melanotic stool with trace bright blood mixed in, and hemoccult strongly positive for blood. Pt will be admitted for further w/u and tx. 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 Unable to obtain any further information given patients dementia ROS: unable to obtain given pts dementia. Pt denies all symptoms Constitutional: Denies fever, chills, night sweats, weight loss HEENT: Denies headache, dysphagia Skin: Denies any rashes or lesions Pulmonary: Denies dyspnea, cough, wheezing Cardiac: Denies chest pain, palpitations, orthopnea, PND, edema, lightheadedness GI: Denies nausea, vomiting, abdominal pain, diarrhea, constipation, melena, hematochezia : Denies dysuria, hematuria, retention MSK: Denies new pains or weakness Neurologic: Denies new numbness/tingling PHYSICAL: General exam: A&Ox1 with baseline dementia, NAD, resting comfortably HEENT: NCAT, EOMI, neck supple, dry mucous membranes, patent airway Cardiac: RRR, normal S1 & S2, loud 4/6 systolic murmur heard best left sternal border, sternal scar from CABG, 2+ b/l LE edema Respiratory: CTAB, good air exchange, no w/r/r Abdomen: soft, NT, ND, hypoactive bowel sounds : rectal done with staff in room. Diaper soiled with dark melanotic stool. External hemorrhoids present, good sphincter tone, melanotic and dark red stool retrieved, hemoccult strongly positive Extremity: 2+ radial pulses b/l, no calf tenderness Skin: Yoe, warm, dry, no visible rash Msk: strength 4/5 throughout, normal tone & air brush operator strength Neuro: normal speech, follows commands, baseline dementia Psych: Normal mood, flat affect LABORATORY DATA, MICROBIOLOGY: Please see below. ASSESSMENT AND PLAN: This is a 74-yo demented pt of [facility] here for vomiting bright red blood and melanotic stool. Has hx of GI bleeds with no known source, and chronically on ASA 81mg & Plavix for stents for CAD & PVD. Hematemesis and melena -Currently at baseline H&H baseline 9-10 -NGT placed in ER with bright bloody output. Hemeoccult positive with visible melena -Dr. Berumen consulted, appreciate GI input: continue NPO, IV Protonix 40mg bid, NGT to gravity, avoid suction. Hold AC. Transfuse if needed -Verbal consent obtained over the phone by pts HCP son Ifeanyi Mora [[phone]] with staff present. -Will transfuse 1 unit and trend H&H. Concern she may be hemoconcentrated given physical exam and active bleed. CEE on CKD III -base Cr 1.4-1.6, 3.8 on admission -clinically dry on exam. Likely pre-renal 2/2 vol loss -Continue gentle IVF given CHF hx -Mointor vol status. Hold nephrotoxins For the remainder of her chronic medical conditions mentioned above, home meds are resumed, except ASA, Plavix, bowel meds. DVT prophylaxis: mechanical CODE STATUS: MERCEDEZ in chart reveals DNR/DNI. DISPOSITION: admit to hospital. Pending GI eval. Home Medications Scheduled Acetaminophen (Acetaminophen) 500 Mg Tablet, 1,000 MG PO BID, (Reported) Ascorbic Acid (Vitamin C) 500 Mg Capsule, 500 MG PO BID, (Reported) Aspirin (Aspirin) 81 Mg Tab.chew, 81 MG PO QAM, (Reported) Atorvastatin Calcium (Atorvastatin Calcium) 40 Mg Tablet, 40 MG PO QHS, (Reported) Clopidogrel Bisulfate (Plavix) 75 Mg Tablet, 75 MG PO DAILY, (Reported) Diltiazem HCl (Diltiazem 24Hr ER) 120 Mg Cap.sa.24h, 120 MG PO DAILY, (Reported) Donepezil HCl (Aricept) 10 Mg Tablet, 10 MG PO DAILY, (Reported) Ferrous Gluconate (Ferrous Gluconate) 324 Mg Tab, 324 MG PO BID, (Reported) Fluoxetine HCl (Prozac) 40 Mg Cap, 40 MG PO DAILY, (Reported) Furosemide (Lasix) 20 Mg Tablet, 20 MG PO DAILY, (Reported) L.acidoph/L.bulg/B.bif/S.therm (Nelly-Bid Caplet) 1 Each Tablet, 1 TAB PO BID, (Reported) Pantoprazole Sodium (Pantoprazole Sodium) 40 Mg Tablet.dr, 40 MG PO BID, (Reported) Prednisone (Prednisone) 20 Mg Tablet, 20 MG PO DAILY, (Reported) STARTED 06/11/19 FOR 5 DAYS Sodium Bicarbonate (Sodium Bicarbonate) 325 Mg Tablet, 325 MG PO BID, (Reported) Scheduled PRN Acetaminophen (Acetaminophen) 325 Mg Tablet, 325 MG PO Q4H PRN for PAIN, (Reported) Bisacodyl (Bisacodyl) 10 Mg Supp.rect, 10 MG [place] DAILY PRN for CONSTIPATION, (Reported) Bisacodyl (Dulcolax) 10 Mg Supp.rect, 10 MG [place] DAILY PRN for CONSTIPATION, (Reported) Hydrocortisone/Pramoxine (Proctofoam-Hc 1%-1% Foam) 10 Gm Foam, 1 APLCTR [place] QID PRN for HEMORRHOIDS, (Reported) Loperamide HCl (Loperamide) 2 Mg Capsule, 2 MG PO Q6H PRN for DIARRHEA, (Reported) Milk Of Magnesia (Milk of Magnesia) 2,400 Mg/10 Ml Oral.susp, 10 ML PO DAILY PRN for CONSTIPATION, (Reported) Ondansetron HCl (Zofran) 4 Mg Tablet, 4 MG PO BID PRN for NAUSEA OR VOMITING, (Reported) Allergies Coded Allergies: No Known Allergies (Unverified , 04/03/19) A-FIB/CHADSVASC A-FIB History Current/History of A-Fib/PAF?: No Vital Signs Vital Signs Date Time Temp Pulse Resp B/P (MAP) Pulse Ox O2 Delivery O2 Flow Rate FiO2 06/15/19 02:37 96.3 63 18 162/60 95 Room Air 06/14/19 22:45 2.0 Laboratory Data Labs 24H Laboratory Tests 2 06/14/19 19:39: Immature Granulocyte % (Auto) 0.6, Neutrophils (%) (Auto) 90.4H, Lymphocytes (%) (Auto) 4.6L, Monocytes (%) (Auto) 4.3, Eosinophils (%) (Auto) 0.0, Basophils (%) (Auto) 0.1, Neutrophils # (Auto) 13.1H, Lymphocytes # (Auto) 0.7L, Monocytes # (Auto) 0.6, Eosinophils # (Auto) 0.0, Basophils # (Auto) 0.0, Nucleated Red Blood Cells % (auto) 0.0, Prothrombin Time 21.3H, Prothromb Time International Ratio 1.87, Activated Partial Thromboplast Time 36.7, Anion Gap 10, Glomerular Filtration Rate 12.3L, Calcium Level 7.5L, Total Bilirubin 0.7, Direct Bilirubin 0.4H, Aspartate Amino Transf (AST/SGOT) 27, Alanine Aminotransferase (ALT/SGPT) 13, Alkaline Phosphatase 106, Total Creatine Kinase 24L, Creatine Kinase MB < 1.0, Creatine Kinase MB Relative Index 4.17H, Troponin I 0.02, Total Protein 5.9L, Albumin 1.8L, Albumin/Globulin Ratio 0.44L, Lipase 300 CBC/BMP Laboratory Tests 06/14/19 19:39 06/14/19 22:28 Plan / VTE VTE Prophylaxis Ordered?: Yes GME ATTESTATION GME ATTESTATION My faculty preceptor for this patient encounter was physically present during the encounter and was fully available. All aspects of the patient interview, examination, medical decision making process, and medical care plan development were reviewed and approved by the faculty preceptor. The faculty preceptor is aware and concurs with the plan as stated in the body of this note and will attest to such by his/her cosignature. ATTENDING NOTE I, Lucy Rosas, have independently examined this patient and performed my own physical exam, as well as reviewed the documentation and edited where necessary. I have discussed in detail with the resident / student the findings and plan of treatment as documented by the resident / student and edited their note. I agr ee with their findings and treatment plan and have edited their documentation. I will continue to follow the patient during this hospital stay. JAMES SHAFER DO Jun 15, 2019 03:07 LUCY ROSAS MD Jun 15, 2019 04:46
[2019-06-15] MEDS: NS 1,000 ML IV SCH ×2 (04:26→16:05)
[2019-06-15 05:49] LABS: HEMATOCRIT 31.6 % (36.0-47.0); HEMOGLOBIN 10.3 g/dl (12.0-15.5); MEAN CORPUSCULAR HEMOGLOBIN 31.5 pg (27.0-33.0); MEAN CORPUSCULAR HGB CONC 32.6 g/dl (32.0-36.5); MEAN CORPUSCULAR VOLUME 96.6 fl (80.0-96.0); PLATELET COUNT, AUTOMATED 138 10^3/uL (150-450); RED BLOOD COUNT 3.27 10^6/uL (4.00-5.40); WHITE BLOOD COUNT 10.6 10^3/uL (4.0-10.0)
[2019-06-15 06:09] LABS: CALCIUM LEVEL 7.9 MG/DL (8.8-10.2); CREATININE FOR GFR 3.67 MG/DL (0.55-1.30); GLOMERULAR FILTRATION RATE 12.8 (>39); POTASSIUM SERUM 4.9 MEQ/L (3.5-5.1)
[2019-06-15 06:13] LABS: CK-MB VALUE MASS 1.2 NG/ML (<3.6); MB/CK RELATIVE INDEX 4.29 (< OR =4); TROPONIN I 0.02 NG/ML (< 0.10)
[2019-06-15] MEDS: hydrALAZINE 20MG/ML 1ML VIAL (J0360 PER 20MG) IV SCH ×2 (06:58→14:49)
[2019-06-15 08:33] LABS: HEMATOCRIT 32.5 % (36.0-47.0); HEMOGLOBIN 10.6 g/dl (12.0-15.5); MEAN CORPUSCULAR HEMOGLOBIN 31.3 pg (27.0-33.0); MEAN CORPUSCULAR HGB CONC 32.6 g/dl (32.0-36.5); MEAN CORPUSCULAR VOLUME 95.9 fl (80.0-96.0); PLATELET COUNT, AUTOMATED 171 10^3/uL (150-450); RED BLOOD COUNT 3.39 10^6/uL (4.00-5.40)
--- NOTE | 2019-06-15 08:56 | ECGEPIP ---
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
[2019-06-15] MEDS ORDERED: FLUoxetine 20 MG CAP PO SCH (09:00)
[2019-06-15] MEDS ORDERED: DONEPEZIL 5 MG TAB PO SCH (09:00)
[2019-06-15] MEDS: LACTOBACILLUS ACIDOPHILUS CAP (BACID) PO SCH (09:00)
[2019-06-15] MEDS ORDERED: PANTOPRAZOLE 40MG VIAL (C9113 PER 1) IV SCH (09:00)
--- NOTE | 2019-06-15 10:03 | REP ---
ABDOMINAL SERIES: Cross-table and lateral and supine films of the abdomen and pelvis demonstrate no free air and no evidence for bowel obstruction. Scattered vascular calcifications are present. There is a right iliac stent. There are degenerative changes of the spine. An accompanying view of the chest demonstrates a small focal density in the right lung base measuring 2 cm in diameter representing a small infiltrate or nodule. There is mild cardiomegaly. There is calcification and tortuosity of the thoracic aorta. Multiple sternal wires are present. Electronically Signed by Kentrell Hoang MD 06/15/2019 10:12 A
--- NOTE | 2019-06-15 12:15 | REP ---
CT BRAIN WITHOUT CONTRAST: CT brain performed without IV contrast and compared to a prior study of 12/27/2016. There is mild to moderate atrophy. There is no midline shift or mass effect. Patchy chronic periarticular small vessel ischemic changes are seen in the white matter. There is no lacunar infarct in the left basal ganglia. No acute hemorrhage is seen. There is no extra-axial fluid collection. There are vascular calcifications in the carotid siphons. IMPRESSION: Chronic ischemic changes. Atrophy. No acute intracranial hemorrhage or other acute intracranial pathology identified. Electronically Signed by Kentrell Hoang MD 06/15/2019 04:18 P
--- NOTE | 2019-06-15 13:14 | ECGEPIP ---
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
--- NOTE | 2019-06-15 16:19 | REPVR ---
PROCEDURE INFORMATION: Exam: MR Head Without Contrast Exam date and time: 06/15/2019 3:33 PM Age: 74 years old Clinical indication: Alteration of consciousness; Transient alteration of awareness; Patient HX: PT admitted alert and oriented for gi bleed and became AMS. Screener verified with pts son unsure of where iliac stents were placed, oked per Dr. Hoang to scan at this time without op notes. ; Additional info: R/O CVA TECHNIQUE: Imaging protocol: MR of the head without contrast. COMPARISON: MRA BRAIN W/O CONTRAST 06/24/2014 1:30 PM FINDINGS: Limitations: Motion artifact degrades the images. Brain: Moderate chronic microvascular ischemic changes. No acute infarct. Ventricles: Normal. No ventriculomegaly. Bones/joints: Unremarkable. Soft tissues: Unremarkable. Sinuses: Normal as visualized. No acute sinusitis. Mastoid air cells: Normal as visualized. No mastoid effusion. Orbits: Right cataract surgery. IMPRESSION: No acute intracranial abnormality. Chronic microvascular ischemic changes. Electronically signed by: Domingo Solis On 06/15/2019 16:18:48 PM
[2019-06-15 16:47] LABS: BASO % 0.1 % (0.0-1.0); EOS % 0.1 % (0.0-3.0); HEMOGLOBIN 10.8 g/dl (12.0-15.5); LYMPH # 1.2 10^3/uL (1.5-5.0); LYMPH % 8.3 % (24.0-44.0); MEAN CORPUSCULAR HEMOGLOBIN 30.9 pg (27.0-33.0); MEAN CORPUSCULAR HGB CONC 32.7 g/dl (32.0-36.5); MEAN CORPUSCULAR VOLUME 94.6 fl (80.0-96.0); MONO # 1.2 10^3/uL (0.0-0.8); MONO % 8.3 % (0.0-5.0); NEUTROPHILS # 12.2 10^3/uL (1.5-8.5); NEUTROPHILS % 82.5 % (36.0-66.0); PLATELET COUNT, AUTOMATED 178 10^3/uL (150-450); RED BLOOD COUNT 3.49 10^6/uL (4.00-5.40); WHITE BLOOD COUNT 14.8 10^3/uL (4.0-10.0)
[2019-06-15 16:48] LABS: ABG STANDARD HCO3 17.5 MEQ/L (22.0-26.0)
[2019-06-15 16:50] LABS: ABG BASE EXCESS -8.7 (-2.0-2.0); ABG HCO3 12.7 MEQ/L (22.0-26.0); ABG O2 SATURATION 96.9 % (95.0-99.0); ABG PARTIAL PRESSURE CO2 17.6 mmHg (35.0-45.0); ABG PARTIAL PRESSURE O2 83.2 mmHg (75.0-100.0); ABG TOTAL CO2 13.3 MEQ/L (23.0-31.0); ABG pH (ARTERIAL) 7.477 UNITS (7.350-7.450)
[2019-06-15 17:18] LABS: BILIRUBIN,TOTAL 1.1 MG/DL (0.2-1.0); CALCIUM LEVEL 7.8 MG/DL (8.8-10.2); GLOMERULAR FILTRATION RATE 11.6 (>39); POTASSIUM SERUM 4.7 MEQ/L (3.5-5.1); TOTAL PROTEIN 6.6 GM/DL (6.4-8.2); TROPONIN I 0.04 NG/ML (< 0.10)
[2019-06-15] MEDS ORDERED: LORazepam 2 MG/ML VIAL (J2060) IV PRN (18:00)
[2019-06-15] MEDS ORDERED: SCOPOLAMINE 1MG TRANSDERMAL PATCH TOP PRN (18:00)
[2019-06-15] MEDS ORDERED: MORPHINE SULFATE ORAL SOLN 10 MG/5 ML UD SL PRN (18:00)
--- NOTE | 2019-06-15 18:15 | IPNPDOC ---
Date Seen The patient was seen on 06/15/19. Progress Note SUBJECTIVE: The patient had a hypertensive episode at 6 AM for which she was given 20 mg of IV hydralazine for blood pressure systolic which went up to 200 mmHg. Blood pressure improved and there were no noted neurological changes at that time. This morning I was notified by nursing that although patient's vital signs were stable she was very lethargic, would not grasp fingers when instructed and did not seem to show facial droop but difficult to assess due to mental status. I came to see the patient at approximately 10:50 AM, it was noted that her eyes were roving back and forth horizontally, oculocephalic gaze. There was a noted right-sided facial droop. She was not responding to commands, unresponsive to verbal stimuli, responsive to painful stimuli and was GCS 3. Breathing appear to be normal at that time. The patient had no seizure-like movements, no loss of bowel or bladder, no tongue biting and had no seizure history. There was a high suspicion of stroke and the patient was sent to CT of the head STAT. I notified her son, healthcare proxy, Ifeanyi about the change in mental status and about the plan going forward. CT later came back negative; however, the patient was sent to MRI as suspicion was still high. MRI later showed no acute concerning intracranial abnormalities. If this was a newer stroke it may not show up on either imaging. Upon her return from MRI, the patient's breathing was abnormal, similar to Brenda Crocker. All vital signs were stable, she was saturating at 96% on room air ; however, new labs were drawn immediately. Stat chest x-ray showed mild by basilar fibroatelectasis. . ECG showed no change from prior on file. ABG showed pH 7.477, PCO2 17.6, PO2 83.2, bicarbonate 12.7, O2 sat 96.9. Repeat labs were drawn showing lactic acid was elevated at 3.5, white count increased to 14.8, H&H 10.8/33.0 actually improved from earlier, CO2 was 16, cre atinine increased to 4.0 from 3.67 earlier this morning. BUN was high at 75. On examination her pupils were unreactive on the left at 1 mm, her pupil on the right was 2 mm and reactive constricting to 1 mm. The case was discussed with neurology, Dr. Wheat, who stated that the patient may be experiencing hypertensive encephalopathy or metabolic encephalopathy secondary to questionable infection versus acute kidney injury worsening. There also was the possibility that a stroke cannot be ruled out at this time and an MRI could be repeated in another 24 hours. He says that this would essentially means supportive care, waiting to see if the patient would improve and regulation with blood pressure likely with a drip if fluids were needed to be continued. The patient has a updated MOLST form in chart indicating a DNR/DNI status. The patient's son and healthcare proxy was updated again with the information above. Options were presented to the patient's healthcare proxy about treatments 1. T ransfer to ICU, offer supportive care and control blood pressure with drip or 2. make comfort measures. The patient's son opted to make his mother comfortable. All active orders were stopped in the computer and comfort measures only order set was implemented. An updated MOLST form was put in the chart indicating BEHAVIORAL HEALTH COUNSELOR. OBJECTIVE: VITAL SIGNS: Please see below PHYSICAL EXAMINATION: CONSTITUTIONAL: Laying in bed, unresponsive, AAO x 3 EYES: right pupil 2 mm and reactive to light, left pupil 1 mm not reactive to light. EOM not able to be tested. Oculocephalic gaze, pink sclera HENT, MOUTH: NG tube with dried blood around the nares, atraumatic, moist mucous membranes NECK: SUPPLE, no JVD, no lymphadenopathy, no carotid bruit CV: RRR, normal S1 & S2, loud 4/6 systolic murmur heard best left sternal border CHEST: Large, well healed scar vertically located over sternum RESPIRATORY: Brenda Crocker breathing. no rales/rhonchi/wheezes GI: BS positive in 4 quadrants, soft, nontender, nondistended, no rebound or guarding, no organomegaly : Deferred MUSCULOSKELETAL: No cyanosis, clubbing,joint deformity,+2 pitting edema b/l. INTEGUMENTARY: Intact, no rashes, Bruising on left upper thigh and left arm, left knee NEUROLOGIC: oculocephalic gaze, flaccid paralysis of lower and upper ext, plantar upgoing bilateral feet, reflexes upper and lower intact, responded to painful stimuli but not to loud verbal stimuli. GCS 3 CURRENT MEDICATIONS: Please see below LABORATORY DATA: Please see below IMAGING: CXR: mild bb fibroatelectasis CT brain: Chronic ischemic changes. Atrophy. No acute intracranial hemorrhage or other acute intracranial pathology identified. MRI brain: No acute intracranial abnormality. Chronic microvascular ischemic changes. ASSESSMENT: 74 y/o F with worsened AMS, metabolic vs. 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 Worsening altered mental status, evolving CVA vs. metabolic encephalopathy vs. hypertensive encephalopathy. 2. Hypertensive emergency 3. Gastrointestinal bleed 4. Acute kidney injury on CKD Stage III 5. Primary respiratory alkalosis with secondary metabolic acidosis 6. CAD s/p stent and CABG x 4 7. Chronic diastolic CHF 8. Diabetes mellitus type II 9. 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 Her son will be on the way in to see her. Patient is from [facility]. VS, I&O, 24H, Fishbone Vital Signs/I&O Vital Signs Date Time Temp Pulse Resp B/P (MAP) Pulse Ox O2 Delivery O2 Flow Rate FiO2 06/15/19 16:17 97.0 87 18 182/52 (95) 96 06/15/19 11:51 Room Air 06/14/19 22:45 2.0 I&O- Last 24 Hours up to 6 AM 06/15/19 05:59 Intake Total 1483 ml Output Total 0 ml Balance 1483 ml Laboratory Data 24H LABS Laboratory Tests 2 06/14/19 19:39: Immature Granulocyte % (Auto) 0.6, Neutrophils (%) (Auto) 90.4H, Lymphocytes (%) (Auto) 4.6L, Monocytes (%) (Auto) 4.3, Eosinophils (%) (Auto) 0.0, Basophils (%) (Auto) 0.1, Neutrophils # (Auto) 13.1H, Lymphocytes # (Auto) 0.7L, Monocytes # (Auto) 0.6, Eosinophils # (Auto) 0.0, Basophils # (Auto) 0.0, Nucleated Red Blood Cells % (auto) 0.0, Prothrombin Time 21.3H, Prothromb Time International Ratio 1.87, Activated Partial Thromboplast Time 36.7, Anion Gap 10, Glomerular Filtration Rate 12.3L, Calcium Level 7.5L, Total Bilirubin 0.7, Direct Bilirubin 0.4H, Aspartate Amino Transf (AST/SGOT) 27, Alanine Aminotransferase (ALT/SGPT) 13, Alkaline Phosphatase 106, Total Creatine Kinase 24L, Creatine Kinase MB < 1.0, Creatine Kinase MB Relative Index 4.17H, Troponin I 0.02, Total Protein 5.9L, Albumin 1.8L, Albumin/Globulin Ratio 0.44L, Lipase 300 06/15/19 05:32: Nucleated Red Blood Cells % (auto) 0.0, Anion Gap 10, Glomerular Filtration Rate 12.8L, Calcium Level 7.9L, Total Creatine Kinase 28, Creatine Kinase MB 1.2, Creatine Kinase MB Relative Index 4.29H, Troponin I 0.02 06/15/19 08:07: Nucleated Red Blood Cells % (auto) 0.2H 06/15/19 16:36: Blood Gas Bicarbonate Standard 17.5L, Arterial Blood pH 7.477H, Arterial Blood Partial Pressure CO2 17.6*L, Arterial Blood Partial Pressure O2 83.2, Arterial Blood Total CO2 13.3L, Arterial Blood HCO3 12.7L, Arterial Blood Base Excess - 8.7L, Arterial Blood Oxygen Saturation 96.9 06/15/19 16:37: Immature Granulocyte % (Auto) 0.7, Neutrophils (%) (Auto) 82.5H, Lymphocytes (%) (Auto) 8.3L, Monocytes (%) (Auto) 8.3H, Eosinophils (%) (Auto) 0.1, Basophils (%) (Auto) 0.1, Neutrophils # (Auto) 12.2H, Lymphocytes # (Auto) 1.2L, Monocytes # (Auto) 1.2H, Eosinophils # (Auto) 0.0, Basophils # (Auto) 0.0, Nucleated Red Blood Cells % (auto) 0.3H, Anion Gap 10, Glomerular Filtration Rate 11.6L, Lactic Acid Level 3.5*H, Calcium Level 7.8L, Total Bilirubin 1.1#H, Aspartate Amino Transf (AST/SGOT) 31, Alanine Aminotransferase (ALT/SGPT) 16, Alkaline Phosphatase 113, Troponin I 0.04#, Total Protein 6.6, Albumin 2.0L, Albumin/Globulin Ratio 0.43L CBC/BMP Laboratory Tests 06/14/19 19:39 06/14/19 22:28 06/15/19 05:32 06/15/19 08:07 06/15/19 16:37 Current Medications Current Medications Medications (Trade) Dose Ordered Sig/Preet Route PRN Reason Start Time Stop Time Status Last Admin Dose Admin Atorvastatin Calcium (Lipitor) 40 mg QHS PO 06/14/19 21:00 06/15/19 15:42 DC 06/15/19 01:54 Diltiazem HCl (Cardizem Cd) 120 mg DAILY PO 06/15/19 09:00 06/15/19 15:42 DC Donepezil HCl (AriCEPT) 10 mg DAILY PO 06/15/19 09:00 06/15/19 15:42 DC Fluoxetine HCl (PROzac) 40 mg DAILY PO 06/15/19 09:00 06/15/19 15:42 DC Home Med (Med Rec Complete!) ASDIRECTED XX 06/14/19 23:15 06/14/19 23:11 DC Hydralazine HCl (Apresoline) 10 mg Q8H IV 06/15/19 06:00 06/15/19 17:51 DC 06/15/19 14:49 Hydrocortisone/ Pramoxine (Proctofoam-Hc) 1 dose QID PRN [place] HEMORRHOIDS 06/15/19 01:45 06/15/19 17:51 DC Lactobacillus Acidophilus (Bacid) 1 ea BID PO 06/14/19 21:00 06/15/19 15:42 DC Lorazepam (Ativan) 1 mg Q2HP PRN IV ANXIETY 06/15/19 18:00 Morphine Sulfate (Morphine Sulfate Oral Solution) 2 mg Q2HP PRN SL SEVERE PAIN (PS 8-10) 06/15/19 18:00 Pantoprazole Sodium (Protonix) 40 mg BID IV 06/15/19 09:00 06/15/19 17:51 DC 06/15/19 09:55 Scopolamine (Scopolamine) 1 mg Q3DP PRN TOP EXCESSIVE SECRETIONS 06/15/19 18:00 Sodium Bicarbonate (Sodium Bicarbonate) 325 mg BID PO 06/14/19 21:00 06/15/19 15:42 DC Sodium Chloride 1,000 ml @ 75 mls/hr [id number] IV 06/15/19 02:45 06/15/19 17:51 DC 06/15/19 04:26 Allergies Coded Allergies: No Known Allergies (Unverified , 04/03/19) Magali León MD Jun 15, 2019 18:15
--- NOTE | 2019-06-16 07:37 | REP ---
CHEST, SINGLE VIEW: Single view of the chest is performed and compared to a prior exam of 06/14/2019 as well as other prior exams. There is linear fibroatelectatic change in each lung base. No definite acute infiltrate is seen. There is mild cardiomegaly. There is calcification of the thoracic aorta. Mediastinal silhouette is unchanged. A nasogastric tube traverses into the stomach. Electronically Signed by Kentrell Hoang MD 06/16/2019 05:13 P
--- NOTE | 2019-06-16 11:23 | IPNPDOC ---
Date Seen The patient was seen on 06/16/19. Progress Note SUBJECTIVE: Patient's family came to see patient overnight. She was given one dose of ativan last evening. Otherwise, no change neurologically. OBJECTIVE: PHYSICAL EXAMINATION: CONSTITUTIONAL: Laying in bed, unresponsive EYES: right pupil 2 mm and reactive to light, left pupil 2 mm and reactive to light. EOM not able to be tested. Oculocephalic gaze still present at times, pink sclera. No longer opening eyes but keeping them closed HENT, MOUTH: NG tube with dried blood around the nares, atraumatic, moist mucous membranes NECK: SUPPLE, no JVD, no lymphadenopathy, no carotid bruit CV: RRR, normal S1 & S2, loud 4/6 systolic murmur heard best left sternal border CHEST: Large, well healed scar vertically located over sternum RESPIRATORY: Brenda Crocker breathing. no rales/rhonchi/wheezes GI: BS positive in 4 quadrants, soft, nontender, nondistended, no rebound or guarding, no organomegaly : Deferred MUSCULOSKELETAL: No cyanosis, clubbing,joint deformity,+2 pitting edema b/l. INTEGUMENTARY: Intact, no rashes, Bruising on left upper thigh and left arm, left knee NEUROLOGIC: flaccid paralysis of lower and upper ext, plantar upgoing bilateral feet, reflexes upper and lower intact, minimally responding to painful stimuli but not to loud verbal stimuli. GCS 2 CURRENT MEDICATIONS: Please see below ASSESSMENT: 74 y/o F with worsened AMS, metabolic vs. 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 Worsening altered mental status, evolving CVA vs. metabolic encephalopathy vs. hypertensive encephalopathy. 2. Hypertensive emergency 3. Gastrointestinal bleed 4. Acute kidney injury on CKD Stage III 5. Primary respiratory alkalosis with secondary metabolic acidosis 6. CAD s/p stent and CABG x 4 7. Chronic diastolic CHF 8. Diabetes mellitus type II 9. 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 I heard that there may be more family coming to see her today. Possible discharge back to [facility] today or tomorrow. VS, I&O, 24H, Fishbone Vital Signs/I&O Vital Signs Date Time Temp Pulse Resp B/P (MAP) Pulse Ox O2 Delivery O2 Flow Rate FiO2 06/15/19 16:17 97.0 87 18 182/52 (95) 96 06/15/19 11:51 Room Air 06/14/19 22:45 2.0 I&O- Last 24 Hours up to 6 AM 06/16/19 06:00 Intake Total 0 ml Output Total 0 ml Balance 0 ml Laboratory Data 24H LABS Laboratory Tests 2 06/15/19 16:36: Blood Gas Bicarbonate Standard 17.5L, Arterial Blood pH 7.477H, Arterial Blood Partial Pressure CO2 17.6*L, Arterial Blood Partial Pressure O2 83.2, Arterial Blood Total CO2 13.3L, Arterial Blood HCO3 12.7L, Arterial Blood Base Excess - 8.7L, Arterial Blood Oxygen Saturation 96.9 06/15/19 16:37: Immature Granulocyte % (Auto) 0.7, Neutrophils (%) (Auto) 82.5H, Lymphocytes (%) (Auto) 8.3L, Monocytes (%) (Auto) 8.3H, Eosinophils (%) (Auto) 0.1, Basophils (%) (Auto) 0.1, Neutrophils # (Auto) 12.2H, Lymphocytes # (Auto) 1.2L, Monocytes # (Auto) 1.2H, Eosinophils # (Auto) 0.0, Basophils # (Auto) 0.0, Nucleated Red Blood Cells % (auto) 0.3H, Anion Gap 10, Glomerular Filtration Rate 11.6L, Lactic Acid Level 3.5*H, Calcium Level 7.8L, Total Bilirubin 1.1#H, Aspartate Amino Transf (AST/SGOT) 31, Alanine Aminotransferase (ALT/SGPT) 16, Alkaline Phosphatase 113, Troponin I 0.04#, Total Protein 6.6, Albumin 2.0L, Albumin/Globulin Ratio 0.43L CBC/BMP Laboratory Tests 06/15/19 16:37 Current Medications Current Medications Medications (Trade) Dose Ordered Sig/Preet Route PRN Reason Start Time Stop Time Status Last Admin Dose Admin Atorvastatin Calcium (Lipitor) 40 mg QHS PO 06/14/19 21:00 06/15/19 15:42 DC 06/15/19 01:54 Diltiazem HCl (Cardizem Cd) 120 mg DAILY PO 06/15/19 09:00 06/15/19 15:42 DC Donepezil HCl (AriCEPT) 10 mg DAILY PO 06/15/19 09:00 06/15/19 15:42 DC Fluoxetine HCl (PROzac) 40 mg DAILY PO 06/15/19 09:00 06/15/19 15:42 DC Home Med (Med Rec Complete!) ASDIRECTED XX 06/14/19 23:15 06/14/19 23:11 DC Hydralazine HCl (Apresoline) 10 mg Q8H IV 06/15/19 06:00 06/15/19 17:51 DC 06/15/19 14:49 Hydrocortisone/ Pramoxine (Proctofoam-Hc) 1 dose QID PRN [place] HEMORRHOIDS 06/15/19 01:45 06/15/19 17:51 DC Lactobacillus Acidophilus (Bacid) 1 ea BID PO 06/14/19 21:00 06/15/19 15:42 DC Lorazepam (Ativan) 1 mg Q2HP PRN IV ANXIETY 06/15/19 18:00 06/15/19 20:49 Morphine Sulfate (Morphine Sulfate Oral Solution) 2 mg Q2HP PRN SL SEVERE PAIN (PS 8-10) 06/15/19 18:00 Pantoprazole Sodium (Protonix) 40 mg BID IV 06/15/19 09:00 06/15/19 17:51 DC 06/15/19 09:55 Scopolamine (Scopolamine) 1 mg Q3DP PRN TOP EXCESSIVE SECRETIONS 06/15/19 18:00 Sodium Bicarbonate (Sodium Bicarbonate) 325 mg BID PO 06/14/19 21:00 06/15/19 15:42 DC Sodium Chloride 1,000 ml @ 75 mls/hr [id number] IV 06/15/19 02:45 06/15/19 17:51 DC 06/15/19 04:26 Allergies Coded Allergies: No Known Allergies (Unverified , 04/03/19) Magali León MD Jun 16, 2019 11:23
--- NOTE | 2019-06-16 12:12 | ECGEPIP ---
[facility] Test Date: 2019-06-15 Pat Name: ALICIA ADAIR Department: Room: [place] [address] Gender: Female Senior Hr Business Partner: JANELL : 1945 Requested By: Magali Taylor Order Number: [id number] Reading MD: Eddie Medina Measurements Intervals [place] Rate: 87 P: -63 NM: 156 QRS: -12 QRSD: 120 T: 123 QT: 429 QTc: 517 Interpretive Statements SINUS RHYTHM WITH OCCASIONAL SUPRAVENTRICULAR PREMATURE COMPLEXES Prolonged QTc interval Nonspecific ST-T wave abnormalities POSSIBLE ANTERIOR MYOCARDIAL INFARCTION, OF INDETERMINATE AGE INFERIOR MYOCARDIAL INFARCTION, PROBABLY OLD Similar to tracing done 06-15-19 at 0448 Electronically Signed on 06-16-2019 12:11:43 EDT by Eddie Medina
--- NOTE | 2019-06-16 17:00 | CR.PDOC ---
General Date of Consultation: Jun 15, 2019 Referring Provider: Magali León MD Attending Physician: SONJA BEASLEY MD Consultation Primary physician/ hospitalist: -Dr. León Reason for consult: -GI bleeding HPI: 74-year-old female patient with CKD III, DM type II, CAD s/p CABG, prior cardiac stents, peripheral vascular disease s/p stents, dementia was admitted from [facility] for vomiting of blood. GI was consulted for the same. Patient is unable to provide any history due to underlying mental status. P krysten was on ASA 81 mg and plavix for her vascular disease. As per prior records, patient had EGD and colonoscopy in 2018 for similar symptoms and was noted to have Gastritis and duodenitis. OFF note: Patient labs since hospitalization showed stable hemoglobin and hematocrit and iis at her baseline. Patient was also noted to have new onset fo sonia weakness and is being managed for possible CVA. Due to patient comorbidities after reviewing all the options with patient's next of kin patient was put under MATERIALS DIRECTOR measures only. Pertinent negative GI symptoms: Patient did not have fever, recent travel, abdominal pain. Patient is noted to have regular bowel movements. Review of Systems: Limited due to patient mental status. Home medications: reviewed. Antithrombotic agents: - ASA 81 mg and Plavix. Medical h/o: As above. Surgical h/o: None on abdomen. Social h/o: Alcohol:- No , smoking: No , IVDA/ drugs: No. Family h/o of GI cancers - None Prior Endoscopies: --- EGD: - in 2018 -done for hematemesis-- showed gastritis and duodenitis, no active bleeding. --- Colonoscopy: - in 2018-- noted colon polyp and hemorrhoids. Prior GI evaluations: - As above. Exam: Vitals: reviewed General: Alert and oriented x 0 and not responseive to verbal stimuli. HEENT: Mild pallor, no icterus. Normal oropharynx, NO cervical lymph nodes. Chest: symmetric with bilateral clear air entry, CVS: S1, S2 heard, normal, no murmurs . Abdomen: non-distended, soft, non-tender, no palpable masses, normal bowel sounds heard. Rectal exam: Patient refused / Deferred at this time in view of scheduled colonoscopy. Extremities: no pedal edema, pulses palpable. 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 Moves all extremities Skin: no rash. Labs: reviewed. Impression: - Episode of hematemsis in patient with ASA and plavix and steroids -- with prio r EGD in 2018 showed Gastritis and duodinitis. DDx-- likely PUD vs gastritis vs less likely AVMs. S/p NG lavage - clear lavage. Likely resolved. No active bleeding. - Change in neurological status and as per discsusion with next of kin patient is currently on palliative/ comfort measures only. Recommendations: - As hemoglobin and hematocrit is stable, to minimize the number of blood draws. - Consider IV protonix 40 mg twice dialy for atleast 24 - 48 hours and then swi tch oral 40 mg twice dialy for course of 8 weeks and then taper as tolerated. - As currently patient does not have active GI bleeding, to consider risks and benefits of resuming Aspirin and plavix. - As per the patient's next of kin, decision about comfort measures only, will not plan for any endosocpic tests at this time. - Recall GI if any change in status. Plan of care discussed with patient and primary team. Patient verbalized understanding and agreed with the plan. Vital Signs/I&O Vital Signs Date Time Temp Pulse Resp B/P (MAP) Pulse Ox O2 Delivery O2 Flow Rate FiO2 06/15/19 16:17 97.0 87 18 182/52 (95) 96 06/15/19 11:51 Room Air 06/14/19 22:45 2.0 I&O- Last 24 Hours up to 6 AM 06/16/19 05:59 Intake Total 150 ml Output Total 0 ml Balance 150 ml Allergies Coded Allergies: No Known Allergies (Unverified , 04/03/19) Home Medications Scheduled Acetaminophen (Acetaminophen) 500 Mg Tablet, 1,000 MG PO BID, (Reported) Ascorbic Acid (Vitamin C) 500 Mg Capsule, 500 MG PO BID, (Reported) Aspirin (Aspirin) 81 Mg Tab.chew, 81 MG PO QAM, (Reported) Atorvastatin Calcium (Atorvastatin Calcium) 40 Mg Tablet, 40 MG PO QHS, (Reported) Clopidogrel Bisulfate (Plavix) 75 Mg Tablet, 75 MG PO DAILY, (Reported) Diltiazem HCl (Diltiazem 24Hr ER) 120 Mg Cap.sa.24h, 120 MG PO DAILY, (Reported) Donepezil HCl (Aricept) 10 Mg Tablet, 10 MG PO DAILY, (Reported) Ferrous Gluconate (Ferrous Gluconate) 324 Mg Tab, 324 MG PO BID, (Reported) Fluoxetine HCl (Prozac) 40 Mg Cap, 40 MG PO DAILY, (Reported) Furosemide (Lasix) 20 Mg Tablet, 20 MG PO DAILY, (Reported) L.acidoph/L.bulg/B.bif/S.therm (Nelly-Bid Caplet) 1 Each Tablet, 1 TAB PO BID, (Reported) Pantoprazole Sodium (Pantoprazole Sodium) 40 Mg Tablet.dr, 40 MG PO BID, (Reported) Prednisone (Prednisone) 20 Mg Tablet, 20 MG PO DAILY, (Reported) STARTED 06/11/19 FOR 5 DAYS Sodium Bicarbonate (Sodium Bicarbonate) 325 Mg Tablet, 325 MG PO BID, (Reported) Scheduled PRN Acetaminophen (Acetaminophen) 325 Mg Tablet, 325 MG PO Q4H PRN for PAIN, (Reported) Bisacodyl (Bisacodyl) 10 Mg Supp.rect, 10 MG MD DAILY PRN for CONSTIPATION, (Reported) Bisacodyl (Dulcolax) 10 Mg Supp.rect, 10 MG MD DAILY PRN for CONSTIPATION, (Reported) Hydrocortisone/Pramoxine (Proctofoam-Hc 1%-1% Foam) 10 Gm Foam, 1 APLCTR MD QID PRN for HEMORRHOIDS, (Reported) Loperamide HCl (Loperamide) 2 Mg Capsule, 2 MG PO Q6H PRN for DIARRHEA, (Reported) Milk Of Magnesia (Milk of Magnesia) 2,400 Mg/10 Ml Oral.susp, 10 ML PO DAILY PRN for CONSTIPATION, (Reported) Ondansetron HCl (Zofran) 4 Mg Tablet, 4 MG PO BID PRN for NAUSEA OR VOMITING, (Reported) SONJA BEASLEY MD Jun 16, 2019 17:00
--- NOTE | 2019-06-17 16:25 | DS.PDOC ---
Discharge Summary General Date of Admission Jun 14, 2019 at 21:51 Date of Discharge 06/17/19 Attending Physician: Magali León MD Discharge Summary THIS IS A SUMMARY HISTORY OF PRESENT ILLNESS: This is a 74-year-old female patient of [facility] brought in for vomiting bright red blood. She is a poor historian with baseline dementia unable to provide any history. Information is obtained through chart and staff. She has history of multiple GI bleeds in the past, source unclear. She is chronically on ASA 81 mg & Plavix for hx of PVD & CAD with stents. Last scopes on file are from 03/2017, also for hematemesis & melena. EGD found gastritis, duodenitis; colonoscospy found no source of bleed, only internal hemorrhoids and polyp. In the ER, she was noted to be resting comfortably with bright red blood out of her NG tube, about 50-100cc in the canister. Her Hgb is noted to be at 9.2, baseline appears 9-10. Rectal exam revealed loose stool in diaper with dark melanotic stool with trace bright blood mixed in, and hemoccult strongly positive for blood. Pt will be admitted for further w/u and tx. HOSPITAL COURSE: During the first several hours of her hospitalization, the patient's blood pressure remained stable. The patient had a hypertensive episode at 6 AM on 06/15/19 for which she was given 20 mg of IV hydralazine for blood pressure systolic which went up to 200 mmHg. Blood pressure improved and there were no noted neurological changes at that time. This morning I was notified by nursing that although patient's vital signs were stable she was very lethargic, would not grasp fingers when instructed and did not seem to show facial droop but difficult to assess due to mental status. I came to see the patient at approximately 10:50 AM, it was noted that her eyes were roving back and forth horizontally, oculocephalic gaze. There was a noted right-sided facial droop. She was not responding to commands, unresponsive to verbal stimuli, responsive to painful stimuli and was GCS 3. Breathing appear to be normal at that time. The patient had no seizure-like movements, no loss of bowel or bladder, no tongue biting and had no seizure history. There was a high suspicion of stroke and the patient was sent to CT of the head STAT. I notified her son, healthcare proxy, Ifeanyi about the change in mental status and about the plan going forward. CT later came back negative; however, the patient was sent to MRI as suspicion was still high. MRI later showed no acute concerning intracranial abnormalities. If this was a newer stroke it may not show up on either imaging. Upon her return from MRI, the patient's breathing was abnormal, similar to Brenda Crocker. All vital signs were stable, she was saturating at 96% on room air ; however, new labs were drawn immediately. Stat chest x-ray showed mild by basilar fibroatelectasis. . ECG showed no change from prior on file. ABG showed pH 7.477 , PCO2 17.6, PO2 83.2, bicarbonate 12.7, O2 sat 96.9. Repeat labs were drawn showing lactic acid was elevated at 3.5, white count increased to 14.8, H&H 10.8/33.0 actually improved from earlier, CO2 was 16, creatinine increased to 4.0 from 3.67 earlier this morning. BUN was high at 75. On examination her pupils were unreactive on the left at 1 mm, her pupil on the right was 2 mm and reactive constricting to 1 mm. The case was discussed with neurology, Dr. Wheat, who stated that the patient may be experiencing hypertensive encephalopathy or metabolic encephalopathy secondary to questionable infection versus acute kidney injury worsening. There also was the possibility that a stroke cannot be ruled out at this time and an MRI could be repeated in another 24 hours. He says that this would essentially means supportive care, waiting to see if the patient would improve and regulation with blood pressure likely with a drip if fluids were needed to be continued. The patient has a updated MOLST form in chart indicating a DNR/DNI status. The patient's son and healthcare proxy was updated again with the information above. Options were presented to the patient's healthcare proxy about treatments 1. Transfer to ICU, offer supportive care and control blood pressure with drip or 2. make comfort measures. The patient's son opted to make his mother comfortable. All active orders were stopped in the computer and comfort measures only order set was implemented. An updated MOLST form was put in the chart indicating RECORD CUTTER. Patient was placed on morphine, ativan and scopalamine for comfort. On 06/17/19 at 12:08 AM, time of was called on patient. Family was made aware. PMH: CKD III Dementia CAD s/p stent & CABG x4 Iron deficiency anemia Depression GERD HTN with HTN heart disease, severe LVH Chronic diastolic CHF NIDDM 2 not on meds GI bleeds Carotid stenosis Dyslipidemia AAA Chronic leukopenia Peripheral vascular disease s/p stent Past Surgical Hx: Colonoscopy Tonsillectomy with adenoidectomy CABG x4 & stent in LAD 2014 Bioprosthetic Aortic valve 2014 Recombinant iliac artery stent 2009 Family Hx: Mother with diabetes mellitus and thyroid disease hypertension Social Hx: Lives at [facility] Unable to obtain any further information given patients dementia PHYSICAL EXAMINATION: CONSTITUTIONAL: Unresponsive EYES: Pupils fixed and dilated. CV: asystolic GI: BS positive in 4 quadrants, soft, nontender, nondistended, no rebound or guarding, no organomegaly : Deferred MUSCULOSKELETAL: No cyanosis, clubbing,joint deformity,+2 pitting edema b/l. INTEGUMENTARY: Intact, no rashes, Bruising on left upper thigh and left arm, left knee NEUROLOGIC: Pupils fixed and dilated, no response to painful or loud verbal stimuli CURRENT MEDICATIONS: Please see below LABORATORY DATA: Please see below IMAGING: CXR: mild bb fibroatelectasis CT brain: Chronic ischemic changes. Atrophy. No acute intracranial hemorrhage or other acute intracranial pathology identified. MRI brain: No acute intracranial abnormality. Chronic microvascular ischemic changes. Diagnoses: 1. Worsening altered mental status, CVA vs. metabolic encephalopathy vs. hypertensive encephalopathy. 2. Hypertensive emergency 3. Gastrointestinal bleed 4. Acute kidney injury on CKD Stage III 5. Primary respiratory alkalosis with secondary metabolic acidosis 6. CAD s/p stent and CABG x 4 7. Chronic diastolic CHF 8. Diabetes mellitus type II 9. Dementia Vital Signs/I&Os Vital Signs Date Time Temp Pulse Resp B/P (MAP) Pulse Ox O2 Delivery O2 Flow Rate FiO2 06/15/19 16:17 97.0 87 18 182/52 (95) 96 06/15/19 11:51 Room Air 06/14/19 22:45 2.0 I&O- Last 24 Hours up to 6 AM 06/17/19 06:00 Intake Total 0 ml Output Total 0 ml Balance 0 ml Laboratory Data Labs 24H Laboratory Tests 2 06/17/19 15:23: Lab Scanned Report Transfusion Record Discharge Medications Scheduled Acetaminophen (Acetaminophen) 500 Mg Tablet, 1,000 MG PO BID, (Reported) Ascorbic Acid (Vitamin C) 500 Mg Capsule, 500 MG PO BID, (Reported) Aspirin (Aspirin) 81 Mg Tab.chew, 81 MG PO QAM, (Reported) Atorvastatin Calcium (Atorvastatin Calcium) 40 Mg Tablet, 40 MG PO QHS, (Reported) Clopidogrel Bisulfate (Plavix) 75 Mg Tablet, 75 MG PO DAILY, (Reported) Diltiazem HCl (Diltiazem 24Hr ER) 120 Mg Cap.sa.24h, 120 MG PO DAILY, (Reported) Donepezil HCl (Aricept) 10 Mg Tablet, 10 MG PO DAILY, (Reported) Ferrous Gluconate (Ferrous Gluconate) 324 Mg Tab, 324 MG PO BID, (Reported) Fluoxetine HCl (Prozac) 40 Mg Cap, 40 MG PO DAILY, (Reported) Furosemide (Lasix) 20 Mg Tablet, 20 MG PO DAILY, (Reported) L.acidoph/L.bulg/B.bif/S.therm (Nelly-Bid Caplet) 1 Each Tablet, 1 TAB PO BID, (Reported) Pantoprazole Sodium (Pantoprazole Sodium) 40 Mg Tablet.dr, 40 MG PO BID, (R eported) Prednisone (Prednisone) 20 Mg Tablet, 20 MG PO DAILY, (Reported) STARTED 06/11/19 FOR 5 DAYS Sodium Bicarbonate (Sodium Bicarbonate) 325 Mg Tablet, 325 MG PO BID, (Reported) Scheduled PRN Acetaminophen (Acetaminophen) 325 Mg Tablet, 325 MG PO Q4H PRN for PAIN, (R eported) Bisacodyl (Bisacodyl) 10 Mg Supp.rect, 10 MG MT DAILY PRN for CONSTIPATION, (Reported) Bisacodyl (Dulcolax) 10 Mg Supp.rect, 10 MG MT DAILY PRN for CONSTIPATION, (Reported) Hydrocortisone/Pramoxine (Proctofoam-Hc 1%-1% Foam) 10 Gm Foam, 1 APLCTR MT QID PRN for HEMORRHOIDS, (Reported) Loperamide HCl (Loperamide) 2 Mg Capsule, 2 MG PO Q6H PRN for DIARRHEA, (Reported) Milk Of Magnesia (Milk of Magnesia) 2,400 Mg/10 Ml Oral.susp, 10 ML PO DAILY PRN for CONSTIPATION, (Reported) Ondansetron HCl (Zofran) 4 Mg Tablet, 4 MG PO BID PRN for NAUSEA OR VOMITING, (Reported) Allergies Coded Allergies: No Known Allergies (Unverified , 04/03/19) Magali León MD Jun 17, 2019 16:25
== END 2019-06-17 01:25 | disposition expired | DRG 377 ==
LOC: M ED 19:10 → M ED INP 21:51 → ENRESERVTM 22:39 → ENRESERVDT 22:39 → M PCU 23:10
PROVIDERS: ADMIT Internal Medicine; ATTEND Internal Medicine
PROC: 30233N1 Transfusion of Nonautologous Red Blood Cells into Peripheral Vein, Percutaneous Approach (ICD-10-PCS; principal; 2019-06-15)
DX: K92.0 Hematemesis (principal); G93.41 Metabolic encephalopathy; I63.9 Cerebral infarction, unspecified; N17.9 Acute kidney failure, unspecified; I13.0 Hypertensive heart and chronic kidney disease with heart failure and stage 1 through stage 4 chronic kidney disease, or unspecified chronic kidney disease; I50.32 Chronic diastolic (congestive) heart failure; I67.4 Hypertensive encephalopathy; I16.1 Hypertensive emergency; E87.3 Alkalosis; E87.2 Acidosis; N18.3 Chronic kidney disease, stage 3 (moderate); E11.9 Type 2 diabetes mellitus without complications; F03.90 Unspecified dementia, unspecified severity, without behavioral disturbance, psychotic disturbance, mood disturbance, and anxiety; I25.10 Atherosclerotic heart disease of native coronary artery without angina pectoris; Z95.2 Presence of prosthetic heart valve; Z95.1 Presence of aortocoronary bypass graft; Z79.899 Other long term (current) drug therapy; Z79.82 Long term (current) use of aspirin; D50.9 Iron deficiency anemia, unspecified; E78.5 Hyperlipidemia, unspecified; K21.9 Gastro-esophageal reflux disease without esophagitis; F32.9 Major depressive disorder, single episode, unspecified; I71.4 Abdominal aortic aneurysm, without rupture; K92.1 Melena; Z51.5 Encounter for palliative care